=== PATIENT | female | born 1960 | race Caucasian/White ===

== ENCOUNTER → 2017-07-23 14:45 | Outpatient (CLI) | payer OTHER, SELFPAY ==
[2017-07-23 17:01] LABS: Absolute Lymphocyte Count 1.48 X10^3/ul (0.83-4.51); Absolute Neutrophil Count 4.6 X10^3/uL (2.0-7.7); Basophil# 0.03 X10^3/uL; Basophil% 0.4 % (0-1); Eosinophil# 0.26 X10^3/uL; Eosinophils% 3.7 % (0-5); Hematocrit 43.5 % (37-47); Hemoglobin 14.6 g/dl (12.0-15.0); Lymphocyte # 1.48 X10^3/ul (4.0); Lymphocyte % 21.2 % (19-41); Mean Corp Hgb Conc 33.6 g/gl (32-36); Mean Corpuscular Hgb 28.9 pg (27.0-32.0); Mean Platelet Vol. 11.5 fl (6.2-12.0); Monocyte# 0.65 X10^3/uL; Monocyte% 9.3 % (0-10); Neutrophil # 4.55 X10^3/uL (2.7-7.7); Neutrophil % 65.3 % (47-70); POSITIVE COUNT NO; POSITIVE DIFFERENTIAL NO; POSITIVE MORPHOLOGY NO; Platelet Count 281 K/mm3 (150-450); RBC Distribution Width CV 13.9 % (11.6-14.6); RBC Distribution Width SD 43.7 fl (35.1-43.9); Red Blood Count 5.06 M/mm3 (4.2-5.4)
[2017-07-23 17:20] LABS: ALB/GLOB Ratio 0.9 RATIO (0.9-2.4); AST(SGOT) 39 U/L (15-37); Alanine Aminotransfer ALT/SGPT 27 U/L (13-56); Albumin, Serum 3.5 g/dL (3.2-5.0); Alkaline Phosphatase 87 U/L (45-117); Anion Gap 8 (5-15); BUN 17 mg/dL (7-18); BUN/Creat Ratio 12.8 RATIO (10-20); Calcium,Total 9.3 mg/dL (8.5-10.1); Chloride 100 mmol/L (98-107); Creatinine, Serum 1.33 mg/dL (0.55-1.02); EST Glomerular Filtration Rate 44 mL/min (>60); Est Glom Filt Rate - Afr Amer 53 mL/min (>60); Globulin 3.8 g/dL (2.2-4.2); Glucose 107 mg/dL (74-106); Lipase 135 U/L (73-393); Potassium 3.5 mmol/L (3.5-5.1); Protein, Total 7.3 g/dL (6.4-8.2); Sodium Level 138 mmol/L (136-145)
== END ==
PROVIDERS: Family Provider Family Medicine; PCP Family Medicine; Visit Provider Family Medicine
DX: R10.9 Unspecified abdominal pain (principal); R11.2 Nausea with vomiting, unspecified
CPT/HCPCS: 36415; 80053; 83690; 85025

== ENCOUNTER → 2017-08-02 07:11 | Outpatient (CLI) | payer OTHER, SELFPAY ==
--- NOTE | 2017-08-02 07:18 | CT_ITS ---
STUDY: CT ABDOMEN AND PELVIS WITH CONTRAST REASON FOR EXAM: Female, 56 years old. Nausea and vomiting. Prior cholecystectomy. RADIATION DOSAGE (If Supplied By Facility): CTDIvol = ( 18.74 ) mGy, DLP = ( 1399.08 ) mGycm TECHNIQUE: Transaxial images were obtained from the dome of the diaphragm to the symphysis pubis with oral contrast. 100 ml of Isovue 300 contrast was administered. Sagittal and coronal images were reconstructed. Individualized dose optimization techniques were used for this CT. COMPARISON: September 14, 2015 FINDINGS: The visualized lung bases are unremarkable. The visualized portions of the heart are within normal limits. Shrunken and nodular appearance of the liver suggests cirrhosis. Moderate ascites fluid noted throughout the abdomen and pelvis. There are surgical clips in the gallbladder fossa consistent with a prior cholecystectomy. There is mild splenomegaly. Normal pancreas. Normal bilateral adrenal glands. Normal right kidney. Normal left kidney. Normal visualized stomach. Normal small intestine. There are multiple colonic diverticula consistent with diverticulosis. There is non-visualization of the appendix. Normal abdominal aorta. Normal inferior vena cava. Normal retroperitoneum. Urinary bladder is not clearly seen. There is absence of the uterus consistent with a prior hysterectomy. Fluid containing umbilical hernia. There are diffuse degenerative changes of the visualized lumbar spine. CT/Abdomen/Pelvis WITH Contrast IMPRESSION: Somewhat nodular and shrunken appearance of the liver suggests liver cirrhosis. This is new since the prior exam as well as development of moderate ascites fluid throughout the abdomen and pelvis. No evidence of small or large bowel obstruction. Lung bases are clear. Electronically Signed: Abimael Perez DO at 8:23 EDT Tel , Service support ,
== END ==
PROVIDERS: Family Provider Family Medicine; PCP Family Medicine; Visit Provider Family Medicine
DX: K59.00 Constipation, unspecified (principal); R18.8 Other ascites; R10.9 Unspecified abdominal pain; R11.2 Nausea with vomiting, unspecified; R63.4 Abnormal weight loss
CPT/HCPCS: 74177; Q9967

== ENCOUNTER → 2017-10-17 10:55 | Outpatient (CLI) | payer OTHER, SELFPAY ==
--- NOTE | 2017-10-17 10:55 | DT_ITS ---
This patient was seen during an EMR downtime October 14, 2017 - October 21, 2017. This patient may have a combination of paper and electronic documentation or all paper documentation. All documentation is viewable within the e-chart portion of [employer] for each patient visit.
[2017-10-22 02:08] LABS: BUN 16 mg/dL (7-18); BUN/Creat Ratio 14.4 RATIO (10-20); Calcium,Total 9.1 mg/dL (8.5-10.1); Creatinine, Serum 1.11 mg/dL (0.55-1.02); EST Glomerular Filtration Rate 54 mL/min (>60); Est Glom Filt Rate - Afr Amer 65 mL/min (>60); Potassium 4.1 mmol/L (3.5-5.1); Sodium Level 143 mmol/L (136-145)
[2017-10-22 02:09] LABS: Anion Gap 10 (5-15); Chloride 105 mmol/L (98-107); Glucose 116 mg/dL (74-106)
== END ==
PROVIDERS: Family Provider Family Medicine; PCP Family Medicine; Visit Provider Family Medicine
DX: R18.8 Other ascites (principal)
CPT/HCPCS: 36415; 80048

== ENCOUNTER → 2017-10-21 08:19 | Outpatient (CLI) | payer OTHER, SELFPAY ==
--- NOTE | 2017-10-21 08:19 | DT_ITS ---
This patient was seen during an EMR downtime October 14, 2017 - October 21, 2017. This patient may have a combination of paper and electronic documentation or all paper documentation. All documentation is viewable within the e-chart portion of [facility] for each patient visit.
--- NOTE | 2017-10-21 08:22 | BI_ITS ---
MAMMOGRAPHY - BILATERAL SCREENING REASON FOR EXAM: Female, 57 years old. Routine annual screening examination. PERTINENT HISTORY: Personal history of breast cancer. Prior left lumpectomy with radiation treatment. TECHNIQUE: Digital bilateral breast elias (3D mammographic acquisition) in the CC and MLO projections. 2-D mediolateral oblique (MLO) and craniocaudad (CC) views of both breasts were obtained. CAD: Full Field Digital Mammography with Computer Added Detection was performed. COMPARISON: Comparison is made with prior study dated October 18, 2016 and October 18, 2015. FINDINGS: Breast Composition: There are scattered areas of fibroglandular density. There are no dominant masses or suspicious calcifications. The patient is status post left lumpectomy with resultant architectural distortion and the upper outer quadrant left breast. Stable calcified nodule in the superior retroareolar region of the left breast. A tissue clip marker is once again seen in the upper outer quadrant of the right breast. No other significant abnormalities are identified. There has been no significant change since the prior study. BI/SCREENING MAMM (CAD), BILAT IMPRESSION: Stable bilateral screening mammogram. Yearly follow-up mammogram recommended. (A) ASSESSMENT CATEGORY: BIRADS Category 2: Benign. A letter regarding these results will be sent to the patient by the facility within 30 days. Approximately 10% of breast cancers are not detected by mammography. A normal mammogram should not delay biopsy of a clinically suspicious abnormality. [id number] Electronically Signed: Kannan Pennington MD at 8:01 EDT Tel [phone], Service support ,
== END ==
PROVIDERS: Family Provider Family Medicine; PCP Family Medicine; Visit Provider Nurse Practitioner
DX: Z12.31 Encounter for screening mammogram for malignant neoplasm of breast (principal); Z85.3 Personal history of malignant neoplasm of breast
CPT/HCPCS: 77063; 77067

== ENCOUNTER 2018-01-21 13:42 | Emergency (ER) | payer OTHER, SELFPAY ==
[2018-01-21 13:43] VITALS: BP 119/85; PULSE 75; RESP 16; TEMP 36.2; O2SAT 100; BMI 36.1
--- NOTE | 2018-01-21 14:09 | CT_ITS ---
STUDY: CT ABDOMEN AND PELVIS WITH CONTRAST REASON FOR EXAM: Female, 57 years old. Upper quadrant pain. Recent paracentesis. The patient has a history of cirrhosis as well as breast carcinoma with lumpectomy and radiation treatment. RADIATION DOSAGE (If Supplied By Facility): CTDIvol = ( 16.87 ) mGy, DLP = ( 1320.49 ) mGycm TECHNIQUE: Transaxial images were obtained from the dome of the diaphragm to the symphysis pubis without oral contrast. 100 ml of Isovue 300 contrast was administered. Sagittal and coronal images were reconstructed. Individualized dose optimization techniques were used for this CT. COMPARISON: Comparison is made with prior examination dated August 02, 2017. FINDINGS: The visualized lung bases are unremarkable. Coronary artery calcification. Diffuse ascites. There is decreased attenuation of the liver consistent with steatosis. The patient is status post cholecystectomy. Borderline splenomegaly. Normal pancreas. Normal bilateral adrenal glands. Normal right kidney. Normal left kidney. Normal visualized stomach. Normal small intestine. Normal colon. The appendix is visualized and appears normal. Normal abdominal aorta. Normal inferior vena cava. Normal retroperitoneum. Normal urinary bladder. There is evidence of an umbilical hernia containing a nondistended small bowel loop at this time. The neck of the hernia measures 2.8 cm. Normal osseous structures. CT/Abdomen/Pelvis W IV Cont ONLY IMPRESSION: Diffuse ascites. Umbilical hernia containing nondistended small bowel loop at this time with the neck of the hernia measuring 2.8 cm in transverse dimension. Electronically Signed: Kannan Pennington MD at 15:19 EDT Tel [phone], Service support ,
--- NOTE | 2018-01-21 14:10 | ED.VISSUMM ---
- ER Visit Summary Date of Service: 01/21/18 Chief Complaint: Abdominal pain History of Present Illness: The patient is a 57 F past medical history of diet-controlled diabetes, nonalcoholic liver cirrhosis and paracentesis. States that she had an abdominal paracentesis done today at the [facility] this was around 9 AM. Around 11 AM after eating breakfast or getting moderate upper quadrant abdominal pain. No fever. Nausea without vomiting. No diarrhea or melena. No dysuria. States she felt fine prior to having the abdominal paracentesis. She has had these multiple times and denies ever having this type of pain. Physical Examination: Middle-aged female complaining of pain vital signs are stable afebrile. H EENT exam unremarkable. Neck nontender. Lungs clear to auscultation bilaterally. Heart regular rhythm no murmur. Abdomen soft. Mild tenderness in the left upper quadrant epigastric region. Nondistended. Normal bowel sounds. No peritoneal signs. Both the right upper and right lower quadrants are unremarkable. Also has a umbilical hernia that is tender. It may be incarcerated. At this time I am unable to reduce it. No signs of obstruction. She is moving all 4 extremities. The neurovascular intact. Neurologically she is awake and alert with no focal motor deficits. Test Results: CBC normal. Chemistries unremarkable. Normal creatinine and gap. Liver enzymes unremarkable alk phos is elevated 138. Lipase normal. UA normal. Pelvis with IV contrast shows ascites which is her baseline. And umbilical hernia. There are no signs of perforation. Emergency Department Course and Treatment: Treated with IV morphine and Zofran. CT of the abdomen and pelvis will be obtained with labs. Treatment Plan: Repeat exam at 1625 patient still has tenderness over the umbilical hernia which I am unable to reduce. I am going to speak to the surgeon construction skills teacher who is Dr. Garibay the patient is seen her partner in the past Dr. Santiago. She will needed to determine if the patient needs to go directly to surgery for umbilical hernia repair. Disposition: Per general surgery Impression: Acute abdominal pain secondary to incarcerated abdominal hernia Status post abdominal paracentesis for known nonalcoholic liver cirrhosis This note was generated with [employer] dictation software. It may contain incorrect words, spelling, and punctuation that were not noted in review of the chart prior to signing ED Disposition - Plan for ED Patient: Chief Complaint: Abd Pain Referrals: Elias Rodriguez MD [Primary Care Provider] -
--- NOTE | 2018-01-21 14:13 | ED.DCSUM_ITS ---
- ER Visit Summary Date of Service: 01/21/18 Chief Complaint: Abdominal pain History of Present Illness: The patient is a 57 F past medical history of diet- controlled diabetes, nonalcoholic liver cirrhosis and paracentesis. States that she had an abdominal paracentesis done today at the [facility] this was around 9 AM. Around 11 AM after eating breakfast or getting moderate upper quadrant abdominal pain. No fever. Nausea without vomiting. No diarrhea or melena. No dysuria. States she felt fine prior to having the abdominal paracentesis. She has had these multiple times and denies ever having this type of pain. Physical Examination: Middle-aged female complaining of pain vital signs are stable afebrile. H EENT exam unremarkable. Neck nontender. Lungs clear to auscultation bilaterally. Heart regular rhythm no murmur. Abdomen soft. Mild tenderness in the left upper quadrant epigastric region. Nondistended. Normal bowel sounds. No peritoneal signs. Both the right upper and right lower quadrants are unremarkable. Also has a umbilical hernia that is tender. It may be incarcerated. At this time I am unable to reduce it. No signs of obstruction. She is moving all 4 extremities. The neurovascular intact. Neurologically she is awake and alert with no focal motor deficits. Test Results: CBC normal. Chemistries unremarkable. Normal creatinine and gap. Liver enzymes unremarkable alk phos is elevated 138. Lipase normal. UA normal. Pelvis with IV contrast shows ascites which is her baseline. And umbilical hernia. There are no signs of perforation. Emergency Department Course and Treatment: Treated with IV morphine and Zofran. CT of the abdomen and pelvis will be obtained with labs. Treatment Plan: Repeat exam at 1625 patient still has tenderness over the umbilical hernia which I am unable to reduce. I am going to speak to the surgeon national sales representative who is Dr. Garibay the patient is seen her partner in the past Dr. Santiago. She will needed to determine if the patient needs to go directly to surgery for umbilical hernia repair. Disposition: Per general surgery Impression: Acute abdominal pain secondary to incarcerated abdominal hernia Status post abdominal paracentesis for known nonalcoholic liver cirrhosis This note was generated with [employer] dictation software. It may contain incorrect words, spelling, and punctuation that were not noted in review of the chart prior to signing ED Disposition - Plan for ED Patient: Chief Complaint: Abd Pain Referrals: Elias Rodriguez MD [Primary Care Provider] -
[2018-01-21] MEDS: Morphine 4 MG/ML Syringe 6 MG IV (14:31)
[2018-01-21] MEDS: Ondansetron 4 MG/2 ML Vial IV ×3 (14:31→21:51)
[2018-01-21 14:34] LABS: Absolute Lymphocyte Count 0.88 X10^3/ul (0.83-4.51); Absolute Neutrophil Count 4.8 X10^3/uL (2.0-7.7); Basophil# 0.02 X10^3/uL; Basophil% 0.3 % (0-1); Eosinophil# 0.23 X10^3/uL; Eosinophils% 3.6 % (0-5); Hemoglobin 15.6 g/dl (12.0-15.0); Lymphocyte # 0.88 X10^3/ul (4.0); Lymphocyte % 13.8 % (19-41); Mean Corp Hgb Conc 33.9 g/gl (32-36); Mean Corpuscular Hgb 29.3 pg (27.0-32.0); Mean Corpuscular Volume 86.3 fL (81-99); Mean Platelet Vol. 9.8 fl (6.2-12.0); Monocyte# 0.38 X10^3/uL; Neutrophil # 4.84 X10^3/uL (2.7-7.7); Neutrophil % 76.1 % (47-70); Platelet Count 203 K/mm3 (150-450); RBC Distribution Width CV 14.2 % (11.6-14.6); RBC Distribution Width SD 44.3 fl (35.1-43.9); Red Blood Count 5.33 M/mm3 (4.2-5.4); White Blood Count 6.4 K/mm3 (4.4-11.0)
[2018-01-21 14:38] LABS: POSITIVE COUNT NO; POSITIVE DIFFERENTIAL NO; POSITIVE MORPHOLOGY NO
[2018-01-21 14:47] LABS: Mucous, Urine 0 SEEN /hpf (<or=2+); Red Blood Cells-Urine 0 SEEN /hpf (0-5)
[2018-01-21 14:47] LABS: AST(SGOT) 31 U/L (15-37); Alanine Aminotransfer ALT/SGPT 24 U/L (13-56); Albumin, Serum 3.1 g/dL (3.2-5.0); Alkaline Phosphatase 138 U/L (45-117); Anion Gap 9 (5-15); BUN 20 mg/dL (7-18); BUN/Creat Ratio 17.1 RATIO (10-20); Bilirubin, Direct 0.16 mg/dL (0.00-0.30); Chloride 104 mmol/L (98-107); Creatinine, Serum 1.17 mg/dL (0.55-1.02); EST Glomerular Filtration Rate 50 mL/min (>60); Est Glom Filt Rate - Afr Amer 61 mL/min (>60); Estimated Creatinine Clearance 50.97 ml/min; Globulin 3.7 g/dL (2.2-4.2); Glucose 144 mg/dL (74-106); Lipase 168 U/L (73-393); Potassium 3.2 mmol/L (3.5-5.1); Protein, Total 6.8 g/dL (6.4-8.2); Sodium Level 141 mmol/L (136-145)
[2018-01-21 14:49] LABS: Color, Urine Yellow (Yellow); Glucose, Dipstick Normal (Normal); Ketone-Dipstick Negative (Negative); Leukocyte Esterase-Dipstick 25 /ul (Negative); Nitrite-Dipstick Negative (Negative); Occult Blood-Urine Negative /ul (Negative); Protein-Dipstick Negative (Negative); Urine Bilirubin Dipstick Negative (Negative); Urine Clarity Sl. Cloudy (Clear); Urine Urobilinogen Normal (Normal); Urine pH 6.5 (5.0 - 8.0)
[2018-01-21 14:58] LABS: Squamous Epithelial Cells - UA 5-10 SEEN /hpf (5-10); White Blood Cells 0-5 SEEN /hpf (0-5)
[2018-01-21 14:59] LABS: Bacteria RARE /hpf (None Seen)
[2018-01-21 16:57] VITALS: BP 130/83; PULSE 77; RESP 16; O2SAT 98
--- NOTE | 2018-01-21 17:23 | NURSING ---
[facility] DR CARRERA FOR DR BLACKWELL
--- NOTE | 2018-01-21 18:16 | NURSING ---
CALLED [facility], TALKED TO DICK, NO BED YET. BEDS ARE TIGHT
[2018-01-21] MEDS: Morphine 4 MG/ML Syringe IV ×2 (18:36→21:51)
--- NOTE | 2018-01-21 20:12 | NURSING ---
ACCPETED TO [facility] [place]
[2018-01-21 20:17] VITALS: BP 132/78; PULSE 74; RESP 16; O2SAT 97
[2018-01-21 21:16] VITALS: BP 132/78; PULSE 74; RESP 16; O2SAT 97
== END 2018-01-21 21:54 | disposition short-term general hospital (02) ==
LOC: ED 14:11
PROVIDERS: Emergency Provider Emergency Medicine; Family Provider Family Medicine; PCP Family Medicine
DX: K42.0 Umbilical hernia with obstruction, without gangrene (principal); K74.69 Other cirrhosis of liver; Z98.890 Other specified postprocedural states; E11.9 Type 2 diabetes mellitus without complications; Z79.899 Other long term (current) drug therapy; Z87.891 Personal history of nicotine dependence
CPT/HCPCS: 74177; 80048; 80076; 81001; 83690; 85025; 96374; 96375; 96376; 99284; A4216; J2405

== ENCOUNTER → 2018-03-14 10:31 | Outpatient (CLI) | payer OTHER, SELFPAY ==
[2018-03-14 12:53] LABS: T4 Free Direct 1.22 ng/dL (0.76-1.46); Thyroid Stim Hormone (TSH) 7.17 uIU/mL (0.358-3.74)
== END ==
PROVIDERS: Family Provider Family Medicine; PCP Family Medicine; Visit Provider Family Medicine
DX: E03.9 Hypothyroidism, unspecified (principal)
CPT/HCPCS: 36415; 84439; 84443

== ENCOUNTER → 2018-04-25 13:10 | Outpatient (CLI) | payer OTHER, SELFPAY ==
[2018-04-25 14:10] LABS: International Normalized Ratio 1.1; Prothrombin Time (Protime)PT. 14.1 SECONDS (11.7-14.9)
[2018-04-25 14:43] LABS: Partial Thromboplast Time 30.4 Seconds (24.1-36.2)
--- OUTSIDE RECORDS SUMMARY | 2018-06-11 08:40 | XMS RPT_ITS ---
:1960 Author Organization OHIP Support Name Relationship Address Phone [employer]ENT [employer] Unavailable [address] + [place] [address] LUH MCDONALD Unavailable [address] + [address] [place] [address] HARJEET MCDONALD Unavailable [address] + [address] [place] [address] [employer] Un[address] + [place] [address] [facility] MCDONALD Unavailable [address] + [address] [place] [address] HARJEET MCDONALD Unavailable [address] + [address] [place] [address] [facility] [employer] Un[address] + [place] [address] [facility] MCDONALD Unavailable [address] + [address] [place] [address] HARJEET MCDONALD Unavailable [address] + [address] [place] [address] [employer]ENT [employer] Unavailable . + [place] [address] [facility] MCDONALD Unavailable [address] + [address] [place] [address] HARJEET MCDONALD Unavailable [address] + [address] [place] [address] BRENT [employer] Unavailable . + [place] [address] [facility] MCDONALD Unavailable [address] + [address] [place] [address] HARJEET MCDONALD Unavailable [address] + [address] [place] [address] [facility]ENT [employer] Unavailable . + [place] [address] HARRY [facility] Unavailable [address] + [address] [place] [address] HARRY HARJEET Unavailable [address] + [address] [place] [address] [facility] [employer] Unavailable . + [place] [address] [facility] MCDONALD Unavailable [address] + [address] [place] [address] HARRY HARJEET Unavailable [address] + [address] [place] [address] [employer] [employer] Unavailable . + [place] [address] [facility] MCDONALD Unavailable [address] + [address] [place] [address] HARRY HARJEET Unavailable [address] + [address] [place] [address] [employer] [employer] Unavailable . + [place] [address] [facility] MCDONAL[facility] Unavailable [address] + [address] [place] [address] HARRY HARJEET Unavailable [address] + [address] [place] [address] [facility] MCDONALD Unavailable [address] + [place] [address] HARRY HARJEET Unavailable [address] + [place] [address] [facility] Unavailable [address] + [place] [address] Care Team Providers Name Role Phone CHASIDY MIRANDA FELY Attending Unavailable SLIME GARBER (DOLPHIN RESEARCHER) Referring Unavailable WAKIM MIRANDA, FELY Referring Unavailable MAGALIS KABA Attending Unavailable SLIME GARBER (DOLPHIN RESEARCHER) Referring Unavailable WAKIM MIRANDA, FELY Referring Unavailable WAKIM MIRANDA, FELY Referring Unavailable SABRINA MA (DOLPHIN RESEARCHER) Attending Unavailable SABRINA MA (DOLPHIN RESEARCHER) Referring Unavailable WAKIM MIRANDA, FELY Referring Unavailable WAKIM MIRANDA, FELY Referring Unavailable LIDIA HURLEY Attending Unavailable DIANNE MEEKS Attending Unavailable WAKIM MIRANDA, FELY Referring Unavailable MAHNAZ BAJWA (DOLPHIN RESEARCHER) Attending Unavailable WAKIM MIRANDA, FELY Referring Unavailable WAKIM MIRANDA, FELY Attending Unavailable WAKIM MIRANDA, FELY Referring Unavailable WAKIM MIRANDA, FELY Referring Unavailable WAKIM MIRANDA, FELY Referring Unavailable WAKIM MIRANDA, FELY Referring Unavailable WAKIM MIRANDA, FELY Referring Unavailable EL RODOLFO, JAVIER M Admitting Unavailable EL RODOLFO, JAVIER M Attending Unavailable EL RODOLFO, JAVIER M Referring Unavailable LINDENMEYER, JENNIE (FEL) Attending Unavailable EL RODOLFO, JAVIER M Referring Unavailable LINDENMEYER, JENNIE (FEL) Referring Unavailable LINDENMEYER, JENNIE (FEL) Referring Unavailable LINDENMEYER, JENNIE (FEL) Referring Unavailable LINDENMEYER, JENNIE (FEL) Referring Unavailable LINDENMEYER, JENNIE (FEL) Referring Unavailable EL RODOLFO, JAVIER M Attending Unavailable LINDENMEYER, JENNIE (FEL) Referring Unavailable LINDENMEYER, JENNIE (FEL) Referring Unavailable LINDENMEYER, JENNIE (FEL) Referring Unavailable LINDENMEYER, JENNIE (FEL) Referring Unavailable LINDENMEYER, JENNIE (FEL) Referring Unavailable LINDENMEYER, JENNIE (FEL) Referring Unavailable LINDENMEYER, JENNIE (FEL) Referring Unavailable LINDENMEYER, JENNIE (FEL) Referring Unavailable LINDENMEYER, JENNIE (FEL) Referring Unavailable LINDENMEYER, JENNIE (FEL) Referring Unavailable LINDENMEYER, JENNIE (FEL) Referring Unavailable LINDENMEYER, JENNIE (FEL) Referring Unavailable LINDENMEYER, JENNIE (FEL) Attending Unavailable EL RODOLFO, JAVIER M Referring Unavailable LINDENMEYER, JENNIE (FEL) Referring Unavailable CASSIE HATFIELD Attending Unavailable Michael, Elias Primary Care Unavailable CASSIE HATFIELD Referring Unavailable CASSIE HATFIELD Attending Unavailable CASSIE HATFIELD Referring Unavailable Michael, Elias Primary Care Unavailable CASSIE HATFIELD Consulting Unavailable Michael, Elias Attending Unavailable Michael, Elias Primary Care Unavailable Michael, Elias Attending Unavailable Michael, Elias Primary Care Unavailable CASSIE HATFIELD Attending Unavailable CASSIE HATFIELD Referring Unavailable Michael, Elias Primary Care Unavailable CASSIE HATFIELD Consulting Unavailable CASSIE HATFIELD Attending Unavailable CASSIE HATFIELD Referring Unavailable Michael, Elias Primary Care Unavailable Sabrina Ma TRAIN OPERATIONS MANAGER-C Attending Unavailable Sabrina Ma TRAIN OPERATIONS MANAGER-C Referring Unavailable Michael, Elias Primary Care Unavailable Michael, Elias Attending Unavailable Michael, Elias Referring Unavailable Michael, Elias Primary Care Unavailable Elias Rodriguez Primary Care Unavailable Cortez Roman Attending Unavailable Elias Rodriguez Attending Unavailable Elias Rodriguez Primary Care Unavailable PROBLEMS PROBLEMS DATE TYPE CONDITION / CODE ATTENDING STATUS SOURCE 05/21/2018 Active Portal hypertension / NA Active [facility] K76.6(ICD-10) Clinic Main [place] Repository 05/07/2018 Unknown K75.81 - Nonalcoholic CASSIE HATFIELD Active [facility] steatohepatitis [facility] ([place]) / Hospital K75.81(ICD-10) Repository 05/07/2018 Unknown R18.8 - Other ascites CASSIE HATFIELD Active [place] / R18.8(ICD-10) [facility] Repository 03/14/2018 Unknown E03.9 - Elias Rodriguez Active [place] Hypothyroidism, Community unspecified / Hospital E03.9(ICD-10) Repository 01/31/2018 Active Type 2 diabetes NA Active [facility] mellitus without Clinic Main complications / [place] E11.9(ICD-10) Repository 01/31/2018 Active Other specified NA Active [facility] postprocedural states Clinic Main / Z98.890(ICD-10) [place] Repository 01/31/2018 Active Personal history of NA Active [facility] other diseases of the Clinic Main digestive system / [place] Z87.19(ICD-10) Repository 01/31/2018 Active Other ascites / NA Active [facility] R18.8(ICD-10) Clinic Main [place] Repository 11/12/2017 Active Obesity, unspecified NA Active [facility] / E66.9(ICD-10) Clinic Main [place] Repository 01/24/2018 Active Unspecified abdominal EL JAVIER REYNOLDS Active [facility] hernia with M Clinic Main obstruction, without [place] gangrene / Repository K46.0(ICD-10) 11/27/2017 Active Unspecified cirrhosis LIDIA HURLEY P Active [facility] of liver / Clinic Main K74.60(ICD-10) [place] Repository 11/14/2017 Unknown Z12.31 - Encounter Renu Ma for screening [place] TRAIN OPERATIONS MANAGER-C [facility] mammogram for Hospital malignant neoplasm of Repository breast / Z12.31(ICD-10) 10/02/2015 Active Nonalcoholic NA Active [facility] steatohepatitis Clinic Main ([place]) / [place] K75.81(ICD-10) Repository 10/02/2015 Active Biliary cirrhosis, NA Active [facility] unspecified / Clinic Main K74.5(ICD-10) [place] Repository 08/15/2017 Active Unknown / CHASIDY MIRANDA, Active [facility] UNK(Unknown) [facility] Main [place] Repository 08/07/2017 Unknown R10.9 - Unspecified Elias Rodriguez Active [place] abdominal pain / Community R10.9(ICD-10) Hospital Repository 07/23/2017 Unknown R11.2 - Nausea with Elias Rodriguez Active [place] vomiting, unspecified Community / R11.2(ICD-10) Hospital Repository PROCEDURES PROCEDURES No Procedure Records FoundRESULTS RESULTS CBC-COMPLETE BLOOD CNT Collected: 05/30/2018 Status: F Source: [place] NO DIFF 8:30 AM [facility] [place] REPOSITORY TYPE CODE TESTS RESULT OUT OF RANGE REFERENCE UNITS LAB L100.1000 4.4-11.0 K/mm3 Normal WBC 5.9 LAB L100.1200 4.2-5.4 M/mm3 Normal RBC 4.84 LAB L100.1300 12.0-15.0 g/dl Normal HGB 14.1 LAB L100.1400 37-47 % Normal HCT 43.0 LAB L100.1500 81-99 fL Normal MCV 88.8 LAB L100.1600 27.0-32.0 pg Normal MCH 29.1 LAB L100.1700 32-36 g/gl Normal MCHC 32.8 LAB L100.1810 11.6-14.6 % Normal RDW CV 13.7 LAB L100.1820 35.1-43.9 fl High RDW SD 44.4 LAB L100.1900 150-450 K/mm3 Normal PLT 244 LAB L100.2000 6.2-12.0 fl Normal MPV 9.9 Performed By: #### L100.0500 #### [facility] [address] [place], [place], [id number] PROTHROMBIN TIME W/INR Collected: 05/30/2018 Status: F Source: [place] 8:30 AM [facility] [place] REPOSITORY TYPE CODE TESTS RESULT OUT OF RANGE REFERENCE UNITS LAB L300.4150 11.7-14.9 SECONDS Normal PROTIME 14.3 LAB L300.4200 Normal INR 1.1 Performed By: #### L300.3900 #### [facility] [address] [place], [address] PARACENTESIS WITH US Observed: 05/30/2018 Status: F Source: [place] 8:16 AM [facility] REPOSITORY [facility] [place] [address] Paracentesis with US MR#: [id number] Acct: [id number] Name: PRITI MCDONALD Rep #: [id number] : 1960 F 57 From: Kannan Pennington MD PCP: Elias Rodriguez MD Status: REG CLI Study: Paracentesis with US Date of Exam: 05/30/18 Exam# [id number] Ordering Dr: SLIME GARBER PROCEDURE: Ultrasound guided paracentesis. DATE OF EXAMINATION: May 30, 2018.. INDICATION: Female, 57 years old. Ascites. PHYSICIAN: Kannan Pennington M.D. TECHNIQUE: The risks, benefits, and alternatives to the procedure were explained to the patient. The specific risks of bleeding, infection, and damage to bowel were detailed and accepted. Witnessed informed consent was obtained. The abdomen was ultrasonographically surveyed. An appropriate pocket of fluid was identified at the right lower quadrant. The skin were cleaned and prepped in the usual sterile fashion. Using ultrasound guidance, the peritoneal cavity was accessed with a 5-Malagasy paracentesis needle/catheter system. The trocar was removed. A total of 8720 ml of moses-colored fluid were removed from the peritoneal cavity. A 120 mL sample was sent to the laboratory. The catheter was removed and a sterile dressing was applied. The procedure was well tolerated. US/Paracentesis with US IMPRESSION: Ultrasound guided paracentesis. Electronically Signed: Kannan Pennington MD at 10:34 EST Tel [phone], Service support , CC: SLIME GARBER; Elias Rodriguez MD Lead Housekeeper: Signed FLUID/WASHING Observed: 05/30/2018 Status: F Source: [place] 12:00 AM [facility] REPOSITORY Patient: PRITI MCDONALD : 1960 (57/F) Acct Num: [id number] Phys: OUT OF TOWN DOCTOR Unit Num: [id number] Loc: [facility] Specimen: [id number] Received: 05/30/18 - 1038 Spec Type: Fluid TISSUES 1 TISSUES: PARACENTESIS FLUID COMMENT Clinical correlation is suggested. CULTURE RESULTS No results available. CYTOLOGY GROSS Received is 118 ml of clear yellow fluid labeled with the patient's name and and designated per the requisition as paracentesis. Submitted for cytology preparation including cell block. / 05/30/18 TC: 5 CPT: 19811, 78275 CYTOLOGY STUDY Slides are reviewed. The specimen primarily contains macrophages with occasional reactive mesothelial cells. DIAGNOSIS CYTOLOGY Paracentesis fluid for cytology (Cytospin and cell block): Negative for malignant cells. AM:sp 06/02/18 HEADER OPERATION: Ultrasound-guided right paracentesis PRE-OP DIAGNOSIS: Ascites TISSUE SUBMITTED: Paracentesis fluid for cytology SPUTUM CULTURE RESULTS No results available. Signed Bill Colon DO 06/02/18 <signature on file> Performed By: #### PFLU #### [facility] [address] [place] [address]. [place], [address] HISTORY PHYSICAL Observed: 05/21/2018 Status: COMPLETED Source: [place] 10:00 AM [facility] REPOSITORY HNO ID: [id number] Author: Vibha Davis Service: (none) Author Type: Nurse Practitioner Type: HANDP Filed: 05/21/2018 12:15 PM Note Text: CONSULT: Interventional Radiology Service SERVICE DATE: 05/21/2018 SERVICE TIME: 1000 REASON FOR CONSULT: TIPS procedure REQUESTING PHYSICIAN: Jennie Becerra MD PRIMARY CARE PHYSICIAN: Elias Rodriguez MD Consultation requested by Dr. Becerra for an opinion regarding the TIPS procedure. Final recommendations will be communicated back to the requesting physician by way of shared Medical record or letter to requesting physician via US mail. Subjective HPI: Mrs. Mcdonald is a 57 year old female with PMH significant for depression, DM, breast CA S/P lumpectomy and Tamoxifen, hypothyroidism, Meniere's disease, and [place] cirrhosis C/B PHTN and refractory ascites. She requires a paracentesis every 2 weeks for ~9 liters removed despite diuretic use. The patient was diagnosed with [place] cirrhosis in 2015 with a liver biopsy. Current symptoms include abdominal fullness, early satiety, nausea, SOB near paracentesis, and recurrent ascites. Last EGD in 09/2017 was negative for esophageal varices. Denies history of SBP. MELD score: 7. ECO. H/O HE; prescribed Lactulose and Rifaximin. Diagnostic testing includes LVUS, CT, and ECHO. The patient is referred to Interventional Radiology for evaluation regarding the TIPS procedure as a treatment for portal hypertension. Appetite: Baseline Energy level: Decreased Nausea/vomiting: Occasional Pain: Denies Sleep: 6 to 7 hours in a 24-hour period Weight: Stable FUNCTIONAL STATUS: Independent PAST MEDICAL HISTORY Diagnosis Date - Depressive disorder, not elsewhere classified - Hypothyroidism - Mammographic microcalcification 08/24/08 RIGHT BREAST - Meniere's disease, unspecified - Snoring - Type II or unspecified type diabetes mellitus without mention of complication, not stated as uncontrolled PAST SURGICAL HISTORY Procedure Laterality Date - COLONOSCOP W/ OR W/O BRSH SPEC 04/29/15 Colonoscopy - COLONOSCOPY 04/04/10 VJ -hyperplastic polyp - LIGATE FALLOPIAN TUBE 1989 Tubal ligation - PAST SURGICAL HISTORY OF 2003 Bunionectomy - PAST SURGICAL HISTORY OF Clean out endometriosis - PAST SURGICAL HISTORY OF 12/2010. Total Hysterectomy - PAST SURGICAL HISTORY OF 10/18/11 Lt breast lumpectomy with SLN biopsy - PAST SURGICAL HISTORY OF 2009 Vaginal sling FAMILY HISTORY Problem Relation Age of Onset - Heart Mother - Heart Father - Heart Maternal Grandfather - Heart Paternal Grandfather - Cancer Maternal Grandmother brain Social History Substance Use Topics - Smoking status: Former Smoker Types: Cigarettes - Smokeless tobacco: Never Used Comment: Social smoker while in college. - Alcohol use Yes Comment: occasional Current Outpatient Prescriptions on File Prior to Visit: levothyroxine (SYNTHROID) 137 mcg tablet Take 1.5 tablets by mouth once daily. furosemide (LASIX) 20 mg tablet Take 1 tablet by mouth once daily. spironolactone (ALDACTONE) 50 mg tablet Take 1 tablet by mouth once daily. rifAXIMin (XIFAXAN) 550 mg tab Take 1 tablet by mouth twice daily. ergocalciferol, vitamin D2, (VITAMIN D) 50,000 unit capsule Take 1 capsule by mouth once each week. zinc sulfate 220 (50) mg capsule Take 1 capsule by mouth once daily. lactulose (DUPHALAC, CONSTULOSE) 20 gram/30 mL solution Take 30 mL by mouth twice daily. meclizine (ANTIVERT) 25 mg tab Take 1 tablet by mouth every 6 hours as needed. ADDERALL XR 30 mg 24 hr capsule dextran 70-hypromellose (TEARS PURE) ophthalmic solution 1 Drop as needed. PARoxetine (PAXIL) 10 mg tablet DULOXETINE 60 mg capsule Take 60 mg by mouth once daily. Allergies As of Date: 05/21/2018 Allergen Noted Reaction CODEINE 04/28/2007 GI Upset COMPLETE REVIEW OF SYSTEMS: PAIN ASSESSMENT: Negative for pain, history of chronic pain, or current treatment for a chronic pain condition. GENERAL: No weight loss, malaise, or fevers. RESPIRATORY: SOB near paracentesis. Negative for cough, hemoptysis, wheezing, COPD, dyspnea. CARDIOVASCULAR: Negative for chest pain, leg swelling, hypertension, CHF, or palpitations. GI: Positive for occasional nausea. No vomiting or diarrhea. : No history of dysuria, frequency, or incontinence. HEMATOLOGY/LYMPHOLOGY: Negative for prolonged bleeding, bruising easily, or swollen nodes. NEURO: No history of headaches, syncope, paralysis, seizures, or tremors. Objective PHYSICAL EXAM: BP 126/85 Pulse 93 Resp 16 LMP 08/09/2008 SpO2 100% GENERAL: Alert, no distress, pleasant and cooperative. SKIN: Skin color, texture, turgor normal. No rashes or lesions. LUNGS: Lungs clear to auscultation. Good diaphragmatic excursion. CARDIAC: RRR. ABDOMEN: Large, soft, non-tender, BS normal. EXTREMITIES: No deformities, edema, clubbing, or skin discoloration. NEURO: Gait normal. Sensation grossly intact. PULSES: 2+ radial. DATA: Diagnostic tests reviewed for today's visit: Most recent labs and imaging results. OSH CT imaging reviewed by Dr. Blanc. Hemoglobin (g/dL) Date Value 02/27/2018 14.5 Hematocrit (%) Date Value 02/27/2018 44.1 WBC (k/uL) Date Value 02/27/2018 5.73 Platelet Count (k/uL) Date Value 02/27/2018 234 CMP: Glucose 191 05/02/2018 BUN 14 05/02/2018 Creatinine 1.24 05/02/2018 Sodium 140 05/02/2018 Potassium 4.4 05/02/2018 Chloride 106 05/02/2018 CO2 25 05/02/2018 Protein, Total 6.0 05/02/2018 Albumin 3.4 05/02/2018 Calcium 9.2 05/02/2018 Alkaline Phosphatase 133 05/02/2018 Bilirubin, Total 0.8 05/02/2018 AST 27 05/02/2018 ALT 15 05/02/2018 PT/INR: 1.0 02/27/2018 ECHO: Echocardiography Report: Transthoracic Echo [facility] J1-5 Date of service: 02/27/2018 3:35:51 PM Ordering physician: JENNIE SQUIRES) HERNAN Indication: Hypertensive heart disease ? Technologist: Miya Alvarez Fellow: Hector Bradley MD Interpreting physician: Kenneth Michael DO ? PATIENT: Name: MRS. PRITI MCDONALD : 1960 Age: 57 years Gender: F Primary rhythm: sinus. Height: 170.20 cm BSA: 2.15 m? Weight: 97.34 kg ?BMI: 33.6 kg/m? ? Heart rate ? ? 82 bpm Blood pressure 140/63 mmHg Technically difficult exam due to body habitus. Color Doppler was utilized to interrogate the cardiac valves assessed and spectral ?Doppler was utilized to determine the flow velocities and pressure gradients reported in this exam. ? MEASUREMENTS: ?Value ? Indexed ? ?Normal Max aortic dimension ? ? 3.6 cm ?1.68 cm/m? Left atrium diameter ? ? 3.2 cm (M-Mode) Left atrial volume ? ? ? 30 ml (biplane A-L) 14 ml/m? ? Dung <= 34 LV ID (diastole) ? 3.2 cm (2D) LV ID (systole) ?1.9 cm (2D) IVS, leaflet tips ?1.0 cm (2D) Posterior wall thickness 1.1 cm (2D) Left ventricular mass ?47 g/m? LV stroke volume ? 40 ml (2D biplane) LV end diastolic volume ?64 ml (2D biplane) ?29.9 ml/m? 29<=EDVi<62 LV end systolic volume ? 25 ml (2D biplane) ?11.4 ml/m? Ejection Fraction ?62 % (2D biplane) ?EF > 54 ? FINDINGS: ? LEFT VENTRICLE The left ventricle is normal in size. Left ventricular systolic function is normal. Normal left ventricular diastolic function. Mitral annular lateral E/e': 8.5. Mitral annular septal E/e': 9.5. Wall Motion: All scored segments are normal. ? ? RIGHT VENTRICLE The right ventricle is normal in size. Right ventricular systolic function is normal. RV systolic tissue Doppler velocity ?is 12.8 cm/s. Tricuspid annular displacement is 2.0 cm. Estimated right ventricular systolic pressure is not reported due to an insufficient tricuspid regurgitation signal. ? LEFT ATRIUM The left atrial cavity is normal in size. ? RIGHT ATRIUM The right atrial cavity is normal in size. Inferior Vena Cava: The inferior vena cava appears normal measuring 1.7 cm. The vessel decreases greater than 50 percent with inspiration. MITRAL VALVE There is trivial mitral valve regurgitation. The pressure half time is 60 msec. The peak mitral E/A ratio is 1.06. The average mitral E/e' ratio is 9.0. The mitral flow deceleration time is 206 msec. ? TRICUSPID VALVE There is trivial tricuspid valve regurgitation. There is no thickening. ? AORTIC VALVE There is trivial aortic valve regurgitation. Tricuspid aortic valve. There is no thickening. ? PULMONIC VALVE The pulmonic valve was not seen or not interrogated. There is trivial pulmonic valve regurgitation. ? AORTA The visualized aorta is normal in size. Measurements - Sinus 2.6 cm. Sinotubular junction 2.3 cm. Mid ascending aorta 3.6 cm. PERICARDIUM Ascites. There is an epicardial fat pad. ? CONCLUSIONS: - Technically difficult exam due to body habitus. - Exam indication: Hypertensive heart disease - The left ventricle is normal in size. Left ventricular systolic function is normal. EF = 62 ? 5% (2D biplane) Normal left ventricular diastolic function. - The right ventricle is normal in size. Right ventricular systolic function is normal. - There are no significant valvular abnormalities. - The patient has not had a prior CC echocardiographic exam for comparison. ? liver vascular: DATE OF EXAM: Feb 27 2018 ?2:20PM ? KORI ? 1233 ?- ?US ABD LIVER VASCULAR ?/ PROCEDURE REASON: Other ascites ?? ? LIVER VASCULAR ULTRASOUND WITH DOPPLER IMAGING HISTORY: Cirrhosis COMPARISON: 12/26/2017 TECHNIQUE: ?Sonography of the liver with color and spectral Doppler imaging of the hepatic vasculature was performed. Images were obtained and stored in a permanent archive. RESULT: SONOGRAPHIC FINDINGS: Pancreas: Normal sonographic appearance. ?? Portions obscured: None Liver: ?? ? Echotexture: ?Coarse ?? ? Echogenicity: ?Heterogeneous ?? ? Surface contour: ?Nodular ?? ? Lesions: ?None. Biliary: No intrahepatic biliary duct dilation. ?? ? CBD: 0.3 cm at the hilum. ?? ? Gallbladder: Prior cholecystectomy Right Kidney: No hydronephrosis. Spleen: The craniocaudal length of the spleen is 11.7 cm, normal. ?There are no splenic lesions. Other: Small volume ascites HEPATIC VASCULATURE: PORTAL SYSTEM: ?? ? -Splenic Vein: Patent with antegrade flow (towards the liver). ?? ? -Main PV: ?Patent with normal, phasic antegrade flow (towards liver). ?20 ?cm/sec ?? ? -Right anterior PV: Patent with phasic antegrade flow (towards liver). ?? ? -Right posterior PV: Patent with phasic antegrade flow (towards liver). ?? ? -Left PV: Patent with phasic antegrade flow (towards liver). Splenorenal shunt: None identified Recannulized paraumbilical vein: no HEPATIC ARTERIES: ?? ?- Main CASTELLANOS: ?Normal waveform ? PSV: ?47 cm/sec. RI: 0.73 ?? ?- Right anterior CASTELLANOS: Normal waveform ?? ?- Right posterior CASTELLANOS: ?Normal waveform ?? ?- Left CASTELLANOS: Normal waveform Hepatic Veins: ?? ? -Left: Patent with triphasic waveform. ?? ? -Middle: Patent with triphasic waveform. ?? ? -Right: Patent with triphasic waveform. IVC: Patent with normal, phasic wave form. IMPRESSION: PATENT HEPATIC VASCULATURE WITH APPROPRIATELY DIRECTED FLOW. CIRRHOTIC LIVER MORPHOLOGY. ?NO HEPATIC LESION. SMALL VOLUME ASCITES Lead Housekeeper: PSCB ? Transcribe Date/Time: Feb 27 2018 ?3:00P Dictated by : TIRSO GRAF MD This examination was interpreted and the report reviewed and electronically signed by: TIRSO GRAF MD on Feb 27 2018 ?3:03PM ?EST Impression/Recommendations 57 year old female with PMH significant for depression, DM, breast CA S/P lumpectomy and Tamoxifen, hypothyroidism, Meniere's disease, and [place] cirrhosis C/B PHTN and refractory ascites. She is a candidate for the TIPS procedure. Dr. Blanc was present and all information and imaging was reviewed. The risks, benefits, alternatives, and personnel involved with the procedure were discussed in detail. There was opportunity for question and answer. It was explained that this procedure is performed under general anesthesia and that a consultation with this service would be done as part of planning. It was clarified the use of blood products must be considered. It was explained that this procedure requires at least an overnight hospitalization and that the patient would be monitored by the Hepatology service afterward. Plan: - [facility] - PACE/IMPACT - Preop labs (CBC w PLTs, CMP, PT/INR, TANDS) - Paracentesis 1 day prior to TIPS; patient may have paracentesis locally. - TIPS with KELVIN and hospital admission [facility] - Provider introduced self to patient/family, laid out plan of appointment. - Risks and benefits were discussed with the patient. - Questions were invited and answered, asked patient if clarification was needed. - Insured patient understand plan moving forward. - Patient was escorted to the lobby, next appointment if needed. - Insured further appointment needs met, directions, etc. - Next appointment contacted of patients arrival (if late). SIGNATURE: Vibha Davis APRN.CNP PATIENT NAME: Priti Mcdonald DATE: May 21, 2018 TIME: 10:00 AM PAGER: [phone] BODY FLUID CELL Collected: 05/16/2018 Status: C Source: LOI COUNT+DIFF 8:45 AM [facility] REPOSITORY Order Comment: Specimen Source: THERAPETEUTIC PARACENTESIS TYPE CODE TESTS RESULT OUT OF RANGE REFERENCE UNITS LAB L200.3380 0.000-0.000 10 3/ul High BFTC# 0.521 Result Comment: This is the Total Number of Nucleated Cell Types in the Body Fluid. LAB L200.3500 10 3/uL Normal 0.476 WBC/BF LAB L200.3510 % Normal 14.5 BF PMN WBC% LAB L200.3515 % Normal 85.5 BF MN WBC% LAB L200.3520 10 3/uL Normal 0.407 BF MN WBC# LAB L200.3525 10 3/uL Normal 0.069 BF PMN WBC# LAB L200.4400 Normal PATH COMM/BF Reviewed Result Comment: Negative for malignant cells. Bill Colon D.O. 05/19/18 AMENDED REPORT 05/19/18 1134 PATH COMM/BF previously reported as: May follow LAB L200.3100 Normal SOURCE/BF OTHER Result Comment: RIGHT PARACENTESIS LAB L200.3200 Normal COLOR/BF YELLOW LAB L200.3300 Normal SL APPEAR/BF CLDY LAB L200.3400 /mm3 Normal RBC/BF 57 LAB L200.3600 % Normal PMN 13 LAB L200.3700 % Normal LYMPH 78 LAB L200.3800 % Normal MONO/BF 9 LAB L200.4420 Normal BFM 2ND SPEC SEE COMMENT Performed By: #### L200.0200 #### [facility] [address] [place], [address] PARACENTESIS WITH US Observed: 05/16/2018 Status: F Source: LOI 8:17 AM [facility] REPOSITORY [facility] Imaging Services [address] [place] [address] Paracentesis with US MR#: [id number] Acct: [id number] Name: PRITI MCDONALD Rep #: [id number] : [id number] F [id number] From: Kannan Pennington MD PCP: Elias Rodriguez MD Status: REG CLI Study: Paracentesis with US Date of Exam: 05/16/18 Exam# [id number] Ordering Dr: SLIME GARBER PROCEDURE: Ultrasound guided paracentesis. DATE OF EXAMINATION: May 16, 2018.. INDICATION: Female, 57 years old. Ascites. PHYSICIAN: Kannan Pennington M.D. TECHNIQUE: The risks, benefits, and alternatives to the procedure were explained to the patient. The specific risks of bleeding, infection, and damage to bowel were detailed and accepted. Witnessed informed consent was obtained. The abdomen was ultrasonographically surveyed. An appropriate pocket of fluid was identified at the right lower quadrant. The skin were cleaned and prepped in the usual sterile fashion. Using ultrasound guidance, the peritoneal cavity was accessed with a 5-Malagasy paracentesis needle/catheter system. The trocar was removed. A total of 9020 ml of moses-colored fluid were removed from the peritoneal cavity. A 120 mL sample was sent to the laboratory for analysis. The catheter was removed and a sterile dressing was applied. The procedure was well tolerated. US/Paracentesis with US IMPRESSION: Ultrasound guided paracentesis. Electronically Signed: Kannan Pennington MD at 10:39 EST Tel [phone], Service support , CC: SLIME GARBER; Elias Rodriguez MD Lead Housekeeper: Signed PROGRESS Observed: 05/09/2018 Status: COMPLETED Source: [place] 9:47 AM [facility] REPOSITORY O ID: [id number] Author: Jennie Becerra Service: (none) Author Type: Physician Type: Progress Notes Filed: 05/09/2018 6:36 PM Note Text: [facility]SI CLINIC FOLLOWUP NAME: Priti Mcdonald [facility] NO: [id number] REFERRING PHYSICIAN: Javier Reynolds PRESENTING COMPLAINT: BARRAG[place] Cirrhosis HPI: Priti Mcdonald is a 57 year old year old female with PMHx significant for: - 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 - Hypothyroidism on Synthroid - Meniere disease - Metabolic syndrome- last A1c of 5.9. - Hx of breast cancer s/p lumpectomy (s/p tamoxifen x 5 years.) Who presents as a followup for BARRAGAN cirrhosis. She was last seen in clinic on 01/31/18 as a hospital followup for which she had recently undergone umbilical hernia repair, and was suffering with poor wound healing, rapid ascites reaccumulation, Grade I Encephalopathy, and constipation. At that visit, she was started on lactulose for the constipation and HE, which she says has helped her have a bowel movement daily, whereas previously she only went 2-3 times per week. She was also subsequently started on Rifaximin which she has tolerated well. Her mental status has remained sharp, and her sleep wake cycle is normal. Her diuretic regimen was also adjusted and she remains on lasix 20 mg qd + aldactone 50 mg qd for the last several months with no ADRs. She states that she has good urine output, but is still rapidly accumulating ascites requiring paracentesis q2 weeks (most recently on 05/02/18) which normally produce anywhere from 6-10 liters of ascitic fluid. Her weight today on 05/09 is 243 which is up from from 234 on 04/22. She says that her salt intake is normally good, but has been a bit more slack during the holidays. Her post surgical wounds which were initially difficult to heal, have now healed nicely and she has no pain at the surgical sites, or at the VIMAL drain site. Other labs noted to be elevated last visit include TSH (44), for which she is following with an collection officer who is uptitrating her synthroid. She was non-immune to hepatitis A and B, and has since received vaccinations for both with her final dose in September 2018. She has also been started on vitamin D supplementation for Vit. D levels of 7.8. She also started her TIPS evlauation by receiving LVUS and Echocardiogram, which were both normal. On interview today, she states that she feels very well, and has minimal concerns. On ROS she endorses early satiety, nausea, occasional SOB, and abdominal fullness prior to receiving her james. She wants to discuss the possibility of TIPS at her appointment today. LIVER HISTORY Risk Factors: 1. Blood transfusions before 1991: No 2. IVDA: No 3. Intranasal coccaine use: No 4. Tattoos: No 5. Service: No 6. High risk sexual behavior: No 7. Alcohol: No 9. Obesity: Yes 9. Hyperlipidemia: N/A ? Complications of Cirrhosis: 1. Ascites: Yes 2. SBP: No 3. Non-bleeding varices: No 4. Variceal hemorrage: No 5. Portosystemic encephalopathy: No 6. Hepatorenal Syndrome: No 7. Hepatopulmonary Syndrome: No 8. Hepatic hydrothorax: No 9. Recurrent Cholangitis (PSC): No ? Liver Related Procedures: - EGD:Yes, Date: 09/2017 - Endoscopic treatment of esophageal varices:No - ERCP:No - Colonsocopy:Yes, Date: 2014 - Liver biopsy:Yes, Date: N/A - TIPS:No - Paracentesis:Yes, - PHTC or biliary stenting:No REVIEW OF SYSTEMS GENERAL: No unexplained weight changes or fevers. HEENT: Negative for severe headaches, negative for changes in hearing or vision. NECK: Negative for lumps, masses or pain. RESPIRATORY: Negative for coughing, wheezing. SOB every few weeks prior to paracentesis. CARDIOVASCULAR: Negative for chest pain or heart palpitations. GASTROINTESTINAL: Nausea, early satiety, ascites. No constipation, diarrhea, abdominal pain. GENITOURINARY: Negative for dysuria or urinary incontinence. MUSCULOSKELETAL: Negative for unexplained joint pains, dislocations or fractures. NEUROLOGIC: Negative for unexplained weakness or vertigo. SKIN: Negative for new lesions or rashes. ENDOCRINE: Negative for cold or heat intolerance . Current Outpatient Prescriptions: ADDERALL XR 30 mg 24 hr capsule Disp: Rfl: 0 dextran 70-hypromellose (TEARS PURE) ophthalmic solution 1 Drop as needed. Disp: Rfl: DULOXETINE 60 mg capsule Take 60 mg by mouth once daily. Disp: Rfl: ergocalciferol, vitamin D2, (VITAMIN D) 50,000 unit capsule Take 1 capsule by mouth once each week. Disp: 4 capsule Rfl: 5 furosemide (LASIX) 20 mg tablet Take 1 tablet by mouth once daily. Disp: 30 tablet Rfl: 1 lactulose (DUPHALAC, CONSTULOSE) 20 gram/30 mL solution Take 30 mL by mouth twice daily. Disp: 6 Bottle Rfl: 5 levothyroxine (SYNTHROID) 137 mcg tablet Take 137 mcg by mouth once daily. Disp: Rfl: meclizine (ANTIVERT) 25 mg tab Take 1 tablet by mouth every 6 hours as needed. Disp: 30 tablet Rfl: 1 PARoxetine (PAXIL) 10 mg tablet Disp: Rfl: rifAXIMin (XIFAXAN) 550 mg tab Take 1 tablet by mouth twice daily. Disp: 60 tablet Rfl: 11 spironolactone (ALDACTONE) 50 mg tablet Take 1 tablet by mouth once daily. Disp: 30 tablet Rfl: 3 zinc sulfate 220 (50) mg capsule Take 1 capsule by mouth once daily. Disp: 30 capsule Rfl: 11 No current facility-administered medications for this visit. ALLERGIES Allergen Reactions - Codeine GI Upset nausea Social History Marital status: Spouse name: Years of education: Number of children: Social History Main Topics Smoking status: Former Smoker Packs/day: 0.00 Years: 0.00 Types: Cigarettes Smokeless tobacco: Never Used Comment: Social smoker while in college. Alcohol use: Yes Comment: occasional Drug use: No Sexual activity: Yes Partners with: Male PAST MEDICAL HISTORY Diagnosis Date - Depressive disorder, not elsewhere classified - Hypothyroidism - Mammographic microcalcification 08/24/08 RIGHT BREAST - Meniere's disease, unspecified - Snoring - Type II or unspecified type diabetes mellitus without mention of complication, not stated as uncontrolled @SHX@ FAMILY HISTORY Problem Relation Age of Onset - Heart Mother - Heart Father - Heart Maternal Grandfather - Heart Paternal Grandfather - Cancer Maternal Grandmother brain PHYSICAL EXAM BP 136/75 Pulse 90 Temp (Src) 98.3 (Oral) Ht 5' 7 (1.70m) Wt 242 lb 12.8 oz (110.1kg) SpO2 98% LMP 08/09/2008 BMI 38.02 kg/(m2). General Appearance: Well appearing, alert, in no acute distress, well-hydrated, well nourished. Eyes: PERRLA, conjunctiva and sclera normal Oropharynx: Lips, tongue, and oral mucosa normal. There is no thrush or oral ulcers. Lungs:breath sounds clear to auscultation bilaterally, no crackles, rhonchi, or wheezes Heart: regular rate and rhythm, no murmurs or gallops. Abdomen: Protuberant and distended abdomen. Shifting dullness appreciated on percussion. No tenderness to palpation. Bowel sounds normal x4. Extremities: no cyanosis or edema Skin: no jaundice, no spider angiomas, no palmar erythema Neuro:alert, oriented x 3, pleasant and in no acute distress. No asterixis. Recent Labs: Hemoglobin (g/dL) Date Value 02/27/2018 14.5 Hematocrit (%) Date Value 02/27/2018 44.1 WBC (k/uL) Date Value 02/27/2018 5.73 Glucose (mg/dL) Date Value 05/02/2018 191 Potassium (mmol/L) Date Value 05/02/2018 4.4 Sodium (mmol/L) Date Value 05/02/2018 140 Chloride (mmol/L) Date Value 05/02/2018 106 CO2 (mmol/L) Date Value 05/02/2018 25 Creatinine (mg/dL) Date Value 05/02/2018 1.24 BUN (mg/dL) Date Value 05/02/2018 14 Anion Gap (mmol/L) Date Value 05/02/2018 9 Calcium (mg/dL) Date Value 05/02/2018 9.2 Albumin (g/dL) Date Value 05/02/2018 3.4 (L) Bilirubin, Total (mg/dL) Date Value 05/02/2018 0.8 Alkaline Phosphatase (U/L) Date Value 05/02/2018 133 (H) AST (U/L) Date Value 05/02/2018 27 ALT (U/L) Date Value 05/02/2018 15 Protein, Total (g/dL) Date Value 05/02/2018 6.0 (L) MELD-Na score: 7 at 02/27/2018 9:35 AM MELD score: 7 at 02/27/2018 9:35 AM Calculated from: Serum Creatinine: 1.14 mg/dL at 02/27/2018 9:35 AM Serum Sodium: 137 mmol/L at 02/27/2018 9:35 AM Total Bilirubin: 0.5 mg/dL (Rounded to 1) at 02/27/2018 9:35 AM INR(ratio): 1 at 02/27/2018 9:35 AM Age: 57 years Imaging: US Doppler Complete on 02/27/18 IMPRESSION: PATENT HEPATIC VASCULATURE WITH APPROPRIATELY DIRECTED FLOW. CIRRHOTIC LIVER MORPHOLOGY. ?NO HEPATIC LESION. SMALL VOLUME ASCITES Echocardiogram on 02/27/18 CONCLUSIONS: - Technically difficult exam due to body habitus. - Exam indication: Hypertensive heart disease - The left ventricle is normal in size. Left ventricular systolic function is normal. EF = 62 ? 5% (2D biplane) Normal left ventricular diastolic function. - The right ventricle is normal in size. Right ventricular systolic function is normal. - There are no significant valvular abnormalities. - The patient has not had a prior CC echocardiographic exam for comparison. EGD on 09/11/17 Impression: ? - Normal esophagus. No varices were identified. - Portal hypertensive gastropathy. - Normal examined duodenum. - No specimens collected. IMPRESSION Priti Mcdonald is a 57 y.o. F w/PMH of BARRAGAN Cirrhosis c/b ascites and HE, metabolic syndrome, and Hx of breast cancer who presents as a routine followup for her BARRAG[place] cirrhosis. She has been optimized medically in regards to her liver health as she has received recent imaging, EGD in the September 2017, Hepatitis A and B vaccines (one more in the series), and is on a stable regimen of Lactulose, Rifaximin, Zinc, Lasix, and Aldactone. She does still have decompensated cirrhosis w/rapidly accumulating ascites requiring paracentesis every other week. She is interested in pursuing TIPS to alleviate these sxs. We spent a significant amount of the encounter explaining the procedure to here, including the risks and the benefits for which she verbalized understanding. PLAN: 1. Nonalcoholic steatohepatitis (BARRAGAN) - ICD9: 571.8, ICD10: K75.81 (primary diagnosis) - Continue to optimize risk factors by avoiding alcohol intake. - Due to receive final hepatitis vaccine in September 2018. - IR INTERVENTIONAL CONSULT FOR TIPS - CONSULT TO TIPS CLINIC 2. Other ascites - ICD9: 789.59, ICD10: R18.8 - IR INTERVENTIONAL CONSULT - CONSULT TO TIPS CLINIC - Continue Lasix 20 mg qd + Aldactone 50 mg qd. Unable to increase these doses as she has developed VENANCIO when attempted in the past. 3. Vitamin D deficiency - ICD9: 268.9, ICD10: E55.9 - Continue Vitamin D supplementation 4. Hepatic encephalopathy (HCC) - ICD9: 572.2, ICD10: K72.90 - Continue Lactulose + zinc + Rifaximin 5. Hypothyroidism, unspecified type - ICD9: 244.9, ICD10: E03.9 - LEVOTHYROXINE 137 MCG TABLET Chris Estrella MD, PGY-1 Internal Medicine Department Pager #[phone] THIS NOTE IS NOT FINAL UNTIL SIGNED BY DR. HERNAN VALIENTE. [facility] STAFF PHYSICIAN NOTE OF PERSONAL INVOLVEMENT IN CARE I have reviewed the history and physical examination obtained and documented by the resident and I personally participated in the laughlin components. I have discussed the case and management of the patient's care. The following comments revise or confirm relevant laughlin components of their note. Assessment IMPRESSION Ms. Mcdonald is a 57yoF with BARRAGAN-related cirrhosis c/b portal HTN (diuretic-refractory ascites limited by renal function necessitating LVP every 2 weeks, mild HE, PHG, fatigue), also metabolic syndrome, Meniere's disease, depression, breast CA, hypothyroidism. She underwent incarcerated hernia repair 01/22/18, and her post-op course has been complicated by refractory ascites. MELD-Na score: 7 at 02/27/2018 9:35 AM MELD score: 7 at 02/27/2018 9:35 AM Calculated from: Serum Creatinine: 1.14 mg/dL at 02/27/2018 9:35 AM Serum Sodium: 137 mmol/L at 02/27/2018 9:35 AM Total Bilirubin: 0.5 mg/dL (Rounded to 1) at 02/27/2018 9:35 AM INR(ratio): 1 at 02/27/2018 9:35 AM Age: 57 years PLAN:? -BARRAGAN-related cirrhosis c/b portal HTN: Biopsy-proven at time of [facility], report not available for review. Discussed tight control of metabolic risk factors, expectant management, low MELD. -Refractory ascites - Diuresis limited by renal function. On Lasix 20mg daily and aldactone 50mg daily. Long discussion today regarding risks, benefits, alternatives of TIPS. She wishes to discuss further with IR and likely proceed with TIPS before she returns to full-time employment this spring. I think that she is a good candidate for this. Continue prn OSH LVP. -HE - Mild, Grade 1, medically controlled on lactulose, rifaximin and zinc. -EV screening - UTD 09/11/17; Due for repeat screening in 2- 3 years. -HCC screening - UTD 02/27/18; repeat US in 6 months. -Non-immune to HAV/HBV - Received 2nd Twinrix 04/12/18, due for 3rd in September -Vitamin D deficiency - On replacement therapy, re-check level at end of treatment ? Return to office in 3 months, or 2 weeks after TIPS, whichever is first I spent 45 minutes in the visit, with more than 50% of the total [id number]-[id number] time of the visit in counseling / coordination of care. Jennie Becerra MD May 09, 2018 6:27 PM PROGRESS Observed: 05/09/2018 Status: COMPLETED Source: [place] 9:47 AM [facility] REPOSITORY HNO ID: [id number] Author: Jennie Squires) [place] Service: (none) Author Type: Physician Type: Progress Notes Filed: 05/09/2018 6:36 PM Note Text: NATE Observed: 05/09/2018 Status: COMPLETED Source: [place] 9:10 AM [facility] REPOSITORY Office Visit ([id number]) PRITI MCDONALD ([id number]) 1960 F Date Time Provider Department 05/09/18 9:10 AM JENNIE BECERRA) [id number] During your visit today, we recorded the following information about you: Temperature Pulse Blood pressure Weight 98.3 degrees 90/minute 136/75 110.1 kg Height 1.702 m Jennie Becerra MD 05/09/2018 6:36 PM Signed Jennie Becerra MD 05/09/2018 6:36 PM Signed [facility] CLINIC FOLLOWUP NAME: Priti Mcdonald CLINIC NO: [id number] REFERRING PHYSICIAN: Javier Reynolds PRESENTING COMPLAINT: BARRAGAN Cirrhosis HPI: Priti Mcdonald is a 57 year old year old female with PMHx significant for: - 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 - Hypothyroidism on Synthroid - Meniere disease - Metabolic syndrome- last A1c of 5.9. - Hx of breast cancer s/p lumpectomy (s/p tamoxifen x 5 years.) Who presents as a followup for BARRAG[place] cirrhosis. She was last seen in clinic on 01/31/18 as a hospital followup for which she had recently undergone umbilical hernia repair, and was suffering with poor wound healing, rapid ascites reaccumulation, Grade I Encephalopathy, and constipation. At that visit, she was started on lactulose for the constipation and HE, which she says has helped her have a bowel movement daily, whereas previously she only went 2-3 times per week. She was also subsequently started on Rifaximin which she has tolerated well. Her mental status has remained sharp, and her sleep wake cycle is normal. Her diuretic regimen was also adjusted and she remains on lasix 20 mg qd + aldactone 50 mg qd for the last several months with no ADRs. She states that she has good urine output, but is still rapidly accumulating ascites requiring paracentesis q2 weeks (most recently on 05/02/18) which normally produce anywhere from 6-10 liters of ascitic fluid. Her weight today on 05/09 is 243 which is up from from 234 on 04/22. She says that her salt intake is normally good, but has been a bit more slack during the holidays. Her post surgical wounds which were initially difficult to heal, have now healed nicely and she has no pain at the surgical sites, or at the VIMAL drain site. Other labs noted to be elevated last visit include TSH (44), for which she is following with an collection officer who is uptitrating her synthroid. She was non-immune to hepatitis A and B, and has since received vaccinations for both with her final dose in September 2018. She has also been started on vitamin D supplementation for Vit. D levels of 7.8. She also started her TIPS evlauation by receiving LVUS and Echocardiogram, which were both normal. On interview today, she states that she feels very well, and has minimal concerns. On ROS she endorses early satiety, nausea, occasional SOB, and abdominal fullness prior to receiving her james. She wants to discuss the possibility of TIPS at her appointment today. LIVER HISTORY Risk Factors: 1. Blood transfusions before 1991: No 2. IVDA: No 3. Intranasal coccaine use: No 4. Tattoos: No 5. Service: No 6. High risk sexual behavior: No 7. Alcohol: No 9. Obesity: Yes 9. Hyperlipidemia: N/A ? Complications of Cirrhosis: 1. Ascites: Yes 2. SBP: No 3. Non-bleeding varices: No 4. Variceal hemorrage: No 5. Portosystemic encephalopathy: No 6. Hepatorenal Syndrome: No 7. Hepatopulmonary Syndrome: No 8. Hepatic hydrothorax: No 9. Recurrent Cholangitis (PSC): No ? Liver Related Procedures: - EGD:Yes, Date: 09/2017 - Endoscopic treatment of esophageal varices:No - ERCP:No - Colonsocopy:Yes, Date: 2014 - Liver biopsy:Yes, Date: N/A - TIPS:No - Paracentesis:Yes, - PHTC or biliary stenting:No REVIEW OF SYSTEMS GENERAL: No unexplained weight changes or fevers. HEENT: Negative for severe headaches, negative for changes in hearing or vision. NECK: Negative for lumps, masses or pain. RESPIRATORY: Negative for coughing, wheezing. SOB every few weeks prior to paracentesis. CARDIOVASCULAR: Negative for chest pain or heart palpitations. GASTROINTESTINAL: Nausea, early satiety, ascites. No constipation, diarrhea, abdominal pain. GENITOURINARY: Negative for dysuria or urinary incontinence. MUSCULOSKELETAL: Negative for unexplained joint pains, dislocations or fractures. NEUROLOGIC: Negative for unexplained weakness or vertigo. SKIN: Negative for new lesions or rashes. ENDOCRINE: Negative for cold or heat intolerance . Current Outpatient Prescriptions: ADDERALL XR 30 mg 24 hr capsule Disp: Rfl: 0 dextran 70-hypromellose (TEARS PURE) ophthalmic solution 1 Drop as needed. Disp: Rfl: DULOXETINE 60 mg capsule Take 60 mg by mouth once daily. Disp: Rfl: ergocalciferol, vitamin D2, (VITAMIN D) 50,000 unit capsule Take 1 capsule by mouth once each week. Disp: 4 capsule Rfl: 5 furosemide (LASIX) 20 mg tablet Take 1 tablet by mouth once daily. Disp: 30 tablet Rfl: 1 lactulose (DUPHALAC, CONSTULOSE) 20 gram/30 mL solution Take 30 mL by mouth twice daily. Disp: 6 Bottle Rfl: 5 levothyroxine (SYNTHROID) 137 mcg tablet Take 137 mcg by mouth once daily. Disp: Rfl: meclizine (ANTIVERT) 25 mg tab Take 1 tablet by mouth every 6 hours as needed. Disp: 30 tablet Rfl: 1 PARoxetine (PAXIL) 10 mg tablet Disp: Rfl: rifAXIMin (XIFAXAN) 550 mg tab Take 1 tablet by mouth twice daily. Disp: 60 tablet Rfl: 11 spironolactone (ALDACTONE) 50 mg tablet Take 1 tablet by mouth once daily. Disp: 30 tablet Rfl: 3 zinc sulfate 220 (50) mg capsule Take 1 capsule by mouth once daily. Disp: 30 capsule Rfl: 11 No current facility-administered medications for this visit. ALLERGIES Allergen Reactions - Codeine GI Upset nausea Social History Marital status: Spouse name: Years of education: Number of children: Social History Main Topics Smoking status: Former Smoker Packs/day: 0.00 Years: 0.00 Types: Cigarettes Smokeless tobacco: Never Used Comment: Social smoker while in college. Alcohol use: Yes Comment: occasional Drug use: No Sexual activity: Yes Partners with: Male PAST MEDICAL HISTORY Diagnosis Date - Depressive disorder, not elsewhere classified - Hypothyroidism - Mammographic microcalcification 08/24/08 RIGHT BREAST - Meniere's disease, unspecified - Snoring - Type II or unspecified type diabetes mellitus without mention of complication, not stated as uncontrolled @SHX@ FAMILY HISTORY Problem Relation Age of Onset - Heart Mother - Heart Father - Heart Maternal Grandfather - Heart Paternal Grandfather - Cancer Maternal Grandmother brain PHYSICAL EXAM BP 136/75 Pulse 90 Temp (Src) 98.3 (Oral) Ht 5' 7 (1.70m) Wt 242 lb 12.8 oz (110.1kg) SpO2 98% LMP 08/09/2008 BMI 38.02 kg/(m2). General Appearance: Well appearing, alert, in no acute distress, well-hydrated, well nourished. Eyes: PERRLA, conjunctiva and sclera normal Oropharynx: Lips, tongue, and oral mucosa normal. There is no thrush or oral ulcers. Lungs:breath sounds clear to auscultation bilaterally, no crackles, rhonchi, or wheezes Heart: regular rate and rhythm, no murmurs or gallops. Abdomen: Protuberant and distended abdomen. Shifting dullness appreciated on percussion. No tenderness to palpation. Bowel sounds normal x4. Extremities: no cyanosis or edema Skin: no jaundice, no spider angiomas, no palmar erythema Neuro:alert, oriented x 3, pleasant and in no acute distress. No asterixis. Recent Labs: Hemoglobin (g/dL) Date Value 02/27/2018 14.5 Hematocrit (%) Date Value 02/27/2018 44.1 WBC (k/uL) Date Value 02/27/2018 5.73 Glucose (mg/dL) Date Value 05/02/2018 191 Potassium (mmol/L) Date Value 05/02/2018 4.4 Sodium (mmol/L) Date Value 05/02/2018 140 Chloride (mmol/L) Date Value 05/02/2018 106 CO2 (mmol/L) Date Value 05/02/2018 25 Creatinine (mg/dL) Date Value 05/02/2018 1.24 BUN (mg/dL) Date Value 05/02/2018 14 Anion Gap (mmol/L) Date Value 05/02/2018 9 Calcium (mg/dL) Date Value 05/02/2018 9.2 Albumin (g/dL) Date Value 05/02/2018 3.4 (L) Bilirubin, Total (mg/dL) Date Value 05/02/2018 0.8 Alkaline Phosphatase (U/L) Date Value 05/02/2018 133 (H) AST (U/L) Date Value 05/02/2018 27 ALT (U/L) Date Value 05/02/2018 15 Protein, Total (g/dL) Date Value 05/02/2018 6.0 (L) MELD-Na score: 7 at 02/27/2018 9:35 AM MELD score: 7 at 02/27/2018 9:35 AM Calculated from: Serum Creatinine: 1.14 mg/dL at 02/27/2018 9:35 AM Serum Sodium: 137 mmol/L at 02/27/2018 9:35 AM Total Bilirubin: 0.5 mg/dL (Rounded to 1) at 02/27/2018 9:35 AM INR(ratio): 1 at 02/27/2018 9:35 AM Age: 57 years Imaging: US Doppler Complete on 02/27/18 IMPRESSION: PATENT HEPATIC VASCULATURE WITH APPROPRIATELY DIRECTED FLOW. CIRRHOTIC LIVER MORPHOLOGY. ?NO HEPATIC LESION. SMALL VOLUME ASCITES Echocardiogram on 02/27/18 CONCLUSIONS: - Technically difficult exam due to body habitus. - Exam indication: Hypertensive heart disease - The left ventricle is normal in size. Left ventricular systolic function is normal. EF = 62 ? 5% (2D biplane) Normal left ventricular diastolic function. - The right ventricle is normal in size. Right ventricular systolic function is normal. - There are no significant valvular abnormalities. - The patient has not had a prior CC echocardiographic exam for comparison. EGD on 09/11/17 Impression: ? - Normal esophagus. No varices were identified. - Portal hypertensive gastropathy. - Normal examined duodenum. - No specimens collected. IMPRESSION Priti Mcdonald is a 57 y.o. F w/PMH of BARRAG[place] Cirrhosis c/b ascites and HE, metabolic syndrome, and Hx of breast cancer who presents as a routine followup for her BARRAGAN cirrhosis. She has been optimized medically in regards to her liver health as she has received recent imaging, EGD in the September 2017, Hepatitis A and B vaccines (one more in the series), and is on a stable regimen of Lactulose, Rifaximin, Zinc, Lasix, and Aldactone. She does still have decompensated cirrhosis w/rapidly accumulating ascites requiring paracentesis every other week. She is interested in pursuing TIPS to alleviate these sxs. We spent a significant amount of the encounter explaining the procedure to here, including the risks and the benefits for which she verbalized understanding. PLAN: 1. Nonalcoholic steatohepatitis (B[place]AGAN) - ICD9: 571.8, ICD10: K75.81 (primary diagnosis) - Continue to optimize risk factors by avoiding alcohol intake. - Due to receive final hepatitis vaccine in September 2018. - IR INTERVENTIONAL CONSULT FOR TIPS - CONSULT TO TIPS CLINIC 2. Other ascites - ICD9: 789.59, ICD10: R18.8 - IR INTERVENTIONAL CONSULT - CONSULT TO TIPS CLINIC - Continue Lasix 20 mg qd + Aldactone 50 mg qd. Unable to increase these doses as she has developed VENANCIO when attempted in the past. 3. Vitamin D deficiency - ICD9: 268.9, ICD10: E55.9 - Continue Vitamin D supplementation 4. Hepatic encephalopathy (HCC) - ICD9: 572.2, ICD10: K72.90 - Continue Lactulose + zinc + Rifaximin 5. Hypothyroidism, unspecified type - ICD9: 244.9, ICD10: E03.9 - LEVOTHYROXINE 137 MCG TABLET Chris Estrella MD, PGY-1 Internal Medicine Department Pager #[phone] THIS NOTE IS NOT FINAL UNTIL SIGNED BY DR. HERNAN VALIENTE. [facility] STAFF PHYSICIAN NOTE OF PERSONAL INVOLVEMENT IN CARE I have reviewed the history and physical examination obtained and documented by the resident and I personally participated in the laughlin components. I have discussed the case and management of the patient's care. The following comments revise or confirm relevant laughlin components of their note. Assessment IMPRESSION Ms. Mcdonald is a 57yoF with BARRAGAN-related cirrhosis c/b portal HTN (diuretic-refractory ascites limited by renal function necessitating LVP every 2 weeks, mild HE, PHG, fatigue), also metabolic syndrome, Meniere's disease, depression, breast CA, hypothyroidism. She underwent incarcerated hernia repair 01/22/18, and her post-op course has been complicated by refractory ascites. MELD-Na score: 7 at 02/27/2018 9:35 AM MELD score: 7 at 02/27/2018 9:35 AM Calculated from: Serum Creatinine: 1.14 mg/dL at 02/27/2018 9:35 AM Serum Sodium: 137 mmol/L at 02/27/2018 9:35 AM Total Bilirubin: 0.5 mg/dL (Rounded to 1) at 02/27/2018 9:35 AM INR(ratio): 1 at 02/27/2018 9:35 AM Age: 57 years PLAN:? -BARRAGAN-related cirrhosis c/b portal HTN: Biopsy-proven at time of CCK, report not available for review. Discussed tight control of metabolic risk factors, expectant management, low MELD. -Refractory ascites - Diuresis limited by renal function. On Lasix 20mg daily and aldactone 50mg daily. Long discussion today regarding risks, benefits, alternatives of TIPS. She wishes to discuss further with IR and likely proceed with TIPS before she returns to full-time employment this spring. I think that she is a good candidate for this. Continue prn OSH LVP. -HE - Mild, Grade 1, medically controlled on lactulose, rifaximin and zinc. -EV screening - UTD 09/11/17; Due for repeat screening in 2- 3 years. -HCC screening - UTD 02/27/18; repeat US in 6 months. -Non-immune to HAV/HBV - Received 2nd Twinrix 04/12/18, due for 3rd in September -Vitamin D deficiency - On replacement therapy, re-check level at end of treatment ? Return to office in 3 months, or 2 weeks after TIPS, whichever is first I spent 45 minutes in the visit, with more than 50% of the total sctb-il-bbfv time of the visit in counseling / coordination of care. Jennie Becerra MD May 09, 2018 6:27 PM Referring Provider: JAVIER HENLEY [[id number]] Allergies As of Date: 05/09/2018 Noted Allergy Reaction CODEINE 04/28/2007 8 - GI Upset Comments: nausea Date Reviewed: 05/09/2018 Reviewed by: Jennie Becerra - Fully Assessed Reason for Visit: Established Patient [175] Cmt: cirrhosis Primary Visit Diagnosis:Nonalcoholic steatohepatitis (B[place]AN) [K75.81] Other Visit Diagnoses:Other ascites [R18.8] Vitamin D deficiency [E55.9] Hepatic encephalopathy (HCC) [K72.90] Hypothyroidism, unspecified type [E03.9] Order(s):IR INTERVENTIONAL CONSULT [[id number]] Order #: [id number] CONSULT TO TIPS CLINIC [[id number]] Order #: [id number]: 1 levothyroxine (SYNTHROID) 137 mcg tabletTake 1.5 tablets by mouth once daily.Disp: Rfl: Prescriptions as of 05/09/2018 Sig: ADDERALL XR 30 MG CAPSULE,EXT* DEXTRAN 70-HYPROMELLOSE EYE D* 1 Drop as needed. DULOXETINE 60 MG CAPSULE,AGGIE* Take 60 mg by mouth once alka* ERGOCALCIFEROL (VITAMIN D2) 5* Take 1 capsule by mouth once * FUROSEMIDE 20 MG TABLET Take 1 tablet by mouth once d* LACTULOSE 20 GRAM/30 ML ORAL * Take 30 mL by mouth twice lita* LEVOTHYROXINE 137 MCG TABLET Take 1.5 tablets by mouth onc* MECLIZINE 25 MG TABLET Take 1 tablet by mouth every * PAROXETINE 10 MG TABLET RIFAXIMIN 550 MG TABLET Take 1 tablet by mouth twice * SPIRONOLACTONE 50 MG TABLET Take 1 tablet by mouth once d* ZINC SULFATE 220 MG (50 MG) C* Take 1 capsule by mouth once * Medication notes this encounter LEVOTHYROXINE 137 MCG TABLET >> Shayne Amin LPN 05/09/2018 9:08 AM >> SHAYNE AMIN LPN SatMay 09, 2018 9:08 AM Now Takes 170 mcg Problem List As Of Date 05/09/2018 Noted Resolved SKIN SENSATION DISTURB [R20.9] INVALID FOR* MENIERE'S DISEASE NOS [H81.09] Controlled type 2 diabetes mellitus without com* DEPRESSIVE DISORDER NEC [F32.9] Abnormal mammogram, unspecified [R92.8] INVALID FOR* Breast cancer [C50.919] INVALID FOR* History of breast cancer [Z85.3] INVALID FOR* History of colonic polyps [Z86.010] INVALID FOR*04/29/2015 RUQ pain [R10.11] INVALID FOR* Nonalcoholic steatohepatitis ([place]) [K75.81] INVALID FOR* 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 Other ascites [R18.8] INVALID FOR* S/P repair of ventral hernia [Z98.890, Z87.19] INVALID FOR* Constipation [K59.00] INVALID FOR* Acute kidney injury (HCC) [N17.9] INVALID FOR* Vitamin D deficiency [E55.9] INVALID FOR* Hepatic encephalopathy (HCC) [K72.90] INVALID FOR* Prescriptions ordered this encounter Disp Refills Start End LEVOTHYROXINE 137 MCG TABLET 05/09/2018 Class: Med Update Route: ORAL Sig: Take 1.5 tablets by mouth once daily. Medications Discontinued During This Encounter levothyroxine (SYNTHROID) 137 mcg ta* 04/14/2017 05/09/2018 Class: Historical Med Route: ORAL Sig: Take 137 mcg by mouth once daily. Disc: Reason for discontinue is not on file. Disposition: Return in about 3 months (around 08/07/2018). Follow-up and Disposition History Recorded Encounter Status:Closed by JENNIE BECERRA MD on 05/09/18 CNCO Observed: 05/09/2018 Status: COMPLETED Source: [place] 12:00 AM [facility] REPOSITORY Letter Text [facility] Jennie Becerra MD Department of Gastroenterology [address] [place] [address] Appointments: [phone] Office: [phone] May 09, 2018 Re: Priti Mcdonald [address] [facility] [address] To Whom it May Concern: Ms. Mcdonald requires regular paracentesis for therapy of abdominal ascites. Her post-paracentesis 25% albumin solution may be infused at a rate of 400 cc/hr. Please do not hesitate to contact me with questions or concerns. Sincerely, Jennie Becerra MD PARACENTESIS WITH US Observed: 05/02/2018 Status: F Source: [place] 12:23 PM [facility] REPOSITORY [facility] Imaging Services [address] [place] [address] Paracentesis with US MR#: [id number] Acct: [id number] Name: PRITI MCDONALD Rep #: [id number] : [id number] F 57 From: Kannan Pennington MD PCP: Elias Rodriguez MD Status: REG CLI Study: Paracentesis with US Date of Exam: 05/02/18 Exam# [id number] Ordering Dr: JENNIE BAUM PROCEDURE: Ultrasound guided paracentesis. DATE OF EXAMINATION: May 02, 2018.. INDICATION: Female, 57 years old. Ascites. PHYSICIAN: Kannan Pennington M.D. TECHNIQUE: The risks, benefits, and alternatives to the procedure were explained to the patient. The specific risks of bleeding, infection, and damage to bowel were detailed and accepted. Witnessed informed consent was obtained. The abdomen was ultrasonographically surveyed. An appropriate pocket of fluid was identified at the right lower quadrant. The skin were cleaned and prepped in the usual sterile fashion. Using ultrasound guidance, the peritoneal cavity was accessed with a 5-Malagasy paracentesis needle/catheter system. The trocar was removed. A total of 8970 ml of moses-colored fluid were removed from the peritoneal cavity. The catheter was removed and a sterile dressing was applied. The procedure was well tolerated. US/Paracentesis with US IMPRESSION: Ultrasound guided paracentesis. Electronically Signed: Kannan Pennington MD at 14:46 EST Tel [phone], Service support , CC: JENNIE BAUM; Elias Rodriguez MD Lead Housekeeper: Signed COMP METABOLIC PANEL Collected: 05/02/2018 Status: F Source: [place] 9:51 AM [facility] REPOSITORY TYPE CODE TESTS RESULT OUT OF REFERENCE UNITS RANGE LAB TP 6.3-8.0 g/dL Protein, Low Total 6.0 LAB ALB 3.9-4.9 g/dL Albumin Low 3.4 LAB CA 8.5-10.2 mg/dL Calcium, Total 9.2 LAB TBIL 0.2-1.3 mg/dL Bilirubin, Total 0.8 LAB ALKP 34-123 U/L Alkaline High Phosphatase 133 LAB AST 13-35 U/L AST 27 LAB GLU 74-99 mg/dL Glucose High 191 LAB BUN 7-21 mg/dL BUN 14 LAB CRET 0.58-0.96 mg/dL Creatinine High 1.24 LAB NA 136-144 mmol/L Sodium 140 LAB K 3.7-5.1 mmol/L Potassium 4.4 LAB CL 97-105 mmol/L Chloride High 106 LAB CO2 22-30 mmol/L CO2 25 LAB AGAP mmol/L Anion Gap 9 LAB ALT 7-38 U/L ALT 15 LAB GFRAA eGFR- 54 Amer. LAB GFRNAA . eGFR-All Other Races 44 Result Comment: eGFR (Estimated GFR) Units of measure: mL/min/1.73 meters squared eGFR is derived from the reexpressed MDRD Study equation using the following parameters: serum creatinine, age, gender and race. The creatinine assay has been calibrated to be traceable to IDMS. An eGFR <60 mL/min/1.73m2 for >3 months is consistent with chronic kidney disease. Refer to KDOQI guidelines for clinical interpretation. In patients with unstable renal function, e.g. those with acute kidney injury, the eGFR may not accurately reflect actual GFR. PROTHROMBIN TIME W/INR Collected: 04/25/2018 Status: F Source: [place] 1:21 PM [facility] REPOSITORY TYPE CODE TESTS RESULT OUT OF RANGE REFERENCE UNITS LAB L300.4150 11.7-14.9 SECONDS Normal PROTIME 14.1 LAB L300.4200 Normal INR 1.1 Performed By: #### L300.3900, L300.4310 #### [facility] [address] [facility]. [place], [place], [id number] PARTIAL THROMBOPLAST Collected: 04/25/2018 Status: F Source: [place] TIME 1:21 PM [facility] REPOSITORY TYPE CODE TESTS RESULT OUT OF RANGE REFERENCE UNITS LAB L300.4310 24.1-36.2 Seconds Normal PTT 30.4 Performed By: #### L300.3900, L300.4310 #### [facility] [address] [place], [address] CNPN Observed: 04/23/2018 Status: COMPLETED Source: [place] 12:00 AM [facility] REPOSITORY Telephone ([id number]) PRITI MCDONALD ([id number]) 1960 F Date Time Provider Department 04/23/18 JENNIE BECERRA) [id number] During your visit today, we recorded the following information about you: Daisy Lion RN, RN 04/23/2018 4:52 PM Signed Dear Edna Schneider has arranged for this patient to have paracentesis locally at [facility] ([phone]). First para scheduled 05/02/18. Rec'd a call from [facility] requesting orders for APTT and INR to be completed at their lab prior to day of procedure. Confirmed patient is not on anticoagulants at this time. Could you please sign pended orders? Thanks, Romana Dear Edna- Per our convo, pls fax orders when signed and inform of patient for need to have labs at [facility] prior to procedure (cannot be done day of). Thank you- Romana Lion RN April 23, 2018 4:51 PM Jennie Becerra MD 04/23/2018 5:54 PM Signed Signed! Thank you both very much. -Jennie Menjivar RN, RN 04/24/2018 11:36 AM Addendum APTT and INR orders faxed to [facility] [phone] (fax number confirmed) as requested below. Patient informed to please have her labs done at [facility] at her earliest convenience. States she will get them done tomorrow. Diane Menjivar RN Allergies As of Date: 04/23/2018 Noted Allergy Reaction CODEINE 04/28/2007 8 - GI Upset Comments: nausea Date Reviewed: 04/22/2018 Reviewed by: Lila Pate (Rn) WILIAM Fontenot - Fully Assessed Reason for Visit: Local paracentesis [Other] Primary Visit Diagnosis:Nonalcoholic steatohepatitis ([place]) [K75.81] Order(s):PROTHROMBIN TIME/PT [SQPT] Order #: [id number] FUTURE ACTIVATED PTT [SQPTT] Order #: [id number] FUTURE Prescriptions as of 04/23/2018 Sig: ADDERALL XR 30 MG CAPSULE,EXT* DEXTRAN 70-HYPROMELLOSE EYE D* 1 Drop as needed. DULOXETINE 60 MG CAPSULE,AGGIE* Take 60 mg by mouth once alka* ERGOCALCIFEROL (VITAMIN D2) 5* Take 1 capsule by mouth once * FUROSEMIDE 20 MG TABLET Take 1 tablet by mouth once d* LACTULOSE 20 GRAM/30 ML ORAL * Take 30 mL by mouth twice lita* LEVOTHYROXINE 137 MCG TABLET Take 137 mcg by mouth once da* MECLIZINE 25 MG TABLET Take 1 tablet by mouth every * PAROXETINE 10 MG TABLET RIFAXIMIN 550 MG TABLET Take 1 tablet by mouth twice * SPIRONOLACTONE 50 MG TABLET Take 1 tablet by mouth once d* ZINC SULFATE 220 MG (50 MG) C* Take 1 capsule by mouth once * Problem List As Of Date 04/23/2018 Noted Resolved SKIN SENSATION DISTURB [R20.9] INVALID FOR* MENIERE'S DISEASE NOS [H81.09] Controlled type 2 diabetes mellitus without com* DEPRESSIVE DISORDER NEC [F32.9] Abnormal mammogram, unspecified [R92.8] INVALID FOR* Breast cancer [C50.919] INVALID FOR* History of breast cancer [Z85.3] INVALID FOR* History of colonic polyps [Z86.010] INVALID FOR*04/29/2015 RUQ pain [R10.11] INVALID FOR* Nonalcoholic steatohepatitis ([place]) [K75.81] INVALID FOR* 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 Other ascites [R18.8] INVALID FOR* S/P repair of ventral hernia [Z98.890, Z87.19] INVALID FOR* Constipation [K59.00] INVALID FOR* Acute kidney injury (HCC) [N17.9] INVALID FOR* Vitamin D deficiency [E55.9] INVALID FOR* Hepatic encephalopathy (HCC) [K72.90] INVALID FOR* Encounter Status:Closed by JENNIE BECERRA MD on 04/23/18 CELL COUNT/DIFF BF Collected: 04/22/2018 Status: F Source: [place] 9:45 AM [facility] REPOSITORY TYPE CODE TESTS RESULT OUT OF REFERENCE UNITS RANGE LAB BFSITE Site Ascites Fluid LAB BFCOL Color Yellow LAB BFCLR Clear Clarity Clear LAB BFSCOL Suprntnt Color Yellow LAB BFSCLR Clear Suprntnt Clear Clarity LAB BFRBC /uL RBC <2000 LAB BFWBC /uL Nucleated 307 Cells, BF LAB BFCOM BF Comment SEE COMMENT Result Comment: Test Not Indicated LAB BFREV BF SEE Review COMMENT Result Comment: Test Not Indicated LAB BFSLNM Slide [id number] Number BF LAB BFNEUT % Neut% 7 LAB BFLYMP % 60 Lymph% LAB BFMONO % [place]% 29 LAB BFMACR % 3 Macro% LAB BFMESO % [place]% 1 Performed By: #### CCBF #### [facility] [address] [place], [place] [address] PROGRESS Observed: 04/22/2018 Status: COMPLETED Source: [place] 9:34 AM [facility] REPOSITORY HNO ID: [id number] Author: Lila Pate (Rn) WILIAM Fontenot Service: (none) Author Type: Registered Nurse Type: Progress Notes Filed: 04/22/2018 10:10 AM Note Text: Name: Priti Mcdonald Patient presents for a Paracentesis. The procedure including risks, benefits, options and personnel performing the procedure was discussed with the patient. There are no contraindications to the procedure. Priti Mcdonald expressed understanding and agreed to proceed. Procedure performed by Slime Garber APRN, CNP Medication: 2% Lidocaine 10cc The patient was placed in the supine position. A pocket of fluid suitable for paracentesis was marked in the right abdomen under ultrasound guidance. The skin and subcutaneous tissue was anesthetized with local anesthetic. A 15 guage Barillas Needle was inserted into the abdomen and 9.6 liters were removed. The fluid was sent to the Lab for analysis. There were no immediate complications associated with the procedure. Slime Garber APRN, CNP 9.6 liters of ascites fluid was removed via paracentesis. Orders received from Slime Garber CNP for IV placement and albumin infusion. A #24 Gauge angio cath was placed in the Left hand. 62.5 grams of albumin was infused per protocol and the IV was discontinued post infusion. Lila Fontenot RN THE FOLLOWING WAS EVALUATED Motivation To Learn: Eager Family/Significant Other Support: High - Very involved in pt care Cognitive Ability: Alert and oriented Patient Learns Best By: Verbal Instruction The Following Influencing Factors Were Barriers To This Education Session: None The Following Physical Limitations Were Barriers To This Education Session: None Instruction Provided To: Patient and family member Learning Topic: Procedure/Surgery: PARACENTESIS Patient Evaluation: Verbalizes understanding Follow Up Plan: Follow up as needed. Lila Fontenot RN CELL COUNT/DIFF BF Collected: 04/08/2018 Status: F Source: [place] 11:20 AM [facility] REPOSITORY TYPE CODE TESTS RESULT OUT OF RANGE REFERENCE UNITS LAB BFSITE Site Ascites Fluid LAB BFCOL Color Yellow LAB BFCLR Clear Abnormal Clarity Slightly Alert turbid LAB BFSCOL Suprntnt Color Yellow LAB BFSCLR Clear Suprntnt Clear Clarity LAB BFRBC /uL RBC <2000 LAB BFWBC /uL Nucleated 257 Cells, BF LAB BFCOM BF Comment SEE COMMENT Result Comment: Test Not Indicated LAB BFREV BF SEE Review COMMENT Result Comment: Test Not Indicated LAB BFSLNM Slide [id number] Number BF LAB BFNEUT % Neut% 5 LAB BFLYMP % 40 Lymph% LAB BFMONO % [place]% 12 LAB BFMACR % 38 Macro% LAB BFMESO % [place]% 5 Performed By: #### CCBF #### [facility] [address] [place], [place] [address] PROGRESS Observed: 04/08/2018 Status: COMPLETED Source: [place] 9:43 AM [facility] REPOSITORY HNO ID: [id number] Author: Lila Pate (Rn) WILIAM Fontenot Service: (none) Author Type: Registered Nurse Type: Progress Notes Filed: 04/08/2018 2:30 PM Note Text: Name: Priti Mcdonald Patient presents for a Paracentesis. The procedure including risks, benefits, options and personnel performing the procedure was discussed with the patient. There are no contraindications to the procedure. Priti Mcdonald expressed understanding and agreed to proceed. Procedure performed by Slime Garber APRN,DOLPHIN RESEARCHER Medication: 2% Lidocaine 10cc The patient was placed in the supine position. A pocket of fluid suitable for paracentesis was marked in the left abdomen under ultrasound guidance. The skin and subcutaneous tissue was anesthetized with local anesthetic. A 15 guage Barillas Needle was inserted into the abdomen and 7 liters were removed. The fluid was sent to the Lab for analysis. There were no immediate complications associated with the procedure. Slime Garber APRN, CNP 7 liters of ascites fluid was removed via paracentesis. Orders received from Slime Garber CNP for IV placement and albumin infusion. A #24 Gauge angio cath was placed in the Left hand. 50 grams of albumin was infused per protocol and the IV was discontinued post infusion. Lila Fontenot RN THE FOLLOWING WAS EVALUATED Motivation To Learn: Eager Family/Significant Other Support: High - Very involved in pt care Cognitive Ability: Alert and oriented Patient Learns Best By: Verbal Instruction The Following Influencing Factors Were Barriers To This Education Session: None The Following Physical Limitations Were Barriers To This Education Session: None Instruction Provided To: Patient and family member Learning Topic: Procedure/Surgery: PARACENTESIS Patient Evaluation: Verbalizes understanding Follow Up Plan: Follow up as needed COMP METABOLIC PANEL Collected: 03/28/2018 Status: F Source: [place] 11:06 AM [facility] REPOSITORY TYPE CODE TESTS RESULT OUT OF REFERENCE UNITS RANGE LAB TP 6.3-8.0 g/dL Protein, Low Total 6.0 LAB ALB 3.9-4.9 g/dL Albumin Low 3.5 LAB CA 8.5-10.2 mg/dL Calcium, Total 9.6 LAB TBIL 0.2-1.3 mg/dL Bilirubin, Total 0.9 LAB ALKP 34-123 U/L Alkaline High Phosphatase 136 LAB AST 13-35 U/L AST 28 LAB GLU 74-99 mg/dL Glucose High 141 LAB BUN 7-21 mg/dL BUN 15 LAB CRET 0.58-0.96 mg/dL Creatinine High 1.08 LAB NA 136-144 mmol/L Sodium 138 LAB K 3.7-5.1 mmol/L Potassium 4.2 LAB CL 97-105 mmol/L Chloride 103 LAB CO2 22-30 mmol/L CO2 28 LAB AGAP mmol/L Anion Gap 7 LAB ALT 7-38 U/L ALT 24 LAB GFRAA eGFR- >60 Amer. LAB GFRNAA . eGFR-All Other Races 52 Result Comment: eGFR (Estimated GFR) Units of measure: mL/min/1.73 meters squared eGFR is derived from the reexpressed MDRD Study equation using the following parameters: serum creatinine, age, gender and race. The creatinine assay has been calibrated to be traceable to IDMS. An eGFR <60 mL/min/1.73m2 for >3 months is consistent with chronic kidney disease. Refer to KDOQI guidelines for clinical interpretation. In patients with unstable renal function, e.g. those with acute kidney injury, the eGFR may not accurately reflect actual GFR. CELL COUNT/DIFF BF Collected: 03/21/2018 Status: F Source: [place] 11:35 AM [facility] REPOSITORY TYPE CODE TESTS RESULT OUT OF REFERENCE UNITS RANGE LAB BFSITE Site Ascites Fluid LAB BFCOL Color Yellow LAB BFCLR Clear Clarity Clear LAB BFSCOL Suprntnt Color Yellow LAB BFSCLR Clear Suprntnt Clear Clarity LAB BFRBC /uL RBC <2000 LAB BFWBC /uL Nucleated 412 Cells, BF LAB BFCOM BF Comment SEE COMMENT Result Comment: Test Not Indicated LAB BFREV BF SEE Review COMMENT Result Comment: Test Not Indicated LAB BFSLNM Slide [id number] Number BF LAB BFNEUT % Neut% 6 LAB BFLYMP % 61 Lymph% LAB BFMONO % [place]% 29 LAB BFMACR % 4 Macro% Performed By: #### CCBF #### [facility] [address] [place], [place] [address] PROGRESS Observed: 03/21/2018 Status: COMPLETED Source: [place] 9:45 AM [facility] REPOSITORY HNO ID: [id number] Author: Lila Pate (Rn) WILIAM Fontenot Service: (none) Author Type: Registered Nurse Type: Progress Notes Filed: 03/21/2018 12:32 PM Note Text: Name: Priti Mcdonald Patient presents for a Paracentesis. The procedure including risks, benefits, options and personnel performing the procedure was discussed with the patient. There are no contraindications to the procedure. Priti Mcdonald expressed understanding and agreed to proceed. Procedure performed by Slime Garber APRN,JACK Medication: 2% Lidocaine 10cc The patient was placed in the supine position. A pocket of fluid suitable for paracentesis was marked in the left abdomen under ultrasound guidance. The skin and subcutaneous tissue was anesthetized with local anesthetic. A 15 guage Barillas Needle was inserted into the abdomen and 5.25 liters were removed. The fluid was sent to the Lab for analysis. There were no immediate complications associated with the procedure. Slime Garber APRN, CNP 5.25 liters of ascites fluid was removed via paracentesis. Orders received from Slime Garber CNP for IV placement and albumin infusion. A #24 Gauge angio cath was placed in the Right hand. 37.5 grams of albumin was infused per protocol and the IV was discontinued post infusion. Lila Fontenot RN THE FOLLOWING WAS EVALUATED Motivation To Learn: Eager Family/Significant Other Support: High - Very involved in pt care Cognitive Ability: Alert and oriented Patient Learns Best By: Verbal Instruction The Following Influencing Factors Were Barriers To This Education Session: None The Following Physical Limitations Were Barriers To This Education Session: None Instruction Provided To: Patient and family member Learning Topic: Procedure/Surgery: PARACENTESIS Patient Evaluation: Verbalizes understanding Follow Up Plan: Follow up as needed. Lila Fontenot RN CNOV Observed: 03/21/2018 Status: COMPLETED Source: [place] 8:15 AM [facility] REPOSITORY Office Visit (GAPRA3) PRITI MCDONALD ([id number]) 1960 F Date Time Provider Department 03/21/18 8:15 AM HEPATOLOGY PROCEDURES GAPRA3 During your visit today, we recorded the following information about you: Temperature Pulse Respiration Blood pressure 96.4 degrees 84/minute 16/minute 118/62 Weight 104.7 kg Lila Fontenot RN, RN 03/21/2018 12:32 PM Signed Name: Priti Mcdonald Patient presents for a Paracentesis. The procedure including risks, benefits, options and personnel performing the procedure was discussed with the patient. There are no contraindications to the procedure. Priti Mcdonald expressed understanding and agreed to proceed. Procedure performed by Slime Garber APRN, CNP Medication: 2% Lidocaine 10cc The patient was placed in the supine position. A pocket of fluid suitable for paracentesis was marked in the left abdomen under ultrasound guidance. The skin and subcutaneous tissue was anesthetized with local anesthetic. A 15 guage Barillas Needle was inserted into the abdomen and 5.25 liters were removed. The fluid was sent to the Lab for analysis. There were no immediate complications associated with the procedure. Slime Garber APRN, CNP 5.25 liters of ascites fluid was removed via paracentesis. Orders received from Slime Garber CNP for IV placement and albumin infusion. A #24 Gauge angio cath was placed in the Right hand. 37.5 grams of albumin was infused per protocol and the IV was discontinued post infusion. Lila Fontenot RN THE FOLLOWING WAS EVALUATED Motivation To Learn: Eager Family/Significant Other Support: High - Very involved in pt care Cognitive Ability: Alert and oriented Patient Learns Best By: Verbal Instruction The Following Influencing Factors Were Barriers To This Education Session: None The Following Physical Limitations Were Barriers To This Education Session: None Instruction Provided To: Patient and family member Learning Topic: Procedure/Surgery: PARACENTESIS Patient Evaluation: Verbalizes understanding Follow Up Plan: Follow up as needed. Lila Fontenot RN Referring Provider: JENNIE BECERRA) [[id number]] Allergies As of Date: 03/21/2018 Noted Allergy Reaction CODEINE 04/28/2007 8 - GI Upset Comments: nausea Date Reviewed: 03/21/2018 Reviewed by: Lila Pate (Rn) WILIAM Fontenot - Fully Assessed Primary Visit Diagnosis:Other ascites [R18.8] Other Visit Diagnosis:Nonalcoholic steatohepatitis (BARRAGAN) [K75.81] Order(s):ABDOM PARACENTESIS DX/THER W IMAGING GUIDANCE [60318KII] Order #: [id number] CELL COUNT + DIFF BFL [SQCCBF] Order #: [id number] Prescriptions as of 03/21/2018 Sig: SPIRONOLACTONE 50 MG TABLET Take 1 tablet by mouth once d* FUROSEMIDE 20 MG TABLET Take 1 tablet by mouth once d* RIFAXIMIN 550 MG TABLET Take 1 tablet by mouth twice * ERGOCALCIFEROL (VITAMIN D2) 5* Take 1 capsule by mouth once * ZINC SULFATE 220 MG (50 MG) C* Take 1 capsule by mouth once * LACTULOSE 20 GRAM/30 ML ORAL * Take 30 mL by mouth twice lita* MECLIZINE 25 MG TABLET Take 1 tablet by mouth every * ADDERALL XR 30 MG CAPSULE,EXT* DEXTRAN 70-HYPROMELLOSE EYE D* 1 Drop as needed. PAROXETINE 10 MG TABLET LEVOTHYROXINE 137 MCG TABLET Take 137 mcg by mouth once da* DULOXETINE 60 MG CAPSULE,AGGIE* Take 60 mg by mouth once alka* Problem List As Of Date 03/21/2018 Noted Resolved SKIN SENSATION DISTURB [R20.9] INVALID FOR* MENIERE'S DISEASE NOS [H81.09] Controlled type 2 diabetes mellitus without com* DEPRESSIVE DISORDER NEC [F32.9] Abnormal mammogram, unspecified [R92.8] INVALID FOR* Breast cancer [C50.919] INVALID FOR* History of breast cancer [Z85.3] INVALID FOR* History of colonic polyps [Z86.010] INVALID FOR*04/29/2015 RUQ pain [R10.11] INVALID FOR* Nonalcoholic steatohepatitis ([place]AN) [K75.81] INVALID FOR* 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 Other ascites [R18.8] INVALID FOR* S/P repair of ventral hernia [Z98.890, Z87.19] INVALID FOR* Constipation [K59.00] INVALID FOR* Acute kidney injury (HCC) [N17.9] INVALID FOR* Vitamin D deficiency [E55.9] INVALID FOR* Hepatic encephalopathy (HCC) [K72.90] INVALID FOR* Encounter Status:Closed by SLIME GARBER CNP on 03/21/18 COMP METABOLIC PANEL Collected: 03/18/2018 Status: F Source: [place] 10:36 AM [facility] TYPE CODE TESTS RESULT OUT OF REFERENCE UNITS RANGE LAB TP 6.3-8.0 g/dL Protein, Low Total 6.1 LAB ALB 3.9-4.9 g/dL Albumin Low 3.6 LAB CA 8.5-10.2 mg/dL Calcium, Total 9.6 LAB TBIL 0.2-1.3 mg/dL Bilirubin, Total 1.0 LAB ALKP 34-123 U/L Alkaline High Phosphatase 172 LAB AST 13-35 U/L AST High 37 LAB GLU 74-99 mg/dL Glucose High 133 LAB BUN 7-21 mg/dL BUN 14 LAB CRET 0.58-0.96 mg/dL Creatinine High 1.18 LAB NA 136-144 mmol/L Sodium 138 LAB K 3.7-5.1 mmol/L Potassium 4.2 LAB CL 97-105 mmol/L Chloride 101 LAB CO2 22-30 mmol/L CO2 26 LAB AGAP mmol/L Anion Gap 11 LAB ALT 7-38 U/L ALT 31 LAB GFRAA eGFR- 57 Amer. LAB GFRNAA . eGFR-All Other Races 47 Result Comment: eGFR (Estimated GFR) Units of measure: mL/min/1.73 meters squared eGFR is derived from the reexpressed MDRD Study equation using the following parameters: serum creatinine, age, gender and race. The creatinine assay has been calibrated to be traceable to IDMS. An eGFR <60 mL/min/1.73m2 for >3 months is consistent with chronic kidney disease. Refer to KDOQI guidelines for clinical interpretation. In patients with unstable renal function, e.g. those with acute kidney injury, the eGFR may not accurately reflect actual GFR. THYROID STIM HORMONE Collected: 03/14/2018 Status: F Source: [place]I (TSH) 11:04 AM [facility] REPOSITORY TYPE CODE TESTS RESULT OUT OF RANGE REFERENCE UNITS LAB L501.9520 0.358-3.74 uIU/mL High TSH 7.17 Performed By: #### L501.9520, L506.0400 #### [facility] [address] [place], [place], [address] T4 FREE DIRECT Collected: 03/14/2018 Status: F Source: [place]I 11:04 AM [facility] REPOSITORY TYPE CODE TESTS RESULT OUT OF RANGE REFERENCE UNITS LAB L506.0400 0.76-1.46 ng/dL Normal T4 FREE 1.22 DIRECT Performed By: #### L501.9520, L506.0400 #### [facility] [address] [place] [address] [place], [place], [address] COMP METABOLIC PANEL Collected: 03/07/2018 Status: F Source: [place] 10:30 AM [facility] REPOSITORY TYPE CODE TESTS RESULT OUT OF REFERENCE UNITS RANGE LAB TP 6.3-8.0 g/dL Protein, Total 6.5 LAB ALB 3.9-4.9 g/dL Albumin 4.1 LAB CA 8.5-10.2 mg/dL Calcium, Total 9.7 LAB TBIL 0.2-1.3 mg/dL Bilirubin, Total 0.4 LAB ALKP 34-123 U/L Alkaline High Phosphatase 142 LAB AST 13-35 U/L AST High 43 LAB GLU 74-99 mg/dL Glucose 80 Result Comment: The [place] [employer] (ADA) provides guidance for cutoff values for fasting glucose and random glucose. The ADA defines fasting as no caloric intake for at least 8 hours. Fas ting plasma glucose results between 100 to 125 mg/dL indicate increased risk for diabetes (prediabetes). Fasting plasma glucose results greater than or equal to 126 mg/dL meet the criteria for diagnosis of diabetes. In the absence of unequivocal hyperglycemia, results should be confirmed by repeat testing. In a patient with classic symptoms of hyperglycemia or hyperglycemic crisis, random plasma glucose results greater than or equal to 200 mg/dL meet the criteria for diagnosis of diabetes. Reference: Standards of Medical Care in Diabetes 2016, [place] [employer]. Diabetes Care. 2016.39(Suppl 1). LAB BUN 7-21 mg/dL BUN High 25 LAB CRET 0.58-0.96 mg/dL Creatinine High 1.11 LAB NA 136-144 mmol/L Sodium 140 LAB K 3.7-5.1 mmol/L Potassium 5.0 LAB CL 97-105 mmol/L Chloride 103 LAB CO2 22-30 mmol/L CO2 24 LAB AGAP 9-18 mmol/L Anion Gap 13 LAB ALT 7-38 U/L ALT 34 LAB GFRAA eGFR- Amer. >60 LAB GFRNAA . eGFR-All Other Races 50 Result Comment: eGFR (Estimated GFR) Units of measure: mL/min/1.73 meters squared eGFR is derived from the reexpressed MDRD Study equation using the following parameters: serum creatinine, age, gender and race. The creatinine assay has been calibrated to be traceable to IDMS. An eGFR <60 mL/min/1.73m2 for >3 months is consistent with chronic kidney disease. Refer to KDOQI guidelines for clinical interpretation. In patients with unstable renal function, e.g. those with acute kidney injury, the eGFR may not accurately reflect actual GFR. Performed By: #### CMP #### [facility] [address], [place] [address] PROGRESS Observed: 03/07/2018 Status: COMPLETED Source: [place] 10:05 AM [facility] REPOSITORY HNO ID: [id number] Author: Cristela (Rn) WILIAM Zhong Service: (none) Author Type: Registered Nurse Type: Progress Notes Filed: 03/07/2018 2:06 PM Note Text: Name: Priti Mcdonald Patient presents for a Paracentesis. The procedure including risks, benefits, options and personnel performing the procedure was discussed with the patient. There are no contraindications to the procedure. Priti Mcdonald expressed understanding and agreed to proceed. Procedure performed by Slime Garber APRN, CNP Medication: 2% Lidocaine 10cc The patient was placed in the supine position. A pocket of fluid suitable for paracentesis was marked in the right abdomen under ultrasound guidance. The skin and subcutaneous tissue was anesthetized with local anesthetic. A 15 guage Barillas Needle was inserted into the abdomen and 6 liters were removed. The fluid was sent to the Lab for analysis. There were no immediate complications associated with the procedure. Slime Garber APRN, CNP CELL COUNT/DIFF BF Collected: 03/07/2018 Status: F Source: [place] 8:53 AM [facility] REPOSITORY TYPE CODE TESTS RESULT OUT OF RANGE REFERENCE UNITS LAB BFSITE Site Ascites Fluid LAB BFCOL Color Yellow LAB BFCLR Clear Abnormal Clarity Slightly Alert turbid LAB BFSCOL Suprntnt Color Yellow LAB BFSCLR Clear Suprntnt Clear Clarity LAB BFRBC /uL RBC 2000 LAB BFWBC /uL Nucleated 544 Cells, BF LAB BFCOM BF Comment SEE COMMENT Result Comment: Test Not Indicated LAB BFREV BF SEE Review COMMENT Result Comment: Test Not Indicated LAB BFSLNM Slide [id number] Number BF LAB BFNEUT % Neut% 6 LAB BFLYMP % 61 Lymph% LAB BFMONO % [place]% 25 LAB BFMACR % 6 Macro% LAB BFMESO % Meso% 1 LAB BFEOSN % 1 Eosin% Performed By: #### CCBF #### [facility] [address], [place] [address] CNOV Observed: 03/07/2018 Status: COMPLETED Source: [place] 8:15 AM [facility] REPOSITORY Office Visit (GAPRA3) PRITI MCDONALD ([id number]) 1960 F Date Time Provider Department 03/07/18 8:15 AM HEPATOLOGY PROCEDURES GAPRA3 During your visit today, we recorded the following information about you: Temperature Pulse Respiration Blood pressure 97.2 degrees 73/minute 18/minute 131/68 Weight 101.9 kg Cristela Zhong RN, RN 03/07/2018 2:06 PM Signed Name: Priti Mcdonald Patient presents for a Paracentesis. The procedure including risks, benefits, options and personnel performing the procedure was discussed with the patient. There are no contraindications to the procedure. Priti Mcdonald expressed understanding and agreed to proceed. Procedure performed by Slime Garber APRN, CNP Medication: 2% Lidocaine 10cc The patient was placed in the supine position. A pocket of fluid suitable for paracentesis was marked in the right abdomen under ultrasound guidance. The skin and subcutaneous tissue was anesthetized with local anesthetic. A 15 guage Barillas Needle was inserted into the abdomen and 6 liters were removed. The fluid was sent to the Lab for analysis. There were no immediate complications associated with the procedure. Slime Garber APRN,JACK Referring Provider: JENNIE BECERRA) [[id number]] Allergies As of Date: 03/07/2018 Noted Allergy Reaction CODEINE 04/28/2007 8 - GI Upset Comments: nausea Date Reviewed: 03/07/2018 Reviewed by: Cristela (Wiliam) WILIAM Zhong - Fully Assessed Primary Visit Diagnosis:Other ascites [R18.8] Other Visit Diagnosis:Nonalcoholic steatohepatitis (BARRAGAN) [K75.81] Order(s):ABDOM PARACENTESIS DX/THER W IMAGING GUIDANCE [[id number]] Order #: [id number] CELL COUNT + DIFF BFL [SQCCBF] Order #: [id number]. #:[id number] Prescriptions as of 03/07/2018 Sig: RIFAXIMIN 550 MG TABLET Take 1 tablet by mouth twice * ERGOCALCIFEROL (VITAMIN D2) 5* Take 1 capsule by mouth once * ZINC SULFATE 220 MG (50 MG) C* Take 1 capsule by mouth once * LACTULOSE 20 GRAM/30 ML ORAL * Take 30 mL by mouth twice lita* FUROSEMIDE 40 MG TABLET Take 1 tablet by mouth once d* SPIRONOLACTONE 100 MG TABLET Take 1 tablet by mouth once d* MECLIZINE 25 MG TABLET Take 1 tablet by mouth every * ADDERALL XR 30 MG CAPSULE,EXT* DEXTRAN 70-HYPROMELLOSE EYE D* 1 Drop as needed. 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 Other ascites [R18.8] INVALID FOR* S/P repair of ventral hernia [Z98.890, Z87.19] INVALID FOR* Constipation [K59.00] INVALID FOR* Acute kidney injury (HCC) [N17.9] INVALID FOR* Vitamin D deficiency [E55.9] INVALID FOR* Hepatic encephalopathy (HCC) [K72.90] INVALID FOR* Encounter Status:Closed by SLIME GARBER CNP on 03/07/18 JACKN Observed: 03/05/2018 Status: COMPLETED Source: [place] 12:00 AM [facility] REPOSITORY Telephone (GASTA5) HARRYPRITI ([id number]) 1960 F Date Time Provider Department 03/05/18 JENNIE BECERRA) GASTA5 During your visit today, we recorded the following information about you: Jada Reyes 03/05/2018 3:47 PM Signed Pt called in requesting PARA appt. Pt scheduled for 03/07/18 @ 8:15 am (A30). Dr. Becerra: Pt wants to know if ok for her to get deep tissue message? Pt aware MD is out of the office and will get a response when she returns. Thanks, Jada Reyes Lpn March 05, 2018 Jennie Becerra MD 03/10/2018 8:18 AM Signed Replied to patient via [employer]. Jennie Becerra MD Allergies As of Date: 03/05/2018 Noted Allergy Reaction CODEINE 04/28/2007 8 - GI Upset Comments: nausea Date Reviewed: 02/27/2018 Reviewed by: Miya Salinas - Fully Assessed Reason for Visit: Patient Question [1477] Prescriptions as of 03/05/2018 Sig: RIFAXIMIN 550 MG TABLET Take 1 tablet by mouth twice * ERGOCALCIFEROL (VITAMIN D2) 5* Take 1 capsule by mouth once * ZINC SULFATE 220 MG (50 MG) C* Take 1 capsule by mouth once * LACTULOSE 20 GRAM/30 ML ORAL * Take 30 mL by mouth twice lita* FUROSEMIDE 40 MG TABLET Take 1 tablet by mouth once d* SPIRONOLACTONE 100 MG TABLET Take 1 tablet by mouth once d* MECLIZINE 25 MG TABLET Take 1 tablet by mouth every * ADDERALL XR 30 MG CAPSULE,EXT* DEXTRAN 70-HYPROMELLOSE EYE D* 1 Drop as needed. PAROXETINE 10 MG TABLET LEVOTHYROXINE 137 MCG TABLET Take 137 mcg by mouth once da* DULOXETINE 60 MG CAPSULE,AGGIE* Take 60 mg by mouth once alka* Problem List As Of Date 03/05/2018 Noted Resolved SKIN SENSATION DISTURB [R20.9] INVALID FOR* MENIERE'S DISEASE NOS [H81.09] Controlled type 2 diabetes mellitus without com* DEPRESSIVE DISORDER NEC [F32.9] Abnormal mammogram, unspecified [R92.8] INVALID FOR* Breast cancer [C50.919] INVALID FOR* History of breast cancer [Z85.3] INVALID FOR* History of colonic polyps [Z86.010] INVALID FOR*04/29/2015 RUQ pain [R10.11] INVALID FOR* Nonalcoholic steatohepatitis (BARRAGAN) [K75.81] INVALID FOR* 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 Other ascites [R18.8] INVALID FOR* S/P repair of ventral hernia [Z98.890, Z87.19] INVALID FOR* Constipation [K59.00] INVALID FOR* Acute kidney injury (HCC) [N17.9] INVALID FOR* Vitamin D deficiency [E55.9] INVALID FOR* Hepatic encephalopathy (HCC) [K72.90] INVALID FOR* Encounter Status:Closed by JENNIE BECERRA MD on 03/10/18 US DOPPLER COMPLETE Observed: 02/27/2018 Status: F Source: [place] 2:29 PM [facility] REPOSITORY * * *Final Report* * * DATE OF EXAM: Feb 27 2018 2:29PM KORI 1033 - US DOPPLER COMPLETE / PROCEDURE REASON: Other ascites * * * * Physician Interpretation * * * * LIVER VASCULAR ULTRASOUND WITH DOPPLER IMAGING HISTORY: Cirrhosis COMPARISON: 12/26/2017 TECHNIQUE: Sonography of the liver with color and spectral Doppler imaging of the hepatic vasculature was performed. Images were obtained and stored in a permanent archive. RESULT: SONOGRAPHIC FINDINGS: Pancreas: Normal sonographic appearance. Portions obscured: None Liver: Echotexture: Coarse Echogenicity: Heterogeneous Surface contour: Nodular Lesions: None. Biliary: No intrahepatic biliary duct dilation. CBD: 0.3 cm at the hilum. Gallbladder: Prior cholecystectomy Right Kidney: No hydronephrosis. Spleen: The craniocaudal length of the spleen is 11.7 cm, normal. There are no splenic lesions. Other: Small volume ascites HEPATIC VASCULATURE: PORTAL SYSTEM: -Splenic Vein: Patent with antegrade flow (towards the liver). -Main PV: Patent with normal, phasic antegrade flow (towards liver). 20 cm/sec -Right anterior PV: Patent with phasic antegrade flow (towards liver). -Right posterior PV: Patent with phasic antegrade flow (towards liver). -Left PV: Patent with phasic antegrade flow (towards liver). Splenorenal shunt: None identified Recannulized paraumbilical vein: no HEPATIC ARTERIES: - Main CASTELLANOS: Normal waveform PSV: 47 cm/sec. RI: 0.73 - Right anterior CASTELLANOS: Normal waveform - Right posterior CASTELLANOS: Normal waveform - Left CASTELLANOS: Normal waveform Hepatic Veins: -Left: Patent with triphasic waveform. -Middle: Patent with triphasic waveform. -Right: Patent with triphasic waveform. IVC: Patent with normal, phasic wave form. IMPRESSION: PATENT HEPATIC VASCULATURE WITH APPROPRIATELY DIRECTED FLOW. CIRRHOTIC LIVER MORPHOLOGY. NO HEPATIC LESION. SMALL VOLUME ASCITES Lead Housekeeper: VICENTE Transcribe Date/Time: Feb 27 2018 3:00P Dictated by : TIRSO GRAF MD This examination was interpreted and the report reviewed and electronically signed by: TIRSO GRAF MD on Feb 27 2018 3:03PM EST [id number] US ABD LIVER VASCULAR Observed: 02/27/2018 Status: F Source: [place] 2:20 PM [facility] REPOSITORY * * *Final Report* * * DATE OF EXAM: Feb 27 2018 2:20PM KORI 1233 - US ABD LIVER VASCULAR / PROCEDURE REASON: Other ascites * * * * Physician Interpretation * * * * LIVER VASCULAR ULTRASOUND WITH DOPPLER IMAGING HISTORY: Cirrhosis COMPARISON: 12/26/2017 TECHNIQUE: Sonography of the liver with color and spectral Doppler imaging of the hepatic vasculature was performed. Images were obtained and stored in a permanent archive. RESULT: SONOGRAPHIC FINDINGS: Pancreas: Normal sonographic appearance. Portions obscured: None Liver: Echotexture: Coarse Echogenicity: Heterogeneous Surface contour: Nodular Lesions: None. Biliary: No intrahepatic biliary duct dilation. CBD: 0.3 cm at the hilum. Gallbladder: Prior cholecystectomy Right Kidney: No hydronephrosis. Spleen: The craniocaudal length of the spleen is 11.7 cm, normal. There are no splenic lesions. Other: Small volume ascites HEPATIC VASCULATURE: PORTAL SYSTEM: -Splenic Vein: Patent with antegrade flow (towards the liver). -Main PV: Patent with normal, phasic antegrade flow (towards liver). 20 cm/sec -Right anterior PV: Patent with phasic antegrade flow (towards liver). -Right posterior PV: Patent with phasic antegrade flow (towards liver). -Left PV: Patent with phasic antegrade flow (towards liver). Splenorenal shunt: None identified Recannulized paraumbilical vein: no HEPATIC ARTERIES: - Main CASTELLANOS: Normal waveform PSV: 47 cm/sec. RI: 0.73 - Right anterior CASTELLANOS: Normal waveform - Right posterior CASTELLANOS: Normal waveform - Left CASTELLANOS: Normal waveform Hepatic Veins: -Left: Patent with triphasic waveform. -Middle: Patent with triphasic waveform. -Right: Patent with triphasic waveform. IVC: Patent with normal, phasic wave form. IMPRESSION: PATENT HEPATIC VASCULATURE WITH APPROPRIATELY DIRECTED FLOW. CIRRHOTIC LIVER MORPHOLOGY. NO HEPATIC LESION. SMALL VOLUME ASCITES Lead Housekeeper: [facility] Transcribe Date/Time: Feb 27 2018 3:00P Dictated by : TIRSO GRAF MD This examination was interpreted and the report reviewed and electronically signed by: TIRSO GRAF MD on Feb 27 2018 3:03PM EST [id number] CBC AND DIFFERENTIAL Collected: 02/27/2018 Status: F Source: [place] 9:35 AM [facility] REPOSITORY TYPE CODE TESTS RESULT OUT OF REFERENCE UNITS RANGE LAB WBC 3.70-11.00 k/uL WBC 5.73 LAB RBC 3.90-5.20 m/uL RBC 4.87 LAB HGB 11.5-15.5 g/dL Hemoglobin 14.5 LAB HCT 36.0-46.0 % Hematocrit 44.1 LAB MCV 80.0-100.0 fL MCV 90.6 LAB MCH 26.0-34.0 pG MCH 29.8 LAB MCHC 30.5-36.0 g/dL MCHC 32.9 LAB RDWCV 11.5-15.0 % RDW-CV 13.7 LAB PLTCT 150-400 k/uL Platelet Count 234 LAB MPV 9.0-12.7 fL MPV 10.6 LAB ANEUT % Neut% 69.3 LAB AANEUT 1.45-7.50 k/uL Abs Neut 3.95 LAB ALYMP % Lymph% 13.1 LAB AALYMP 1.00-4.00 k/uL Low Abs Lymph 0.75 LAB AMONO % [place]% 10.3 LAB AAMONO <0.87 k/uL Abs [place] 0.59 LAB AEOS % Eosin% 6.6 LAB AAEOS <0.46 k/uL Abs Eosin 0.38 LAB ABASO % Baso% 0.7 LAB AABASO <0.11 k/uL Abs Baso 0.04 LAB AUNRBC 0 /100 WBC NRBCs 0.0 LAB ABNRBC <0.01 k/uL Absolute nRBC <0.01 LAB DTYP DTYPE Auto Diff Performed By: #### CBCDIF, PT, CMP #### [facility] [address] [place] [id number] PROTIME Collected: 02/27/2018 Status: F Source: [place] 9:35 AM [facility] REPOSITORY TYPE CODE TESTS RESULT OUT OF RANGE REFERENCE UNITS LAB PSEC 9.7-13.0 sec PT Sec 10.6 LAB INR 0.9-1.3 PT INR 1.0 Result Comment: Vitamin K Antagonist (VKA) Therapeutic Range: INR 2 to 3 (Target INR of 2.5) Note: For patients treated with VKA drugs, such as warfarin, the [place] [employer] 2012 Guideline recommends a therapeutic INR range of 2 to 3 (target INR of 2.5). This recommendation includes high-risk patients with antiphospholipid syndrome with previous arterial or venous thromboembolism, current-generation mechanical or bioprosthetic aortic heart valve replacement. Note: Patients with mechanical aortic valve replacement and additional risk factors for thromboembolic events (atrial fibrillation, previous thromboembolism, LV dysfunction, hypercoagulable conditions) or an older generation mechanical AVR (i.e., ball in-Cage) or any mechanical MVR should have a INR therapeutic range of 2.5 to 3.5 (target INR of 3). Pearl GH, et al. Chest 2012, 141:7S-47S Rita RA, et al. [facility] 2017, 70: 252-289 Performed By: #### CBCDIF, PT, CMP #### [facility] [address] [place] [address] COMP METABOLIC PANEL Collected: 02/27/2018 Status: F Source: [place] 9:35 AM [facility] REPOSITORY TYPE CODE TESTS RESULT OUT OF REFERENCE UNITS RANGE LAB TP 6.3-8.0 g/dL Low Protein, Total 5.6 LAB ALB 3.9-4.9 g/dL Low Albumin 3.7 LAB CA 8.5-10.2 mg/dL Calcium, Total 10.1 LAB TBIL 0.2-1.3 mg/dL Bilirubin, Total 0.5 LAB ALKP 34-123 U/L Alkaline High Phosphatase 162 LAB AST 13-35 U/L AST High 39 LAB GLU 74-99 mg/dL Glucose High 112 Result Comment: The [place] [employer] (ADA) provides guidance for cutoff values for fasting glucose and random glucose. The ADA defines fasting as no caloric intake for at least 8 hours. Fas ting plasma glucose results between 100 to 125 mg/dL indicate increased risk for diabetes (prediabetes). Fasting plasma glucose results greater than or equal to 126 mg/dL meet the criteria for diagnosis of diabetes. In the absence of unequivocal hyperglycemia, results should be confirmed by repeat testing. In a patient with classic symptoms of hyperglycemia or hyperglycemic crisis, random plasma glucose results greater than or equal to 200 mg/dL meet the criteria for diagnosis of diabetes. Reference: Standards of Medical Care in Diabetes 2016, [place] [employer]. Diabetes Care. 2016.39(Suppl 1). LAB BUN 7-21 mg/dL BUN High 23 LAB CRET 0.58-0.96 mg/dL Creatinine High 1.14 LAB NA 136-144 mmol/L Sodium 137 LAB K 3.7-5.1 mmol/L Potassium High 5.4 LAB CL 97-105 mmol/L Chloride 100 LAB CO2 22-30 mmol/L CO2 25 LAB AGAP 9-18 mmol/L Anion Gap 12 LAB ALT 7-38 U/L ALT 34 LAB GFRAA eGFR- Amer. 59 LAB GFRNAA . eGFR-All Other Races 49 Result Comment: eGFR (Estimated GFR) Units of measure: mL/min/1.73 meters squared eGFR is derived from the reexpressed MDRD Study equation using the following parameters: serum creatinine, age, gender and race. The creatinine assay has been calibrated to be traceable to IDMS. An eGFR <60 mL/min/1.73m2 for >3 months is consistent with chronic kidney disease. Refer to KDOQI guidelines for clinical interpretation. In patients with unstable renal function, e.g. those with acute kidney injury, the eGFR may not accurately reflect actual GFR. Performed By: #### CBCDIF, PT, CMP #### [facility] [address] [address] PROGRESS Observed: 02/27/2018 Status: COMPLETED Source: [place] 9:19 AM [facility] REPOSITORY HNO ID: [id number] Author: Miya Salinas Service: (none) Author Type: Nurse Practitioner Type: Progress Notes Filed: 02/27/2018 9:20 AM Note Text: NAME: Priti Mcdonald Patient presents for a Paracentesis. Procedure performed by Miya Salinas APRN.CNP Medications: None given Procedure: The patient was placed in the supine position. Under ultrasound, There was small volume free fluid noted by ultrasound but a pocket suitable for Paracentesis could not be found on the right or the left despite repositioning. The patient tolerated the procedure well. Miya Salinas APRN.CNP CNOV Observed: 02/27/2018 Status: COMPLETED Source: [place] 8:15 AM [facility] REPOSITORY Office Visit (GAPRA3) PRITI MCDONALD ([id number]) 1960 F Date Time Provider Department 02/27/18 8:15 AM HEPATOLOGY PROCEDURES GAPRA3 During your visit today, we recorded the following information about you: Miya Salinas APRN.CNP 02/27/2018 9:20 AM Signed NAME: Priti Mcdonald Patient presents for a Paracentesis. Procedure performed by Miya Salinas APRN.CNP Medications: None given Procedure: The patient was placed in the supine position. Under ultrasound, There was small volume free fluid noted by ultrasound but a pocket suitable for Paracentesis could not be found on the right or the left despite repositioning. The patient tolerated the procedure well. Miya Salinas APRN.CNP Referring Provider: JENNIE BECERRA) [[id number]] Allergies As of Date: 02/27/2018 Noted Allergy Reaction CODEINE 04/28/2007 8 - GI Upset Comments: nausea Date Reviewed: 02/27/2018 Reviewed by: Miya Young) Adrian - Fully Assessed Visit Diagnosis:Other ascites [R18.8] Prescriptions as of 02/27/2018 Sig: RIFAXIMIN 550 MG TABLET Take 1 tablet by mouth twice * ERGOCALCIFEROL (VITAMIN D2) 5* Take 1 capsule by mouth once * ZINC SULFATE 220 MG (50 MG) C* Take 1 capsule by mouth once * LACTULOSE 20 GRAM/30 ML ORAL * Take 30 mL by mouth twice lita* FUROSEMIDE 40 MG TABLET Take 1 tablet by mouth once d* SPIRONOLACTONE 100 MG TABLET Take 1 tablet by mouth once d* MECLIZINE 25 MG TABLET Take 1 tablet by mouth every * ADDERALL XR 30 MG CAPSULE,EXT* DEXTRAN 70-HYPROMELLOSE EYE D* 1 Drop as needed. 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 Other ascites [R18.8] INVALID FOR* S/P repair of ventral hernia [Z98.890, Z87.19] INVALID FOR* Constipation [K59.00] INVALID FOR* Acute kidney injury (HCC) [N17.9] INVALID FOR* Vitamin D deficiency [E55.9] INVALID FOR* Hepatic encephalopathy (HCC) [K72.90] INVALID FOR* Encounter Status:Closed by MIYA SALINAS on 02/27/18 CNPN Observed: 02/27/2018 Status: COMPLETED Source: [place] 12:00 AM [facility] REPOSITORY Telephone (GASTA5) HARRYPRITI ([id number]) 1960 F Date Time Provider Department 02/27/18 JENNIE BECERRA) GASTA5 During your visit today, we recorded the following information about you: Jennie Becerra MD 02/27/2018 1:21 PM Signed Rocky Elias, Can you please call Ms. Mcdonald: Her kidney number is much improved. Let's continue off diuretics and get repeat labs in a week. Her potassium is a little on the high side but not dangerous, please ask her to institute a low potassium diet. Thank you, MD Jada Rogers 02/27/2018 3:02 PM Signed Pt aware of message below and will follow recommendations. Jada Reyes Lpn February 27, 2018 Allergies As of Date: 02/27/2018 Noted Allergy Reaction CODEINE 04/28/2007 8 - GI Upset Comments: nausea Date Reviewed: 02/27/2018 Reviewed by: Miya (Erick Salinas - Fully Assessed Reason for Visit: Results [95] Prescriptions as of 02/27/2018 Sig: RIFAXIMIN 550 MG TABLET Take 1 tablet by mouth twice * ERGOCALCIFEROL (VITAMIN D2) 5* Take 1 capsule by mouth once * ZINC SULFATE 220 MG (50 MG) C* Take 1 capsule by mouth once * LACTULOSE 20 GRAM/30 ML ORAL * Take 30 mL by mouth twice lita* FUROSEMIDE 40 MG TABLET Take 1 tablet by mouth once d* SPIRONOLACTONE 100 MG TABLET Take 1 tablet by mouth once d* MECLIZINE 25 MG TABLET Take 1 tablet by mouth every * ADDERALL XR 30 MG CAPSULE,EXT* DEXTRAN 70-HYPROMELLOSE EYE D* 1 Drop as needed. 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 Other ascites [R18.8] INVALID FOR* S/P repair of ventral hernia [Z98.890, Z87.19] INVALID FOR* Constipation [K59.00] INVALID FOR* Acute kidney injury (HCC) [N17.9] INVALID FOR* Vitamin D deficiency [E55.9] INVALID FOR* Hepatic encephalopathy (HCC) [K72.90] INVALID FOR* Encounter Status:Closed by JENNIE BECERRA MD on 02/27/18 [facility] Observed: 02/21/2018 Status: COMPLETED Source: [place] 12:00 AM [facility] REPOSITORY Letter Text Javier Carrera M.D. [facility] [address] [place] [address] office: [phone] fax: [phone] February 21, 2018 RE: Priti Mcdonald To Whom It May Concern: Priti Mcdonald underwent an operative procedure on January 22, 2018 at the [facility]. She will be able to return to work as of February 24, 2018 without any restrictions. If you should have any questions with regards to Priti Mcdonald, please do not hesitate to contact my office. Sincerely, Javier Carrera M.D. [facility] Observed: 02/19/2018 Status: COMPLETED Source: [place] 12:00 AM [facility] REPOSIT[facility] Telephone (GASTMN) PRITI MCDONALD ([id number]) 1960 F Date Time Provider Department 02/19/18 JENNIE BECERRA () [facility] During your visit today, we recorded the following information about you: Jennie Becerra MD 02/19/2018 6:37 PM Signed Hi Jada, Can you please call Ms. Mcdonald: Kidney numbers and liver numbers both still mildly on the rise. I'd like for her to have labs on her return. How is her ascites now that the drain is pulled? Any leakage? Thanks, Jennie Becerra MD Outside records received. TBili 1.8 ALP 166 AST 65 ALT 48 Cr 1.53 BUN 28 WBC 6.6 Hgb 15.6 Plt 269 Na 137 K 4.9 Jada Reyes 02/20/2018 9:26 AM Signed VM left for pt to call back MD office. Jada Reyes Lpn February 20, 2018 Jada Reyes 02/20/2018 9:34 AM Signed Pt returned my phone call and was informed kidney and liver numbers still mildly on the rise and MD would like her to repeat labs . Pt said ascites is not as bad and not having leakage. Says she will get labs prior to her US appt 02/27/18. Jada Reyes Lpn February 20, 2018 Jennie Becerra MD 02/20/2018 9:59 AM Signed Noted. Thank you. Jennie Becerra MD Allergies As of Date: 02/19/2018 Noted Allergy Reaction CODEINE 04/28/2007 8 - GI Upset Comments: nausea Date Reviewed: 02/14/2018 Reviewed by: Javier Reynolds - Fully Assessed Reason for Visit: Results [95] Prescriptions as of 02/19/2018 Sig: RIFAXIMIN 550 MG TABLET Take 1 tablet by mouth twice * ERGOCALCIFEROL (VITAMIN D2) 5* Take 1 capsule by mouth once * ZINC SULFATE 220 MG (50 MG) C* Take 1 capsule by mouth once * LACTULOSE 20 GRAM/30 ML ORAL * Take 30 mL by mouth twice lita* FUROSEMIDE 40 MG TABLET Take 1 tablet by mouth once d* SPIRONOLACTONE 100 MG TABLET Take 1 tablet by mouth once d* MECLIZINE 25 MG TABLET Take 1 tablet by mouth every * ADDERALL XR 30 MG CAPSULE,EXT* DEXTRAN 70-HYPROMELLOSE EYE D* 1 Drop as needed. 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 Other ascites [R18.8] INVALID FOR* S/P repair of ventral hernia [Z98.890, Z87.19] INVALID FOR* Constipation [K59.00] INVALID FOR* Acute kidney injury (HCC) [N17.9] INVALID FOR* Vitamin D deficiency [E55.9] INVALID FOR* Hepatic encephalopathy (HCC) [K72.90] INVALID FOR* Encounter Status:Closed by JENNIE BECERRA MD on 02/19/18 PROGRESS Observed: 02/14/2018 Status: COMPLETED Source: [place] M[place] 2:49 PM [facility] HNO ID: [id number] Author: Javier Reynolds Service: (none) Author Type: Physician Type: Progress Notes Filed: 02/14/2018 2:50 PM Note Text: Attending Note I evaluated the patient and personally participated in the laughlin components. I agree with the resident's findings and plan as documented and have discussed the case and management of the patient's care with the resident. Signature: Javier Reynolds MD Date: 02/14/2018 Time: 2:49 PM PROGRESS Observed: 02/14/2018 Status: COMPLETED Source: [place] 10:58 AM [facility] HNO ID: [id number] Author: Santo (Resident) Moises Service: (none) Author Type: Resident Type: Progress Notes Filed: 02/14/2018 2:50 PM Note Text: Name: Priti Mcdonald Assessment and Plan: 57 year old female with known BARRAG[place] cirrhosis who had an umbilical hernia repair with an intraabdominal drain placement. Came today for follow up visit. Doing well, asymptomatic. Incision well healed. On Aldactone/Lasix, Lactulose If not able to control ascites with diuretic could be a candidate for TIPS PLAN: Drain removed today Stitch placed to close the drain site under local anesthesia Family instructed for drain removal No further follow up neded Subjective/Interval Events: afebrile, pain well controlled, no nausea or vomiting, tolerating a diet, passing flatus, having BF Objective: BP 129/59 Pulse 83 Temp 36.4 ?C (97.6 ?F) (Oral) Resp 18 Wt 97.2 kg (214 lb 3.2 oz) LMP 08/09/2008 BMI 33.55 kg/m? Intake and Output: No intake/output data recorded. CBC BMP Invalid input(s): ICA Physical exam: General: Awake, alert and oriented, NAD Neck: supple. Respiratory: Non-labored breathing Cardiac: HDS Abdomen: Soft, non-distended, non-tender, incision C/D/I. Vimal drain with ascites fluid (removed) Santo De Leon MD February 14, 2018 10:58 AM CNOV Observed: 02/14/2018 Status: COMPLETED Source: [place] 10:45 AM [facility] REPOS[facility] Office Visit (GENSCA) PRITI MCDONALD ([id number]) 1960 F Date Time Provider Department 02/14/18 10:45 AM JAVIER HENLEY During your visit today, we recorded the following information about you: Temperature Pulse Respiration Blood pressure 97.6 degrees 83/minute 18/minute 129/59 Weight 97.2 kg Erica Orantes LPN, DENISE 02/14/2018 10:41 AM Signed Additional intake questions: Has the patient had nausea, vomiting, diarrhea, constipation, fatigue for > 1 week? Fatigue, Yes, MD Notified Does the patient have a decreased appetite? No Does patient want to see a Engineer Sergeant? No (yes to any of above refer patient to schedulers for dietitian appointment) ) Does patient have any new or increased numbness or tingling of extremities? No Is patient interested in fertility information? No Does patient need any prescription refills? No Electronically Signed By: DENISE Geronimo MD 02/14/2018 2:50 PM Signed Name: Priti Mcdonald Assessment and Plan: 57 year old female with known B[place] cirrhosis who had an umbilical hernia repair with an intraabdominal drain placement. Came today for follow up visit. Doing well, asymptomatic. Incision well healed. On Aldactone/Lasix, Lactulose If not able to control ascites with diuretic could be a candidate for TIPS PLAN: Drain removed today Stitch placed to close the drain site under local anesthesia Family instructed for drain removal No further follow up neded Subjective/Interval Events: afebrile, pain well controlled, no nausea or vomiting, tolerating a diet, passing flatus, having BF Objective: BP 129/59 Pulse 83 Temp 36.4 ?C (97.6 ?F) (Oral) Resp 18 Wt 97.2 kg (214 lb 3.2 oz) LMP 08/09/2008 BMI 33.55 kg/m? Intake and Output: No intake/output data recorded. CBC BMP Invalid input(s): ICA Physical exam: General: Awake, alert and oriented, NAD Neck: supple. Respiratory: Non-labored breathing Cardiac: HDS Abdomen: Soft, non-distended, non-tender, incision C/D/I. Vimal drain with ascites fluid (removed) Santo De Leon MD February 14, 2018 10:58 AM Javier Reynolds MD 02/14/2018 2:50 PM Signed Attending Note I evaluated the patient and personally participated in the laughlin components. I agree with the resident's findings and plan as documented and have discussed the case and management of the patient's care with the resident. Signature: Javier Reynolds MD Date: 02/14/2018 Time: 2:49 PM Referring Provider: SELF [200] Allergies As of Date: 02/14/2018 Noted Allergy Reaction CODEINE 04/28/2007 8 - GI Upset Comments: nausea Date Reviewed: 02/14/2018 Reviewed by: Javier Reynolds - Fully Assessed Reason for Visit: Established Patient [175] Primary Visit Diagnosis:S/P repair of ventral hernia [Z98.890, Z87.19] Prescriptions as of 02/14/2018 Sig: RIFAXIMIN 550 MG TABLET Take 1 tablet by mouth twice * ERGOCALCIFEROL (VITAMIN D2) 5* Take 1 capsule by mouth once * ZINC SULFATE 220 MG (50 MG) C* Take 1 capsule by mouth once * LACTULOSE 20 GRAM/30 ML ORAL * Take 30 mL by mouth twice lita* FUROSEMIDE 40 MG TABLET Take 1 tablet by mouth once d* SPIRONOLACTONE 100 MG TABLET Take 1 tablet by mouth once d* MECLIZINE 25 MG TABLET Take 1 tablet by mouth every * ADDERALL XR 30 MG CAPSULE,EXT* DEXTRAN 70-HYPROMELLOSE EYE D* 1 Drop as needed. PAROXETINE 10 MG TABLET LEVOTHYROXINE 137 MCG TABLET Take 137 mcg by mouth once da* DULOXETINE 60 MG CAPSULE,AGGIE* Take 60 mg by mouth once alka* Problem List As Of Date 02/14/2018 Noted Resolved SKIN SENSATION DISTURB [R20.9] INVALID FOR* MENIERE'S DISEASE NOS [H81.09] Controlled type 2 diabetes mellitus without com* DEPRESSIVE DISORDER NEC [F32.9] Abnormal mammogram, unspecified [R92.8] INVALID FOR* Breast cancer [C50.919] INVALID FOR* History of breast cancer [Z85.3] INVALID FOR* History of colonic polyps [Z86.010] INVALID FOR*04/29/2015 RUQ pain [R10.11] INVALID FOR* Nonalcoholic steatohepatitis ([place]) [K75.81] INVALID FOR* 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 Other ascites [R18.8] INVALID FOR* S/P repair of ventral hernia [Z98.890, Z87.19] INVALID FOR* Constipation [K59.00] INVALID FOR* Acute kidney injury (HCC) [N17.9] INVALID FOR* Vitamin D deficiency [E55.9] INVALID FOR* Hepatic encephalopathy (HCC) [K72.90] INVALID FOR* Visit Notes: >> Erica (Denise) DENISE Orantes SatFeb 14, 2018 10:39 AM Status: Signed Additional intake questions: Has the patient had nausea, vomiting, diarrhea, constipation, fatigue for > 1 week? Fatigue, Yes, MD Notified Does the patient have a decreased appetite? No Does patient want to see a Engineer Sergeant? No (yes to any of above refer patient to schedulers for dietitian appointment) ) Does patient have any new or increased numbness or tingling of extremities? No Is patient interested in fertility information? No Does patient need any prescription refills? No Electronically Signed By: Erica Orantes LPN Disposition: Return if symptoms worsen or fail to improve. Follow-up and Disposition History Recorded Encounter Status:Closed by JAVIER HENLEY MD on 02/14/18 PROGRESS Observed: 02/14/2018 Status: COMPLETED Source: [place] 9:48 AM [facility] HNO ID: [id number] Author: Lilia (Rn) WILIAM Warren Service: (none) Author Type: Registered Nurse Type: Progress Notes Filed: 02/14/2018 9:50 AM Note Text: PATIENT NAME: Priti Mcdonald Room Number: 10 Reason for therapy: Therapeutic Ordering Physician: Dr. Becerra Supervising/Billing Physician: Dr. Becerra IV MAINTENANCE: Maintenance Solution: Albumin 25%, 300 mg IV x 1 Needle Type and Size: 24 g angiocath Peripheral IV Site: Left Hand Central Venous Access: No Type: PIV Flushed with: normal saline 10 cc Vital Signs Pre and Q30 min. during infusion: Time 0830 BP 148/87 Pulse 90 O2Sat 94 Time 0844 BP 142/77 Pulse 91 O2Sat 99 Infusion Rate 400 cc/hr 1 bag Time 0914 BP 127/73 Pulse 81 O2Sat 98 Infusion Rate 400 cc/hr Time Post 0935 Pulse 79 Resp 16 BP 122/71 Complete (6 bags) IV PATENCY: Patient denies discomfort at site: Yes Site without swelling: Yes IV Discontinued (time): 09 Electronically Signed By: Lilia Warren RN February 14, 2018 9:48 AM CNNURSE Observed: 02/14/2018 Status: COMPLETED Source: [place] 9:00 AM [facility] RE[facility] Nurse Visit (GAPRA3) PRITI MCDONALD ([id number]) 1960 F Date Time Provider Department 02/14/18 9:00 AM NURSE GI PROCEDURE GAPRA3 During your visit today, we recorded the following information about you: Lilia Warren RN, RN 02/14/2018 9:50 AM Signed PATIENT NAME: Priti Mcdonald Room Number: 10 Reason for therapy: Therapeutic Ordering Physician: Dr. Becerra Supervising/Billing Physician: Dr. Becerra IV MAINTENANCE: Maintenance Solution: Albumin 25%, 300 mg IV x 1 Needle Type and Size: 24 g angiocath Peripheral IV Site: Left Hand Central Venous Access: No Type: PIV Flushed with: normal saline 10 cc Vital Signs Pre and Q30 min. during infusion: Time 0830 BP 148/87 Pulse 90 O2Sat 94 Time 0844 BP 142/77 Pulse 91 O2Sat 99 Infusion Rate 400 cc/hr 1 bag Time 0914 BP 127/73 Pulse 81 O2Sat 98 Infusion Rate 400 cc/hr Time Post 0935 Pulse 79 Resp 16 BP 122/71 Complete (6 bags) IV PATENCY: Patient denies discomfort at site: Yes Site without swelling: Yes IV Discontinued (time): 0935 Electronically Signed By: Lilia Warren RN February 14, 2018 9:48 AM Referring Provider: JENNIE BECERRA) [[id number]] Allergies As of Date: 02/14/2018 Noted Allergy Reaction CODEINE 04/28/2007 Comments: nausea Date Reviewed: 02/07/2018 Reviewed by: Sumi (Rn) WILIAM Major - Fully Assessed Reason for Visit: Nurse Visit-Transfusion/Infusion [849] Primary Visit Diagnosis:Dehydration [E86.0] Prescriptions as of 02/14/2018 Sig: RIFAXIMIN 550 MG TABLET Take 1 tablet by mouth twice * ERGOCALCIFEROL (VITAMIN D2) 5* Take 1 capsule by mouth once * ZINC SULFATE 220 MG (50 MG) C* Take 1 capsule by mouth once * LACTULOSE 20 GRAM/30 ML ORAL * Take 30 mL by mouth twice lita* FUROSEMIDE 40 MG TABLET Take 1 tablet by mouth once d* SPIRONOLACTONE 100 MG TABLET Take 1 tablet by mouth once d* MECLIZINE 25 MG TABLET Take 1 tablet by mouth every * ADDERALL XR 30 MG CAPSULE,EXT* DEXTRAN 70-HYPROMELLOSE EYE D* 1 Drop as needed. PAROXETINE 10 MG TABLET LEVOTHYROXINE 137 MCG TABLET Take 137 mcg by mouth once da* DULOXETINE 60 MG CAPSULE,AGGIE* Take 60 mg by mouth once alka* Problem List As Of Date 02/14/2018 Noted Resolved SKIN SENSATION DISTURB [R20.9] INVALID FOR* MENIERE'S DISEASE NOS [H81.09] Controlled type 2 diabetes mellitus without com* DEPRESSIVE DISORDER NEC [F32.9] Abnormal mammogram, unspecified [R92.8] INVALID FOR* Breast cancer [C50.919] INVALID FOR* History of breast cancer [Z85.3] INVALID FOR* History of colonic polyps [Z86.010] INVALID FOR*04/29/2015 RUQ pain [R10.11] INVALID FOR* Nonalcoholic steatohepatitis ([place]) [K75.81] INVALID FOR* 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 Other ascites [R18.8] INVALID FOR* S/P repair of ventral hernia [Z98.890, Z87.19] INVALID FOR* Constipation [K59.00] INVALID FOR* Acute kidney injury (HCC) [N17.9] INVALID FOR* Vitamin D deficiency [E55.9] INVALID FOR* Hepatic encephalopathy (HCC) [K72.90] INVALID FOR* Encounter Status:Closed by LILIA SEN on 02/14/18 MARIBELL Observed: 02/11/2018 Status: COMPLETED Source: [place] 12:00 AM [facility] REPOSITORY Telephone (GAPRA3) PRITI MCDONALD ([id number]) 1960 F Date Time Provider Department 02/11/18 JENNIE BECERRA) GAPRA3 During your visit today, we recorded the following information about you: Jennie Becerra MD 02/11/2018 12:48 PM Signed Jada, Can you please call the patient and let her know her kidney function is still up and her labs look like she is dehydrated to me. Please ask her to increase water intake but keep low salt diet. Please arrange for one more albumin infusion tomorrow in A3 - orders placed. What is her drain output and how is she feeling? Thank you, MD Jada Rogers 02/11/2018 4:18 PM Signed Pt informed of MD message below. Pt says Saturday will be better for her to come in for Albumin infusion. Pt scheduled for 02/14/18 A3. Says she feels a little better, a little more energy. Outputs reported: 02/07- 260 02/08- 350 02/09- 510 02/10- 310 02/11- (so far) Says she plans on going to [place] and wants to take lab orders with her and get labs drawn there (possibly). Will notify MD to hand sign. Jada Reyes Lpn February 11, 2018 Allergies As of Date: 02/11/2018 Noted Allergy Reaction CODEINE 04/28/2007 Comments: nausea Date Reviewed: 02/07/2018 Reviewed by: Sumi (Rn) WILIAM Major - Fully Assessed Reason for Visit: Results [95] Primary Visit Diagnosis:Other ascites [R18.8] Order(s):albumin, 25%, 25 % bottleInject 300 mL intravenously one time only for 1 dose.Disp: 300 mLRfl: 0 Prescriptions as of 02/11/2018 Sig: ALBUMIN, HUMAN 25 % INTRAVENO* Inject 300 mL intravenously o* RIFAXIMIN 550 MG TABLET Take 1 tablet by mouth twice * ERGOCALCIFEROL (VITAMIN D2) 5* Take 1 capsule by mouth once * ZINC SULFATE 220 MG (50 MG) C* Take 1 capsule by mouth once * LACTULOSE 20 GRAM/30 ML ORAL * Take 30 mL by mouth twice lita* FUROSEMIDE 40 MG TABLET Take 1 tablet by mouth once d* SPIRONOLACTONE 100 MG TABLET Take 1 tablet by mouth once d* MECLIZINE 25 MG TABLET Take 1 tablet by mouth every * ADDERALL XR 30 MG CAPSULE,EXT* DEXTRAN 70-HYPROMELLOSE EYE D* 1 Drop as needed. PAROXETINE 10 MG TABLET LEVOTHYROXINE 137 MCG TABLET Take 137 mcg by mouth once da* DULOXETINE 60 MG CAPSULE,AGGIE* Take 60 mg by mouth once alka* Problem List As Of Date 02/11/2018 Noted Resolved SKIN SENSATION DISTURB [R20.9] INVALID FOR* MENIERE'S DISEASE NOS [H81.09] Controlled type 2 diabetes mellitus without com* DEPRESSIVE DISORDER NEC [F32.9] Abnormal mammogram, unspecified [R92.8] INVALID FOR* Breast cancer [C50.919] INVALID FOR* History of breast cancer [Z85.3] INVALID FOR* History of colonic polyps [Z86.010] INVALID FOR*04/29/2015 RUQ pain [R10.11] INVALID FOR* Nonalcoholic steatohepatitis ([place]) [K75.81] INVALID FOR* 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 Other ascites [R18.8] INVALID FOR* S/P repair of ventral hernia [Z98.890, Z87.19] INVALID FOR* Constipation [K59.00] INVALID FOR* Acute kidney injury (HCC) [N17.9] INVALID FOR* Vitamin D deficiency [E55.9] INVALID FOR* Hepatic encephalopathy (HCC) [K72.90] INVALID FOR* Prescriptions ordered this encounter Disp Refills Start End ALBUMIN, HUMAN 25 % INTRAVENOUS SOLU* 300 * 0 02/11/2018 02/11/2018 Route: INTRAVENOUS Sig: Inject 300 mL intravenously one time only for 1 dose. Encounter Status:Closed by JENNIE BECERRA MD on 02/11/18 COMP METABOLIC PANEL Collected: 02/10/2018 Status: F Source: [place] 10:09 AM [facility] REPOSITORY TYPE CODE TESTS RESULT OUT OF REFERENCE UNITS RANGE LAB TP 6.3-8.0 g/dL Protein, Total 6.3 LAB ALB 3.9-4.9 g/dL Low Albumin 3.7 LAB CA 8.5-10.2 mg/dL Calcium, High Total 10.3 LAB TBIL 0.2-1.3 mg/dL Bilirubin, Total 0.7 LAB ALKP 34-123 U/L Alkaline High Phosphatase 133 LAB AST 13-35 U/L AST High 47 LAB GLU 74-99 mg/dL Glucose High 213 Result Comment: The [place] [employer] (ADA) provides guidance for cutoff values for fasting glucose and random glucose. The ADA defines fasting as no caloric intake for at least 8 hours. Fas ting plasma glucose results between 100 to 125 mg/dL indicate increased risk for diabetes (prediabetes). Fasting plasma glucose results greater than or equal to 126 mg/dL meet the criteria for diagnosis of diabetes. In the absence of unequivocal hyperglycemia, results should be confirmed by repeat testing. In a patient with classic symptoms of hyperglycemia or hyperglycemic crisis, random plasma glucose results greater than or equal to 200 mg/dL meet the criteria for diagnosis of diabetes. Reference: Standards of Medical Care in Diabetes 2016, [place] [employer]. Diabetes Care. 2016.39(Suppl 1). LAB BUN 7-21 mg/dL BUN High 30 LAB CRET 0.58-0.96 mg/dL Creatinine High 1.45 LAB NA 136-144 mmol/L Low Sodium 133 LAB K 3.7-5.1 mmol/L Potassium 5.0 LAB CL 97-105 mmol/L Low Chloride 91 LAB CO2 22-30 mmol/L CO2 26 LAB AGAP 9-18 mmol/L Anion Gap 16 LAB ALT 7-38 U/L ALT 28 LAB GFRAA eGFR- Amer. 45 LAB GFRNAA . eGFR-All Other Races 37 Result Comment: eGFR (Estimated GFR) Units of measure: mL/min/1.73 meters squared eGFR is derived from the reexpressed MDRD Study equation using the following parameters: serum creatinine, age, gender and race. The creatinine assay has been calibrated to be traceable to IDMS. An eGFR <60 mL/min/1.73m2 for >3 months is consistent with chronic kidney disease. Refer to KDOQI guidelines for clinical interpretation. In patients with unstable renal function, e.g. those with acute kidney injury, the eGFR may not accurately reflect actual GFR. Performed By: #### CMP #### [facility] [address] [place], [place] [address] PROGRESS Observed: 02/07/2018 Status: COMPLETED Source: [place] 2:29 PM [facility] REPOSITORY HNO ID: [id number] Author: Sumi (Rn) WILIAM Major Service: (none) Author Type: Registered Nurse Type: Progress Notes Filed: 02/07/2018 2:39 PM Note Text: PATIENT NAME: Priti Mcdonald Room Number: 11 Reason for therapy: Hydration Ordering Physician: Dr. Becerra Supervising/Billing Physician: Dr. Becerra PRE MEDICATION ADMINISTERED: No MEDICATIONS ADMINISTERED: Maintenance Dose # 1 Route: IV Started: 1115 Ended: 1215 IV MAINTENANCE: Maintenance Solution: Albumin 75 g Needle Type and Size: 24 g angiocath Peripheral IV Site: Left Hand Central Venous Access: No Type: PIV Flushed with: normal saline 10 cc Vital Signs Pre and Q30 min. during infusion: Time 1050 BP 143/83 Pulse 93 O2Sat 96% Temp 98.5 Time 1115 BP 123/74 Pulse 93 O2Sat 95% Infusion Rate 400cc/hr Time 1125 BP 125/80 Pulse 90 O2Sat 95% Infusion Rate 400cc/hr Time 1142 BP 119/77 Pulse 91 O2Sat 96% Infusion Rate 400cc/hr Time 1150 BP 128/74 Pulse 88 O2Sat 97% Infusion Rate 400cc/hr Time 1200 BP 128/69 Pulse 90 O2Sat 97% Infusion Rate 400cc/hr Time Post 1215 Pulse 88 Resp 18 BP 119/72 O2Sat 97% IV PATENCY: Patient denies discomfort at site: Yes Site without swelling: Yes IV Discontinued (time): 1215 Electronically Signed By: Sumi Major RN February 07, 2018 2:29 PM CNNURSE Observed: 02/07/2018 Status: COMPLETED Source: [place] 11:00 AM [facility] REPOSIT[facility] Nurse Visit (GAPRA3) PRITI MCDONALD ([id number]) 1960 F Date Time Provider Department 02/07/18 11:00 AM NURSE GI PROCEDURE GAPRA3 During your visit today, we recorded the following information about you: Sumi Major RN, RN 02/07/2018 2:39 PM Signed PATIENT NAME: Priti Mcdonald Room Number: 11 Reason for therapy: Hydration Ordering Physician: Dr. Becerra Supervising/Billing Physician: Dr. Becerra PRE MEDICATION ADMINISTERED: No MEDICATIONS ADMINISTERED: Maintenance Dose # 1 Route: IV Started: 1115 Ended: 1215 IV MAINTENANCE: Maintenance Solution: Albumin 75 g Needle Type and Size: 24 g angiocath Peripheral IV Site: Left Hand Central Venous Access: No Type: PIV Flushed with: normal saline 10 cc Vital Signs Pre and Q30 min. during infusion: Time 1050 BP 143/83 Pulse 93 O2Sat 96% Temp 98.5 Time 1115 BP 123/74 Pulse 93 O2Sat 95% Infusion Rate 400cc/hr Time 1125 BP 125/80 Pulse 90 O2Sat 95% Infusion Rate 400cc/hr Time 1142 BP 119/77 Pulse 91 O2Sat 96% Infusion Rate 400cc/hr Time 1150 BP 128/74 Pulse 88 O2Sat 97% Infusion Rate 400cc/hr Time 1200 BP 128/69 Pulse 90 O2Sat 97% Infusion Rate 400cc/hr Time Post 1215 Pulse 88 Resp 18 BP 119/72 O2Sat 97% IV PATENCY: Patient denies discomfort at site: Yes Site without swelling: Yes IV Discontinued (time): 1215 Electronically Signed By: Sumi Major RN February 07, 2018 2:29 PM Referring Provider: JENNIE BECERRA) [[id number]] Allergies As of Date: 02/07/2018 Noted Allergy Reaction CODEINE 04/28/2007 Comments: nausea Date Reviewed: 02/07/2018 Reviewed by: Sumi (Rn) WILIAM Major - Fully Assessed Reason for Visit: Nurse Visit-Transfusion/Infusion [849] Primary Visit Diagnosis:Dehydration [E86.0] Prescriptions as of 02/07/2018 Sig: ERGOCALCIFEROL (VITAMIN D2) 5* Take 1 capsule by mouth once * ZINC SULFATE 220 MG (50 MG) C* Take 1 capsule by mouth once * X RIFAXIMIN 550 MG TABLET Take 1 tablet by mouth twice * LACTULOSE 20 GRAM/30 ML ORAL * Take 30 mL by mouth twice lita* FUROSEMIDE 40 MG TABLET Take 1 tablet by mouth once d* SPIRONOLACTONE 100 MG TABLET Take 1 tablet by mouth once d* MECLIZINE 25 MG TABLET Take 1 tablet by mouth every * ADDERALL XR 30 MG CAPSULE,EXT* DEXTRAN 70-HYPROMELLOSE EYE D* 1 Drop as needed. PAROXETINE 10 MG TABLET LEVOTHYROXINE 137 MCG TABLET Take 137 mcg by mouth once da* DULOXETINE 60 MG CAPSULE,AGGIE* Take 60 mg by mouth once alka* Problem List As Of Date 02/07/2018 Noted Resolved SKIN SENSATION DISTURB [R20.9] INVALID FOR* MENIERE'S DISEASE NOS [H81.09] Controlled type 2 diabetes mellitus without com* DEPRESSIVE DISORDER NEC [F32.9] Abnormal mammogram, unspecified [R92.8] INVALID FOR* Breast cancer [C50.919] INVALID FOR* History of breast cancer [Z85.3] INVALID FOR* History of colonic polyps [Z86.010] INVALID FOR*04/29/2015 RUQ pain [R10.11] INVALID FOR* Nonalcoholic steatohepatitis ([place]) [K75.81] INVALID FOR* 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 Other ascites [R18.8] INVALID FOR* S/P repair of ventral hernia [Z98.890, Z87.19] INVALID FOR* Constipation [K59.00] INVALID FOR* Acute kidney injury (HCC) [N17.9] INVALID FOR* Vitamin D deficiency [E55.9] INVALID FOR* Hepatic encephalopathy (HCC) [K72.90] INVALID FOR* Encounter Status:Closed by SUMI MAJOR on 02/07/18 MARIBELL Observed: 02/06/2018 Status: COMPLETED Source: [place] 12:00 AM [facility] REPOSITORY Telephone (GASTA5) PRITI MCDONALD ([id number]) 1960 F Date Time Provider Department 02/06/18 JENNIE BECERRA) GASTA5 During your visit today, we recorded the following information about you: Jennie Becerra MD 02/06/2018 9:13 AM Signed Hi Jada, I'd Ms. Mcdonald to come in today or tomorrow for an albumin infusion in A3. Order is in. Could you call her and help get this scheduled with her? I sent her a [employer] message but not sure she'll check it soon enough. Thank you! MD Jada Rogers 02/06/2018 11:18 AM Signed Pt aware she is scheduled for albumin infusion (A3) 02/07/18 @ 11am. Jada Reyes Lpn February 06, 2018 Allergies As of Date: 02/06/2018 Noted Allergy Reaction CODEINE 04/28/2007 Comments: nausea Date Reviewed: 01/31/2018 Reviewed by: Sumi (Rn) WILIAM Major - Fully Assessed Reason for Visit: Results [95] Appointment [186] Reason For Visit History Recorded Prescriptions as of 02/06/2018 Sig: ALBUMIN, HUMAN 25 % INTRAVENO* Inject 300 mL intravenously o* ERGOCALCIFEROL (VITAMIN D2) 5* Take 1 capsule by mouth once * ZINC SULFATE 220 MG (50 MG) C* Take 1 capsule by mouth once * LACTULOSE 20 GRAM/30 ML ORAL * Take 30 mL by mouth twice lita* FUROSEMIDE 40 MG TABLET Take 1 tablet by mouth once d* SPIRONOLACTONE 100 MG TABLET Take 1 tablet by mouth once d* MECLIZINE 25 MG TABLET Take 1 tablet by mouth every * ADDERALL XR 30 MG CAPSULE,EXT* DEXTRAN 70-HYPROMELLOSE EYE D* 1 Drop as needed. PAROXETINE 10 MG TABLET LEVOTHYROXINE 137 MCG TABLET Take 137 mcg by mouth once da* DULOXETINE 60 MG CAPSULE,AGGIE* Take 60 mg by mouth once alka* Problem List As Of Date 02/06/2018 Noted Resolved SKIN SENSATION DISTURB [R20.9] INVALID FOR* MENIERE'S DISEASE NOS [H81.09] Controlled type 2 diabetes mellitus without com* DEPRESSIVE DISORDER NEC [F32.9] Abnormal mammogram, unspecified [R92.8] INVALID FOR* Breast cancer [C50.919] INVALID FOR* History of breast cancer [Z85.3] INVALID FOR* History of colonic polyps [Z86.010] INVALID FOR*04/29/2015 RUQ pain [R10.11] INVALID FOR* Nonalcoholic steatohepatitis ([place]) [K75.81] INVALID FOR* 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 Other ascites [R18.8] INVALID FOR* S/P repair of ventral hernia [Z98.890, Z87.19] INVALID FOR* Constipation [K59.00] INVALID FOR* Acute kidney injury (HCC) [N17.9] INVALID FOR* Vitamin D deficiency [E55.9] INVALID FOR* Encounter Status:Closed by JENNIE BECERRA MD on 02/06/18 CBC AND DIFFERENTIAL Collected: 02/03/2018 Status: F Source: [place] 11:46 AM [facility] REPOSITORY TYPE CODE TESTS RESULT OUT OF REFERENCE UNITS RANGE LAB WBC 3.70-11.00 k/uL WBC High 14.18 LAB RBC 3.90-5.20 m/uL RBC High 6.02 LAB HGB 11.5-15.5 g/dL High Hemoglobin 17.6 LAB HCT 36.0-46.0 % High Hematocrit 52.9 LAB MCV 80.0-100.0 fL MCV 87.9 LAB MCH 26.0-34.0 pG MCH 29.2 LAB MCHC 30.5-36.0 g/dL MCHC 33.3 LAB RDWCV 11.5-15.0 % RDW-CV 14.5 LAB PLTCT 150-400 k/uL Platelet High Count 444 LAB MPV 9.0-12.7 fL MPV 11.9 LAB ANEUT % Neut% 70.2 LAB AANEUT 1.45-7.50 k/uL Abs Neut High 9.96 LAB ALYMP % Lymph% 13.6 LAB AALYMP 1.00-4.00 k/uL Abs Lymph 1.93 LAB AMONO % [place]% 5.9 LAB AAMONO <0.87 k/uL Abs [place] 0.83 LAB AEOS % Eosin% 9.3 LAB AAEOS <0.46 k/uL Abs High Eosin 1.32 LAB ABASO % Baso% 1.0 LAB AABASO <0.11 k/uL Abs Baso High 0.14 LAB AUNRBC 0 /100 WBC NRBCs 0.0 LAB ABNRBC <0.01 k/uL Absolute nRBC <0.01 LAB DTYP DTYPE Auto Diff Performed By: #### CBCDIF, PT, AFP, AHAVT, HREMOP, HBA1C, IRON, CERULO, TSH, CMP, LIPNF, FERR, ANA1, VITD, ZINC, SMOOTH, ARIANA, CELSCR #### [facility] [address] [place], [place] [address] #### A1APHE #### [facility] [address] [place] [address] [phone] PROTIME Collected: 02/03/2018 Status: F Source: [place] 11:46 AM [facility] REPOSITORY TYPE CODE TESTS RESULT OUT OF RANGE REFERENCE UNITS LAB PSEC 9.7-13.0 sec PT Sec 11.1 LAB INR 0.9-1.3 PT INR 1.1 Result Comment: Vitamin K Antagonist (VKA) Therapeutic Range: INR 2 to 3 (Target INR of 2.5) Note: For patients treated with VKA drugs, such as warfarin, the [place] [employer] 2012 Guideline recommends a therapeutic INR range of 2 to 3 (target INR of 2.5). This recommendation includes high-risk patients with antiphospholipid syndrome with previous arterial or venous thromboembolism, current-generation mechanical or bioprosthetic aortic heart valve replacement. Note: Patients with mechanical aortic valve replacement and additional risk factors for thromboembolic events (atrial fibrillation, previous thromboembolism, LV dysfunction, hypercoagulable conditions) or an older generation mechanical AVR (i.e., ball in-Cage) or any mechanical MVR should have a INR therapeutic range of 2.5 to 3.5 (target INR of 3). Pearl GH, et al. Chest 2012, 141:7S-47S Rita RA, et al. [facility] 2017, 70: 252-289 Performed By: #### CBCDIF, PT, AFP, AHAVT, HREMOP, HBA1C, IRON, CERULO, TSH, CMP, LIPNF, FERR, ANA1, VITD, ZINC, SMOOTH, ARIANA, CELSCR #### [place] [address] #### A1APHE #### [address] [address] [phone] AFP Collected: 02/03/2018 Status: F Source: [place] 11:46 AM [facility] REPOS[facility] TYPE CODE TESTS RESULT OUT OF RANGE REFERENCE UNITS LAB AFP <11 ng/mL AFP 7.6 Performed By: #### CBCDIF, PT, AFP, AHAVT, HREMOP, HBA1C, IRON, CERULO, TSH, CMP, LIPNF, FERR, ANA1, VITD, ZINC, SMOOTH, ARIANA, CELSCR #### [place] [address] #### A1APHE #### [facility] [address] [place] [phone] HEPATITIS A AB TOTAL Collected: 02/03/2018 Status: F Source: [place] 11:46 AM [facility] TYPE CODE TESTS RESULT OUT OF REFERENCE UNITS RANGE LAB AHAVT Negative Hepatitis A Ab Negative Total Performed By: #### CBCDIF, PT, AFP, AHAVT, HREMOP, HBA1C, IRON, CERULO, TSH, CMP, LIPNF, FERR, ANA1, VITD, ZINC, SMOOTH, ARIANA, CELSCR #### [place] [phone] #### A1APHE #### [place] [address] [phone] HEPATITIS REMOTE PANEL Collected: 02/03/2018 Status: F Source: [place] 11:46 [facility] REPOSITORY TYPE CODE TESTS RESULT OUT OF REFERENCE UNITS RANGE LAB AHBCOT Negative Hep B Core Ab,Total Negative LAB AHCV Negative Hepatitis C Ab Negative IA LAB HBSAGR Negative HBsAg Negative LAB AHBSAG Negative HepB Surface Ab,Qual Negative Result Comment: NEGATIVE Performed By: #### CBCDIF, PT, AFP, AHAVT, HREMOP, HBA1C, IRON, CERULO, TSH, CMP, LIPNF, FERR, ANA1, VITD, ZINC, SMOOTH, ARIANA, CELSCR #### [place] [address] [place] [phone] #### A1APHE #### [place] [address] [phone] HEMOGLOBIN A1C Collected: 02/03/2018 Status: F Source: [place] 11:46 [facility] REPOSITORY TYPE CODE TESTS RESULT OUT OF REFERENCE UNITS RANGE LAB HGBA1C 4.3-5.6 % High Hemoglobin A1c 5.9 LAB HBA0 mg/dL Est. Average Glucose 123 Result Comment: eAG: (Estimated average glucose) is a calculated value from HgbA1c and is public health representative of the average blood glucose level in the last 2-3 month period. Performed By: #### CBCDIF, PT, AFP, AHAVT, HREMOP, HBA1C, IRON, CERULO, TSH, CMP, LIPNF, FERR, ANA1, VITD, ZINC, SMOOTH, ARIANA, CELSCR #### [place] [address] [place] [phone] #### A1APHE #### [place] [address] [phone] IRON AND TIBC Collected: 02/03/2018 Status: F Source: [place] 11:46 AM [facility] TYPE CODE TESTS RESULT OUT OF REFERENCE UNITS RANGE LAB IRN 41-186 ug/dL Iron 111 LAB TIBC 232-386 ug/dL TIBC 248 LAB SAT 15-57 % Transferrin Saturatn 45 Performed By: #### CBCDIF, PT, AFP, AHAVT, HREMOP, HBA1C, IRON, CERULO, TSH, CMP, LIPNF, FERR, ANA1, VITD, ZINC, SMOOTH, ARIANA, CELSCR #### [place] [phone] #### A1APHE #### [place] [address] [phone] CERULOPLASMIN Collected: 02/03/2018 Status: F Source: [place] 11:46 AM [facility] TYPE CODE TESTS RESULT OUT OF REFERENCE UNITS RANGE LAB CERULO 16-45 mg/dL Ceruloplasmin 21 Performed By: #### CBCDIF, PT, AFP, AHAVT, HREMOP, HBA1C, IRON, CERULO, TSH, CMP, LIPNF, FERR, ANA1, VITD, ZINC, SMOOTH, ARIANA, CELSCR #### [place] [phone] #### A1APHE #### [place] [address] [phone] TSH Collected: 02/03/2018 Status: F Source: [place] 11:46 AM [facility] TYPE CODE TESTS RESULT OUT OF RANGE REFERENCE UNITS LAB TSH 0.400-5.500 uU/mL High TSH 44.610 Performed By: #### CBCDIF, PT, AFP, AHAVT, HREMOP, HBA1C, IRON, CERULO, TSH, CMP, LIPNF, FERR, ANA1, VITD, ZINC, SMOOTH, ARIANA, CELSCR #### [place] [phone] #### A1APHE #### [place] [address] [phone] COMP METABOLIC PANEL Collected: 02/03/2018 Status: F Source: [place] 11:46 AM [facility] TYPE CODE TESTS RESULT OUT OF REFERENCE UNITS RANGE LAB TP 6.3-8.0 g/dL Low Protein, Total 6.0 LAB ALB 3.9-4.9 g/dL Low Albumin 3.4 LAB CA 8.5-10.2 mg/dL Calcium, Total 9.4 LAB TBIL 0.2-1.3 mg/dL Bilirubin, Total 1.1 LAB ALKP 32-117 U/L Alkaline High Phosphatase 118 LAB AST 13-35 U/L AST High 44 LAB GLU 74-99 mg/dL Glucose High 232 Result Comment: The [place] [employer] (ADA) provides guidance for cutoff values for fasting glucose and random glucose. The ADA defines fasting as no caloric intake for at least 8 hours. Fas ting plasma glucose results between 100 to 125 mg/dL indicate increased risk for diabetes (prediabetes). Fasting plasma glucose results greater than or equal to 126 mg/dL meet the criteria for diagnosis of diabetes. In the absence of unequivocal hyperglycemia, results should be confirmed by repeat testing. In a patient with classic symptoms of hyperglycemia or hyperglycemic crisis, random plasma glucose results greater than or equal to 200 mg/dL meet the criteria for diagnosis of diabetes. Reference: Standards of Medical Care in Diabetes 2016, [place] [employer]. Diabetes Care. 2016.39(Suppl 1). LAB BUN 7-21 mg/dL BUN 17 LAB CRET 0.58-0.96 mg/dL Creatinine High 1.34 LAB NA 136-144 mmol/L Low Sodium 132 LAB K 3.7-5.1 mmol/L Potassium 4.1 LAB CL 97-105 mmol/L Low Chloride 92 LAB CO2 22-30 mmol/L CO2 25 LAB AGAP 9-18 mmol/L Anion Gap 15 LAB ALT 7-38 U/L ALT 22 LAB GFRAA eGFR- Amer. 49 LAB GFRNAA . eGFR-All Other Races 41 Result Comment: eGFR (Estimated GFR) Units of measure: mL/min/1.73 meters squared eGFR is derived from the reexpressed MDRD Study equation using the following parameters: serum creatinine, age, gender and race. The creatinine assay has been calibrated to be traceable to IDMS. An eGFR <60 mL/min/1.73m2 for >3 months is consistent with chronic kidney disease. Refer to KDOQI guidelines for clinical interpretation. In patients with unstable renal function, e.g. those with acute kidney injury, the eGFR may not accurately reflect actual GFR. Performed By: #### CBCDIF, PT, AFP, AHAVT, HREMOP, HBA1C, IRON, CERULO, TSH, CMP, LIPNF, FERR, ANA1, VITD, ZINC, SMOOTH, ARIANA, CELSCR #### [facility] [address] [place], [place] [address] #### A1APHE #### [facility] [address] [place] [address] [phone] LIPID PANEL, NONFAST Collected: 02/03/2018 Status: F Source: [place] 11:46 AM [facility] REPOSITORY TYPE CODE TESTS RESULT OUT OF REFERENCE UNITS RANGE LAB CHOLNF <200 mg/dL Total Cholesterol NF 167 Result Comment: <200 mg/dL, Desirable 200-239 mg/dL, Borderline high >239 mg/dL, High LAB TRIGNF <150 mg/dL Triglycerides, NF High 165 Result Comment: <150 mg/dL, Normal 150-199 mg/dL, Borderline high 200-499 mg/dL, High >499 mg/dL, Very high LAB HDLNF >39 mg/dL HDL Cholesterol, NF Low 35 Result Comment: 40-59 mg/dL, Acceptable >59 mg/dL, High: Negative risk factor for coronary heart disease <40 mg/dL, Low: Positive risk factor for coronary heart disease LAB LDLNF <100 mg/dL LDL Cholesterol, NF 99 Result Comment: <100 mg/dL, Optimal 100-129 mg/dL, Near optimal/above optimal 130-159 mg/dL, Borderline high 160-189 mg/dL, High >189 mg/dL, Very high Secondary prevention optimal LDL Cholesterol levels are recommended to be < 70 mg/dL LAB NOHDLN <130 mg/dL High Non HDL Chol, 132 NF Result Comment: <130 mg/dL, Optimal 130-159 mg/dL, Near optimal/above optimal 160-189 mg/dL, Borderline high 190-219 mg/dL, High >219 mg/dL, Very high Secondary prevention optimal non HDL Cholesterol levels are recommended to be < 100 mg/dL LAB VLDLNF <30 mg/dL VLDL Cholesterol, High NF 33 LAB TCHDLN <5.10 mg/dL T Chol/HDL Ratio NF 4.77 LAB LDLHDN <2.54 mg/dL LDL/HDL Ratio, NF High 2.83 Result Comment: Reference: 1. National Cholesterol Education Program ATP III Guideline At-A-Glance Quick Desk Reference: National Heart, Lung, and Blood [place]. National Institutes of Health. 2001: NIH Publication No. 01-3305. 2. An International Atherosclerosis Society position paper: global recommendations for the management of dyslipidemia: executive summary, Atherosclerosis. 2014: 232(2):410-413. Performed By: #### CBCDIF, PT, AFP, AHAVT, HREMOP, HBA1C, IRON, CERULO, TSH, CMP, LIPNF, FERR, ANA1, VITD, ZINC, SMOOTH, ARIANA, CELSCR #### [place] [address] #### A1APHE #### [address] [address] [phone] FERRITIN Collected: 02/03/2018 Status: F Source: [place] 11:46 AM [facility] REPOSITORY TYPE CODE TESTS RESULT OUT OF REFERENCE UNITS RANGE LAB FERR 14.7-205.1 ng/mL Ferritin 174.2 Performed By: #### CBCDIF, PT, AFP, AHAVT, HREMOP, HBA1C, IRON, CERULO, TSH, CMP, LIPNF, FERR, ANA1, VITD, ZINC, SMOOTH, ARIANA, CELSCR #### [place] [address] #### A1APHE #### [address] [id number] [phone] KATHY PANEL 1 Collected: 02/03/2018 Status: F Source: [place] 11:46 AM [facility] REPOSITORY TYPE CODE TESTS RESULT OUT OF REFERENCE UNITS RANGE LAB ANAQL Negative KATHY Negative by EIA, Qual LAB ANAEIA OD Ratio KATHY 0.5 by EIA Result Comment: OD Ratio is interpreted as follows: Negative <1.0 Positive >=1.0 Performed By: #### CBCDIF, PT, AFP, AHAVT, HREMOP, HBA1C, IRON, CERULO, TSH, CMP, LIPNF, FERR, ANA1, VITD, ZINC, SMOOTH, ARIANA, CELSCR #### [place] [address] #### A1APHE #### [address] [address] [phone] VITAMIN D 25 HYDROXY Collected: 02/03/2018 Status: F Source: [place] 11:46 [facility] REPOSITORY TYPE CODE TESTS RESULT OUT OF REFERENCE UNITS RANGE LAB VITD 31.0-80.0 ng/mL Low Vitamin D 25 7.8 Hydroxy Result Comment: Classification of 25 [place] Vitamin D status: Insufficiency/Moderate Deficiency: < or = 30 ng/mL Sufficiency/Optimal Levels: 31 to 80 ng/mL Toxicity: > 100 ng/mL Test performed by chemiluminescent immunoassay. Performed By: #### CBCDIF, PT, AFP, AHAVT, HREMOP, HBA1C, IRON, CERULO, TSH, CMP, LIPNF, FERR, ANA1, VITD, ZINC, SMOOTH, ARIANA, CELSCR #### [place] [phone] #### A1APHE #### [address] [address] [phone] ZINC Collected: 02/03/2018 Status: F Source: [place] 11:46 [facility] REPOSITORY TYPE CODE TESTS RESULT OUT OF RANGE REFERENCE UNITS LAB ZINC 55-150 ug/dL Low Zinc 46 Result Comment: This test was developed and its performance characteristics determined by [facility]'s [facility] [place] ([facility]). It has not been cleared or approved by the FDA. [facility] is regulated under CLIA as qualified to perform high-complexity testing. This test is used for clinical purposes. It should not be regarded as investigational or for research. Performed By: #### CBCDIF, PT, AFP, AHAVT, HREMOP, HBA1C, IRON, CERULO, TSH, CMP, LIPNF, FERR, ANA1, VITD, ZINC, SMOOTH, ARIANA, CELSCR #### [place] [address] [place] [address] #### A1APHE #### [address] [address] [phone] SMOOTH MUSCLE AB Collected: 02/03/2018 Status: F Source: [place] PNL 11:46 AM [facility] REPOSITORY TYPE CODE TESTS RESULT OUT OF REFERENCE UNITS RANGE LAB SMOOTH Negative Smooth Negative Muscle Ab Pnl Result Comment: Normal range : negative at a 1:20 serum dilution. Performed By: #### CBCDIF, PT, AFP, AHAVT, HREMOP, HBA1C, IRON, CERULO, TSH, CMP, LIPNF, FERR, ANA1, VITD, ZINC, SMOOTH, ARIANA, CELSCR #### [facility] [address] [place] [phone] #### A1APHE #### [facility] [address] [place] [address] [phone] MITOCHONDRIAL AB PNL Collected: 02/03/2018 Status: F Source: [place] 11:46 AM [facility] REPOSITORY TYPE CODE TESTS RESULT OUT OF REFERENCE UNITS RANGE LAB ARIANA Negative Mitochondrial Ab Pnl Negative Result Comment: Normal range : negative at a 1:20 serum dilution. Performed By: #### CBCDIF, PT, AFP, AHAVT, HREMOP, HBA1C, IRON, CERULO, TSH, CMP, LIPNF, FERR, ANA1, VITD, ZINC, SMOOTH, ARIANA, CELSCR #### [place] [address] [place] [address] #### A1APHE #### [facility] [address] [place] [address] [phone] CELIAC SCR W REFLEX Collected: 02/03/2018 Status: F Source: [place] 11:46 AM [facility] REPOSITORY TYPE CODE TESTS RESULT OUT OF REFERENCE UNITS RANGE LAB IGA 78-391 mg/dL IgA 215 LAB TGLUTA <20 Units Transglutaminase IgA 3 Result Comment: Negative : < 20 Units Weak Positive : 20 - 30 Units Moderate Pos to Strong Pos: >30 Units The following results were obtained with the [employer] QUANTA Lite h-tTG IgA [facility]. h-tTG IgA values obtained with different manufacturers' assay methods may not be used interchangeably. The magnitude of th e reported IgA levels cannot be correlated to an endpoint titer. LAB CINTER No serologic evidence of Interpretation No celiac disease. serologic evidence of celiac disease. Performed By: #### CBCDIF, PT, AFP, AHAVT, HREMOP, HBA1C, IRON, CERULO, TSH, CMP, LIPNF, FERR, ANA1, VITD, ZINC, SMOOTH, ARIANA, CELSCR #### [facility] [address] [place] [phone] #### A1APHE #### [facility] [address] [address] [phone] ALPHA1 ANTITRY PHENO Collected: 02/03/2018 Status: F Source: [place] 11:46 AM [facility] REPOSITORY TYPE CODE TESTS RESULT OUT OF REFERENCE UNITS RANGE LAB A1ANTP Alpha1 Antitry MM Phen Result Comment: (NOTE) The patient appears to have a normal phenotype. All M alleles (including subtypes M1, M2, and M3) produce normal serum concentrations of jllep-1-nihxkseu inhibitor and are not associated with clinical disease. Caution in interpretation is advised if the patient has been transfused within the previous 21 days. Performed by [facility], [address] [place] [address] [phone] [email or web address], Patrick Schneider MD, Lab. Director LAB A1ANTS 90-200 mg/dL High Alpha1 Antitry Serum 202 Result Comment: (NOTE) To convert to umol/L, multiply mg/dL by 0.185 Performed By: #### CBCDIF, PT, AFP, AHAVT, HREMOP, HBA1C, IRON, CERULO, TSH, CMP, LIPNF, FERR, ANA1, VITD, ZINC, SMOOTH, ARIANA, CELSCR #### [facility] [address] [place], [place] [address] #### A1APHE #### [facility] [address] [place] [address] [phone] COMP METABOLIC PANEL Collected: 01/31/2018 Status: F Source: [place] 12:51 PM [facility] REPOSITORY TYPE CODE TESTS RESULT OUT OF REFERENCE UNITS RANGE LAB TP 6.3-8.0 g/dL Low Protein, Total 6.2 LAB ALB 3.9-4.9 g/dL Albumin 4.4 LAB CA 8.5-10.2 mg/dL Calcium, Total 9.8 LAB TBIL 0.2-1.3 mg/dL Bilirubin, Total 0.6 LAB ALKP 32-117 U/L Alkaline Phosphatase 80 LAB AST 13-35 U/L AST 24 LAB GLU 74-99 mg/dL Glucose High 135 Result Comment: The [place] Diabetes Association (ADA) provides guidance for cutoff values for fasting glucose and random glucose. The ADA defines fasting as no caloric intake for at least 8 hours. Fas ting plasma glucose results between 100 to 125 mg/dL indicate increased risk for diabetes (prediabetes). Fasting plasma glucose results greater than or equal to 126 mg/dL meet the criteria for diagnosis of diabetes. In the absence of unequivocal hyperglycemia, results should be confirmed by repeat testing. In a patient with classic symptoms of hyperglycemia or hyperglycemic crisis, random plasma glucose results greater than or equal to 200 mg/dL meet the criteria for diagnosis of diabetes. Reference: Standards of Medical Care in Diabetes 2016, [place] [employer] Association. Diabetes Care. 2016.39(Suppl 1). LAB BUN 7-21 mg/dL BUN 18 LAB CRET 0.58-0.96 mg/dL Creatinine High 1.56 LAB NA 136-144 mmol/L Sodium 141 LAB K 3.7-5.1 mmol/L Potassium 4.3 LAB CL 97-105 mmol/L Low Chloride 93 LAB CO2 22-30 mmol/L CO2 30 LAB AGAP 9-18 mmol/L Anion Gap 18 LAB ALT 7-38 U/L ALT 11 LAB GFRAA eGFR- Amer. 41 LAB GFRNAA . eGFR-All Other Races 34 Result Comment: eGFR (Estimated GFR) Units of measure: mL/min/1.73 meters squared eGFR is derived from the reexpressed MDRD Study equation using the following parameters: serum creatinine, age, gender and race. The creatinine assay has been calibrated to be traceable to IDMS. An eGFR <60 mL/min/1.73m2 for >3 months is consistent with chronic kidney disease. Refer to KDOQI guidelines for clinical interpretation. In patients with unstable renal function, e.g. those with acute kidney injury, the eGFR may not accurately reflect actual GFR. Performed By: #### CMP #### [facility] [address] [place], [place] [address] PROGRESS Observed: 01/31/2018 Status: COMPLETED Source: [place] 12:43 PM [facility] REPOSITORY HNO ID: [id number] Author: Sumi (Rn) George RN Service: (none) Author Type: Registered Nurse Type: Progress Notes Filed: 01/31/2018 12:46 PM Note Text: PATIENT NAME: Priti Mcdonald Room Number: 20 Reason for therapy: Therapeutic Ordering Physician: Dr. Becerra Supervising/Billing Physician: Dr. Becerra PRE MEDICATION ADMINISTERED: No MEDICATIONS ADMINISTERED: Maintenance Dose # 1 Route: IV Started: 1100 Ended: 1240 IV MAINTENANCE: Maintenance Solution: Albumin 75g Needle Type and Size: 24 g angiocath Peripheral IV Site: Left Hand Central Venous Access: No Type: PIV Flushed with: normal saline 10 cc Vital Signs Pre and Q30 min. during infusion: Time 1047 BP 123/91 Pulse 108 O2Sat 97% Temp 96.3 Time 1100 BP 124/81 Pulse 94 O2Sat 96% Infusion Rate 200cc/hr Time 1130 BP 137/86 Pulse 88 O2Sat 97% Infusion Rate 200cc/hr Time 1200 BP 136/82 Pulse 93 O2Sat 99% Infusion Rate 200cc/hr Time 1220 BP 137/73 Pulse 89 O2Sat 98% Infusion Rate 200cc/hr Time Post 1240 Pulse 94 Resp 18 BP 128/69 O2Sat 95% IV PATENCY: Patient denies discomfort at site: Yes Site without swelling: Yes IV Discontinued (time): 1240 Electronically Signed By: Sumi Major RN January 31, 2018 12:44 PM CNNURSE Observed: 01/31/2018 Status: COMPLETED Source: [place] 10:30 AM [facility] REPOSITORY Nurse Visit (GAPRA3) PRITI MCDONALD ([id number]) 1960 F Date Time Provider Department 01/31/18 10:30 AM NURSE GI PROCEDURE GAPRA3 During your visit today, we recorded the following information about you: Sumi Major RN, RN 01/31/2018 12:46 PM Signed PATIENT NAME: Priti Mcdonald Room Number: 20 Reason for therapy: Therapeutic Ordering Physician: Dr. Becerra Supervising/Billing Physician: Dr. Becerra PRE MEDICATION ADMINISTERED: No MEDICATIONS ADMINISTERED: Maintenance Dose # 1 Route: IV Started: 1100 Ended: 1240 IV MAINTENANCE: Maintenance Solution: Albumin 75g Needle Type and Size: 24 g angiocath Peripheral IV Site: Left Hand Central Venous Access: No Type: PIV Flushed with: normal saline 10 cc Vital Signs Pre and Q30 min. during infusion: Time 1047 BP 123/91 Pulse 108 O2Sat 97% Temp 96.3 Time 1100 BP 124/81 Pulse 94 O2Sat 96% Infusion Rate 200cc/hr Time 1130 BP 137/86 Pulse 88 O2Sat 97% Infusion Rate 200cc/hr Time 1200 BP 136/82 Pulse 93 O2Sat 99% Infusion Rate 200cc/hr Time 1220 BP 137/73 Pulse 89 O2Sat 98% Infusion Rate 200cc/hr Time Post 1240 Pulse 94 Resp 18 BP 128/69 O2Sat 95% IV PATENCY: Patient denies discomfort at site: Yes Site without swelling: Yes IV Discontinued (time): 1240 Electronically Signed By: Sumi Major RN January 31, 2018 12:44 PM Referring Provider: JENNIE BECERRA) [[id number]] Allergies As of Date: 01/31/2018 Noted Allergy Reaction CODEINE 04/28/2007 Comments: nausea Date Reviewed: 01/31/2018 Reviewed by: Sumi (Rn) WILIAM Major - Fully Assessed Reason for Visit: Nurse Visit-Transfusion/Infusion [849] Primary Visit Diagnosis:S/P repair of ventral hernia [Z98.890, Z87.19] Prescriptions as of 01/31/2018 Sig: ALBUMIN, HUMAN 25 % INTRAVENO* Inject 300 mL intravenously o* LACTULOSE 20 GRAM/30 ML ORAL * Take 30 mL by mouth twice lita* X LACTULOSE 20 GRAM/30 ML ORAL * Take 30 mL by mouth twice lita* FUROSEMIDE 40 MG TABLET Take 1 tablet by mouth once d* SPIRONOLACTONE 100 MG TABLET Take 1 tablet by mouth once d* MECLIZINE 25 MG TABLET Take 1 tablet by mouth every * ADDERALL XR 30 MG CAPSULE,EXT* DEXTRAN 70-HYPROMELLOSE EYE D* 1 Drop as needed. PAROXETINE 10 MG TABLET LEVOTHYROXINE 137 MCG TABLET Take 137 mcg by mouth once da* DULOXETINE 60 MG CAPSULE,AGGIE* Take 60 mg by mouth once alka* Problem List As Of Date 01/31/2018 Noted Resolved SKIN SENSATION DISTURB [R20.9] INVALID FOR* MENIERE'S DISEASE NOS [H81.09] Controlled type 2 diabetes mellitus without com* DEPRESSIVE DISORDER NEC [F32.9] Abnormal mammogram, unspecified [R92.8] INVALID FOR* Breast cancer [C50.919] INVALID FOR* History of breast cancer [Z85.3] INVALID FOR* History of colonic polyps [Z86.010] INVALID FOR*04/29/2015 RUQ pain [R10.11] INVALID FOR* Nonalcoholic steatohepatitis (BARRAGAN) [K75.81] INVALID FOR* 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 Other ascites [R18.8] INVALID FOR* S/P repair of ventral hernia [Z98.890, Z87.19] INVALID FOR* Constipation [K59.00] INVALID FOR* Acute kidney injury (HCC) [N17.9] INVALID FOR* Encounter Status:Closed by SUMI MAJOR on 01/31/18 PROGRESS Observed: 01/31/2018 Status: COMPLETED Source: [place] 9:30 AM [facility] REPOSITORY O ID: [id number] Author: Jennie Squires) Hernan Service: (none) Author Type: Physician Type: Progress Notes Filed: 01/31/2018 3:52 PM Note Text: NAME: Priti Mcdonald AGE: [age] year old Patient is referred in consultation by Javier Reynolds for an opinion regarding ascites and my final recommendations will be communicated back to the requesting physician by way of shared Medical Record. 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 She also has meniere disease, metabolic syndrome, hx of breast cancer s/p lumpectomy (s/p tamoxifen x 5 years.) - She is here for hospital discharge follow up. - Admitted to [facility] form 01/21 - 01/25 for incarcerated umbilical hernia. Underwent Exploratory laparotomy, reduction of incarcerated umbilical hernia, primary umbilical hernia repair. Tolerated procedure well. Had VIMAL drain placed for ascites management to expedite wound healing. - VIMAL drain have ~ 500cc - 800 cc of ascitic fluid drainage per day. - Constipated after surgery. Tried MOM without any results. - Reversal of sleep cycle is new since admission - No fever/chills/N/V/melena - No hemetemesis Risk Factors: 1. Blood transfusions before 1991: No 2. IVDA: No 3. Intranasal coccaine use: No 4. Tattoos: No 5. Service: No 6. High risk sexual behavior: No 7. Alcohol: No 9. Obesity: Yes 9. Hyperlipidemia: N/A Complications of Cirrhosis: 1. Ascites: Yes 2. SBP: No 3. Non-bleeding varices: No 4. Variceal hemorrage: No 5. Portosystemic encephalopathy: No 6. Hepatorenal Syndrome: No 7. Hepatopulmonary Syndrome: No 8. Hepatic hydrothorax: No 9. Recurrent Cholangitis (PSC): No Liver Related Procedures: - EGD:Yes, Date: 09/2017 - Endoscopic treatment of esophageal varices:No - ERCP:No - Colonsocopy:Yes, Date: 2014 - Liver biopsy:Yes, Date: N/A - TIPS:No - Paracentesis:Yes, - PHTC or biliary stenting:No PAST SURGICAL HISTORY Procedure Laterality Date - COLONOSCOP W/ OR W/O BRSH SPEC 04/29/15 Colonoscopy - COLONOSCOPY 04/04/10 VJ -hyperplastic polyp - LIGATE FALLOPIAN TUBE 1989 Tubal ligation - PAST SURGICAL HISTORY OF 2003 Bunionectomy - PAST SURGICAL HISTORY OF Clean out endometriosis - PAST SURGICAL HISTORY OF 12/2010. Total Hysterectomy - PAST SURGICAL HISTORY OF 10/18/11 Lt breast lumpectomy with SLN biopsy - PAST SURGICAL HISTORY OF 2009 Vaginal sling PAST MEDICAL HISTORY Diagnosis Date - Depressive disorder, not elsewhere classified - Hypothyroidism - Mammographic microcalcification 08/24/08 RIGHT BREAST - Meniere's disease, unspecified - Snoring - Type II or unspecified type diabetes mellitus without mention of complication, not stated as uncontrolled Social History Marital status: Spouse name: Years of education: Number of children: Social History Main Topics Smoking status: Former Smoker Packs/day: 0.00 Years: 0.00 Types: Cigarettes Smokeless tobacco: Never Used Comment: Social smoker while in college. Alcohol use: Yes Comment: occasional Drug use: No Sexual activity: Yes Partners with: Male Current Outpatient Prescriptions: furosemide (LASIX) 40 mg tablet Take 1 tablet by mouth once daily. Disp: 30 tablet Rfl: 0 spironolactone (ALDACTONE) 100 mg tablet Take 1 tablet by mouth once daily. Disp: 30 tablet Rfl: 0 meclizine (ANTIVERT) 25 mg tab Take 1 tablet by mouth every 6 hours as needed. Disp: 30 tablet Rfl: 1 ADDERALL XR 30 mg 24 hr capsule Disp: Rfl: 0 dextran 70-hypromellose (TEARS PURE) ophthalmic solution 1 Drop as needed. Disp: Rfl: PARoxetine (PAXIL) 10 mg tablet Disp: Rfl: levothyroxine (SYNTHROID) 137 mcg tablet Take 137 mcg by mouth once daily. Disp: Rfl: DULOXETINE 60 mg capsule Take 60 mg by mouth once daily. Disp: Rfl: No current facility-administered medications for this visit. ALLERGIES Allergen Reactions - Codeine nausea FAMILY HISTORY Liver Problems: No Colitis: No Colon Cancer: No Other Cancers: No FAMILY HISTORY Problem Relation Age of Onset - Heart Mother - Heart Father - Heart Maternal Grandfather - Heart Paternal Grandfather - Cancer Maternal Grandmother brain GENERAL ROS Colon polyps: No Colon cancer: No Other cancer: No Radiation / Chemotherapy: No Crohn's disease / Ulcerative colitis: No High cholesterol or triglycerides: N/A Ulcers: No Gallstones: No Hepatitis / jaundice: No Heart Disease: No Lung Disease: No Liver problems: Yes Thyroid disease: Yes Kidney stones: No Pancreatitis: No Diabetes: Yes Arthritis: No Rheumatic fever: No Gastrointestinal bleeding: No Depression or other mental illness: Yes Other personal illness: No GI SPECIFIC ROS Difficulty swallowing / foods sticking in throat: No Heartburn: No Hoarseness: No Chronic cough: No Regurgitation: No Chest pain: No Filling up quickly at meals: No Loss of appetite: Yes Nausea: No Vomiting: No Abdominal pain: No Recent change in bowel movements: Yes Bloody or black, bowel movements: No Constipation: Yes Diarrhea: No Loss of control of bowel movements: No Night sweats, fever, chills: No Thought or memory problems: No Fluid in abdomen (ascites): Yes Prominent leg swelling: No Vomiting blood: No Recent change in weight: No PHYSICAL EXAMINATION BP 128/85 Pulse 118 Temp (Src) 97.7 (Oral) Ht 5' 7 (1.70m) Wt 214 lb 9.6 oz (97.3kg) SpO2 98% LMP 08/09/2008 BMI 33.60 kg/(m2). General Appearance: Well appearing, alert, in no acute distress, well-hydrated, well nourished. Eyes: PERRLA, conjunctiva and sclera normal Oropharynx: Lips, tongue, and oral mucosa normal. There is no thrush or oral ulcers. Lungs:breath sounds clear to auscultation bilaterally, no crackles, rhonchi, or wheezes Heart: regular rate and rhythm, no murmurs or gallops. Abdomen: Soft, non distended, Midline healing surgical scar +. Healing well. No drainage. VIMAL drain + Extremities: no cyanosis or edema Skin: no jaundice, no spider angiomas, no palmar erythema Neuro:alert, oriented x 3, pleasant and in no acute distress Recent Labs: Hemoglobin (g/dL) Date Value 01/27/2018 16.9 Hematocrit (%) Date Value 01/27/2018 50.9 WBC (k/uL) Date Value 01/27/2018 12.89 Glucose (mg/dL) Date Value 01/27/2018 118 Potassium (mmol/L) Date Value 01/27/2018 3.7 Sodium (mmol/L) Date Value 01/27/2018 136 Chloride (mmol/L) Date Value 01/27/2018 94 CO2 (mmol/L) Date Value 01/27/2018 31 Creatinine (mg/dL) Date Value 01/27/2018 1.40 BUN (mg/dL) Date Value 01/27/2018 16 Anion Gap (mmol/L) Date Value 01/27/2018 11 Calcium (mg/dL) Date Value 01/27/2018 8.4 Albumin (g/dL) Date Value 01/25/2018 2.1 (L) Bilirubin, Total (mg/dL) Date Value 01/25/2018 0.8 Alkaline Phosphatase (U/L) Date Value 01/25/2018 88 AST (U/L) Date Value 01/25/2018 23 ALT (U/L) Date Value 01/25/2018 12 Protein, Total (g/dL) Date Value 01/25/2018 4.7 (L) MELD-Na score: 8 at 01/23/2018 4:01 AM MELD score: 8 at 01/23/2018 4:01 AM Calculated from: Serum Creatinine: 1.22 mg/dL at 01/23/2018 4:01 AM Serum Sodium: 140 mmol/L (Rounded to 137) at 01/23/2018 4:01 AM Total Bilirubin: 0.8 mg/dL (Rounded to 1) at 01/23/2018 4:01 AM INR(ratio): 1 at 01/22/2018 12:45 AM Age: 57 years Impression: Priti Mcdonald is a 57 year old year old female with PMHx significant for 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 She also has meniere disease, metabolic syndrome, hx of breast cancer s/p lumpectomy (s/p tamoxifen x 5 years.) She is here for hospital discharge follow up. Admitted to [facility] form 01/21 - 01/25 for incarcerated umbilical hernia. Underwent Exploratory laparotomy, reduction of incarcerated umbilical hernia, primary umbilical hernia repair. Tolerated procedure well. Had VIMAL drain placed for ascites management to expedite wound healing. Doing well overall. Wound healing well. VIMAL drain with ~ 500cc output/day. Increase to 750 cc over last 2 days. Constipated with new reversal of sleep cycle. Plan: - Continue Lasix and Aldactone. Repeat BMP - Her abdominal wound is healing well. It would be best if we can control her ascites with diuretics. For now, keep VIMAL drain to gravity drainage. If her surgical wound has healed in next week, would prefer removing the VIMAL drain and going back to every other week paracentesis. - Start Lactulose for Grade 1 encephalopathy and constipation. - Will start evaluation of TIPS in case she is intolerant to diuretics. Check ECHO and US liver vascular ultrasound. - Repeat Lipid panel and HbA1c. - -EV screening - UTD 09/11/17; Due for repeat surveillance in 2-3 years. -HCC screening - UTD 12/26/17; repeat US in 6 months. Chavez Milligan MD PGY 3 IM [address] [facility] STAFF PHYSICIAN NOTE OF PERSONAL INVOLVEMENT IN CARE I have reviewed the consult note obtained and documented by the resident and I personally participated in the laughlin components. I have discussed the case and management of the patient's care. The following comments revise or confirm relevant laughlin components of their note. Assessment IMPRESSION Ms. Mcdonald is a 57 year old with nonalcoholic steatohepatitis related cirrhosis of the liver complicated by ascites, hepatic encephalopathy and fatigue who presents for hospital discharge follow-up. PMHx is otherwise notable for metabolic syndrome, Meniere's disease, depression, breast CA, hypothyroidism. She was recently admitted to the hospital with abdominal pain, found to have incarcerated hernia, now s/p ex lap and repair of umbilical hernia 01/22/18. Her post-operative course has been complicated by ascites, draining ~500cc daily via VIMAL drain with negative suction. She is on Lasix 40mg daily and Aldactone 100mg daily. Recent labs on Saturday demonstrate mild acute kidney injury, and she complains of feeling increasingly fatigued. Her last upper endoscopy was on 09/11/17 and showed no esophageal varices, PHG. Her last liver imaging was on 12/26/17 and showed no liver masses. I have explained the natural history of cirrhosis to the patient. ? PLAN: -BARRAGAN-related cirrhosis c/b portal HTN: Biopsy-proven at time of [facility], report not available for review. Will send serologies to exclude underlying/competing etiologies of chronic liver disease. Confirm immunity to HAV and HBV and vaccinate if non-immune. -Ascites - Transitioned from triamterene-HCTZ to Lasix 40mg daily and Aldactone 100mg daily. Mild VENANCIO on labs Saturday; re-check today. Will send for outpatient Albumin infusion of 75gms today. Pending results of labs may decrease or hold diuretics. Check labs again next Saturday/Saturday and may plan for weekly albumin infusion while VIMAL drain is in place. Counseled to not use negative suction, drain no more than 400cc daily from VIMAL as long as there is no leakage around the drain site. In the event that her kidneys will be intolerant to diuretics, will check LVUS and TTE as part of potential planning for TIPS. -HE - Her notes sleep/wake disturbance and intermittent episodes of confusion. She is also constipated post-operatively, not on narcotics. Possible covert HE / Grade 1 HE. Will start lactulose BID and check zinc level. -s/p emergent ventral hernia repair - Wound is healing nicely and she will f/u with general surgery in 2 weeks. -EV screening - UTD 09/11/17; Due for repeat surveillance in 2-3 years. -HCC screening - UTD 12/26/17; repeat US in 6 months. Return to office in 3 months. During this patient visit I have spent approximately 30 minutes out of 45 in counseling regarding weight loss, cardiovascular risk reduction, treatment options, medications and test results and coordinating care. Jennie Becerra MD January 31, 2018 11:37 AM CNOV Observed: 01/31/2018 Status: COMPLETED Source: [place] 9:10 AM [facility] REPOSITORY Office Visit ([id number]) PRITI MCDONALD ([id number]) 1960 F Date Time Provider Department 01/31/18 9:10 AM JENNIE BECERRA) [id number] During your visit today, we recorded the following information about you: Temperature Pulse Blood pressure Weight 97.7 degrees 118/minute 128/85 97.3 kg Height 1.702 m Chavez Milligan MD 01/31/2018 3:52 PM Signed Ms. Mcdonald is a 57yoF with PMHx BARRAGAN-related cirrhosis c/b portal HTN (large volume ascites uncontrolled with HCTZ/triamterene necessitating LVP every other week), as well as Meniere's disease, depression, breast CA, Hypothyroidism. She was admitted to hospital from 01/21/2018 to for incarcerated umbilical hernia management. Hospital course was further complicated by ascites delaying wound healing. - M 500, T 500, W 775, Th 800, F 150 - Constipation +. Had only 2 BM since hospital discharge. Took MOM which resulted in a small BM this AM. - ETOH use - every weekend, 1-2 drink usually wine - Non smoker Jennie Becerra MD 01/31/2018 3:52 PM Signed NAME: Priti Mcdonald AGE: [age] year old Patient is referred in consultation by Javier Reynolds for an opinion regarding ascites and my final recommendations will be communicated back to the requesting physician by way of shared Medical Record. 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 She also has meniere disease, metabolic syndrome, hx of breast cancer s/p lumpectomy (s/p tamoxifen x 5 years.) - She is here for hospital discharge follow up. - Admitted to [facility] form 01/21 - 01/25 for incarcerated umbilical hernia. Underwent Exploratory laparotomy, reduction of incarcerated umbilical hernia, primary umbilical hernia repair. Tolerated procedure well. Had VIMAL drain placed for ascites management to expedite wound healing. - VIMAL drain have ~ 500cc - 800 cc of ascitic fluid drainage per day. - Constipated after surgery. Tried MOM without any results. - Reversal of sleep cycle is new since admission - No fever/chills/N/V/melena - No hemetemesis Risk Factors: 1. Blood transfusions before 1991: No 2. IVDA: No 3. Intranasal coccaine use: No 4. Tattoos: No 5. Service: No 6. High risk sexual behavior: No 7. Alcohol: No 9. Obesity: Yes 9. Hyperlipidemia: N/A Complications of Cirrhosis: 1. Ascites: Yes 2. SBP: No 3. Non-bleeding varices: No 4. Variceal hemorrage: No 5. Portosystemic encephalopathy: No 6. Hepatorenal Syndrome: No 7. Hepatopulmonary Syndrome: No 8. Hepatic hydrothorax: No 9. Recurrent Cholangitis (PSC): No Liver Related Procedures: - EGD:Yes, Date: 09/2017 - Endoscopic treatment of esophageal varices:No - ERCP:No - Colonsocopy:Yes, Date: 2014 - Liver biopsy:Yes, Date: N/A - TIPS:No - Paracentesis:Yes, - PHTC or biliary stenting:No PAST SURGICAL HISTORY Procedure Laterality Date - COLONOSCOP W/ OR W/O BRSH SPEC 04/29/15 Colonoscopy - COLONOSCOPY 04/04/10 VJ -hyperplastic polyp - LIGATE FALLOPIAN TUBE 1989 Tubal ligation - PAST SURGICAL HISTORY OF 2003 Bunionectomy - PAST SURGICAL HISTORY OF Clean out endometriosis - PAST SURGICAL HISTORY OF 12/2010. Total Hysterectomy - PAST SURGICAL HISTORY OF 10/18/11 Lt breast lumpectomy with SLN biopsy - PAST SURGICAL HISTORY OF 2009 Vaginal sling PAST MEDICAL HISTORY Diagnosis Date - Depressive disorder, not elsewhere classified - Hypothyroidism - Mammographic microcalcification 08/24/08 RIGHT BREAST - Meniere's disease, unspecified - Snoring - Type II or unspecified type diabetes mellitus without mention of complication, not stated as uncontrolled Social History Marital status: Spouse name: Years of education: Number of children: Social History Main Topics Smoking status: Former Smoker Packs/day: 0.00 Years: 0.00 Types: Cigarettes Smokeless tobacco: Never Used Comment: Social smoker while in college. Alcohol use: Yes Comment: occasional Drug use: No Sexual activity: Yes Partners with: Male Current Outpatient Prescriptions: furosemide (LASIX) 40 mg tablet Take 1 tablet by mouth once daily. Disp: 30 tablet Rfl: 0 spironolactone (ALDACTONE) 100 mg tablet Take 1 tablet by mouth once daily. Disp: 30 tablet Rfl: 0 meclizine (ANTIVERT) 25 mg tab Take 1 tablet by mouth every 6 hours as needed. Disp: 30 tablet Rfl: 1 ADDERALL XR 30 mg 24 hr capsule Disp: Rfl: 0 dextran 70-hypromellose (TEARS PURE) ophthalmic solution 1 Drop as needed. Disp: Rfl: PARoxetine (PAXIL) 10 mg tablet Disp: Rfl: levothyroxine (SYNTHROID) 137 mcg tablet Take 137 mcg by mouth once daily. Disp: Rfl: DULOXETINE 60 mg capsule Take 60 mg by mouth once daily. Disp: Rfl: No current facility-administered medications for this visit. ALLERGIES Allergen Reactions - Codeine nausea FAMILY HISTORY Liver Problems: No Colitis: No Colon Cancer: No Other Cancers: No FAMILY HISTORY Problem Relation Age of Onset - Heart Mother - Heart Father - Heart Maternal Grandfather - Heart Paternal Grandfather - Cancer Maternal Grandmother brain GENERAL ROS Colon polyps: No Colon cancer: No Other cancer: No Radiation / Chemotherapy: No Crohn's disease / Ulcerative colitis: No High cholesterol or triglycerides: N/A Ulcers: No Gallstones: No Hepatitis / jaundice: No Heart Disease: No Lung Disease: No Liver problems: Yes Thyroid disease: Yes Kidney stones: No Pancreatitis: No Diabetes: Yes Arthritis: No Rheumatic fever: No Gastrointestinal bleeding: No Depression or other mental illness: Yes Other personal illness: No GI SPECIFIC ROS Difficulty swallowing / foods sticking in throat: No Heartburn: No Hoarseness: No Chronic cough: No Regurgitation: No Chest pain: No Filling up quickly at meals: No Loss of appetite: Yes Nausea: No Vomiting: No Abdominal pain: No Recent change in bowel movements: Yes Bloody or black, bowel movements: No Constipation: Yes Diarrhea: No Loss of control of bowel movements: No Night sweats, fever, chills: No Thought or memory problems: No Fluid in abdomen (ascites): Yes Prominent leg swelling: No Vomiting blood: No Recent change in weight: No PHYSICAL EXAMINATION BP 128/85 Pulse 118 Temp (Src) 97.7 (Oral) Ht 5' 7 (1.70m) Wt 214 lb 9.6 oz (97.3kg) SpO2 98% LMP 08/09/2008 BMI 33.60 kg/(m2). General Appearance: Well appearing, alert, in no acute distress, well-hydrated, well nourished. Eyes: PERRLA, conjunctiva and sclera normal Oropharynx: Lips, tongue, and oral mucosa normal. There is no thrush or oral ulcers. Lungs:breath sounds clear to auscultation bilaterally, no crackles, rhonchi, or wheezes Heart: regular rate and rhythm, no murmurs or gallops. Abdomen: Soft, non distended, Midline healing surgical scar +. Healing well. No drainage. VIMAL drain + Extremities: no cyanosis or edema Skin: no jaundice, no spider angiomas, no palmar erythema Neuro:alert, oriented x 3, pleasant and in no acute distress Recent Labs: Hemoglobin (g/dL) Date Value 01/27/2018 16.9 Hematocrit (%) Date Value 01/27/2018 50.9 WBC (k/uL) Date Value 01/27/2018 12.89 Glucose (mg/dL) Date Value 01/27/2018 118 Potassium (mmol/L) Date Value 01/27/2018 3.7 Sodium (mmol/L) Date Value 01/27/2018 136 Chloride (mmol/L) Date Value 01/27/2018 94 CO2 (mmol/L) Date Value 01/27/2018 31 Creatinine (mg/dL) Date Value 01/27/2018 1.40 BUN (mg/dL) Date Value 01/27/2018 16 Anion Gap (mmol/L) Date Value 01/27/2018 11 Calcium (mg/dL) Date Value 01/27/2018 8.4 Albumin (g/dL) Date Value 01/25/2018 2.1 (L) Bilirubin, Total (mg/dL) Date Value 01/25/2018 0.8 Alkaline Phosphatase (U/L) Date Value 01/25/2018 88 AST (U/L) Date Value 01/25/2018 23 ALT (U/L) Date Value 01/25/2018 12 Protein, Total (g/dL) Date Value 01/25/2018 4.7 (L) MELD-Na score: 8 at 01/23/2018 4:01 AM MELD score: 8 at 01/23/2018 4:01 AM Calculated from: Serum Creatinine: 1.22 mg/dL at 01/23/2018 4:01 AM Serum Sodium: 140 mmol/L (Rounded to 137) at 01/23/2018 4:01 AM Total Bilirubin: 0.8 mg/dL (Rounded to 1) at 01/23/2018 4:01 AM INR(ratio): 1 at 01/22/2018 12:45 AM Age: 57 years Impression: Priti Mcdonald is a 57 year old year old female with PMHx significant for 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 She also has meniere disease, metabolic syndrome, hx of breast cancer s/p lumpectomy (s/p tamoxifen x 5 years.) She is here for hospital discharge follow up. Admitted to [facility] form 01/21 - 01/25 for incarcerated umbilical hernia. Underwent Exploratory laparotomy, reduction of incarcerated umbilical hernia, primary umbilical hernia repair. Tolerated procedure well. Had VIMAL drain placed for ascites management to expedite wound healing. Doing well overall. Wound healing well. VIMAL drain with ~ 500cc output/day. Increase to 750 cc over last 2 days. Constipated with new reversal of sleep cycle. Plan: - Continue Lasix and Aldactone. Repeat BMP - Her abdominal wound is healing well. It would be best if we can control her ascites with diuretics. For now, keep VIMAL drain to gravity drainage. If her surgical wound has healed in next week, would prefer removing the VIMAL drain and going back to every other week paracentesis. - Start Lactulose for Grade 1 encephalopathy and constipation. - Will start evaluation of TIPS in case she is intolerant to diuretics. Check ECHO and US liver vascular ultrasound. - Repeat Lipid panel and HbA1c. - -EV screening - UTD 09/11/17; Due for repeat surveillance in 2-3 years. -HCC screening - UTD 12/26/17; repeat US in 6 months. Chavez Milligan MD PGY 3 [place] [id number] [facility] STAFF PHYSICIAN NOTE OF PERSONAL INVOLVEMENT IN CARE I have reviewed the consult note obtained and documented by the resident and I personally participated in the laughlin components. I have discussed the case and management of the patient's care. The following comments revise or confirm relevant laughlin components of their note. Assessment IMPRESSION Ms. Mcdonald is a 57 year old with nonalcoholic steatohepatitis related cirrhosis of the liver complicated by ascites, hepatic encephalopathy and fatigue who presents for hospital discharge follow-up. PMHx is otherwise notable for metabolic syndrome, Meniere's disease, depression, breast CA, hypothyroidism. She was recently admitted to the hospital with abdominal pain, found to have incarcerated hernia, now s/p ex lap and repair of umbilical hernia 01/22/18. Her post-operative course has been complicated by ascites, draining ~500cc daily via VIMAL drain with negative suction. She is on Lasix 40mg daily and Aldactone 100mg daily. Recent labs on Saturday demonstrate mild acute kidney injury, and she complains of feeling increasingly fatigued. Her last upper endoscopy was on 09/11/17 and showed no esophageal varices, PHG. Her last liver imaging was on 12/26/17 and showed no liver masses. I have explained the natural history of cirrhosis to the patient. ? PLAN: -BARRAGAN-related cirrhosis c/b portal HTN: Biopsy-proven at time of CCK, report not available for review. Will send serologies to exclude underlying/competing etiologies of chronic liver disease. Confirm immunity to HAV and HBV and vaccinate if non-immune. -Ascites - Transitioned from triamterene-HCTZ to Lasix 40mg daily and Aldactone 100mg daily. Mild VENANCIO on labs Saturday; re-check today. Will send for outpatient Albumin infusion of 75gms today. Pending results of labs may decrease or hold diuretics. Check labs again next Saturday/Saturday and may plan for weekly albumin infusion while VIMAL drain is in place. Counseled to not use negative suction, drain no more than 400cc daily from VIMAL as long as there is no leakage around the drain site. In the event that her kidneys will be intolerant to diuretics, will check LVUS and TTE as part of potential planning for TIPS. -HE - Her notes sleep/wake disturbance and intermittent episodes of confusion. She is also constipated post-operatively, not on narcotics. Possible covert HE / Grade 1 HE. Will start lactulose BID and check zinc level. -s/p emergent ventral hernia repair - Wound is healing nicely and she will f/u with general surgery in 2 weeks. -EV screening - UTD 09/11/17; Due for repeat surveillance in 2-3 years. -HCC screening - UTD 12/26/17; repeat US in 6 months. Return to office in 3 months. During this patient visit I have spent approximately 30 minutes out of 45 in counseling regarding weight loss, cardiovascular risk reduction, treatment options, medications and test results and coordinating care. Jennie Becerra MD January 31, 2018 11:37 AM Referring Provider: JAVIER HENLEY [[id number]] Allergies As of Date: 01/31/2018 Noted Allergy Reaction CODEINE 04/28/2007 Comments: nausea Date Reviewed: 01/31/2018 Reviewed by: Sumi (Rn) WILIAM Major - Fully Assessed Reason for Visit: New Patient [172] Cmt: cirrhosis Primary Visit Diagnosis:Nonalcoholic steatohepatitis (BARRAGAN) [K75.81] Other Visit Diagnoses:Other ascites [R18.8] S/P repair of ventral hernia [Z98.890, Z87.19] Obesity, Class II, BMI 35-39.9 [E66.9] Controlled type 2 diabetes mellitus without complication, without long-term current use of insulin (HCC) [E11.9] Constipation, unspecified constipation type [K59.00] Acute kidney injury (HCC) [N17.9] Order(s):ALPHA FETOPROTEIN BL [SQAFP] Order #: [id number] FUTURE KATHY PANEL BLOOD SCRN [SQANA1] Order #: [id number] FUTURE CELIAC SCREEN WITH REFLEX [SQCELSCR] Order #: [id number] FUTURE ALPHA 1 ANTITRYPSIN PHENOTYPE [PNF9POID] Order #: [id number] FUTURE CERULOPLASMIN BLD [SQCERULO] Order #: [id number] FUTURE FERRITIN BLD [SQFERR] Order #: [id number] FUTURE HEP A AB TOTAL [SQAHAVT] Order #: [id number] FUTURE HEP REMOTE PANEL BL [SQHREMOP] Order #: [id number] FUTURE IMMUNOGLOBULINS JORDAN [SQSERIMM] Order #: [id number] FUTURE IRON + TIBC [SQIRON] Order #: [id number] FUTURE LIPID PANEL, NONFASTING [SQLIPNF] Order #: [id number] FUTURE MITOCHONDRIAL AB PNL SCRN [SQMITO] Order #: [id number] FUTURE SMOOTH MUSCLE AB PNL SCRN [SQSMOOTH] Order #: [id number] FUTURE TSH BLD [SQTSH] Order #: [id number] FUTURE VITAMIN D 25 HYDROXY [SQVITD] Order #: [id number] FUTURE HGB A1C [HNDPK2W] Order #: [id number] FUTURE ZINC BLD [SQZINC] Order #: [id number] FUTURE US ABD LIVER VASCULAR [3284275] Order #: [id number] FUTURE US DOPPLER COMPLETE [9882929] Order #: [id number] FUTURE ECHO [632972] Order #: [id number]: 1 FUTURE albumin, 25%, (PLASBUMIN 25 %) 25 % bottleInject 300 mL intravenously one time only for 1 dose.Disp: 300 mLRfl: 0 lactulose (DUPHALAC, CONSTULOSE) 20 gram/30 mL solutionTake 30 mL by mouth twice daily.Disp: 6 BottleRfl: 5 CBC + DIFF [SQCBCDIF] Order #: [id number] STANDING COMP METABOLIC PANEL [SQCMP] Order #: [id number] STANDING PROTHROMBIN TIME/PT [SQPT] Order #: [id number] STANDING BASIC METABOLIC PNL [SQBMP] Order #: [id number] FUTURE Prescriptions as of 01/31/2018 Sig: FUROSEMIDE 40 MG TABLET Take 1 tablet by mouth once d* SPIRONOLACTONE 100 MG TABLET Take 1 tablet by mouth once d* MECLIZINE 25 MG TABLET Take 1 tablet by mouth every * ADDERALL XR 30 MG CAPSULE,EXT* DEXTRAN 70-HYPROMELLOSE EYE D* 1 Drop as needed. PAROXETINE 10 MG TABLET LEVOTHYROXINE 137 MCG TABLET Take 137 mcg by mouth once da* DULOXETINE 60 MG CAPSULE,AGGIE* Take 60 mg by mouth once alka* ALBUMIN, HUMAN 25 % INTRAVENO* Inject 300 mL intravenously o* LACTULOSE 20 GRAM/30 ML ORAL * Take 30 mL by mouth twice lita* Medication notes this encounter GLUCOPHAGE 500 MG TABLET >> Teepree Amin SR. PAYROLL PROCESSOR 01/31/2018 9:00 AM >> AMIN SR. PAYROLL PROCESSOR, TEEPREE Fri Jan 31, 2018 9:00 AM Not taking Problem List As Of Date 01/31/2018 Noted Resolved SKIN SENSATION DISTURB [R20.9] INVALID FOR* MENIERE'S DISEASE NOS [H81.09] Controlled type 2 diabetes mellitus without com* DEPRESSIVE DISORDER NEC [F32.9] Abnormal mammogram, unspecified [R92.8] INVALID FOR* Breast cancer [C50.919] INVALID FOR* History of breast cancer [Z85.3] INVALID FOR* History of colonic polyps [Z86.010] INVALID FOR*04/29/2015 RUQ pain [R10.11] INVALID FOR* Nonalcoholic steatohepatitis ([place]) [K75.81] INVALID FOR* 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 Other ascites [R18.8] INVALID FOR* S/P repair of ventral hernia [Z98.890, Z87.19] INVALID FOR* Constipation [K59.00] INVALID FOR* Acute kidney injury (HCC) [N17.9] INVALID FOR* Prescriptions ordered this encounter Disp Refills Start End LACTULOSE 20 GRAM/30 ML ORAL SOLUTION 6 Latrell* 5 01/31/2018 01/31/2018 Route: ORAL Sig: Take 30 mL by mouth twice daily. ALBUMIN, HUMAN 25 % INTRAVENOUS SOLU* 300 * 0 01/31/2018 01/31/2018 Route: INTRAVENOUS Sig: Inject 300 mL intravenously one time only for 1 dose. LACTULOSE 20 GRAM/30 ML ORAL SOLUTION 6 Latrell* 5 01/31/2018 Route: ORAL Sig: Take 30 mL by mouth twice daily. Medications Discontinued During This Encounter metformin hcl(GLUCOPHAGE 500 MG TAB) 0 08/17/2008 01/31/2018 Class: Historical Med Route: ORAL Sig: one tablet two times a day Disc: Course of therapy completed lactulose (DUPHALAC, CONSTULOSE) 20 * 6 Latrell* 5 01/31/2018 01/31/2018 Route: ORAL Sig: Take 30 mL by mouth twice daily. Disc: Reason for discontinue is not on file. Disposition: Return in about 3 months (around 05/02/2018). Follow-up and Disposition History Recorded Encounter Status:Closed by JENNIE BECERRA MD on 01/31/18 PROGRESS Observed: 01/31/2018 Status: COMPLETED Source: [place] 9:06 AM [facility] REPOSITORY HNO ID: [id number] Author: Chavez (Xochtil) Srini Service: (none) Author Type: Resident Type: Progress Notes Filed: 01/31/2018 3:52 PM Note Text: Ms. Mcdonald is a 57yoF with PMHx B[place]-related cirrhosis c/b portal HTN (large volume ascites uncontrolled with HCTZ/triamterene necessitating LVP every other week), as well as Meniere's disease, depression, breast CA, Hypothyroidism. She was admitted to hospital from 01/21/2018 to for incarcerated umbilical hernia management. Hospital course was further complicated by ascites delaying wound healing. - M 500, T 500, W 775, Th 800, F 150 - Constipation +. Had only 2 BM since hospital discharge. Took MOM which resulted in a small BM this AM. - ETOH use - every weekend, 1-2 drink usually wine - Non smoker CNCO Observed: 01/30/2018 Status: COMPLETED Source: [place] 12:00 AM [facility] REPOSITORY Letter Text January 30, 2018 Priti Mcdonald [address] [facility] [address] Dear Ms. Mcdonald, The nurses and staff of [address] [facility] at [facility] hope this letter finds you feeling well and progressing in your recovery. It was an honor for us to provide your nursing care. We know that placing our Patients First and maintaining a culture of continuous improvement, each and every day, are essential to the success of our organization. We want to hear from you. If you have any comments, questions or concerns about your hospital stay, please feel free to contact me, Gina Curiel at [phone] or e-mail [email or web address]. Additionally, you may receive a survey in the mail asking you to rate the care you received while in the hospital. Please take the time to complete and send back the survey. I personally review all the results and would appreciate your feedback. Please consider completing this survey for each individual visit. Thank you in advance for your participation and thank you for choosing the [facility] for your healthcare needs. Sincerely, Gina Curiel Nurse [employer] Head [address] CBC Collected: 01/27/2018 Status: F Source: [place] 1:15 PM [facility] REPOSITORY TYPE CODE TESTS RESULT OUT OF REFERENCE UNITS RANGE LAB WBC 3.70-11.00 k/uL WBC High 12.89 LAB RBC 3.90-5.20 m/uL RBC High 5.84 LAB HGB 11.5-15.5 g/dL High Hemoglobin 16.9 LAB HCT 36.0-46.0 % High Hematocrit 50.9 LAB MCV 80.0-100.0 fL MCV 87.2 LAB MCH 26.0-34.0 pG MCH 28.9 LAB MCHC 30.5-36.0 g/dL MCHC 33.2 LAB RDWCV 11.5-15.0 % RDW-CV 14.0 LAB PLTCT 150-400 k/uL Platelet High Count 444 LAB MPV 9.0-12.7 fL MPV 11.3 LAB ABSNUC <0.01 k/uL Absolute nRBC <0.01 Performed By: #### CBC, BMP #### [facility] [address] [place], [place] [address] BASIC METABOLIC PANL Collected: 01/27/2018 Status: F Source: [place] 1:15 PM [facility] REPOSITORY TYPE CODE TESTS RESULT OUT OF REFERENCE UNITS RANGE LAB GLU 74-99 mg/dL High Glucose 118 Result Comment: The [place] [employer] Association (ADA) provides guidance for cutoff values for fasting glucose and random glucose. The ADA defines fasting as no caloric intake for at least 8 hours. Fas ting plasma glucose results between 100 to 125 mg/dL indicate increased risk for diabetes (prediabetes). Fasting plasma glucose results greater than or equal to 126 mg/dL meet the criteria for diagnosis of diabetes. In the absence of unequivocal hyperglycemia, results should be confirmed by repeat testing. In a patient with classic symptoms of hyperglycemia or hyperglycemic crisis, random plasma glucose results greater than or equal to 200 mg/dL meet the criteria for diagnosis of diabetes. Reference: Standards of Medical Care in Diabetes 2016, [place] [employer] Association. Diabetes Care. 2016.39(Suppl 1). LAB BUN 7-21 mg/dL BUN 16 LAB CRET 0.58-0.96 mg/dL Creatinine High 1.40 LAB NA 136-144 mmol/L Sodium 136 LAB K 3.7-5.1 mmol/L Potassium 3.7 LAB CL 97-105 mmol/L Low Chloride 94 LAB CO2 22-30 mmol/L CO2 High 31 LAB AGAP 9-18 mmol/L Anion Gap 11 LAB CA 8.5-10.2 mg/dL Low Calcium, Total 8.4 LAB GFRAA eGFR- Amer. 47 LAB GFRNAA . eGFR-All Other Races 39 Result Comment: eGFR (Estimated GFR) Units of measure: mL/min/1.73 meters squared eGFR is derived from the reexpressed MDRD Study equation using the following parameters: serum creatinine, age, gender and race. The creatinine assay has been calibrated to be traceable to IDMS. An eGFR <60 mL/min/1.73m2 for >3 months is consistent with chronic kidney disease. Refer to KDOQI guidelines for clinical interpretation. In patients with unstable renal function, e.g. those with acute kidney injury, the eGFR may not accurately reflect actual GFR. Performed By: #### CBC, BMP #### [facility] [address] [id number] CNDS Observed: 01/25/2018 Status: COMPLETED Source: [place] 5:24 PM [facility] REPOSITORY HNO ID: [id number] Author: Javier Reynolds Service: General Surgery Author Type: Physician Type: Discharge Summaries Filed: 01/27/2018 7:26 AM Note Text: DISCHARGE SUMMARY ADMISSION DATE: 01/21/2018 DISCHARGE DATE: 01/25/2018 Attending Physician: Javier Reynolds MD Reason for Hospitalization: Incarcerated umbilical hernia Final Diagnoses: ACTIVE PROBLEM LIST Disturbance of Skin Sensation Meniere's Disease, Unspecified Type II Or Unspecified Type Diabetes Mellitus Without Mention of Complication, Not Stated As Uncontrolled Depressive Disorder, Not Elsewhere Classified Abnormal Mammogram, Unspecified Breast Cancer (Hcc) History of Breast Cancer Ruq Pain Nonalcoholic Steatohepatitis ([place]) Biliary Cirrhosis (Hcc) Obesity, Class II, Bmi 35-39.9 Operations During Hospitalization: Umbilical hernia repair Procedures During Hospitalization: IV Access Venipuncture Anesthesia Administration Intubation (for surgery) Hospital Course: Priti Mcdonald is a 57 year old female known to have Liver Cirrhosis who presented on 01/21/2018 with incarcerated umbilical hernia. she came to the hospital underwent the above operation on 01/21/2018. After a brief stay in the recovery room, she was admitted to a regular nursing floor for additional recovery. On POD 4, in light of normal vital signs, tolerating a diet, pain well controlled on oral medications and able to ambulate, she was deemed fit for discharge to home with instructions to follow up in clinic. Patient Condition @ Discharge: Stable Discharge Disposition: Home/Self Care Information Provided to Patient: A copy of discharge instructions was provided to the patient. Discharge Medications: Discharge Medication List as of 01/25/2018 4:58 PM START taking these medications furosemide (LASIX) 40 mg tablet Take 1 tablet by mouth once daily. Print RX, Disp-30 tablet, R-0, Long-term spironolactone (ALDACTONE) 100 mg tablet Take 1 tablet by mouth once daily. Print RX, Disp-30 tablet, R-0, Long-term CONTINUE these medications which have CHANGED meclizine (ANTIVERT) 25 mg tab Take 1 tablet by mouth every 6 hours as needed. Normal, Disp-30 tablet, R-1 CONTINUE these medications which have NOT CHANGED ADDERALL XR 30 mg 24 hr capsule Historical Med, R-0, JIMMY Dx: 1. Nonalcoholic steatohepatitis (BARRAGAN) dextran 70-hypromellose (TEARS PURE) ophthalmic solution 1 Drop as needed. Historical Med, Long-term Dx: 1. Nonalcoholic steatohepatitis ([place]) PARoxetine (PAXIL) 10 mg tablet Historical Med, Long-term Dx: 1. Nonalcoholic steatohepatitis ([place]AN) 2. Biliary cirrhosis (HCC) levothyroxine (SYNTHROID) 137 mcg tablet Take 137 mcg by mouth once daily. Historical Med DULOXETINE 60 mg capsule Take 60 mg by mouth once daily. Historical Med metformin hcl(GLUCOPHAGE 500 MG TAB) one tablet two times a day Historical Med, R-0 STOP taking these medications metFORMIN ER (GLUCOPHAGE XR) 500 mg 24 hr tablet Comments: Reason for Stopping: tamoxifen (NOLVADEX) 20 mg tablet Comments: Reason for Stopping: Amphetamine-Dextroamphetamine (ADDERALL) 30 mg tablet Comments: Reason for Stopping: Future Appointments: Future Appointments Date Time Provider Department Center 01/31/2018 9:10 AM [facility] Squires[id number] 8[facility]15 AM Hepatology Procedures GAPRA3 NILSA AANDM Bl 02/18/2018 8:15 AM Hepatology Procedures GAPRA3 NILSA AANDM 03/04/2018 8:15 AM Hepatology Procedures GAPRA3 NILSA AANDM With Dr. Carrera in 2 weeks Signed by Physician: Santo De Leon MD NURSING PROG Observed: 01/25/2018 Status: COMPLETED Source: [place] 3:00 PM [facility] REPOSITORY HNO ID: [id number] Author: Renate Souza) WILIAM Mercado Service: Nursing Author Type: Registered Nurse Type: Nursing Progress Note Filed: 01/25/2018 5:30 PM Note Text: Nursing Progress Note Patient Name: Priti Mcdonald Patient Location: [place] [address] Event(s) / Intervention Note: The patient was observed having the following problems: change in vital signs- BP 152/94 HR 101. No new complaints at this time. Pain well controlled. Denies chest pain or shortness of breath. The time of the event occurred at: 1448. The following intervention(s) were initiated: Dr. Pop notified. No new orders at this time. After the initiated interventions, the following observation(s) were made: nothing further noted. Will continue to observe and check with patient. VS rechecked at 1534- BP 155/98 HR 101. Okay to discharge home per Dr. Pop. This note was completed by: Renate Mercado RN PROGRESS Observed: 01/25/2018 Status: COMPLETED Source: [place] 7:31 AM 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 Plan - Diet GI softs - mIVF - Continue home meds: Synthroid, Adderall XR, Paxil, Cymbalta, Tamoxifen, Metformin - Pain control with Tylenol, Tramadol, and Dilaudid - Protonix daily and Zofran PRN - Monitor labs, replete lytes PRN - SCDs and SQH for embolic prophylaxis - Placed two-way stopcock on drain (01/23) - Sliding scale insulin (scale 1) for blood glucose control - Hepatology consult, does not favor TIPS, outpatient f/u, appreciate recs - Per hepatology, will increase diuretics to Lasix 40 mg and Aldactone 100 mg tomorrow. Patient will have outpatient labs checked to monitor creatinine on Saturday. Patient will empty around 500 cc daily from VIMAL drain. Possible discharge today. Discussed with fellow. SUBJECTIVE No acute events Pain is well controlled on current regimen. Tolerated diet with no n/v +Ve flatus, but no BM. PHYSICAL EXAM: BP 132/82 Pulse 84 Temp (Src) 97.7 (Oral) Resp 18 Ht 5' 7 (1.70m) Wt 231 lb (104.8kg) SpO2 96% LMP 08/09/2008 BMI 36.17 kg/(m2). Gen: Awake, alert Lungs: Breathing comfortably on RA Abdomen: Incision is c/d/i with glue in place, no surrounding erythema, appropriately TTP around wound, remaining abdomen soft, non distended. VIMAL draining serosanguinous fluid Ext: No edema, SCDs in place Intake/Output Summary (Last 24 hours) at 01/25/18 0732 Last data filed at 01/25/18 0546 Gross per 24 hour Intake 2720 ml Output 3070 ml Net -350 ml LABS: CBC, Coags, BMP, Mg, Phos Recent Labs 01/25/18 0356 01/24/18 0653 01/23/18 0401 WBC 12.54* 12.14* 14.06* HB 17.1* 16.9* 15.8* HCT 50.9* 49.4* 46.6* PLT 352 294 289 NA 132* 137 140 K 3.8 3.7 4.0 CHLOR 97 99 101 CO2 19* 26 28 BUN 15 15 17 CREAT 1.22* 1.16* 1.22* GLUC 123* 143* 123* CA 8.4* 8.6 8.7 MG 1.6* 1.5* 1.9 P 3.3 3.3 3.1 IMAGING: No recent imaging Leslie Pro MD General Surgery, PGY-1 ([id number]) CBC Collected: 01/25/2018 Status: F Source: [place] 3:56 AM [facility] REPOSITORY TYPE CODE TESTS RESULT OUT OF REFERENCE UNITS RANGE LAB WBC 3.70-11.00 k/uL WBC High 12.54 LAB RBC 3.90-5.20 m/uL RBC High 5.96 LAB HGB 11.5-15.5 g/dL High Hemoglobin 17.1 LAB HCT 36.0-46.0 % High Hematocrit 50.9 LAB MCV 80.0-100.0 fL MCV 85.4 LAB MCH 26.0-34.0 pG MCH 28.7 LAB MCHC 30.5-36.0 g/dL MCHC 33.6 LAB RDWCV 11.5-15.0 % RDW-CV 13.8 LAB PLTCT 150-400 k/uL Platelet Count 352 LAB MPV 9.0-12.7 fL MPV 10.8 LAB ABSNUC <0.01 k/uL Absolute nRBC <0.01 Performed By: #### CBC, CMP, MG1, PHOS #### [facility] [address] [place] [address] COMP METABOLIC PANEL Collected: 01/25/2018 Status: F Source: [place] 3:56 AM [facility] REPOSITORY TYPE CODE TESTS RESULT OUT OF REFERENCE UNITS RANGE LAB TP 6.3-8.0 g/dL Low Protein, Total 4.7 LAB ALB 3.9-4.9 g/dL Low Albumin 2.1 LAB CA 8.5-10.2 mg/dL Low Calcium, Total 8.4 LAB TBIL 0.2-1.3 mg/dL Bilirubin, Total 0.8 LAB ALKP 32-117 U/L Alkaline Phosphatase 88 LAB AST 13-35 U/L AST 23 LAB GLU 74-99 mg/dL Glucose High 123 Result Comment: The [place] [employer] (ADA) provides guidance for cutoff values for fasting glucose and random glucose. The ADA defines fasting as no caloric intake for at least 8 hours. Fas ting plasma glucose results between 100 to 125 mg/dL indicate increased risk for diabetes (prediabetes). Fasting plasma glucose results greater than or equal to 126 mg/dL meet the criteria for diagnosis of diabetes. In the absence of unequivocal hyperglycemia, results should be confirmed by repeat testing. In a patient with classic symptoms of hyperglycemia or hyperglycemic crisis, random plasma glucose results greater than or equal to 200 mg/dL meet the criteria for diagnosis of diabetes. Reference: Standards of Medical Care in Diabetes 2016, [place] [employer]. Diabetes Care. 2016.39(Suppl 1). LAB BUN 7-21 mg/dL BUN 15 LAB CRET 0.58-0.96 mg/dL Creatinine High 1.22 LAB NA 136-144 mmol/L Low Sodium 132 LAB K 3.7-5.1 mmol/L Potassium 3.8 LAB CL 97-105 mmol/L Chloride 97 LAB CO2 22-30 mmol/L Low CO2 19 LAB AGAP 9-18 mmol/L Anion Gap 16 LAB ALT 7-38 U/L ALT 12 LAB GFRAA eGFR- Amer. 55 LAB GFRNAA . eGFR-All Other Races 45 Result Comment: eGFR (Estimated GFR) Units of measure: mL/min/1.73 meters squared eGFR is derived from the reexpressed MDRD Study equation using the following parameters: serum creatinine, age, gender and race. The creatinine assay has been calibrated to be traceable to IDMS. An eGFR <60 mL/min/1.73m2 for >3 months is consistent with chronic kidney disease. Refer to KDOQI guidelines for clinical interpretation. In patients with unstable renal function, e.g. those with acute kidney injury, the eGFR may not accurately reflect actual GFR. Performed By: #### CBC, CMP, MG1, PHOS #### [facility] [address] [place] [address] MAGNESIUM Collected: 01/25/2018 Status: F Source: [place] 3:56 AM [facility] REPOSITORY TYPE CODE TESTS RESULT OUT OF REFERENCE UNITS RANGE LAB MG 1.7-2.3 mg/dL Low Magnesium 1.6 Performed By: #### CBC, CMP, MG1, PHOS #### [facility] [address] [place] [id number] PHOSPHORUS Collected: 01/25/2018 Status: F Source: [place] 3:56 AM [facility] REPOSITORY TYPE CODE TESTS RESULT OUT OF REFERENCE UNITS RANGE LAB PHOS 2.7-4.8 mg/dL Phosphorus 3.3 Performed By: #### CBC, CMP, MG1, PHOS #### [facility] [address] [place] [address] NURSING PROG Observed: 01/25/2018 Status: COMPLETED Source: [place] 1:35 AM [facility] REPOSITORY HNO ID: [id number] Author: Deidre Tam RN Service: Nursing Author Type: Registered Nurse Type: Nursing Progress Note Filed: 01/25/2018 1:36 AM Note Text: Nursing Progress Note Patient Name: Priti Mcdonald Patient Location: [facility] [id number]/[id number] Daily Note: Pt doing well overnight, up walking in the halls. Once instance of nausea and pain, controlled with PRN fentanyl and zofran. VIMAL is to gravity, no bulb suction. Intermittently placing it to suction and draining. Pt denies any SOB, lungs are clear. Tolerated 1/2 of dinner without any trouble. This note was completed by: Deidre Tam RN CASE MANAGEM Observed: 01/24/2018 Status: COMPLETED Source: [place] 2:54 PM [facility] REPOSITORY HNO ID: [id number] Author: Valentina Crain RN Service: Care Management Author Type: Registered Nurse Type: Care Mgt Progress Note Filed: 01/24/2018 2:56 PM Note Text: CARE MANAGEMENT PROGRESS NOTE SERVICE DATE: 01/24/2018 SERVICE TIME: 2:54 PM LOS: 3 days Needs Prior to Discharge: None POSSIBLE DISCHARGE HOME NO SKILLED NEEDS, LIKELY Saturday,via family auto. SIGNATURE: Valentina Crain RN PATIENT NAME: Priti Mcdonald DATE: January 24, 2018 TIME: 2:54 PM PAGER/CONTACT #: [phone] CONSULT PROG Observed: 01/24/2018 Status: COMPLETED Source: [place] 12:05 PM [facility] REPOSITORY HNO ID: [id number] Author: Jennie Becerra Service: Hepatology Author Type: Physician Type: Consult Progress Note Filed: 01/24/2018 10:20 PM Note Text: Hepatology Consult Service Progress Note Department of Gastroenterology AND Hepatology [facility] Date of Service January 24, 2018 Patient: Priti Mcdonald Medical Record: [id number] Reason for Consult: Cirrhosis Requesting Service: General Surgery CC: abdominal pain Interval History: - No acute events, HDS, afebrile . - Denies fever, chills, sweats, CP, Palpitations, SOB, dyspnea, n/v. - She is not yet passing gas. - Reports incisional abdominal pain, treated with ultram and dilaudid - She was started on aldactone and lasix yesterday. No report of lightheadedness. She is also not experiencing any ringing in her eyes associated with Meniere's. - Patient requested to be scheduled with Dr Becerra for follow up. Current hospital medications: magnesium oxide 400 mg tab(s) (MAG-OX) 400 mg ORAL BID metFORMIN 500 mg tab(s) (GLUCOPHAGE) 500 mg ORAL BID carboxymethylcellulose sodium 1-2 Drop (CELLUVISC) 1-2 Drop BOTH EYES PRN meclizine 25 mg tab(s) (ANTIVERT) 25 mg ORAL q 6 H PRN spironolactone 50 mg tab(s) (ALDACTONE) 50 mg ORAL DAILY furosemide 20 mg tab(s) (LASIX) 20 mg ORAL DAILY amphetamine-dextroamphetamine XR 30 mg cap(s) (ADDERALL XR) 30 mg ORAL DAILY PARoxetine 10 mg tab(s) (PAXIL) 10 mg ORAL DAILY DULoxetine 60 mg cap(s) (CYMBALTA) 60 mg ORAL DAILY levothyroxine (SYNTHROID) tab(s) 137 mcg 137 mcg ORAL DAILY dextrose 40 % 15 g 15 g ORAL PRN glucagon 1 mg injection (GLUCAGEN) 1 mg INTRAMUSCULAR PRN dextrose 50% in water 25 mL syringe 12.5 g INTRAVENOUS PRN insulin lispro injection (rapid acting) (HumaLOG) SUBCUTANEOUS q 6 H diazePAM 2 mg tab(s) (VALIUM) 2 mg ORAL q 8 H PRN fentaNYL 50 mcg/mL 25 mcg injection (SUBLIMAZE) 25 mcg INTRAVENOUS q 2 H PRN traMADol 50 mg tab(s) (ULTRAM) 50 mg ORAL q 6 H PRN heparin 5,000 Units injection 5,000 Units SUBCUTANEOUS q 12 H acetaminophen 650 mg tab(s) (TYLENOL) 650 mg ORAL q 6 H PRN HYDROmorphone 0.2 mg in NaCl 0.9% (DILAUDID) 0.2 mg INTRAVENOUS q 4 H PRN tamoxifen 20 mg tab(s) (NOLVADEX) 20 mg ORAL DAILY potassium chloride ER 20-40 mEq tab(s) (K-DUR, KLOR-CON) 20- 40 mEq ORAL PRN potassium chloride iv piggyback 20 mEq/100 mL 20 mEq INTRAVENOUS PRN magnesium sulfate iv piggyback 2 g in D5W 50 mL 2 g INTRAVENOUS PRN(NO DISPENSE) sodium phosphate 45 mmol in NaCl 0.9% 250 mL 45 mmol INTRAVENOUS PRN(NO DISPENSE) ondansetron (PF) 4 mg injection (ZOFRAN) 4 mg INTRAVENOUS q 6 H PRN pantoprazole 40 mg injection (PROTONIX) 40 mg INTRAVENOUS DAILY (6 AM) lactated ringers infusion 100 mL/hr INTRAVENOUS CONTINUOUS REVIEW OF SYSTEMS See HPI Physical Exam: Vital Signs: 01/23/18 2109 01/24/18 0115 01/24/18 0704 01/24/18 1110 BP: 156/79 167/74 149/77 157/89 Pulse: 72 75 73 88 Resp: 16 15 16 16 Temp: 36.6 ?C (97.8 ?F) 36.6 ?C (97.9 ?F) 36.8 ?C (98.3 ?F) 36.3 ?C (97.3 ?F) TempSrc: Oral Oral Oral Oral SpO2: 98% 98% 96% 97% VITAL SIGNS: BP 157/89 Pulse 88 Temp (Src) 97.3 (Oral) Resp 16 SpO2 97% LMP 08/09/2008 General appearance: alert and in no acute distress Skin: Skin color, texture, turgor normal, no suspicious rashes or lesions Lungs: lungs clear to auscultation, no wheezing or rhonchi Heart: RRR without murmur, gallop, or rubs. No ectopy Abdomen: Abdomen soft,.Non distended. TTP throughout, with severity worsening near VIMAL drain and incision. Bowel sounds hypoactive.. Extremities: Extremities normal. No deformities, edema, or skin discoloration. Good capillary refill. Peripheral pulses: Normal Neuro: Oriented X 3, MIRANDA Intake/Output Summary (Last 24 hours) at 01/24/18 1205 Last data filed at 01/24/18 1110 Gross per 24 hour Intake 3239 ml Output 4250 ml Net -1011 ml Diagnostic Testing: No new pertinent imaging Labs: CBC, Coags, BMP, Mg, Phos Recent Labs 01/24/18 0653 01/23/18 0401 01/22/18 0045 WBC 12.14* 14.06* 8.26 HB 16.9* 15.8* 15.2 HCT 49.4* 46.6* 45.7 PLT 294 289 227 INR -- -- 1.0 APTT -- -- 26.4 NA 137 140 142 K 3.7 4.0 3.4* CHLOR 99 101 105 CO2 26 28 24 BUN 15 17 18 CREAT 1.16* 1.22* 1.21* GLUC 143* 123* 120* CA 8.6 8.7 9.0 MG 1.5* 1.9 -- P 3.3 3.1 -- Liver Function, Amylase, AND Lipase Recent Labs 01/24/18 0653 01/23/18 0401 01/22/18 0045 TPROT 4.7* 5.3* 5.9* ALB 2.5* 2.7* 3.0* ALT 11 16 16 AST 16 25 22 ALKPHOS 74 85 91 TBILI 0.8 0.8 0.7 MELD-Na score: 8 at 01/23/2018 4:01 AM MELD score: 8 at 01/23/2018 4:01 AM Calculated from: Serum Creatinine: 1.22 mg/dL at 01/23/2018 4:01 AM Serum Sodium: 140 mmol/L (Rounded to 137) at 01/23/2018 4:01 AM Total Bilirubin: 0.8 mg/dL (Rounded to 1) at 01/23/2018 4:01 AM INR(ratio): 1 at 01/22/2018 12:45 AM Age: 57 years Reviewed: Most recent labs and imaging results. Impression: Priti Mcdonald is a 57 year old has a past medical history BARRAGAN Cirrhosis (dx. Intraoperative liver biopsy 09/28/15) c/b ascites requiring every other week LVP. History also notable for breast Ca, Type 2 Diabetes, Depression, Hypothyroid, and Meniere's disease. Patient presented with worsening periumbilical pain and found to have incarcerated umbilical hernia now s/p Exp Lap and primary repair of umbilical hernia on 01/22/18. Hepatology consulted for management of cirrhosis. ? ? # B[place] Cirrhosis c/b ascites requiring LVP - Never optimized on diuretic therapy - s/p exp Lap and primary repair of umbilical hernia c/f wound dehiscence given ongoing issues with ascites. - low MELD 8 ? ? Plan: - Would favor avoiding TIPS at this time as we have not optimized diuretic therapy. - Continue spironolactone 50 mg and Lasix 20 mg and attempt optimization of diuretic therapy - When restarting PO diet would favor low sodium diet. - Will attempt to get patient scheduled as requested. - EV screening - Due for repeat surveillance in 2-3 years. - HCC screening - UTD, repeat US in 6 months. Addendum: - Increase spironolactone to 100 mg and Lasix to 40 mg tomorrow. - She will need outpatient BMP drawn on Saturday if discharged over the weekend to monitor renal function. Lab is ordered in [facility]. - She has outpatient follow up with Dr Becerra on 01/31/18. See Appt Tab. After 5 pm and on weekends after 12 noon please page Hepatology Consults Fellow inclusion intern which can be found in the On-Call Directory. SIGNATURE: Ryan Otoole MSN, TRAIN OPERATIONS MANAGER-C PATIENT NAME: Priti Mcdonald DATE: January 24, 2018 TIME: 12:05 PM PAGER/CONTACT #: [phone] [facility] STAFF PHYSICIAN NOTE OF PERSONAL INVOLVEMENT IN CARE ? I have reviewed the consult note obtained and documented by the nurse practitioner and I personally participated in the laughlin components. I have discussed the case and management of the patient's care. The following comments revise or confirm relevant laughlin components of their note. ? IMPRESSION: Ms. Mcdonald is a 57yoF with PMHx BARRAGAN-related cirrhosis c/b portal HTN (large volume ascites uncontrolled with HCTZ/triamterene necessitating LVP every other week), as well as Meniere's disease, depression, breast CA, Hypothyroidism. She is admitted with abdominal pain, found to have incarcerated hernia now s/p ex lap and repair of umbilical hernia 01/22/18. Hepatology is consulted for management of ascites. ? MELD-Na score: 8 at 01/23/2018 4:01 AM MELD score: 8 at 01/23/2018 4:01 AM Calculated from: Serum Creatinine: 1.22 mg/dL at 01/23/2018 4:01 AM Serum Sodium: 140 mmol/L (Rounded to 137) at 01/23/2018 4:01 AM Total Bilirubin: 0.8 mg/dL (Rounded to 1) at 01/23/2018 4:01 AM INR(ratio): 1 at 01/22/2018 12:45 AM Age: 57 years ? ? PLAN: -Ascites - Never trialed on optimal diuretic therapy. Increase Lasix to 40mg daily and Aldactone to 100mg daily and up-titrate as tolerated. Monitor VIMAL drain output and for wound drainage. Would only consider TIPS if ascites is not responsive to maximally tolerated diuretic therapy. OK to stop HCTZ-triamterene. Low salt diet. -BARRAGAN-related cirrhosis - No indication for OLT eval for now. Longitudinal f/u with Dr. Miranda -EV screening - Due for repeat surveillance in 2-3 years -HCC screening - UTD, repeat US in 6 months ? ? SIGNATURE: Jennie Becerra MD January 24, 2018 10:19 PM PROGRESS Observed: 01/24/2018 Status: COMPLETED Source: [place] 8:00 AM [facility] REPOSITORY O ID: [id number] Author: Azar Harkins MD Service: General Surgery Author Type: Resident Type: Progress Notes Filed: 01/24/2018 6:26 PM Note Text: Acute Care Surgery PROGRESS NOTE Priti Mcdonald [id number] 01/24/2018 ASSESSMENT/PLAN: Priti Mcdonald is a 57 year old female with a past medical history of breast ca, nodular cirrhosis 2/2 BARR[place]AN (MELD 9) c/b chronic ascites on regular paracentesis, s/p CCY, MDD, hypothyroid, menieres, DM2, ADD now hospital day 3 and post operative day 2 from exploratory laparotomy and primary repair of umbilical hernia for incarcerated umbilical hernia. Plan - Diet GI softs - mIVF - Continue home meds: Synthroid, Adderall XR, Paxil, Cymbalta, Tamoxifen, Metformin - Pain control with Tylenol, Tramadol, and Dilaudid - Protonix daily and Zofran PRN - Monitor labs, replete lytes PRN - SCDs and SQH for embolic prophylaxis - Monitor ascitic drain output - Place two-way stopcock on drain - Sliding scale insulin (scale 1) for blood glucose control - Hepatology consult, does not favor TIPS, outpatient f/u, appreciate recs - Per hepatology, will increase diuretics to Lasix 40 mg and Aldactone 100 mg tomorrow. Patient will have outpatient labs checked to monitor creatinine on Saturday. Patient will empty around 500 cc daily from VIMAL drain. SUBJECTIVE 24 hour events: No acute events Pain is well controlled on current regimen. Has not ambulated since surgery. Tolerated diet with no n/v +Ve flatus, but no BM. OBJECTIVE Date 01/22/18 07 - 01/23/18 0659 Shift 9542-4846 7161-6077 0558-3666 24 Hour Total I N T A K E PO 273 498 3029 PO 036 665 3231 IV 1170 855 702 7172 LR 70 084 015 0362 OR Crystalloid intake (mL) 1100 1100 Shift Total 1170 1589 1022 3781 O U T P U T Urine 0 458 497 6683 Void (ml) 197 016 9608 OR Urine Output 0 0 Tubes 710 109 762 1057 Drain/Tube Output (Drain/Tube 01/22/18 0945 Kole Mireles Right Medial Abdomen Drain #1) 710 873 453 5625 # of BMs Number of BMs 0 x 0 x Blood 15 15 Estimated Blood loss 15 15 Shift Total 725 0866 171 7356 Weight (kg) PHYSICAL EXAM: BP 157/89 Pulse 88 Temp (Src) 97.3 (Oral) Resp 16 Ht 5' 7 (1.70m) Wt 231 lb (104.8kg) SpO2 97% LMP 08/09/2008 BMI 36.17 kg/(m2). Gen: Awake, alert Lungs: Breathing comfortably on RA Abdomen: Incision is c/d/i with glue in place, no surrounding erythema, appropriately TTP around wound, remaining abdomen soft, non distended. VIMAL draining serosanguinous fluid Ext: No edema, SCDs in place LABS: CBC, Coags, BMP, Mg, Phos Recent Labs 01/24/18 0653 01/23/18 0401 01/22/18 0045 WBC 12.14* 14.06* 8.26 HB 16.9* 15.8* 15.2 HCT 49.4* 46.6* 45.7 PLT 294 289 227 INR -- -- 1.0 APTT -- -- 26.4 NA 137 140 142 K 3.7 4.0 3.4* CHLOR 99 101 105 CO2 26 28 24 BUN 15 17 18 CREAT 1.16* 1.22* 1.21* GLUC 143* 123* 120* CA 8.6 8.7 9.0 MG 1.5* 1.9 -- P 3.3 3.1 -- IMAGING: No recent imaging Acute Care Surgery Team Pager [phone] SIGNATURE: Chrisleanne Steveeih PATIENT NAME: Priti Mcdonald DATE: January 23, 2018 TIME: 8:00 am PAGER/CONTACT #: [phone] Weekends, holidays and between 6p and 6a please page General Surgery Dennis Pager [phone] COMP METABOLIC PANEL Collected: 01/24/2018 Status: F Source: [place] 6:53 AM [facility] REPOSITORY TYPE CODE TESTS RESULT OUT OF REFERENCE UNITS RANGE LAB TP 6.3-8.0 g/dL Low Protein, Total 4.7 LAB ALB 3.9-4.9 g/dL Low Albumin 2.5 LAB CA 8.5-10.2 mg/dL Calcium, Total 8.6 LAB TBIL 0.2-1.3 mg/dL Bilirubin, Total 0.8 LAB ALKP 32-117 U/L Alkaline Phosphatase 74 LAB AST 13-35 U/L AST 16 LAB GLU 74-99 mg/dL Glucose High 143 Result Comment: The [place] [employer] (ADA) provides guidance for cutoff values for fasting glucose and random glucose. The ADA defines fasting as no caloric intake for at least 8 hours. Fas ting plasma glucose results between 100 to 125 mg/dL indicate increased risk for diabetes (prediabetes). Fasting plasma glucose results greater than or equal to 126 mg/dL meet the criteria for diagnosis of diabetes. In the absence of unequivocal hyperglycemia, results should be confirmed by repeat testing. In a patient with classic symptoms of hyperglycemia or hyperglycemic crisis, random plasma glucose results greater than or equal to 200 mg/dL meet the criteria for diagnosis of diabetes. Reference: Standards of Medical Care in Diabetes 2016, [place] [employer]. Diabetes Care. 2016.39(Suppl 1). LAB BUN 7-21 mg/dL BUN 15 LAB CRET 0.58-0.96 mg/dL Creatinine High 1.16 LAB NA 136-144 mmol/L Sodium 137 LAB K 3.7-5.1 mmol/L Potassium 3.7 LAB CL 97-105 mmol/L Chloride 99 LAB CO2 22-30 mmol/L CO2 26 LAB AGAP 9-18 mmol/L Anion Gap 12 LAB ALT 7-38 U/L ALT 11 LAB GFRAA eGFR- Amer. 58 LAB GFRNAA . eGFR-All Other Races 48 Result Comment: eGFR (Estimated GFR) Units of measure: mL/min/1.73 meters squared eGFR is derived from the reexpressed MDRD Study equation using the following parameters: serum creatinine, age, gender and race. The creatinine assay has been calibrated to be traceable to IDMS. An eGFR <60 mL/min/1.73m2 for >3 months is consistent with chronic kidney disease. Refer to KDOQI guidelines for clinical interpretation. In patients with unstable renal function, e.g. those with acute kidney injury, the eGFR may not accurately reflect actual GFR. Performed By: #### CMP, MG1, PHOS, CBC #### [facility] [address] [address] MAGNESIUM Collected: 01/24/2018 Status: F Source: [place] 6:53 AM [facility] REPOSITORY TYPE CODE TESTS RESULT OUT OF REFERENCE UNITS RANGE LAB MG 1.7-2.3 mg/dL Low Magnesium 1.5 Performed By: #### CMP, MG1, PHOS, CBC #### [facility] [address] [place], [place] [address] PHOSPHORUS Collected: 01/24/2018 Status: F Source: [place] 6:53 AM [facility] REPOSITORY TYPE CODE TESTS RESULT OUT OF REFERENCE UNITS RANGE LAB PHOS 2.7-4.8 mg/dL Phosphorus 3.3 Performed By: #### CMP, MG1, PHOS, CBC #### [facility] [address] [place], [place] [address] CBC Collected: 01/24/2018 Status: F Source: [place] 6:53 AM [facility] REPOSITORY TYPE CODE TESTS RESULT OUT OF REFERENCE UNITS RANGE LAB WBC 3.70-11.00 k/uL WBC High 12.14 LAB RBC 3.90-5.20 m/uL RBC High 5.76 LAB HGB 11.5-15.5 g/dL High Hemoglobin 16.9 LAB HCT 36.0-46.0 % High Hematocrit 49.4 LAB MCV 80.0-100.0 fL MCV 85.8 LAB MCH 26.0-34.0 pG MCH 29.3 LAB MCHC 30.5-36.0 g/dL MCHC 34.2 LAB RDWCV 11.5-15.0 % RDW-CV 14.1 LAB PLTCT 150-400 k/uL Platelet Count 294 LAB MPV 9.0-12.7 fL MPV 10.7 LAB ABSNUC <0.01 k/uL Absolute nRBC <0.01 Performed By: #### CMP, MG1, PHOS, CBC #### [facility] [address], [place] [address] CONSULT Observed: 01/23/2018 Status: COMPLETED Source: [place] 11:22 AM [facility] REPOSITORY HNO ID: [id number] Author: Jennie Becerra Service: Hepatology Author Type: Physician Type: Consults Filed: 01/23/2018 10:27 PM Note Text: Hepatology Consult Service Department of Gastroenterology AND Hepatology [facility] Date of Service January 23, 2018 Patient: Priti Mcdonald Medical Record: [id number] Reason for Consult: Cirrhosis Requesting Service: General Surgery Hepatology Attending: Dr Jennie Becerra Consultation requested by Dr. Flavio Sanchez for an opinion regarding Cirrhosis My final recommendations will be communicated back to the requesting physician by way of shared medical record. CC: abdominal pain History of Present Illness: Priti Mcdonald is a 57 year old has a past medical history [place] Cirrhosis (dx. Intraoperative liver biopsy 09/28/15) c/b ascites requiring every other week LVP. History also notable for breast Ca, Type 2 Diabetes, depression, Hypothyroid, and Meniere's disease. Patient presented with worsening periumbilical pain and found to have incarcerated umbilical hernia now s/p Exp Lap and primary repair of umbilical hernia on 01/22/18. Hepatology consulted for management of cirrhosis. Patient follows with Dr Chasidy Miranda, she was last seen 12/09/17. She was receiving paracentesis every other week and typically has about 5L removed each time. Transplant was discussed at that visit, no need for liver transplant at that time, also discussed possibility for live donor and for HCV donor and patient was going to think about it. Patient reports that following paracentesis on 01/21/18, she developed progressive worsening of abdominal pain, subsequently presented to [facility] and transferred to [facility]. She was found to have incarcerated umbilical hernia now s/p Exp Lap and primary repair of umbilical hernia on 01/22/18. Post operatively patient reports significant improvement in pain. States pain is primarily incisional. She has no history of SBP, EV, or HE. EGD done 09/2017 showed portal hypertension gastropathy. Otherwise exam was normal. Per review of record, she has not had a serological work up completed. Hepatitis labs were ordered at her last visit, not yet completed. She continues to require paracentesis every other week. She reports watching her sodium intake closely. She is taking triamterene-hydrochlorothiazide 37.5- 25 mg per capsule twice daily, however this was actually started originally for management of Meniere's disease. She reports 80 pound weight loss since May 2017, States she was having a lot of GI issues earlier this year and was eating less. Her weight loss has slowed recently, however reports continued weight loss. She denies dysphagia, heartburn, regurgitation, nausea/vomtiing. Currently not passing gas and she has not had BM since surgery. Risk Factors for Liver Disease: 1. Blood transfusions before 1991: No 2. IVDA: No 3. Intranasal coccaine use: No 4. Tattoos: Yes, done professionally 5. Service: No 6. High risk sexual behavior: No 7. Alcohol: Yes, One wine or wine coolers a day 8. Obesity: Yes 9. Hyperlipidemia: Yes 10. Prolonged exposure to hepatotoxic meds: No 11. Other autoimmune disorders No ? Metabolic Syndrome Risk factors:3/5 1) Diabetes/ Abnormal FBS >100mg/dL YES 2) Hypertension : NO 3)Triglycerides more then 150 : NO 4) HDL (<50 female and <40 male): YES 5) Central obesity ( Waist >102 men and >88 female) - Yes Past Medical History: PAST MEDICAL HISTORY Diagnosis Date - Depressive disorder, not elsewhere classified - Hypothyroidism - Mammographic microcalcification 08/24/08 RIGHT BREAST - Meniere's disease, unspecified - Snoring - Type II or unspecified type diabetes mellitus without mention of complication, not stated as uncontrolled Past Surgical History: PAST SURGICAL HISTORY Procedure Laterality Date - COLONOSCOP W/ OR W/O BRSH SPEC 04/29/15 Colonoscopy - COLONOSCOPY 04/04/10 VJ -hyperplastic polyp - LIGATE FALLOPIAN TUBE 1989 Tubal ligation - PAST SURGICAL HISTORY OF 2003 Bunionectomy - PAST SURGICAL HISTORY OF Clean out endometriosis - PAST SURGICAL HISTORY OF 12/2010. Total Hysterectomy - PAST SURGICAL HISTORY OF 10/18/11 Lt breast lumpectomy with SLN biopsy - PAST SURGICAL HISTORY OF 2009 Vaginal sling Family History: FAMILY HISTORY Problem Relation Age of Onset - Heart Mother - Heart Father - Heart Maternal Grandfather - Heart Paternal Grandfather - Cancer Maternal Grandmother brain Social History: Social History Marital status: Spouse name: Years of education: Number of children: Social History Main Topics Smoking status: Former Smoker Packs/day: 0.00 Years: 0.00 Types: Cigarettes Smokeless tobacco: Never Used Comment: Social smoker while in college. Alcohol use: Yes Comment: occasional Drug use: No Sexual activity: Yes Partners with: Male Allergies: ALLERGIES Allergen Reactions - Codeine nausea Medications: Prior to Admission Medications: ADDERALL XR 30 mg 24 hr capsule tamoxifen (NOLVADEX) 20 mg tablet Take 20 mg by mouth once daily. triamterene-hydrochlorothiazide 37.5-25 mg per capsule Take 2 capsules by mouth once daily. PARoxetine (PAXIL) 10 mg tablet levothyroxine (SYNTHROID) 137 mcg tablet Take 137 mcg by mouth once daily. Amphetamine-Dextroamphetamine (ADDERALL) 30 mg tablet Take 30 mg by mouth once daily. MECLIZINE 25 mg tab Take 25 mg by mouth every 6 hours as needed. DULOXETINE 60 mg capsule Take 60 mg by mouth once daily. Current hospital medications: metFORMIN 500 mg tab(s) (GLUCOPHAGE) 500 mg ORAL BID triamterene-hydrochlorothiazide 37.5-25 mg 1 tablet (MAXZIDE- 25) 1 tablet ORAL DAILY carboxymethylcellulose sodium 1-2 Drop (CELLUVISC) 1-2 Drop BOTH EYES PRN meclizine 25 mg tab(s) (ANTIVERT) 25 mg ORAL q 6 H PRN amphetamine-dextroamphetamine XR 30 mg cap(s) (ADDERALL XR) 30 mg ORAL DAILY PARoxetine 10 mg tab(s) (PAXIL) 10 mg ORAL DAILY DULoxetine 60 mg cap(s) (CYMBALTA) 60 mg ORAL DAILY levothyroxine (SYNTHROID) tab(s) 137 mcg 137 mcg ORAL DAILY dextrose 40 % 15 g 15 g ORAL PRN glucagon 1 mg injection (GLUCAGEN) 1 mg INTRAMUSCULAR PRN dextrose 50% in water 25 mL syringe 12.5 g INTRAVENOUS PRN insulin lispro injection (rapid acting) (HumaLOG) SUBCUTANEOUS q 6 H diazePAM 2 mg tab(s) (VALIUM) 2 mg ORAL q 8 H PRN fentaNYL 50 mcg/mL 25 mcg injection (SUBLIMAZE) 25 mcg INTRAVENOUS q 2 H PRN traMADol 50 mg tab(s) (ULTRAM) 50 mg ORAL q 6 H PRN heparin 5,000 Units injection 5,000 Units SUBCUTANEOUS q 12 H acetaminophen 650 mg tab(s) (TYLENOL) 650 mg ORAL q 6 H PRN HYDROmorphone 0.2 mg in NaCl 0.9% (DILAUDID) 0.2 mg INTRAVENOUS q 4 H PRN tamoxifen 20 mg tab(s) (NOLVADEX) 20 mg ORAL DAILY potassium chloride ER 20-40 mEq tab(s) (K-DUR, KLOR-CON) 20- 40 mEq ORAL PRN potassium chloride iv piggyback 20 mEq/100 mL 20 mEq INTRAVENOUS PRN magnesium sulfate iv piggyback 2 g in D5W 50 mL 2 g INTRAVENOUS PRN(NO DISPENSE) sodium phosphate 45 mmol in NaCl 0.9% 250 mL 45 mmol INTRAVENOUS PRN(NO DISPENSE) ondansetron (PF) 4 mg injection (ZOFRAN) 4 mg INTRAVENOUS q 6 H PRN pantoprazole 40 mg injection (PROTONIX) 40 mg INTRAVENOUS DAILY (6 AM) lactated ringers infusion 100 mL/hr INTRAVENOUS CONTINUOUS Pertinent Review of Systems: REVIEW OF SYSTEMS GENERAL: Negative fever, chills sweats HEENT: Negative for frequent or significant headaches, No changes in hearing or vision, no nose bleeds or other nasal problems NECK: Negative for significant neck swelling RESPIRATORY: Negative for cough, hemoptysis, wheezing, dyspnea or shortness of breath CARDIOVASCULAR: Negative for chest pain, leg swelling, hypertension, or palpitations GI: See HPI : No history of dysuria, frequency or incontinence MUSCULOSKELETAL: Negative for joint pain or swelling, back pain or muscle pain SKIN: Negative for lesions, rash, and itching HEMATOLOGY/LYMPHOLOGY: Negative for prolonged bleeding, bruising easily or swollen nodes ENDOCRINE: Positive for DM2 (was on Metformin, however now stopped) and hypothyroid NEURO: No history of headaches, syncope, paralysis, seizures or tremors Physical Exam: Vital Signs: 01/22/18 2127 01/23/18 0118 01/23/18 0550 01/23/18 1019 BP: 132/82 136/71 133/61 135/77 Pulse: 70 72 72 77 Resp: 14 16 16 16 Temp: 36.7 ?C (98 ?F) 36.7 ?C (98 ?F) 36.6 ?C (97.8 ?F) 37 ?C (98.6 ?F) TempSrc: Oral Oral Oral Oral SpO2: 96% 96% 95% 96% VITAL SIGNS: BP 135/77 Pulse 77 Temp (Src) 98.6 (Oral) Resp 16 SpO2 96% LMP 08/09/2008 General appearance: well appearing, alert, in no acute distress and well-hydrated, well nourished Skin: Skin color, texture, turgor normal, no suspicious rashes or lesions Head: normal Eyes: Anicteric sclera. Pupils are equally round and reactive to light. Oropharynx: Lips, mucosa, and tongue normal, teeth and gums normal, oropharynx normal Neck: Supple, no adenopathy; Lungs: lungs clear to auscultation, no wheezing or rhonchi Heart: RRR without murmur, gallop, or rubs. No ectopy Abdomen: Abdomen soft, non distended. TTP in area of surgical site. Bowel sounds hypoactive. Midline lower abdominal incision, well approximated no drainage. Extremities: Extremities normal. No deformities, edema, or skin discoloration. Good capillary refill. Peripheral pulses: Normal Neuro: Oriented X 3 Intake/Output Summary (Last 24 hours) at 01/23/18 1123 Last data filed at 01/23/18 1024 Gross per 24 hour Intake 3264 ml Output 2630 ml Net 634 ml Diagnostic Testing: EGD 09/11/17 Impression: ?- Normal esophagus. No varices were identified. ? - Portal hypertensive gastropathy. ? - Normal examined duodenum. ? - No specimens collected. Labs: CBC, Coags, BMP, Mg, Phos Recent Labs 01/23/18 0401 01/22/18 0045 WBC 14.06* 8.26 HB 15.8* 15.2 HCT 46.6* 45.7 PLT 289 227 INR -- 1.0 APTT -- 26.4 NA 140 142 K 4.0 3.4* CHLOR 101 105 CO2 28 24 BUN 17 18 CREAT 1.22* 1.21* GLUC 123* 120* CA 8.7 9.0 MG 1.9 -- P 3.1 -- Liver Function, Amylase, AND Lipase Recent Labs 01/23/18 0401 01/22/18 0045 TPROT 5.3* 5.9* ALB 2.7* 3.0* ALT 16 16 AST 25 22 ALKPHOS 85 91 TBILI 0.8 0.7 MELD-Na score: 8 at 01/23/2018 4:01 AM MELD score: 8 at 01/23/2018 4:01 AM Calculated from: Serum Creatinine: 1.22 mg/dL at 01/23/2018 4:01 AM Serum Sodium: 140 mmol/L (Rounded to 137) at 01/23/2018 4:01 AM Total Bilirubin: 0.8 mg/dL (Rounded to 1) at 01/23/2018 4:01 AM INR(ratio): 1 at 01/22/2018 12:45 AM Age: 57 years Disclaimer: The MELD Calculator cannot calculate MELD scores for patients on dialysis. Reviewed: Most recent labs and imaging results. Impression: Priti Mcdonald is a 57 year old has a past medical history [place] Cirrhosis (dx. Intraoperative liver biopsy 09/28/15) c/b ascites requiring every other week LVP. History also notable for breast Ca, Type 2 Diabetes, Depression, Hypothyroid, and Meniere's disease. Patient presented with worsening periumbilical pain and found to have incarcerated umbilical hernia now s/p Exp Lap and primary repair of umbilical hernia on 01/22/18. Hepatology consulted for management of cirrhosis. # [place] Cirrhosis c/b ascites requiring LVP - Never optimized on diuretic therapy - s/p exp Lap and primary repair of umbilical hernia c/f wound dehiscence given ongoing issues with ascites. - low MELD 8 Plan: - Would favor avoiding TIPS at this time as we have not optimized diuretic therapy. - Discontinue triamterene-hydrochlorothiazide if patient agreeable. - Start spironolactone 50 mg and Lasix 20 mg and attempt optimization of diuretic therapy - When restarting PO diet would favor 2GM low sodium diet. - Continue paracentesis as needed. - Longitudinal follow up with Dr Apple Discussed with staff Dr. Jennie Becerra SIGNATURE: Ryan Otoole, MSN, TRAIN OPERATIONS MANAGER-C PATIENT NAME: Priti Mcdonald DATE: January 23, 2018 TIME: 11:23 AM PAGER/CONTACT #: [phone] [facility] STAFF PHYSICIAN NOTE OF PERSONAL INVOLVEMENT IN CARE I have reviewed the consult note obtained and documented by the nurse practitioner and I personally participated in the laughlin components. I have discussed the case and management of the patient's care. The following comments revise or confirm relevant laughlin components of their note. IMPRESSION: Ms. Mcdonald is a 57yoF with PMHx B[place]-related cirrhosis c/b portal HTN (large volume ascites uncontrolled with HCTZ/triamterene necessitating LVP every other week), as well as Meniere's disease, depression, breast CA, Hypothyroidism. She is admitted with abdominal pain, found to have incarcerated hernia now s/p ex lap and repair of umbilical hernia 01/22/18. Hepatology is consulted for management of ascites. MELD-Na score: 8 at 01/23/2018 4:01 AM MELD score: 8 at 01/23/2018 4:01 AM Calculated from: Serum Creatinine: 1.22 mg/dL at 01/23/2018 4:01 AM Serum Sodium: 140 mmol/L (Rounded to 137) at 01/23/2018 4:01 AM Total Bilirubin: 0.8 mg/dL (Rounded to 1) at 01/23/2018 4:01 AM INR(ratio): 1 at 01/22/2018 12:45 AM Age: 57 years PLAN: -Ascites - Never trialed on optimal diuretic therapy. Will start Lasix 20mg daily and Aldactone 50mg daily and up-titrate as tolerated. Monitor VIMAL drain output and for wound drainage. Would only consider TIPS if ascites is not responsive to maximally tolerated diuretic therapy. OK to stop HCTZ-triamterene. Low salt diet. -BARRAGAN-related cirrhosis - No indication for OLT eval for now. Longitudinal f/u with Dr. Miranda -EV screening - Due for repeat surveillance in 2-3 years -HCC screening - UTD, repeat US in 6 months SIGNATURE: Jennie Becerra MD January 23, 2018 10:21 PM PROGRESS Observed: 01/23/2018 Status: COMPLETED Source: [place] 9:59 AM 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 Plan - Diet CLD (will advance diet when bowel function returns) - mIVF (LR @ 100 cc/hr) - Restart home meds: Synthroid, Adderall XR, Paxil, Cymbalta, Tamoxifen, Metformin - Pain control with Tylenol, Tramadol, and Dilaudid - Protonix daily and Zofran PRN - Monitor labs, replete lytes PRN - SCDs and SQH for embolic prophylaxis - Monitor ascitic drain output - Place two-way stopcock on drain - Sliding scale insulin (scale 1) for blood glucose control - F/u with Hepatology recs regarding possible TIPS, appreciate input Plan to be discussed with Attending, Dr. Sourav Reynolds SUBJECTIVE 24 hour events: No acute events Pain is well controlled on current regimen. Has not ambulated since surgery. Tolerated diet with no n/v No flatus, no BM. OBJECTIVE Date 01/22/18 0700 - 01/23/18 0659 Shift 8585-8530 5247-1559 1616-7726 24 Hour Total I N T A K E PO 129 952 8631 PO 262 838 0038 IV 1170 135 317 2045 LR 70 575 424 9958 OR Crystalloid intake (mL) 1100 1100 Shift Total 1170 1589 1022 3781 O U T P U T Urine 0 858 988 2701 Void (ml) 744 233 1248 OR Urine Output 0 0 Tubes 710 509 287 9590 Drain/Tube Output (Drain/Tube 01/22/18 0945 Kole Mireles Right Medial Abdomen Drain #1) 710 693 872 8558 # of BMs Number of BMs 0 x 0 x Blood 15 15 Estimated Blood loss 15 15 Shift Total 725 8914 807 3840 Weight (kg) PHYSICAL EXAM: BP 133/61 Pulse 72 Temp (Src) 97.8 (Oral) Resp 16 SpO2 95% LMP 08/09/2008 Gen: Awake, alert Lungs: Breathing comfortably on RA Abdomen: Incision is c/d/i with glue in place, no surrounding erythema, appropriately TTP around wound, remaining abdomen soft, non distended. VIMAL draining serosanguinous fluid Ext: No edema, SCDs in place LABS: CBC, Coags, BMP, Mg, Phos Recent Labs 01/23/18 0401 01/22/18 0045 WBC 14.06* 8.26 HB 15.8* 15.2 HCT 46.6* 45.7 PLT 289 227 INR -- 1.0 APTT -- 26.4 NA 140 142 K 4.0 3.4* CHLOR 101 105 CO2 28 24 BUN 17 18 CREAT 1.22* 1.21* GLUC 123* 120* CA 8.7 9.0 MG 1.9 -- P 3.1 -- IMAGING: No recent imaging Acute Care Surgery Team Pager [phone] SIGNATURE: Carmelina Power MS4 PATIENT NAME: Priti Mcdonald DATE: January 23, 2018 TIME: 9:59 AM PAGER/CONTACT #: [phone] Weekends, holidays and between 6p and 6a please page General Surgery Dennis Pager [phone] Senior Addendum: Agree with above documentation. Denies bowel function. No nausea or emesis with liquid. Abdomen soft with per-incisional tenderness. Incision intact. Restart home meds and consult hepatology for management with ascitic fluid/possible TIPS. Continue IVF given inadequate PO intake. Mu Livingston MD Vascular Surgery PGY-3 Pager: [phone] CBC Collected: 01/23/2018 Status: F Source: [place] MES[place] 4:01 [facility] REPOSITORY TYPE CODE TESTS RESULT OUT OF REFERENCE UNITS RANGE LAB WBC 3.70-11.00 k/uL WBC High 14.06 LAB RBC 3.90-5.20 m/uL RBC High 5.35 LAB HGB 11.5-15.5 g/dL High Hemoglobin 15.8 LAB HCT 36.0-46.0 % High Hematocrit 46.6 LAB MCV 80.0-100.0 fL MCV 87.1 LAB MCH 26.0-34.0 pG MCH 29.5 LAB MCHC 30.5-36.0 g/dL MCHC 33.9 LAB RDWCV 11.5-15.0 % RDW-CV 13.9 LAB PLTCT 150-400 k/uL Platelet Count 289 LAB MPV 9.0-12.7 fL MPV 10.9 LAB ABSNUC <0.01 k/uL Absolute nRBC <0.01 Performed By: #### CBC, CMP, MG1, PHOS #### [facility] [address] [place], [place] [address] COMP METABOLIC PANEL Collected: 01/23/2018 Status: F Source: [place] M[place] 4:01 [facility] REPOSITORY TYPE CODE TESTS RESULT OUT OF REFERENCE UNITS RANGE LAB TP 6.3-8.0 g/dL Low Protein, Total 5.3 LAB ALB 3.9-4.9 g/dL Low Albumin 2.7 LAB CA 8.5-10.2 mg/dL Calcium, Total 8.7 LAB TBIL 0.2-1.3 mg/dL Bilirubin, Total 0.8 LAB ALKP 32-117 U/L Alkaline Phosphatase 85 LAB AST 13-35 U/L AST 25 LAB GLU 74-99 mg/dL Glucose High 123 Result Comment: The [place] [employer] (ADA) provides guidance for cutoff values for fasting glucose and random glucose. The ADA defines fasting as no caloric intake for at least 8 hours. Fas ting plasma glucose results between 100 to 125 mg/dL indicate increased risk for diabetes (prediabetes). Fasting plasma glucose results greater than or equal to 126 mg/dL meet the criteria for diagnosis of diabetes. In the absence of unequivocal hyperglycemia, results should be confirmed by repeat testing. In a patient with classic symptoms of hyperglycemia or hyperglycemic crisis, random plasma glucose results greater than or equal to 200 mg/dL meet the criteria for diagnosis of diabetes. Reference: Standards of Medical Care in Diabetes 2016, [place] [employer] Association. Diabetes Care. 2016.39(Suppl 1). LAB BUN 7-21 mg/dL BUN 17 LAB CRET 0.58-0.96 mg/dL Creatinine High 1.22 LAB NA 136-144 mmol/L Sodium 140 LAB K 3.7-5.1 mmol/L Potassium 4.0 LAB CL 97-105 mmol/L Chloride 101 LAB CO2 22-30 mmol/L CO2 28 LAB AGAP 9-18 mmol/L Anion Gap 11 LAB ALT 7-38 U/L ALT 16 LAB GFRAA eGFR- Amer. 55 LAB GFRNAA . eGFR-All Other Races 45 Result Comment: eGFR (Estimated GFR) Units of measure: mL/min/1.73 meters squared eGFR is derived from the reexpressed MDRD Study equation using the following parameters: serum creatinine, age, gender and race. The creatinine assay has been calibrated to be traceable to IDMS. An eGFR <60 mL/min/1.73m2 for >3 months is consistent with chronic kidney disease. Refer to KDOQI guidelines for clinical interpretation. In patients with unstable renal function, e.g. those with acute kidney injury, the eGFR may not accurately reflect actual GFR. Performed By: #### CBC, CMP, MG1, PHOS #### [facility] [address] [place] [address] MAGNESIUM Collected: 01/23/2018 Status: F Source: [place] M[place] 4:01 [facility] REPOSITORY TYPE CODE TESTS RESULT OUT OF REFERENCE UNITS RANGE LAB MG 1.7-2.3 mg/dL Magnesium 1.9 Performed By: #### CBC, CMP, MG1, PHOS #### [facility] [address] [place] [address] PHOSPHORUS Collected: 01/23/2018 Status: F Source: [place] 4:01 [facility] REPOSITORY TYPE CODE TESTS RESULT OUT OF REFERENCE UNITS RANGE LAB PHOS 2.7-4.8 mg/dL Phosphorus 3.1 Performed By: #### CBC, CMP, MG1, PHOS #### [facility] [address] [place], [place] [address] PROGRESS Observed: 01/22/2018 Status: COMPLETED Source: [place] 5:45 PM [facility] REPOSITORY HNO ID: [id number] Author: Azar (Mehreen Harkins MD Service: General Surgery Author Type: Resident Type: Progress Notes Filed: 01/22/2018 5:48 PM Note Text: Acute Care Surgery PROGRESS NOTE Priti Mcdonald [id number] 01/22/2018 ASSESSMENT/PLAN: Ms. 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 She is now POD 0 s/p exploratory laparotomy and primary repair of umbilical hernia. - exploratory laparotomy, primary repair of umbilical hernia. - Diet CLD - mIVF - home meds: Syntrhoid, Adderall XR, Paxil, Cymbalta, Tamoxifen - Pain control - Protonix - f/u H/H post-op - Monitor labs - replete lytes prn - SCDs and subq heparin SUBJECTIVE 24 hour events: Patient was taken to the OR for exploratory laparotomy and primary repair of umbilical hernia. No acute issues post-op OBJECTIVE Intake/Output Summary (Last 24 hours) at 01/22/18 1521 Last data filed at 01/22/18 1518 Gross per 24 hour Intake 1966 ml Output 1730 ml Net 236 ml PHYSICAL EXAM: BP 139/81 Pulse 79 Temp (Src) 97.4 (Oral) Resp 14 SpO2 94% LMP 08/09/2008 Gen: Awake, alert Lungs: Breathing comfortably on NC Abdomen: incision is c/d/i with no signs of bleeding, no surrounding erythema, appropriately TTP around wound, remaining abdomen soft, non distended. VIMAL serosanguineous. Ext: No edema, SCDs in place DATA: Diagnostic tests reviewed for today's visit: Most recent labs and imaging results. CBC, Coags, BMP, Mg, Phos Recent Labs 01/22/18 0045 WBC 8.26 HB 15.2 HCT 45.7 PLT 227 INR 1.0 APTT 26.4 NA 142 K 3.4* CHLOR 105 CO2 24 BUN 18 CREAT 1.21* GLUC 120* CA 9.0 Liver Function, Amylase, AND Lipase Recent Labs 01/22/18 0045 TPROT 5.9* ALB 3.0* ALT 16 AST 22 ALKPHOS 91 TBILI 0.7 Acute Care Surgery Team Pager [phone] SIGNATURE: Azar Harkins MD PATIENT NAME: Priti Mcdonald DATE: January 22, 2018 TIME: 3:21 PM PAGER/CONTACT #: [phone] Weekends, holidays and between 6p and 6a please page General Surgery Dennis Pager [phone] NUTRITION Observed: 01/22/2018 Status: COMPLETED Source: [place] 3:46 PM [facility] [address] [facility] REPOSITORY [facility] ID: [id number] Author: Hannah (Ashlee Liu) ALEXEY Pinedo Service: Nutrition Therapy Author Type: Registered Dietitian Type: Nutrition Filed: 01/22/2018 4:21 PM Note Text: NUTRITION THERAPY INITIAL ASSESSMENT SERVICE DATE: 01/22/2018 SERVICE TIME: 3:00 PM RECOMMENDED MALNUTRITION DIAGNOSIS: NO MALNUTRITION IDENTIFIED NUTRITION CARE PLAN: No nutrition diagnosis at this time Intervention: 1. Continue Clear Liquid diet, advancing as tolerated to 2 gm Na Electrolytes. 2. Preordered high protein snacks of pt preference between meals. 3. Replete potassium prn. 4. 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 Monitor and Evaluation: Goal: Meet >75% of estimated needs Monitor fluid/electrolyte balance Monitor labs, I/Os, vital signs, weight Discharge Nutrition Recommendations: Diet: advance to 2 gm Na; small, frequent meals as needed Per HPI: 57 year old female PMHx breast ca, nodular cirrhosis 2/2 BARR[place]AN (MELD 9) c/b chronic ascites on regular paracentesis, s/p CCY, MDD, hypothyroid, menieres, DM2, ADD who is a direct admission for management of incarcerated umbilical hernia. Current Diet Order DIET LIQUID Order Specific Question: Liquid Diet Answer: CLEAR LIQUID Nutritional Intake Prior to Admission: per pt, following a low salt diet and watching carbohydrate intake. During the work week, tends to consume 5-6 small meals/day; weekends more like 3 meals/day. Focusing on healthier foods and higher protein. No consuming any oral supplements. Denies issues chewing/swallowing. 01/21: last po consumed on this date At visit today, pt laying in bed with spouse at bedside. Denies recent nausea/vomiting. Last BM was yesterday prior to surgery. GI symptoms: none Nutrition Abdominal Exam: and not assessed ANTHROPOMETRICS Admission Current Weight: Ht: 67 Weight hx: per pt, weighed 231 lbs (105 kg) after tap yesterday (~5L removed). Reports lowest wt after tap was 226 lbs (103 kg). Requires every other week taps. Difficult to assess dry wt change given fluid shifts but suspect losses given general trend down- likely intentional as pt is trying to eat healthier; has had better BS control and off DM medication. HT/WT/BMI WEIGHT 10/25/2016 129.502 kg 04/25/2017 127.688 kg 08/15/2017 119.296 kg 10/24/2017 106.369 kg 12/24/2017 103.511 kg 01/21/2018 104.872 kg [place] Body Weight: 61 kg Dosing Weight: 103 kg (lowest known dry wt on 12/31)/ BMI: 35.5 Resting Metabolic Rate: 1665 Estimated kilocalorie needs: 8028-7530 kilocalories determined by 12-18 kcal/kg Estimated protein needs: 73-92 grams determined by 1.2-1.5 g/kg [place] weight Estimated fluid needs: 1 ml/kcal or per primary NUTRITION FOCUSED PHYSICAL EXAM: Subcutaneous Fat Loss Orbital No fat loss Triceps No fat loss Mid-axillary at the iliac crest Unable to determine at this time Muscle Loss Locations: Temporalis No muscle loss Pectoralis No muscle loss Deltoids No muscle loss Interosseous No muscle loss Latissimus dorsi, trapezius Unable to determine at this time Quadriceps No muscle loss Gastrocnemius Unable to determine at this time Potential micronutrient deficiency revealed in: hair thinning and vision changes Edema: No Ascites: Yes Assessment of Functional Status: Functional capacity is unrelated to nutrition status Temperature Max in 24 hours: Max:37.1 ?C (98.8 ?F) BP 139/81 Pulse 79 Temp 36.3 ?C (97.4 ?F) (Oral) Resp 14 LMP 08/09/2008 SpO2 94% Recent Labs 01/22/18 0045 GLUC 120* BUN 18 CREAT 1.21* NA 142 K 3.4* CHLOR 105 CO2 24 ALB 3.0* HB 15.2 HCT 45.7 WBC 8.26 Potential Signs of Inflammation: hypoalbuminemia and acute post-operative Current Facility-Administered Medications: amphetamine-dextroamphetamine XR 30 mg cap(s) (ADDERALL XR) 30 mg ORAL DAILY PARoxetine 10 mg tab(s) (PAXIL) 10 mg ORAL DAILY DULoxetine 60 mg cap(s) (CYMBALTA) 60 mg ORAL DAILY levothyroxine (SYNTHROID) tab(s) 137 mcg 137 mcg ORAL DAILY insulin lispro injection (rapid acting) (HumaLOG) SUBCUTANEOUS q 6 H ondansetron (PF) 4 mg injection (ZOFRAN) 4 mg INTRAVENOUS q 6 H PRN pantoprazole 40 mg injection (PROTONIX) 40 mg INTRAVENOUS DAILY (6 AM) lactated ringers infusion 100 mL/hr INTRAVENOUS CONTINUOUS enoxaparin 40 mg injection (LOVENOX) 40 mg SUBCUTANEOUS DAILY MNT Billing Type: Initial Assess/15 min 4 units SIGNATURE: Hannah Pinedo RDN,MATEO PATIENT NAME: Priti Mcdonald DATE: January 22, 2018 TIME: 3:47 PM PAGER: [phone] CASE MGT INIT Observed: 01/22/2018 Status: COMPLETED Source: [facility] 3:27 PM [facility] REPOSITORY O ID: [id number] Author: Valentina PickardRn) WILIAM Crain Service: Care Management Author Type: Registered Nurse Type: Care Mgt Initial Assessment Filed: 01/22/2018 3:35 PM Note Text: CARE MANAGEMENT: ASSESSMENT AND DISCHARGE PLAN SERVICE DATE: 01/22/2018 SERVICE TIME: 3:27 PM PRIMARY CARE PHYSICIAN: Elias Rodriguez MD ADMISSION STATUS: Inpatient Needs Prior to Discharge: To Be Determined MEDICAL: Patient/Wellness Health Coach Stated Goals: To have reduction in pain To return home to life as it was Health Insurance: [facility] CHOICE PLUS [facility] Issues Impacting Discharge Plan: None Last Admission Date: none Is this Within the Past 30 days? No Advance Directive: Current Advance Directive: None Quilting Machine Operator Attempted to Assist with AD Completion: Yes Action: (Pt offered advanced directives packet, accepted packet, pt spouse stated we will look it over) Health Literacy: 1. How often do you need to have someone help you when you read instructions, pamphlets, or other written material from your doctor or pharmacy? Never - 1 2. How confident are you filling out medical forms by yourself? Extremely - 1 If Patient scores > 3 on either question, the following interventions were put into place: Use of plain language and active listening with Patient and family, Use concrete and specific phrases, avoid medical jargon and Gave Patient the opportunity to ask questions FUNCTIONAL AND COGNITIVE/BEHAVIORAL PRIOR TO ADMISSION: Baseline Mental Status: Alert AND Oriented, Person, Place , Time and Situation Functional Status: Independent Does Patient Currently Receive Any Community Services or Home Care? None Equipment Prior to Admission: None Has the Patient Been in a Fdc Facility in the Past 30 days? No SOCIAL: Living Arrangement: Home Lives With: Spouse Financial Resources: Employed: [employer] Primary Contact: Extended Emergency Contact Information Primary Emergency Contact: Luh Mcdonald Address: [address] [place] [address] [place], [place] [id number] [place] [address] Mobile Relation: Spouse Supportive: Yes Other Important Patient Contacts: None Caregiver Assessment: Caregiver is ready, willing and able to meet the patient's needs as recommended by the inter-professional team? No Caregiver Needed Patient's transition needs and plan for meeting these needs: Needs TBD Does the patient have an acute stroke diagnosis, or has the patient had a stroke during this admission? No Medication Adherence: I am convinced of the importance of my prescription medication: Agree completely - 0 I worry that my prescription medication will do more harm than good to me Disagree completely - 0 I feel financially burdened by my [id number] expenses for my prescription medication: Disagree completely - 0 Patient is categorized as low risk < 2 Are you interested in bedside delivery of your medications? No Food Concerns: In the Last Month, Have You had Trouble Getting Food? No trouble getting food During the Last Month, Have You Worried Whether Your Food Would Run Out Before You Had Enough Money to Buy More? No Is the Patient Psychosocially Complex? 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 REPOSITORY HNO ID: [id number] Author: Varinder Squires) Brian Swain Service: Anesthesiology Author Type: Anesthesiologist Type: Anesthesia PostOp Filed: 01/22/2018 3:11 PM Note Text: POST ANESTHESIA EVALUATION NOTE SERVICE DATE: 01/22/2018 SERVICE TIME: 3:11 PM : 1960 Vitals: 01/22/18 0552 01/22/18 1104 01/22/18 1200 01/22/18 1248 Temp: 36.4 ?C (97.5 ?F) 36.2 ?C (97.2 ?F) 37.1 ?C (98.8 ?F) 36.3 ?C (97.4 ?F) 01/22/18 1130 01/22/18 1145 01/22/18 1200 01/22/18 1248 BP: 152/93 158/85 147/84 139/81 01/22/18 1130 01/22/18 1145 01/22/18 1200 01/22/18 1248 Pulse: 84 80 86 79 01/22/18 1130 01/22/18 1145 01/22/18 1200 01/22/18 1248 Resp: 12 14 14 14 01/22/18 1130 01/22/18 1145 01/22/18 1200 01/22/18 1248 SpO2: 95% 94% 95% 94% Validated Vital Signs: Yes POST ANES STATUS: No apparent anesthetic complications. The patient is appropriately hydrated with stable respiratory and cardiovascular status. Patient has safe and adequate airway control. The patient has appropriate pain relief and no significant post operative nausea or vomiting. The patient has achieved baseline mental status. Intra-Operative Events: No Significant Anesthesia Events Further assessment by Anesthesia Service: None Other Remarks: SIGNATURE: Varinder Swain MD PATIENT NAME: Priti Mcdonald DATE: January 22, 2018 TIME: 3:11 PM PAGER/CONTACT #: [phone] BRIEF OP NOT Observed: 01/22/2018 Status: COMPLETED Source: [place] 10:20 AM [facility] REPOSITORY HNO ID: [id number] Author: Maxi Camarena Service: General Surgery Author Type: Resident Type: Brief Op Note Filed: 01/22/2018 10:25 AM Note Text: BRIEF OP NOTE LOG ID: [id number] Surgery/Procedure Date: 01/22/2018 Incision/Procedure Start Time: 9:04 AM Incision Close/Procedure End Time: Surgeon(s) and Role: * Javier Reynolds - Primary * Santo (Resident) Moises - Resident - Assisting Procedure(s): Exploratory laparotomy, primary repair of umbilical hernia Anesthesia: General Findings: Incarcerated umbilical hernia with skin changes. Small bowel reduced on induction. Small bowel run from ligament of Treitz to cecum, bowel viable. Estimated Blood Loss: 15 cc Specimens: Specimen ID Type Site Comments Sent To Path 1 Tissue Hernia sac Pathology Routine Complications: None Pre-Op/Pre-Procedure Diagnosis: Incarcerated umbilical hernia Post-Op/Post-Procedure Diagnosis: Same SIGNATURE: Maxi Camarena MD PATIENT NAME: Priti Mcdonald DATE: January 22, 2018 TIME: 10:20 AM PAGER/CONTACT #: OPERATIVE NO Observed: 01/22/2018 Status: COMPLETED Source: [place] 8:29 AM [facility] REPOSITORY HNO ID: [id number] Author: Javier Reynolds Service: General Surgery Author Type: Physician Type: Operative Report Filed: 01/22/2018 11:20 AM Note Text: [place] [id number] [place] OPERATIVE REPORT NAME: Priti Mcdonald [facility]# [id number] DATE: January 22, 2018 AGE: [age] year old SURGEON 1: Javier Carrera MD SYSTEMS ENGINEER 1: Maxi Camarena MD SYSTEMS ENGINEER 2: Santo De Leon MD SYSTEMS ENGINEER 3: Carmelina Power MD (medical student) OPERATION: Exploratory laparotomy, reduction of incarcerated umbilical hernia, primary umbilical hernia repair INCISION/PROCEDURE START TIME: 9:04 AM INCISION CLOSE/PROCEDURE END TIME: 10:37 AM OPERATIVE TIME: 1 hour 33 minutes ANESTHESIA: General PREOPERATIVE DIAGNOSIS: Incarcerated umbilical hernia, B[place] cirrhosis with ascites POSTOPERATIVE DIAGNOSIS: Incarcerated umbilical hernia, B[place] cirrhosis with ascites OPERATIVE INDICATIONS: The patient is a 57 year old female with BARRAGAN cirrhosis (MELD: 9) with ascites undergoing weekly paracentesis, breast cancer, diabetes mellitus, and major depressive disorder who presented 01/21/2018 evening with paraumbilical pain after paracentesis early that day, progressively worsening. Examination was notable for an incarcerated umbilical hernia with skin changes without ascitic leakage. She was urgently taken to the operating room for umbilical hernia repair, possible bowel resection. OPERATIVE FINDINGS: Incarcerated umbilical hernia. Ascites. Viable small and large bowel. OPERATIVE PROCEDURE: The patient was brought to the operating room, identified by name, medical record number, and date of . The procedure to be performed, open umbilical hernia repair, possible bowel resection, was confirmed with the patient, surgical, nursing, and anesthesia teams. Allergies were then reviewed. Cefazolin 2 gm was administered. Sequential compression devices were placed. General anesthesia was begun. The abdomen was prepped with chlorhexidine gluconate and draped in the usual sterile fashion. Time out was then performed, confirming patient name, date of , positioning, and procedure to be performed. The skin was incised sharply in the midline over the hernia. The subcutaneous tissues were dissected using electrocautery. The hernia sac was dissected from the fascia using Metzenbaum scissors and electrocautery. The incarcerated small bowel had reduced at the time of induction. The umbilical stalk was freed from the hernia sac. The hernia sac was excised and sent for pathology. Approximately 2,850 cc of straw colored ascites was suctioned. The defect measured approximately 4 cm x 4 cm. The defect was extended superiorly and inferiorly for 2 cm in each direction in order to explore the abdomen. The small bowel was run from the ligament of Treitz to the cecum. No perforations or segments of ischemia were noted. There was a segment of bowel with a piece of fibrinous rind and mild congestion, the presumed incarcerated loop, which improved with time. The ascending, transverse, and descending colon were viable. The omentum was placed over the bowel. A 19 Fr round Kole-Mireles drain was placed to control ascites and promote fascial healing. A 3-0 Nylon suture was placed around the drain exit site in a U-stitch configuration for later skin closure. The drain was secured with an additional 3-0 Nylon suture. The fascia was closed with interrupted 0-Prolene suture in a liqcqv-ci-fhrqc fashion. The umbilicus was tacked to the fascia using a 2-0 Vicryl suture. The subcutaneous tissues were closed with buried, interrupted 3-0 Vicryl sutures. The skin was closed with a running 4-0 Monocryl suture. The incision was infiltrated with 20 cc of 0.5% bupivacaine. Skin glue was applied. The patient tolerated the procedure well and was transferred to the PACU in stable condition. Dr. Carrera directly supervised and was present or immediately available for?the entire?procedure, performed by resident team with assistance, from incision at 9:04 AM to closure at 10:37 AM ESTIMATED BLOOD LOSS: 15 cc DRAINS: 19 Fr round Kole-Mireles drain SPECIMENS: Hernia sac - pathology, routine WOUND CLASS: Clean COMPLICATIONS: None Maxi Camarena MD for Javier Carrera MD January 22, 2018 Javier Reynolds MD HCG QUAL, URINE Collected: 01/22/2018 Status: F Source: [place] 7:55 AM [facility] REPOSITORY TYPE CODE TESTS RESULT OUT OF REFERENCE UNITS RANGE LAB [facility] Negative HCG Qual, Negative Urine Result Comment: This test is intended to aid in the early detection of . Very dilute urine samples, as indicated by a low specific gravity, may not contain public health representative levels of hCG. This te st detects intact hCG only. This test does not reliably detect hCG degradation products, including free-beta subunit and beta-core fragment. Therefore, this test may show reduced reactivity in urine after 8 weeks gestation. A number of conditions other than , including trophoblastic disease and certain non-trophoblastic neoplasms ca use elevated levels of hCG. As with any assay employing mouse antibodies, the possibility exists for interference by human anti-mouse antibodies (HAMA) in the specimen. The test provides a presumptive diagnosis for . Performed By: #### [facility] #### [facility] [address] [place] [id number] URINALYSIS WITH Collected: 01/22/2018 Status: F Source: [facility] 12:50 AM [facility] REPOSITORY TYPE CODE TESTS RESULT OUT OF RANGE REFERENCE UNITS LAB UCOL Yellow Color Yellow LAB [facility] Clear Clarity Abnormal Cloudy Alert LAB UGLUC Negative mg/dL Glucose, Urine Negative LAB UBIL Negative Bilirubin, Urine Negative LAB UKET Negative Ketones, Urine Negative LAB USPG 1.005-1.030 High Specific [place], Ur 1.032 LAB UHGB Negative Hemoglobin/Blood, Negative Ur LAB UPH 4.5-8.0 pH 6.0 LAB UPROT Negative mg/dL Protein, Urine Negative LAB UUROB Normal Urobilinogen Normal LAB UNITR Negative Nitrites Negative LAB ULKEST Negative Leukest Negative LAB UCOM Comments SEE COMMENT Result Comment: N/A LAB UMCOM Urine SEE Myron Comment COMMENT Result Comment: N/A LAB UWBC 0-5 /HPF WBC 0-5 LAB URBC 0-3 /HPF RBC 0-3 LAB UEPI /HPF Epithelial SEE Cells COMMENT Result Comment: Few Squamous Epithelial Cells Performed By: #### UAWMIC #### [facility] [address] [place], [place] [address] CBC AND DIFFERENTIAL Collected: 01/22/2018 Status: F Source: [place] [facility] 12:45 AM [facility] REPOSITORY TYPE CODE TESTS RESULT OUT OF REFERENCE UNITS RANGE LAB WBC 3.70-11.00 k/uL WBC 8.26 LAB RBC 3.90-5.20 m/uL RBC High 5.28 LAB HGB 11.5-15.5 g/dL Hemoglobin 15.2 LAB HCT 36.0-46.0 % Hematocrit 45.7 LAB MCV 80.0-100.0 fL MCV 86.6 LAB MCH 26.0-34.0 pG MCH 28.8 LAB MCHC 30.5-36.0 g/dL MCHC 33.3 LAB RDWCV 11.5-15.0 % RDW-CV 13.8 LAB PLTCT 150-400 k/uL Platelet Count 227 LAB MPV 9.0-12.7 fL MPV 10.4 LAB ANEUT % Neut% 67.8 LAB AANEUT 1.45-7.50 k/uL Abs Neut 5.60 LAB ALYMP % Lymph% 19.6 LAB AALYMP 1.00-4.00 k/uL Abs Lymph 1.62 LAB AMONO % [place]% 7.6 LAB AAMONO <0.87 k/uL Abs [place] 0.63 LAB AEOS % Eosin% 4.4 LAB AAEOS <0.46 k/uL Abs Eosin 0.36 LAB ABASO % Baso% 0.6 LAB AABASO <0.11 k/uL Abs Baso 0.05 LAB AUNRBC 0 /100 WBC NRBCs 0.0 LAB ABNRBC <0.01 k/uL Absolute nRBC <0.01 LAB DTYP DTYPE Auto Diff Performed By: #### CBCDIF, PT, PTT, CMP #### [facility] [address] [place], [place] [address] PROTIME Collected: 01/22/2018 Status: F Source: [place] [facility] 12:45 AM [facility] REPOSITORY TYPE CODE TESTS RESULT OUT OF RANGE REFERENCE UNITS LAB PSEC 9.7-13.0 sec PT Sec 10.8 LAB INR 0.9-1.3 PT INR 1.0 Result Comment: Vitamin K Antagonist (VKA) Therapeutic Range: INR 2 to 3 (Target INR of 2.5) Note: For patients treated with VKA drugs, such as warfarin, the [place] [employer] 2012 Guideline recommends a therapeutic INR range of 2 to 3 (target INR of 2.5). This recommendation includes high-risk patients with antiphospholipid syndrome with previous arterial or venous thromboembolism, current-generation mechanical or bioprosthetic aortic heart valve replacement. Note: Patients with mechanical aortic valve replacement and additional risk factors for thromboembolic events (atrial fibrillation, previous thromboembolism, LV dysfunction, hypercoagulable conditions) or an older generation mechanical AVR (i.e., ball in-Cage) or any mechanical MVR should have a INR therapeutic range of 2.5 to 3.5 (target INR of 3). Pearl GH, et al. Chest 2012, 141:7S-47S Rita RA et al. [facility] 2017, 70: 252-289 Performed By: #### CBCDIF, PT, PTT, CMP #### [facility] [address] [place], [place] [address] APTT Collected: 01/22/2018 Status: F Source: [place] [facility] 12:45 AM [facility] REPOSITORY TYPE CODE TESTS RESULT OUT OF RANGE REFERENCE UNITS LAB APTT 23.0-32.4 sec APTT 26.4 Result Comment: Unfractionated Heparin Therapeutic Ranges: Standard Heparin Nomogram: 53 to 78 seconds (anti-Xa level of 0.3 to 0.7 U/ml) Low Dose/ACS Nomogram: 49 to 67 seconds (anti-Xa level of 0.2 to 0.5 U/ml) Stroke Treatment Nomogram: 49 to 67 seconds (anti-Xa level of 0.2 to 0.5 U/ml) Note: The APTT therapeutic range has been determined for the current lot of laboratory APTT reagent in use throughout the [facility]. Performed By: #### CBCDIF, PT, PTT, CMP #### [facility] [address] [place], [place] [address] COMP METABOLIC PANEL Collected: 01/22/2018 Status: F Source: [place] [facility] 12:45 AM [facility] REPOSITORY TYPE CODE TESTS RESULT OUT OF REFERENCE UNITS RANGE LAB TP 6.3-8.0 g/dL Low Protein, Total 5.9 LAB ALB 3.9-4.9 g/dL Low Albumin 3.0 LAB CA 8.5-10.2 mg/dL Calcium, Total 9.0 LAB TBIL 0.2-1.3 mg/dL Bilirubin, Total 0.7 LAB ALKP 32-117 U/L Alkaline Phosphatase 91 LAB AST 13-35 U/L AST 22 LAB GLU 74-99 mg/dL Glucose High 120 Result Comment: The [place] [employer] (ADA) provides guidance for cutoff values for fasting glucose and random glucose. The ADA defines fasting as no caloric intake for at least 8 hours. Fas ting plasma glucose results between 100 to 125 mg/dL indicate increased risk for diabetes (prediabetes). Fasting plasma glucose results greater than or equal to 126 mg/dL meet the criteria for diagnosis of diabetes. In the absence of unequivocal hyperglycemia, results should be confirmed by repeat testing. In a patient with classic symptoms of hyperglycemia or hyperglycemic crisis, random plasma glucose results greater than or equal to 200 mg/dL meet the criteria for diagnosis of diabetes. Reference: Standards of Medical Care in Diabetes 2016, [place] [employer]. Diabetes Care. 2016.39(Suppl 1). LAB BUN 7-21 mg/dL BUN 18 LAB CRET 0.58-0.96 mg/dL Creatinine High 1.21 LAB NA 136-144 mmol/L Sodium 142 LAB K 3.7-5.1 mmol/L Low Potassium 3.4 LAB CL 97-105 mmol/L Chloride 105 LAB CO2 22-30 mmol/L CO2 24 LAB AGAP 9-18 mmol/L Anion Gap 13 LAB ALT 7-38 U/L ALT 16 LAB GFRAA eGFR- Amer. 55 LAB GFRNAA . eGFR-All Other Races 46 Result Comment: eGFR (Estimated GFR) Units of measure: mL/min/1.73 meters squared eGFR is derived from the reexpressed MDRD Study equation using the following parameters: serum creatinine, age, gender and race. The creatinine assay has been calibrated to be traceable to IDMS. An eGFR <60 mL/min/1.73m2 for >3 months is consistent with chronic kidney disease. Refer to KDOQI guidelines for clinical interpretation. In patients with unstable renal function, e.g. those with acute kidney injury, the eGFR may not accurately reflect actual GFR. Performed By: #### CBCDIF, PT, PTT, CMP #### [facility] [address] [place], [place] [address] TYPE AND SCREEN Collected: 01/22/2018 Status: F Source: [place] [facility] 12:45 AM [facility] REPOSITORY TYPE CODE TESTS RESULT OUT OF REFERENCE UNITS RANGE LAB %ABR O ABO/RH(D) POSITIVE LAB % Antibody NEG Screen Performed By: #### TSCR #### [facility] [address] [place], [place] [address] ECG COMPLETE W Observed: 01/22/2018 Status: F Source: [place] [facility] INTERPRETATION 12:24 AM [facility] REPOSITORY NAME : PRITI MCDONALD PID : [id number] : 1960 Gender : Female Race : ORD : [id number] Procedure Date : Jan 22 2018 00:24:35 Edit Date : Jan 27 2018 15:41:58 Diagnosis:NORMAL SINUS RHYTHM NONSPECIFIC ST ABNORMALITY ABNORMAL ECG Confirmed by DONY ESCALANTE M.D. ([id number]) on 01/27/2018 3:36:55 PM Ventricular Rate : 72 BPM Atrial Rate : 72 BPM P-R Interval : 140 ms QRS Duration : 94 ms Q-T Interval : 426 ms QTC Calculation(Bezet) : 466 ms P Aiken : 20 degrees R Aiken : -12 degrees T Aiken : 12 degrees Test Reason : incarcerated umbilical hernia Location : 171 : G71 [id number] Overread By : DONY ESCALANTE M.D. Edited By : DONY ESCALANTE M.D. Referred By : , Acquired by : BONNY MCKAY SURGICAL PATHOLOGY Observed: 01/22/2018 Status: F Source: [place] 12:00 AM [facility] REPOSITORY Specimen originated from [facility] Specimen #: [id number] Submitting Physician: JAVIER CARRERA MD FINAL DIAGNOSIS Soft tissue, not otherwise specified, herniorrhaphy - Hernia sac with chronic inflammation and fibrosis. SEK/JUAN/sreli 01/23/2018 Elias Hayes MD (Electronic Signature) SPECIMEN SUBMITTED A: HERNIA SAC CLINICAL DATA INCARCERATED HERNIA GROSS DESCRIPTION A. Received unfixed labeled as hernia sac consists of one piece of richardson-pink fibromembranous tissue measuring 6.0 x 4.0 x 1.5 cm. The specimen is serially sectioned to reveal no nodularity or induration. Wellness Health Coach sections are submitted in cassettes A1. TN/wlz 01/22/2018 Gross examination performed at [facility], [address] [place] [address] Date of Report: 01/24/2018 Date of Procedure: 01/22/2018 Date of Receipt: 01/22/2018 Submitted by: JAVIER CARRERA MD Location: [facility] [place] Diagnostic interpretation performed at [facility], [address] [place] [address]. HISTORY PHYSICAL Observed: 01/21/2018 Status: COMPLETED Source: [place] 11:33 PM [facility] [address] [facility] REPOSITORY HNO ID: [id number] Author: Flavio (Xochitl) Daniel Service: General Surgery Author Type: Resident Type: HANDP Filed: 01/22/2018 12:21 AM Note Text: SURGICAL SERVICES HANDP SERVICE DATE: 01/21/2018 SERVICE TIME: 2333 PRIMARY CARE PHYSICIAN: Elias Rodriguez MD Subjective CHIEF COMPLAINT: Incarcerated umbilical hernia HISTORY OF PRESENT ILLNESS: Ms. 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 Patient in USOH until after paracentesis session today (normally scheduled every 2 weeks since September 2017 for ascites d/t BARRAGAN - each session upwards of 5L removal). On return home, patient first noticed increasing paraumbilical pain. Pain progressively worsened in intensity, constant sharp pain. Throughout PM, pain spread to entire abdomen prompting presentation at local OSH. No nausea/vomiting. Last BM yesterday AM - solid, nonbloody. Cannot recall last flatus. Last PO 01/21 1100. Denies fevers/chills, chest pain, SOB/dyspnea. At OSH: WBC 6.4, Hb 15.6 AST 31, ALT 24, TBili 0.5, DBili 0.16, AP 138, BUN 20, Cr 1.17. Pain controlled with morphine prior to transfer. CT abd/pelv w/IVC 01/21/18 significant for diffuse ascites, steatosis of liver, 2.8cm umbilical hernia containing loop of SB Of note, patient first aware of umbilical hernia as incidental finding from CT scan earlier in 2017 which was originally ordered as workup of chronic GI upset, leading to diagnosis of BARRAGAN after further workup. Hx remote smoker (last cig 30 yrs ago). DM2 - HbA1c 5.6 in 12/2017, not insulin dependent. Prior surgeries include hysterectomy, lumpectomy of L breast for breast Ca s/p XRT, and cholecystectomy. Currently patient not being considered for liver txp. PAST MEDICAL HISTORY Diagnosis Date - Depressive disorder, not elsewhere classified - Hypothyroidism - Mammographic microcalcification 08/24/08 RIGHT BREAST - Meniere's disease, unspecified - Snoring - Type II or unspecified type diabetes mellitus without mention of complication, not stated as uncontrolled PAST SURGICAL HISTORY Procedure Laterality Date - COLONOSCOP W/ OR W/O BRSH SPEC 04/29/15 Colonoscopy - COLONOSCOPY 04/04/10 VJ -hyperplastic polyp - LIGATE FALLOPIAN TUBE 1989 Tubal ligation - PAST SURGICAL HISTORY OF 2003 Bunionectomy - PAST SURGICAL HISTORY OF Clean out endometriosis - PAST SURGICAL HISTORY OF 12/2010. Total Hysterectomy - PAST SURGICAL HISTORY OF 10/18/11 Lt breast lumpectomy with SLN biopsy - PAST SURGICAL HISTORY OF 2009 Vaginal sling FAMILY HISTORY Problem Relation Age of Onset - Heart Mother - Heart Father - Heart Maternal Grandfather - Heart Paternal Grandfather - Cancer Maternal Grandmother brain Social History Substance Use Topics - Smoking status: Former Smoker Types: Cigarettes - Smokeless tobacco: Never Used Comment: Social smoker while in college. - Alcohol use Yes Comment: occasional Prescriptions Prior to Admission: ADDERALL XR 30 mg 24 hr capsule Disp: Rfl: 0 Taking metFORMIN ER (GLUCOPHAGE XR) 500 mg 24 hr tablet Disp: Rfl: tamoxifen (NOLVADEX) 20 mg tablet Take 20 mg by mouth once daily. Disp: Rfl: Taking dextran 70-hypromellose (TEARS PURE) ophthalmic solution 1 Drop as needed. Disp: Rfl: Taking triamterene-hydrochlorothiazide 37.5-25 mg per capsule Take 2 capsules by mouth once daily. Disp: Rfl: Taking PARoxetine (PAXIL) 10 mg tablet Disp: Rfl: Taking levothyroxine (SYNTHROID) 137 mcg tablet Take 137 mcg by mouth once daily. Disp: Rfl: Taking Amphetamine-Dextroamphetamine (ADDERALL) 30 mg tablet Take 30 mg by mouth once daily. Disp: Rfl: Taking MECLIZINE 25 mg tab Take 25 mg by mouth every 6 hours as needed. Disp: Rfl: Taking DULOXETINE 60 mg capsule Take 60 mg by mouth once daily. Disp: Rfl: Taking metformin hcl(GLUCOPHAGE 500 MG TAB) one tablet two times a day Disp: Rfl: 0 Taking TRIAMTERENE-HYDROCHLOROTHIAZIDE 37.5 MG-25 MG CAP Take one(1) tablet daily. Disp: Rfl: 0 04/28/2015 at Unknown time No current hospital medications on file. ALLERGIES Allergen Reactions - Codeine nausea COMPLETE REVIEW OF SYSTEMS: PAIN ASSESSMENT: CURRENTLY HAVING PAIN; see HPI GENERAL: No weight loss, malaise or fevers HEENT: Negative for frequent or significant headaches, No changes in hearing or vision, no nose bleeds or other nasal problems NECK: Negative for lumps, goiter, pain and significant neck swelling RESPIRATORY: Negative for cough, hemoptysis, wheezing, COPD, dyspnea or shortness of breath CARDIOVASCULAR: Negative for chest pain, leg swelling, hypertension, CHF or palpitations GI: No nausea, vomiting, or diarrhea and See HPI : No history of dysuria, frequency or incontinence COLLECTION TELLER: SEE HPI MUSCULOSKELETAL: Negative for joint pain or swelling, back pain or muscle pain SKIN: Negative for lesions, rash, and itching PSYCH: Negative for sleep disturbance, mood disorder and recent psychosocial stressors HEMATOLOGY/LYMPHOLOGY: Negative for prolonged bleeding, bruising easily or swollen nodes ENDOCRINE: See HPI NEURO: No history of headaches, syncope, paralysis, seizures or tremors Objective PHYSICAL EXAM: BP 150/75 Pulse 73 Temp (Src) 98.1 (Oral) Resp 18 SpO2 93% LMP 08/09/2008 Physical Exam Performed General: not in acute distress CV: +S1, S2; RRR; no m/r/g; regular rate Pulm: good respiratory effort; CTA b/l Abd: soft nondistended, tender on palpation of paraumbilical hernia, no rebound/guarding, paracentesis wound c/d/i, paraumbilical hernia bulge approx 3 x 3cm, soft, tender on exam, slight purple/pink tinge of overlying skin DATA: Diagnostic tests reviewed for today's visit: Most recent labs and imaging results. Assessment/Plan Ms. 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 N - dilaudid prn, APAP prn, home antidepressants, home adderall CV - labetalol prn, hold home HTN for now R - IS OOB FEN/GI - NPO, LR@100, zofran prn, protonix prn Renal - replete lytes prn, strict I/Os Endo - DEACON, home LT4 PPx - LVX, SCDs Dispo - RNF, f/up admission labs Patient seen and discussed with senior resident Dr. Collier and plan to be discussed with staff surgeon. Flavio Sanchez MD, PhD General Surgery PGY-1 Pager: [phone] VTE Prophylaxis: VTE prophylaxis appropriate SIGNATURE: Flavio Sanchez MD PATIENT NAME: Priti Mcdonald DATE: January 21, 2018 TIME: 11:33 PM PAGER/CONTACT #: RONALDO VITAL Observed: 01/21/2018 Status: COMPLETED Source: [place] 11:26 PM [facility] REPOSITORY [facility] ID: [id number] Author: Winston Pang (Rn) WILIAM Johnson Service: Nursing Author Type: Registered Nurse Type: Nursing Progress Note Filed: 01/21/2018 11:27 PM Note Text: Nursing Progress Note Patient Name: Priti Mcdonald Patient Location: [facility] 008/G071-08 Transfer Note: Patient transferred into room/unit 71-08 in stable condition. Actions taken: No futher actions taken at this time. Will continue to monitor and check with patient. Skin check performed with Echo Davis RN. This note was completed by: Winston Johnson RN EMERGENCY DEPARTMENT Observed: 01/21/2018 Status: F Source: [place] SUMMARY 5:00 PM [facility] REPOSITORY [facility] Medical Records Department [address] [place] [address] Emergency Department Summary 01/21/18 1410 MR#: [id number] Acct: [id number] Name: PRITI MCDONALD Rep #: [id number] : 1960 57 From: Cortez Roman MD PCP: Elias Rodriguez MD Status: REG ER - ER Visit Summary Date of Service: 01/21/18 Chief Complaint: Abdominal pain History of Present Illness: The patient is a 57 F past medical history of diet-controlled diabetes, nonalcoholic liver cirrhosis and paracentesis. States that she had an abdominal paracentesis done today at the [facility] this was around 9 AM. Around 11 AM after eating breakfast or getting moderate upper quadrant abdominal pain. No fever. Nausea without vomiting. No diarrhea or melena. No dysuria. States she felt fine prior to having the abdominal paracentesis. She has had these multiple times and denies ever having this type of pain. Physical Examination: Middle-aged female complaining of pain vital signs are stable afebrile. H EENT exam unremarkable. Neck nontender. Lungs clear to auscultation bilaterally. Heart regular rhythm no murmur. Abdomen soft. Mild tenderness in the left upper quadrant epigastric region. Nondistended. Normal bowel sounds. No peritoneal signs. Both the right upper and right lower quadrants are unremarkable. Also has a umbilical hernia that is tender. It may be incarcerated. At this time I am unable to reduce it. No signs of obstruction. She is moving all 4 extremities. The neurovascular intact. Neurologically she is awake and alert with no focal motor deficits. Test Results: CBC normal. Chemistries unremarkable. Normal creatinine and gap. Liver enzymes unremarkable alk phos is elevated 138. Lipase normal. UA normal. Pelvis with IV contrast shows ascites which is her baseline. And umbilical hernia. There are no signs of perforation. Emergency Department Course and Treatment: Treated with IV morphine and Zofran. CT of the abdomen and pelvis will be obtained with labs. Treatment Plan: Repeat exam at 1625 patient still has tenderness over the umbilical hernia which I am unable to reduce. I am going to speak to the surgeon continuous dryout operator helper who is Dr. Garibay the patient is seen her partner in the past Dr. Santiago. She will needed to determine if the patient needs to go directly to surgery for umbilical hernia repair. Disposition: Per general surgery Impression: Acute abdominal pain secondary to incarcerated abdominal hernia Status post abdominal paracentesis for known nonalcoholic liver cirrhosis This note was generated with Brainloop dictation software. It may contain incorrect words, spelling, and punctuation that were not noted in review of the chart prior to signing ED Disposition - Plan for ED Patient: Chief Complaint: Abd Pain Referrals: Elias Rodriguez MD [Primary Care Provider] - What to do if you have Problems For any increased pain, shortness of breath, bleeding, nausea or vomiting, chest pain, or any unexpected problems, contact your Primary Care Provider. Call [facility] ([phone]) or report to the closest Emergency Room. Call 911 if necessary. 01/21/18 1700 <Electronically signed by Cortez Roman MD> Date Cortez Roman MD Cosigner Signature (If Indicated): Date CC: Elias Rodriguez MD URINALYSIS, COMPLETE Collected: 01/21/2018 Status: F Source: [place] 2:38 PM [facility] REPOSITORY Order Comment: Order Date: 01/21/18 How was Urine Obtained? CLEAN CATCH TYPE CODE TESTS RESULT OUT OF RANGE REFERENCE UNITS LAB L400.3000 Yellow COLOR Normal Yellow LAB L400.3050 Clear Normal CLARITY Sl. Cloudy LAB L400.3200 Normal mg/dl Normal GLUCOSE, UR Normal LAB L400.3300 Negative mg/dL Normal BILIRUBIN URINE Negative LAB L400.3400 Negative mg/dl Normal KETONE UR Negative LAB L400.3465 1.002-1.030 Normal SP.GR. DIPSTX 1.010 LAB L400.3550 5.0 - 8.0 pH UR Normal 6.5 LAB L400.3600 Negative mg/dl PROT Normal DIPSTX Negative LAB L400.3700 Normal mg/dl Normal UROBILI Normal LAB L400.3750 Negative Normal NITRITE UR Negative LAB L400.3780 Negative /ul Normal OCCULT BLOOD-UR Negative LAB L400.3800 Negative /ul High LEUK 25 ESTERASE LAB L400.4050 0-5 /hpf WBC Normal 0-5 SEEN LAB L400.4100 0-5 /hpf 0 Normal RBC-UA SEEN LAB L400.4150 5-10 /hpf SQUAM Normal EPI 5-10 SEEN LAB L400.4300 None Seen /hpf Normal BACTERIA RARE LAB L400.4350 <or=2+ /hpf 0 Normal MUCUS, URINE SEEN Performed By: #### L400.0001 #### [facility] [address] [place], [address] CBC W/DIFF, AUTOMATED Collected: 01/21/2018 Status: F Source: [place] 2:25 PM [facility] REPOSITORY TYPE CODE TESTS RESULT OUT OF RANGE REFERENCE UNITS LAB L100.1000 4.4-11.0 K/mm3 Normal WBC 6.4 LAB L100.1200 4.2-5.4 M/mm3 Normal RBC 5.33 LAB L100.1300 12.0-15.0 g/dl High HGB 15.6 LAB L100.1400 37-47 % Normal HCT 46.0 LAB L100.1500 81-99 fL Normal MCV 86.3 LAB L100.1600 27.0-32.0 pg Normal MCH 29.3 LAB L100.1700 32-36 g/gl Normal MCHC 33.9 LAB L100.1810 11.6-14.6 % Normal RDW CV 14.2 LAB L100.1820 35.1-43.9 fl High RDW SD 44.3 LAB L100.1900 150-450 K/mm3 Normal PLT 203 LAB L100.2000 6.2-12.0 fl Normal MPV 9.8 LAB L100.2100 47-70 % High NEUT% 76.1 LAB L100.2200 19-41 % Low LY% 13.8 LAB L100.2300 0-10 % Normal MONO% 6.0 LAB L100.2400 0-5 % Normal EO% 3.6 LAB L100.2500 0-1 % Normal BASO% 0.3 LAB L100.2550 0.0-0.9 % Normal IM GRAN % 0.200 Result Comment: IG% - Immature Granulocytes (promyelocytes, myelocytes and metamyelocytes) > 1% indicates that a LEFT SHIFT is Present. LAB L100.2620 2.0-7.7 X10 3/uL Normal Absolute Neut 4.8 LAB L100.2720 0.83-4.51 X10 3/ul Normal Absolute Lymph 0.88 Performed By: #### L100.0100 #### [facility] [address] [place], [address] BASIC METABOLIC Collected: 01/21/2018 Status: F Source: [place] PROFILE ([facility]) 2:25 PM [facility] REPOSITORY TYPE CODE TESTS RESULT OUT OF RANGE REFERENCE UNITS LAB L501.0100 74-106 mg/dL High GLU 144 Result Comment: Fasting Glucose result greater than or equal to 126 mg/dL suggests DIABETES MELLITUS per A.D.A. criteria. Please note revised GLUCOSE reference range effective 2017. LAB L501.1000 7-18 mg/dL High BUN 20 LAB L501.1100 0.55-1.02 mg/dL High CREAT,SERUM 1.17 Result Comment: The validity of the calculated GFR AND GFRAA in patients over 70 years has not been determined. Clinical correlation is essential. LAB L501.1110 >60 mL/min Low EST GFR 50 Result Comment: Non- GFR Calc LAB L501.1115 >60 mL/min Normal EST GFR - AA 61 Result Comment: GFR Calc LAB L501.1255 ml/min Normal Estimated CRCL 50.97 LAB L501.1300 10-20 RATIO Normal BUN/CRE 17.1 LAB L501.2200 8.5-10 mg/dL Normal .1 CA 9.0 LAB L501.5300 136-14 mmol/L Normal 5 NA 141 LAB L501.5600 3.5-5. mmol/L Low 1 K 3.2 LAB L501.5900 98-107 mmol/L Normal CL 104 LAB L501.6100 21.0-3 mmol/L Normal 2.0 CO2 28.0 LAB L501.6200 5-15 Normal GAP 9 Performed By: #### L500.2500, L500.3400, L501.2450 #### [facility] [address] [place], [place], [address] LIVER PROFILE Collected: 01/21/2018 Status: F Source: [place] 2:25 PM [facility] REPOSITORY TYPE CODE TESTS RESULT OUT OF RANGE REFERENCE UNITS LAB L501.1500 6.4-8.2 g/dL Normal T PROT 6.8 LAB L501.1800 3.2-5.0 g/dL Low ALB 3.1 LAB L501.1950 2.2-4.2 g/dL Normal GLOB 3.7 LAB L501.4100 15-37 U/L Normal AST 31 LAB L501.4305 45-117 U/L High ALK P 138 LAB L501.4405 13-56 U/L Normal ALT 24 LAB L501.4600 0.20-1.00 mg/dL Normal T BILI 0.50 LAB L501.4700 0.00-0.30 mg/dL Normal D BILI 0.16 Performed By: #### L500.2500, L500.3400, L501.2450 #### [facility] [address] [place], [address] LIPASE Collected: 01/21/2018 Status: F Source: [place] 2:25 PM [facility] REPOSITORY TYPE CODE TESTS RESULT OUT OF RANGE REFERENCE UNITS LAB L501.2450 73-393 U/L Normal LIPASE 168 Performed By: #### L500.2500, L500.3400, L501.2450 #### [facility] [address] [place], [address] ABDOMEN/PELVIS W IV CONT Observed: 01/21/2018 Status: F Source: [place] 2:11 PM [facility] REPOSITORY [facility] Imaging Services [address] [place] [address] Abdomen/Pelvis W IV Cont ONLY MR#: [id number] Acct: [id number] Name: PRITI MCDONALD Rep #: [id number] : 1960 F 57 From: Kannan Pennington MD PCP: Elias Rodriguez MD Status: REG ER Study: Abdomen/Pelvis W IV Cont ONLY Date of Exam: 01/21/18 Exam# [id number] Ordering Dr: Cortez Roman MD STUDY: CT ABDOMEN AND PELVIS WITH CONTRAST REASON FOR EXAM: Female, 57 years old. Upper quadrant pain. Recent paracentesis. The patient has a history of cirrhosis as well as breast carcinoma with lumpectomy and radiation treatment. RADIATION DOSAGE (If Supplied By Facility): CTDIvol = ( 16.87 ) mGy, DLP = ( 1320.49 ) mGycm TECHNIQUE: Transaxial images were obtained from the dome of the diaphragm to the symphysis pubis without oral contrast. 100 ml of Isovue 300 contrast was administered. Sagittal and coronal images were reconstructed. Individualized dose optimization techniques were used for this CT. COMPARISON: Comparison is made with prior examination dated August 02, 2017. FINDINGS: The visualized lung bases are unremarkable. Coronary artery calcification. Diffuse ascites. There is decreased attenuation of the liver consistent with steatosis. The patient is status post cholecystectomy. Borderline splenomegaly. Normal pancreas. Normal bilateral adrenal glands. Normal right kidney. Normal left kidney. Normal visualized stomach. Normal small intestine. Normal colon. The appendix is visualized and appears normal. Normal abdominal aorta. Normal inferior vena cava. Normal retroperitoneum. Normal urinary bladder. There is evidence of an umbilical hernia containing a nondistended small bowel loop at this time. The neck of the hernia measures 2.8 cm. Normal osseous structures. CT/Abdomen/Pelvis W IV Cont ONLY IMPRESSION: Diffuse ascites. Umbilical hernia containing nondistended small bowel loop at this time with the neck of the hernia measuring 2.8 cm in transverse dimension. Electronically Signed: Kannan Pennington MD at 15:19 EDT Tel [phone], Service support , CC: Cortez Roman MD; Elias Rodriguez MD Lead Housekeeper: Signed CELL COUNT/DIFF BF Collected: 01/21/2018 Status: F Source: [place] 10:40 AM [facility] REPOSITORY TYPE CODE TESTS RESULT OUT OF RANGE REFERENCE UNITS LAB BFSITE Site Ascites Fluid LAB BFCOL Color Yellow LAB BFCLR Clear Abnormal Clarity Slightly Alert turbid LAB BFSCOL Suprntnt Color Yellow LAB BFSCLR Clear Suprntnt Clear Clarity LAB BFRBC /uL RBC 2000 LAB BFWBC /uL Nucleated 815 Cells, BF LAB BFCOM BF Comment SEE COMMENT Result Comment: Test Not Indicated Nonspecific reactive changes. LAB BFREV BF SEE Review COMMENT Result Comment: Test Not Indicated Reviewed by Devendra Quintanilla MD ([id number]) LAB BFSLNM Slide Number BF [id number] LAB BFNEUT % Neut% 8 LAB BFLYMP % 45 Lymph% LAB BFMONO % [place]% 31 LAB BFMACR % 13 Macro% LAB BFMESO % Meso% 2 LAB BFEOSN % 1 Eosin% Performed By: #### CCBF #### [facility] [address] [place], [place] [address] PROGRESS Observed: 01/21/2018 Status: COMPLETED Source: [place] 8:45 AM [facility] REPOSITORY HNO ID: [id number] Author: Lila Pate (Rn) WILIAM Fontenot Service: (none) Author Type: Registered Nurse Type: Progress Notes Filed: 01/21/2018 10:28 AM Note Text: Name: Priti Mcdonald Patient presents for a Paracentesis. The procedure including risks, benefits, options and personnel performing the procedure was discussed with the patient. There are no contraindications to the procedure. Priti Mcdonald expressed understanding and agreed to proceed. Procedure performed by Miya Salinas APRN.DOLPHIN RESEARCHER Medication: 2% Lidocaine 10cc The patient was placed in the supine position. A pocket of fluid suitable for paracentesis was marked in the right abdomen under ultrasound guidance. The skin and subcutaneous tissue was anesthetized with local anesthetic. A 15 guage Barillas Needle was inserted into the abdomen and 4.9 liters were removed. The fluid was sent to the Lab for analysis. There were no immediate complications associated with the procedure. Miya Salinas APRN.DOLPHIN RESEARCHER THE FOLLOWING WAS EVALUATED Motivation To Learn: Eager Family/Significant Other Support: High - Very involved in pt care Cognitive Ability: Alert and oriented Patient Learns Best By: Verbal Instruction The Following Influencing Factors Were Barriers To This Education Session: None The Following Physical Limitations Were Barriers To This Education Session: None Instruction Provided To: Patient and family member Learning Topic: Procedure/Surgery: PARACENTESIS Patient Evaluation: Verbalizes understanding Follow Up Plan: Follow up as needed. Lila Fontenot RN CNOV Observed: 01/21/2018 Status: COMPLETED Source: [place] 8:15 AM [facility] REPOSITORY Office Visit (GAPRA3) PRITI MCDONALD ([id number]) 1960 F Date Time Provider Department 01/21/18 8:15 AM HEPATOLOGY PROCEDURES GAPRA3 During your visit today, we recorded the following information about you: Temperature Pulse Respiration Blood pressure 96.6 degrees 80/minute 18/minute 111/71 Weight 104.9 kg Lila Fontenot RN, RN 01/21/2018 10:28 AM Signed Name: Priti Mcdonald Patient presents for a Paracentesis. The procedure including risks, benefits, options and personnel performing the procedure was discussed with the patient. There are no contraindications to the procedure. Priti Mcdonald expressed understanding and agreed to proceed. Procedure performed by Miya Salinas APRN.DOLPHIN RESEARCHER Medication: 2% Lidocaine 10cc The patient was placed in the supine position. A pocket of fluid suitable for paracentesis was marked in the right abdomen under ultrasound guidance. The skin and subcutaneous tissue was anesthetized with local anesthetic. A 15 guage Barillas Needle was inserted into the abdomen and 4.9 liters were removed. The fluid was sent to the Lab for analysis. There were no immediate complications associated with the procedure. Miya Salinas APRN.DOLPHIN RESEARCHER THE FOLLOWING WAS EVALUATED Motivation To Learn: Eager Family/Significant Other Support: High - Very involved in pt care Cognitive Ability: Alert and oriented Patient Learns Best By: Verbal Instruction The Following Influencing Factors Were Barriers To This Education Session: None The Following Physical Limitations Were Barriers To This Education Session: None Instruction Provided To: Patient and family member Learning Topic: Procedure/Surgery: PARACENTESIS Patient Evaluation: Verbalizes understanding Follow Up Plan: Follow up as needed. Lila Fontenot RN Referring Provider: FELY HARRIS [[id number]] Allergies As of Date: 01/21/2018 Noted Allergy Reaction CODEINE 04/28/2007 Comments: nausea Date Reviewed: 01/21/2018 Reviewed by: Lila Pate (Rn) WILIAM Fontenot - Fully Assessed Visit Diagnosis:Other ascites [R18.8] Order(s):ABDOM PARACENTESIS DX/THER W IMAGING GUIDANCE [[id number]] Order #: [id number] CELL COUNT + DIFF BFL [SQCCBF] Order #: [id number] Prescriptions as of 01/21/2018 Sig: ADDERALL XR 30 MG CAPSULE,EXT* METFORMIN ER 500 MG TABLET,EX* TAMOXIFEN 20 MG TABLET Take 20 mg by mouth once alka* DEXTRAN 70-HYPROMELLOSE EYE D* 1 Drop as needed. TRIAMTERENE 37.5 MG-HYDROCHLO* Take 2 capsules by mouth once* PAROXETINE 10 MG TABLET LEVOTHYROXINE 137 MCG TABLET Take 137 mcg by mouth once da* DEXTROAMPHETAMINE-AMPHETAMINE* Take 30 mg by mouth once alka* MECLIZINE 25 MG TABLET Take 25 mg by mouth every 6 h* DULOXETINE 60 MG CAPSULE,AGGIE* Take 60 mg by mouth once alka* * GLUCOPHAGE 500 MG TABLET one tablet two times a day * TRIAMTERENE 37.5 MG-HYDROCHLO* Take one(1) tablet daily. Problem List As Of Date 01/21/2018 Noted Resolved SKIN SENSATION DISTURB [R20.9] INVALID FOR* MENIERE'S DISEASE NOS [H81.09] DIABETES MELLITUS TYPE II-UNCOMPL [E11.9] DEPRESSIVE DISORDER NEC [F32.9] Abnormal mammogram, unspecified [R92.8] INVALID FOR* Breast cancer [C50.919] INVALID FOR* History of breast cancer [Z85.3] INVALID FOR* History of colonic polyps [Z86.010] INVALID FOR*04/29/2015 RUQ pain [R10.11] INVALID FOR* Nonalcoholic steatohepatitis ([place]) [K75.81] INVALID FOR* Biliary cirrhosis (HCC) [K74.5] INVALID FOR* Obesity, Class II, BMI 35-39.9 [E66.9] INVALID FOR* Encounter Status:Closed by MIYA SALINAS on 01/21/18 HOSP Observed: 01/21/2018 Status: COMPLETED Source: [place] 12:00 AM [facility] REPOSITORY Patient:Priti Mcdonald MRN: <[id number]> Height:5' 7(1.702 m) Weight:231 lb 3.2 oz (104.872 kg) Outpatient Medications as of 01/22/18: ADDERALL XR 30 mg 24 hr capsule metFORMIN ER (GLUCOPHAGE XR) 500 mg 24 hr tablet tamoxifen (NOLVADEX) 20 mg tablet dextran 70-hypromellose (TEARS PURE) ophthalmic solution triamterene-hydrochlorothiazide 37.5-25 mg per capsule PARoxetine (PAXIL) 10 mg tablet levothyroxine (SYNTHROID) 137 mcg tablet Amphetamine-Dextroamphetamine (ADDERALL) 30 mg tablet MECLIZINE 25 mg tab DULOXETINE 60 mg capsule metformin hcl(GLUCOPHAGE 500 MG TAB) TRIAMTERENE-HYDROCHLOROTHIAZIDE 37.5 MG-25 MG CAP Admission/Clinic Administered Medications as of 01/22/18: amphetamine-dextroamphetamine XR 30 mg cap(s) (ADDERALL XR) PARoxetine 10 mg tab(s) (PAXIL) DULoxetine 60 mg cap(s) (CYMBALTA) levothyroxine (SYNTHROID) tab(s) 137 mcg dextrose 40 % 15 g glucagon 1 mg injection (GLUCAGEN) dextrose 50% in water 25 mL syringe insulin lispro injection (rapid acting) (HumaLOG) potassium chloride ER 20-40 mEq tab(s) (K-DUR, KLOR-CON) potassium chloride iv piggyback 20 mEq/100 mL magnesium sulfate iv piggyback 2 g in D5W 50 mL sodium phosphate 45 mmol in NaCl 0.9% 250 mL ondansetron (PF) 4 mg injection (ZOFRAN) HYDROmorphone 0.2 mg in NaCl 0.9% (DILAUDID) acetaminophen 650 mg tab(s) (TYLENOL) pantoprazole 40 mg injection (PROTONIX) lactated ringers infusion enoxaparin 40 mg injection (LOVENOX) Problem List: Disturbance of skin sensation [R20.9] Meniere's disease, unspecified [H81.09] Type II or unspecified type diabetes mellitus without mention of complication, not stated as uncontrolled [E11.9] Depressive disorder, not elsewhere classified [F32.9] Abnormal mammogram, unspecified [R92.8] Breast cancer (HCC) [C50.919] History of breast cancer [Z85.3] RUQ pain [R10.11] Nonalcoholic steatohepatitis (B[place]AGAN) [K75.81] Biliary cirrhosis (HCC) [K74.5] Obesity, Class II, BMI 35-39.9 [E66.9] Umbilical hernia [K42.9] Incarcerated hernia [K46.0] Allergies: Codeine Date Verified: 01/22/18 Lab Values Lab Value Units Date High Low POTA* 3.4 mmol/L 01/22/2018 5.1 3.7 KAROL* 45.7 % 01/22/2018 46.0 36.0 Progress Notes ([facility] MAIN PROC Q3): Miya Salinas APRN.DOLPHIN RESEARCHER 01/21/2018 3:02 PM Signed Notified by WILIAM Fontenot that pt's called the Paracentesis clinic reporting his was having severe pain. Per pt's after they left they had lunch and shortly after pt developed severe abd pain. Tg directed pt's to take her to the nearest ER, he reported he would take pt to [facility]. I called both the pt and the 's listed numbers to follow up, no answer at either number. Message left on both lines. Pt's Matt returned call at 15:00, reported that they are in [facility] ER currently. Matt reports pain is now under control and reported her labs all looked OK. Pt is currently in CT Scan. Advised pt's to keep us posted on her status and he verbalized understanding. Miya Salinas APRN.DOLPHIN RESEARCHER Progress Notes ([facility] MAIN PROC A3): Lila Fontenot RN, RN 01/21/2018 10:28 AM Signed Name: Priti Mcdonald Patient presents for a Paracentesis. The procedure including risks, benefits, options and personnel performing the procedure was discussed with the patient. There are no contraindications to the procedure. Priti Mcdonald expressed understanding and agreed to proceed. Procedure performed by Miya Salinas APRN.DOLPHIN RESEARCHER Medication: 2% Lidocaine 10cc The patient was placed in the supine position. A pocket of fluid suitable for paracentesis was marked in the right abdomen under ultrasound guidance. The skin and subcutaneous tissue was anesthetized with local anesthetic. A 15 guage Barillas Needle was inserted into the abdomen and 4.9 liters were removed. The fluid was sent to the Lab for analysis. There were no immediate complications associated with the procedure. Miya Salinas APRN.DOLPHIN RESEARCHER THE FOLLOWING WAS EVALUATED Motivation To Learn: Eager Family/Significant Other Support: High - Very involved in pt care Cognitive Ability: Alert and oriented Patient Learns Best By: Verbal Instruction The Following Influencing Factors Were Barriers To This Education Session: None The Following Physical Limitations Were Barriers To This Education Session: None Instruction Provided To: Patient and family member Learning Topic: Procedure/Surgery: PARACENTESIS Patient Evaluation: Verbalizes understanding Follow Up Plan: Follow up as needed. Lila Fontenot RN Previous Version CT OUTSIDE CD DICOM Observed: 01/21/2018 Status: F Source: [facility] 12:00 AM [facility] REPOSITORY Images were obtained outside of [facility] [id number] CELL COUNT/DIFF BF Collected: 01/07/2018 Status: F Source: [place] 11:58 AM [facility] REPOSITORY TYPE CODE TESTS RESULT OUT OF RANGE REFERENCE UNITS LAB BFSITE Site Ascites Fluid LAB BFCOL Color Yellow LAB BFCLR Clear Abnormal Clarity Slightly Alert turbid LAB BFSCOL Suprntnt Color Yellow LAB BFSCLR Clear Suprntnt Clear Clarity LAB BFRBC /uL RBC 2000 LAB BFWBC /uL Nucleated 789 Cells, BF LAB BFCOM BF Comment SEE COMMENT Result Comment: Test Not Indicated LAB BFREV BF SEE Review COMMENT Result Comment: Test Not Indicated LAB BFSLNM Slide Number BF [id number] LAB BFNEUT % Neut% 13 LAB BFLYMP % 51 Lymph% LAB BFMONO % [place]% 22 LAB BFMACR % 14 Macro% Performed By: #### CCBF #### [facility] [address] [place], [place] [address] PROGRESS Observed: 01/07/2018 Status: COMPLETED Source: [place] 10:57 AM [facility] REPOSIT[facility] HNO ID: [id number] Author: Vanessa (Rn) WILIAM Cotter Service: (none) Author Type: Registered Nurse Type: Progress Notes Filed: 01/07/2018 3:37 PM Note Text: Name: Priti Mcdonald Patient presents for a Paracentesis. The procedure including risks, benefits, options and personnel performing the procedure was discussed with the patient. There are no contraindications to the procedure. Priti Mcdonald expressed understanding and agreed to proceed. Procedure performed by Slime Garber APRN, CNP Medication: 2% Lidocaine 10cc The patient was placed in the supine position. A pocket of fluid suitable for paracentesis was marked in the right abdomen under ultrasound guidance. The skin and subcutaneous tissue was anesthetized with local anesthetic. A 15 guage Barillas Needle was inserted into the abdomen and 5 liters were removed. The fluid was sent to the Lab for analysis. There were no immediate complications associated with the procedure. Slime Garber APRN, CNP 5 liters of ascites fluid was removed via paracentesis. Orders received from Iraida Garber CNP for IV placement and albumin infusion. A #24 Gauge angio cath was placed in the Left hand. 37.5 grams of albumin was infused per protocol and the IV was discontinued post infusion. Vanessa Cotter RN THE FOLLOWING WAS EVALUATED Motivation To Learn: Eager Interested Family/Significant Other Support: High - Very involved in pt care Cognitive Ability: Alert and oriented Patient Learns Best By: Verbal Instruction The Following Influencing Factors Were Barriers To This Education Session: None The Following Physical Limitations Were Barriers To This Education Session: None Instruction Provided To: Patient Learning Topic: Procedure/Surgery: PARACENTESIS Patient Evaluation: Verbalizes understanding Follow Up Plan: Follow up as needed CNOV Observed: 01/07/2018 Status: COMPLETED Source: [place] 8:15 AM [facility] REPOSITORY Office Visit (GAPRA3) PRITI MCDONALD ([id number]) 1960 F Date Time Provider Department 01/07/18 8:15 AM HEPATOLOGY PROCEDURES GAPRA3 During your visit today, we recorded the following information about you: Temperature Pulse Respiration Blood pressure 98.4 degrees 73/minute 18/minute 130/77 Weight 103.2 kg Vanessa Cotter RN, RN 01/07/2018 3:37 PM Signed Name: Priti Mcdonald Patient presents for a Paracentesis. The procedure including risks, benefits, options and personnel performing the procedure was discussed with the patient. There are no contraindications to the procedure. Priti Mcdonald expressed understanding and agreed to proceed. Procedure performed by Slime Garber APRN, CNP Medication: 2% Lidocaine 10cc The patient was placed in the supine position. A pocket of fluid suitable for paracentesis was marked in the right abdomen under ultrasound guidance. The skin and subcutaneous tissue was anesthetized with local anesthetic. A 15 guage Barillas Needle was inserted into the abdomen and 5 liters were removed. The fluid was sent to the Lab for analysis. There were no immediate complications associated with the procedure. Slime Garber APRN, CNP 5 liters of ascites fluid was removed via paracentesis. Orders received from Iraida Garber CNP for IV placement and albumin infusion. A #24 Gauge angio cath was placed in the Left hand. 37.5 grams of albumin was infused per protocol and the IV was discontinued post infusion. Vanessa Cotter RN THE FOLLOWING WAS EVALUATED Motivation To Learn: Eager Interested Family/Significant Other Support: High - Very involved in pt care Cognitive Ability: Alert and oriented Patient Learns Best By: Verbal Instruction The Following Influencing Factors Were Barriers To This Education Session: None The Following Physical Limitations Were Barriers To This Education Session: None Instruction Provided To: Patient Learning Topic: Procedure/Surgery: PARACENTESIS Patient Evaluation: Verbalizes understanding Follow Up Plan: Follow up as needed Referring Provider: FEYL HARRIS [[id number]] Allergies As of Date: 01/07/2018 Noted Allergy Reaction CODEINE 04/28/2007 Comments: nausea Date Reviewed: 01/07/2018 Reviewed by: Vanessa (Rn) WILIAM Cotter - Fully Assessed Visit Diagnosis:Other ascites [R18.8] Order(s):ABDOM PARACENTESIS DX/THER W IMAGING GUIDANCE [[id number]] Order #: [id number] CELL COUNT + DIFF BFL [SQCCBF] Order #: [id number] Prescriptions as of 01/07/2018 Sig: ADDERALL XR 30 MG CAPSULE,EXT* METFORMIN ER 500 MG TABLET,EX* TAMOXIFEN 20 MG TABLET Take 20 mg by mouth once alka* DEXTRAN 70-HYPROMELLOSE EYE D* 1 Drop as needed. TRIAMTERENE 37.5 MG-HYDROCHLO* Take 2 capsules by mouth once* PAROXETINE 10 MG TABLET LEVOTHYROXINE 137 MCG TABLET Take 137 mcg by mouth once da* DEXTROAMPHETAMINE-AMPHETAMINE* Take 30 mg by mouth once alka* MECLIZINE 25 MG TABLET Take 25 mg by mouth every 6 h* DULOXETINE 60 MG CAPSULE,AGGIE* Take 60 mg by mouth once alka* * GLUCOPHAGE 500 MG TABLET one tablet two times a day * TRIAMTERENE 37.5 MG-HYDROCHLO* Take one(1) tablet daily. Problem List As Of Date 01/07/2018 Noted Resolved SKIN SENSATION DISTURB [R20.9] INVALID FOR* MENIERE'S DISEASE NOS [H81.09] DIABETES MELLITUS TYPE II-UNCOMPL [E11.9] DEPRESSIVE DISORDER NEC [F32.9] Abnormal mammogram, unspecified [R92.8] INVALID FOR* Breast cancer [C50.919] INVALID FOR* History of breast cancer [Z85.3] INVALID FOR* History of colonic polyps [Z86.010] INVALID FOR*04/29/2015 RUQ pain [R10.11] INVALID FOR* Nonalcoholic steatohepatitis ([place]) [K75.81] INVALID FOR* Biliary cirrhosis (HCC) [K74.5] INVALID FOR* Obesity, Class II, BMI 35-39.9 [E66.9] INVALID FOR* Encounter Status:Closed by SLIME GARBER CNP on 01/07/18 CELL COUNT/DIFF BF Collected: 12/31/2017 Status: F Source: [place] 11:35 AM [facility] REPOSIT[facility] TYPE CODE TESTS RESULT OUT OF RANGE REFERENCE UNITS LAB BFSITE Site Ascites Fluid LAB BFCOL Color Yellow LAB BFCLR Clear Abnormal Clarity Slightly Alert turbid LAB BFSCOL Suprntnt Color Yellow LAB BFSCLR Clear Suprntnt Clear Clarity LAB BFRBC /uL RBC 2000 LAB BFWBC /uL Nucleated 1012 Cells, BF LAB BFCOM BF Comment SEE COMMENT Result Comment: Test Not Indicated LAB BFREV BF SEE Review COMMENT Result Comment: Test Not Indicated LAB BFSLNM Slide Number BF [id number] LAB BFNEUT % Neut% 11 LAB BFLYMP % 45 Lymph% LAB BFMONO % [place]% 37 LAB BFMACR % 4 Macro% LAB BFMESO % Meso% 3 Performed By: #### CCBF #### [facility] [address] [place], [place] [address] PROGRESS Observed: 12/31/2017 Status: COMPLETED Source: [place] 10:38 AM [facility] RE[facility] HNO ID: [id number] Author: Lila Pate (Rn) WILIAM Fontenot Service: (none) Author Type: Registered Nurse Type: Progress Notes Filed: 12/31/2017 3:03 PM Note Text: Name: Priti Mcdonald Patient presents for a Paracentesis. The procedure including risks, benefits, options and personnel performing the procedure was discussed with the patient. There are no contraindications to the procedure. Priti Mcdonald expressed understanding and agreed to proceed. Procedure performed by Slime Garber APRN, CNP Medication: 2% Lidocaine 10cc The patient was placed in the supine position. A pocket of fluid suitable for paracentesis was marked in the right abdomen under ultrasound guidance. The skin and subcutaneous tissue was anesthetized with local anesthetic. A 15 guage Barillas Needle was inserted into the abdomen and 5 liters were removed. The fluid was sent to the Lab for analysis. There were no immediate complications associated with the procedure. Slime Garber APRN, CNP THE FOLLOWING WAS EVALUATED Motivation To Learn: Eager Family/Significant Other Support: High - Very involved in pt care Cognitive Ability: Alert and oriented Patient Learns Best By: Verbal Instruction The Following Influencing Factors Were Barriers To This Education Session: None The Following Physical Limitations Were Barriers To This Education Session: None Instruction Provided To: Patient and family member Learning Topic: Procedure/Surgery: PARACENTESIS Patient Evaluation: Verbalizes understanding Follow Up Plan: Follow up as needed. Lila Fontenot RN 5 liters of ascites fluid was removed via paracentesis. Orders received from Slime Garber CNP for IV placement and albumin infusion. A #24 Gauge angio cath was placed in the Right hand. 37.5 grams of albumin was infused per protocol and the IV was discontinued post infusion. Lila Fontenot RN CNOV Observed: 12/31/2017 Status: COMPLETED Source: [place] [facility] 8:15 AM [facility] Office Visit (GAPRA3) PRITI MCDONALD ([id number]) 1960 F Date Time Provider Department 12/31/17 8:15 AM HEPATOLOGY PROCEDURES GAP[facility]3 During your visit today, we recorded the following information about you: Pulse Respiration Blood pressure Weight 67/minute 20/minute 118/67 102.5 kg Lila Fontenot RN, RN 12/31/2017 3:03 PM Signed Name: Priti Mcdonald Patient presents for a Paracentesis. The procedure including risks, benefits, options and personnel performing the procedure was discussed with the patient. There are no contraindications to the procedure. Priti Mcdonald expressed understanding and agreed to proceed. Procedure performed by Slime Garber APRN, CNP Medication: 2% Lidocaine 10cc The patient was placed in the supine position. A pocket of fluid suitable for paracentesis was marked in the right abdomen under ultrasound guidance. The skin and subcutaneous tissue was anesthetized with local anesthetic. A 15 guage Barillas Needle was inserted into the abdomen and 5 liters were removed. The fluid was sent to the Lab for analysis. There were no immediate complications associated with the procedure. Slime Garber APRN, CNP THE FOLLOWING WAS EVALUATED Motivation To Learn: Eager Family/Significant Other Support: High - Very involved in pt care Cognitive Ability: Alert and oriented Patient Learns Best By: Verbal Instruction The Following Influencing Factors Were Barriers To This Education Session: None The Following Physical Limitations Were Barriers To This Education Session: None Instruction Provided To: Patient and family member Learning Topic: Procedure/Surgery: PARACENTESIS Patient Evaluation: Verbalizes understanding Follow Up Plan: Follow up as needed. Lila Fontenot RN 5 liters of ascites fluid was removed via paracentesis. Orders received from Slime Garber CNP for IV placement and albumin infusion. A #24 Gauge angio cath was placed in the Right hand. 37.5 grams of albumin was infused per protocol and the IV was discontinued post infusion. Lila Fontenot RN Referring Provider: FELY HARRIS [[id number]] Allergies As of Date: 12/31/2017 Noted Allergy Reaction CODEINE 04/28/2007 Comments: nausea Date Reviewed: 12/31/2017 Reviewed by: Lila Pate (Rn) WILIAM Fontenot - Fully Assessed Visit Diagnosis:Other ascites [R18.8] Order(s):ABDOM PARACENTESIS DX/THER W IMAGING GUIDANCE [[id number]] Order #: [id number] CELL COUNT + DIFF BFL [SQCCBF] Order #: [id number] Prescriptions as of 12/31/2017 Sig: ADDERALL XR 30 MG CAPSULE,EXT* METFORMIN ER 500 MG TABLET,EX* TAMOXIFEN 20 MG TABLET Take 20 mg by mouth once alka* DEXTRAN 70-HYPROMELLOSE EYE D* 1 Drop as needed. TRIAMTERENE 37.5 MG-HYDROCHLO* Take 2 capsules by mouth once* PAROXETINE 10 MG TABLET LEVOTHYROXINE 137 MCG TABLET Take 137 mcg by mouth once da* DEXTROAMPHETAMINE-AMPHETAMINE* Take 30 mg by mouth once alka* MECLIZINE 25 MG TABLET Take 25 mg by mouth every 6 h* DULOXETINE 60 MG CAPSULE,AGGIE* Take 60 mg by mouth once alka* * GLUCOPHAGE 500 MG TABLET one tablet two times a day * TRIAMTERENE 37.5 MG-HYDROCHLO* Take one(1) tablet daily. Problem List As Of Date 12/31/2017 Noted Resolved SKIN SENSATION DISTURB [R20.9] INVALID FOR* MENIERE'S DISEASE NOS [H81.09] DIABETES MELLITUS TYPE II-UNCOMPL [E11.9] DEPRESSIVE DISORDER NEC [F32.9] Abnormal mammogram, unspecified [R92.8] INVALID FOR* Breast cancer [C50.919] INVALID FOR* History of breast cancer [Z85.3] INVALID FOR* History of colonic polyps [Z86.010] INVALID FOR*04/29/2015 RUQ pain [R10.11] INVALID FOR* Nonalcoholic steatohepatitis ([place]) [K75.81] INVALID FOR* Biliary cirrhosis (HCC) [K74.5] INVALID FOR* Obesity, Class II, BMI 35-39.9 [E66.9] INVALID FOR* Encounter Status:Closed by SLIME GARBER CNP on 12/31/17 PROGRESS Observed: 12/26/2017 Status: COMPLETED Source: [place] 9:08 AM [facility] REPOSIT[facility] HNO ID: [id number] Author: Miya Grimes Service: (none) Author Type: Dependency Program Director Type: Progress Notes Filed: 12/26/2017 9:08 AM Note Text: Radiology Service Progress Note PATIENT NAME: Priti Mcdonald DATE OF SERVICE: December 26, 2017 TIME: 9:08 AM PATIENT IDENTITY VERIFICATION COMPLETED USING TWO (2) METHODS: Patient confirmed name verbally and Date of . PATIENT GENDER DATA: Female. status: : No status: N/A PATIENT RELEVANT IMPLANT DATA REVIEWED: Not Applicable RADIOLOGY DEPARTMENT: Ultrasound RUQ ABD w/ Spleen PERIPHERAL IV DATA: Not applicable SIGNED BY: MIYA GRIMES RDMS RVMamta December 26, 2017 9:08 AM US ABD SPLEEN -NB Observed: 12/26/2017 Status: F Source: [place] [facility] 9:07 AM [facility] REPOSITORY * * *Final Report* * * DATE OF EXAM: Dec 26 2017 9:07AM [facility] 1232 - US ABD SPLEEN -NB / PROCEDURE REASON: Nonalcoholic steatohepatitis (BARRAGAN) * * * * Physician Interpretation * * * * EXAMINATION: US ABD RIGHT UPPER QUADRANT, US ABD SPLEEN -NB CLINICAL HISTORY: B[place], ascites, diabetes Comparison: None RESULT: The hepatic echotexture is coarse and heterogeneous. No focal abnormality or mass is seen within it. Lobulated surface contour is seen. No intrahepatic biliary dilatation. Moderate ascites in the right upper quadrant ,around the liver. The gallbladder has been removed. The common duct is normal in caliber. Spleen is enlarged at 14.7 cm length. No focal splenic abnormality is identified. The pancreas is normal in size and echogenicity ,without focal enlargement or pancreatitis. The distal tail is suboptimally seen due to overlying bowel gas. The right kidney is grossly normal, without hydronephrosis. 9 cm in length. IMPRESSION: Cirrhotic hepatic configuration. Ascites. Suboptimal visualization of pancreas due to overlying bowel gas. If further evaluation is necessary, computed tomography may be helpful. Splenic enlargement. Lead Housekeeper: VICENTE Transcribe Date/Time: Dec 26 2017 10:59A Dictated by : BIANKA FUENTES MD This examination was interpreted and the report reviewed and electronically signed by: BIANKA FUENTES MD on Dec 26 2017 11:02AM EST [id number] US ABD RIGHT UPPER Observed: 12/26/2017 Status: F Source: [facility] 9:07 AM [facility] REPOSIT[facility] * * *Final Report* * * DATE OF EXAM: Dec 26 2017 9:07AM [facility] 1032 - US ABD RIGHT UPPER QUADRANT / PROCEDURE REASON: Nonalcoholic steatohepatitis (B[place]AGAN) * * * * Physician Interpretation * * * * EXAMINATION: US ABD RIGHT UPPER QUADRANT, US ABD SPLEEN -NB CLINICAL HISTORY: [place], ascites, diabetes Comparison: None RESULT: The hepatic echotexture is coarse and heterogeneous. No focal abnormality or mass is seen within it. Lobulated surface contour is seen. No intrahepatic biliary dilatation. Moderate ascites in the right upper quadrant ,around the liver. The gallbladder has been removed. The common duct is normal in caliber. Spleen is enlarged at 14.7 cm length. No focal splenic abnormality is identified. The pancreas is normal in size and echogenicity ,without focal enlargement or pancreatitis. The distal tail is suboptimally seen due to overlying bowel gas. The right kidney is grossly normal, without hydronephrosis. 9 cm in length. IMPRESSION: Cirrhotic hepatic configuration. Ascites. Suboptimal visualization of pancreas due to overlying bowel gas. If further evaluation is necessary, computed tomography may be helpful. Splenic enlargement. Lead Housekeeper: PSCB Transcribe Date/Time: Dec 26 2017 10:59A Dictated by : BIANKA FUENTES MD This examination was interpreted and the report reviewed and electronically signed by: BIANKA FUENTES MD on Dec 26 2017 11:02AM EST [id number] CELL COUNT/DIFF BF Collected: 12/24/2017 Status: F Source: [place] [facility] 10:50 AM [facility] REPOSIT[facility] TYPE CODE TESTS RESULT OUT OF RANGE REFERENCE UNITS LAB BFSITE Site Ascites Fluid LAB BFCOL Color Yellow LAB BFCLR Clear Abnormal Clarity Slightly Alert turbid LAB BFSCOL Suprntnt Color Yellow LAB BFSCLR Clear Suprntnt Clear Clarity LAB BFRBC /uL RBC 2000 LAB BFWBC /uL Nucleated 766 Cells, BF LAB BFCOM BF Comment SEE COMMENT Result Comment: Test Not Indicated LAB BFREV BF SEE Review COMMENT Result Comment: Test Not Indicated LAB BFSLNM Slide Number BF [id number] LAB BFNEUT % Neut% 17 LAB BFLYMP % 43 Lymph% LAB BFMONO % [place]% 16 LAB BFMACR % 19 Macro% LAB BFMESO % Meso% 4 LAB BFEOSN % 1 Eosin% Performed By: #### CCBF #### [facility] [address] [place], [place] [address] PROGRESS Observed: 12/24/2017 Status: COMPLETED Source: [place] 10:13 AM [facility] HNO ID: [id number] Author: Lila Pate (Rn) WILIAM Fontenot Service: (none) Author Type: Registered Nurse Type: Progress Notes Filed: 12/24/2017 11:35 AM Note Text: Name: Priti Mcdonald Patient presents for a Paracentesis. The procedure including risks, benefits, options and personnel performing the procedure was discussed with the patient. There are no contraindications to the procedure. Priti Mcdonald expressed understanding and agreed to proceed. Procedure performed by Slime Garber APRN,DOLPHIN RESEARCHER Medication: 2% Lidocaine 10cc The patient was placed in the supine position. A pocket of fluid suitable for paracentesis was marked in the left abdomen under ultrasound guidance. The skin and subcutaneous tissue was anesthetized with local anesthetic. A 15 guage Barillas Needle was inserted into the abdomen and 6 liters were removed. The fluid was sent to the Lab for analysis. There were no immediate complications associated with the procedure. Slime Garber APRN, CNP 6 liters of ascites fluid was removed via paracentesis. Orders received from Slime Garber for IV placement and albumin infusion. A #24 Gauge angio cath was placed in the Left hand. 37.5 grams of albumin was infused per protocol and the IV was discontinued post infusion. Lila Fontenot RN THE FOLLOWING WAS EVALUATED Motivation To Learn: Interested Family/Significant Other Support: High - Very involved in pt care Cognitive Ability: Alert and oriented Patient Learns Best By: Verbal Instruction The Following Influencing Factors Were Barriers To This Education Session: None The Following Physical Limitations Were Barriers To This Education Session: None Instruction Provided To: Patient and family member Learning Topic: Procedure/Surgery: PARACENTESIS Patient Evaluation: Verbalizes understanding Follow Up Plan: Follow up as needed. Lila Fontenot RN CNOV Observed: 12/24/2017 Status: COMPLETED Source: [place] 8:15 AM [facility] REPOSITORY Office Visit (GAPRA3) PRITI MCDONALD ([id number]) 1960 F Date Time Provider Department 12/24/17 8:15 AM HEPATOLOGY PROCEDURES GAPRA3 During your visit today, we recorded the following information about you: Temperature Pulse Respiration Blood pressure 98 degrees 82/minute 18/minute 102/67 Weight 103.5 kg Lila Fontenot RN, RN 12/24/2017 11:35 AM Signed Name: Priti Mcdonald Patient presents for a Paracentesis. The procedure including risks, benefits, options and personnel performing the procedure was discussed with the patient. There are no contraindications to the procedure. Priti Mcdonald expressed understanding and agreed to proceed. Procedure performed by Slime Garber APRN, CNP Medication: 2% Lidocaine 10cc The patient was placed in the supine position. A pocket of fluid suitable for paracentesis was marked in the left abdomen under ultrasound guidance. The skin and subcutaneous tissue was anesthetized with local anesthetic. A 15 guage Barillas Needle was inserted into the abdomen and 6 liters were removed. The fluid was sent to the Lab for analysis. There were no immediate complications associated with the procedure. Slime Garber APRN, CNP 6 liters of ascites fluid was removed via paracentesis. Orders received from Slime Garber for IV placement and albumin infusion. A #24 Gauge angio cath was placed in the Left hand. 37.5 grams of albumin was infused per protocol and the IV was discontinued post infusion. Lila Fontenot RN THE FOLLOWING WAS EVALUATED Motivation To Learn: Interested Family/Significant Other Support: High - Very involved in pt care Cognitive Ability: Alert and oriented Patient Learns Best By: Verbal Instruction The Following Influencing Factors Were Barriers To This Education Session: None The Following Physical Limitations Were Barriers To This Education Session: None Instruction Provided To: Patient and family member Learning Topic: Procedure/Surgery: PARACENTESIS Patient Evaluation: Verbalizes understanding Follow Up Plan: Follow up as needed. Lila Fontenot RN Referring Provider: FELY HARRIS [[id number]] Allergies As of Date: 12/24/2017 Noted Allergy Reaction CODEINE 04/28/2007 Comments: nausea Date Reviewed: 12/24/2017 Reviewed by: Lila Pate (Rn) WILIAM Fontenot - Fully Assessed Visit Diagnosis:Other ascites [R18.8] Order(s):ABDOM PARACENTESIS DX/THER W IMAGING GUIDANCE [[id number]] Order #: [id number] CELL COUNT + DIFF BFL [SQCCBF] Order #: [id number] Prescriptions as of 12/24/2017 Sig: ADDERALL XR 30 MG CAPSULE,EXT* METFORMIN ER 500 MG TABLET,EX* TAMOXIFEN 20 MG TABLET Take 20 mg by mouth once alka* DEXTRAN 70-HYPROMELLOSE EYE D* 1 Drop as needed. TRIAMTERENE 37.5 MG-HYDROCHLO* Take 2 capsules by mouth once* PAROXETINE 10 MG TABLET LEVOTHYROXINE 137 MCG TABLET Take 137 mcg by mouth once da* DEXTROAMPHETAMINE-AMPHETAMINE* Take 30 mg by mouth once alka* MECLIZINE 25 MG TABLET Take 25 mg by mouth every 6 h* DULOXETINE 60 MG CAPSULE,AGGIE* Take 60 mg by mouth once alka* * GLUCOPHAGE 500 MG TABLET one tablet two times a day * TRIAMTERENE 37.5 MG-HYDROCHLO* Take one(1) tablet daily. Problem List As Of Date 12/24/2017 Noted Resolved SKIN SENSATION DISTURB [R20.9] INVALID FOR* MENIERE'S DISEASE NOS [H81.09] DIABETES MELLITUS TYPE II-UNCOMPL [E11.9] DEPRESSIVE DISORDER NEC [F32.9] Abnormal mammogram, unspecified [R92.8] INVALID FOR* Breast cancer [C50.919] INVALID FOR* History of breast cancer [Z85.3] INVALID FOR* History of colonic polyps [Z86.010] INVALID FOR*04/29/2015 RUQ pain [R10.11] INVALID FOR* Nonalcoholic steatohepatitis ([place]) [K75.81] INVALID FOR* Biliary cirrhosis (HCC) [K74.5] INVALID FOR* Obesity, Class II, BMI 35-39.9 [E66.9] INVALID FOR* Encounter Status:Closed by SLIME GARBER CNP on 12/24/17 PROGRESS Observed: 12/09/2017 Status: COMPLETED Source: [place] 1:57 PM [facility] [address] [facility] REPOSITORY HNO ID: [id number] Author: Fely Miranda Service: (none) Author Type: Physician Type: Progress Notes Filed: 12/09/2017 3:14 PM Note Text: HEPATOLOGY CONSULT PROGRESS NOTE A51 Preceptor: Fely Apple MD Reason for today's appointment: Follow up since last office visit on 08/28 History of Present Illness: Priti Mcdonald is pleasant 57 year old female that is here with her Matt. She is here to follow up for cirrhosis. Intraoperative liver biopsy 09/28/15 confirmed nodular cirrhosis likely from [place]. weeks ago due to abdominal pain, and CT dated July 2017 showed splenomegaly, moderate ascites and cirrhosis. PMH of Depressive disorder, not elsewhere classified; Hypothyroidism; Meniere's disease, unspecified; Snoring; Type II or unspecified type diabetes mellitus without mention of complication (metformin). Has been getting paracentesis as OP every 2 weeks Got paracentesis today removed 5.3L. MELD-Na score: 9 at 11/27/2017 10:55 AM MELD score: 9 at 11/27/2017 10:55 AM Calculated from: Serum Creatinine: 1.16 mg/dL at 11/27/2017 10:55 AM Serum Sodium: 142 mmol/L (Rounded to 137) at 11/27/2017 10:55 AM Total Bilirubin: 0.4 mg/dL (Rounded to 1) at 11/27/2017 10:55 AM INR(ratio): 1.1 at 11/27/2017 10:55 AM Age: 57 years Past Medical History: PAST MEDICAL HISTORY Diagnosis Date - Depressive disorder, not elsewhere classified - Hypothyroidism - Mammographic microcalcification 08/24/08 RIGHT BREAST - Meniere's disease, unspecified - Snoring - Type II or unspecified type diabetes mellitus without mention of complication, not stated as uncontrolled Past Surgical History: PAST SURGICAL HISTORY Procedure Laterality Date - COLONOSCOP W/ OR W/O BRSH SPEC 04/29/15 Colonoscopy - COLONOSCOPY 04/04/10 VJ -hyperplastic polyp - LIGATE FALLOPIAN TUBE 1989 Tubal ligation - PAST SURGICAL HISTORY OF 2003 Bunionectomy - PAST SURGICAL HISTORY OF Clean out endometriosis - PAST SURGICAL HISTORY OF 12/2010. Total Hysterectomy - PAST SURGICAL HISTORY OF 10/18/11 Lt breast lumpectomy with SLN biopsy - PAST SURGICAL HISTORY OF 2009 Vaginal sling Cholecystectomy 2016 Family History: FAMILY HISTORY Problem Relation Age of Onset - Heart Mother - Heart Father - Heart Maternal Grandfather - Heart Paternal Grandfather - Cancer Maternal Grandmother brain Social History: Social History Marital status: Spouse name: Matt Years of education: Number of children: 1 son adopted Social History Main Topics Smoking status: Former Smoker Packs/day: 1 to 2 cigarettes a day Years: 3 Types: Cigarettes Smokeless status: Never Used Comment: Social smoker while in college. Alcohol use: Yes Comment: occasional Drug use: No Sexual activity: Yes Partners with: Male Allergies: ALLERGIES Allergen Reactions - Codeine nausea Medications: levothyroxine (SYNTHROID) 137 mcg tablet Take 137 mcg by mouth once daily. Amphetamine-Dextroamphetamine (ADDERALL) 30 mg tablet Take 30 mg by mouth once daily. MECLIZINE 25 mg tab Take 25 mg by mouth every 6 hours as needed. DULOXETINE 60 mg capsule Take 60 mg by mouth once daily. simvastatin (ZOCOR) 40 mg tablet Take 40 mg by mouth daily at bedtime. metformin hcl(GLUCOPHAGE 500 MG TAB) Take two tablets by mouth twice daily. TRIAMTERENE-HYDROCHLOROTHIAZIDE 37.5 MG-25 MG CAP Take one(1) tablet daily. Pertinent Review of Systems: REVIEW OF SYSTEMS GENERAL: No malaise, fevers. +25 lb. weight loss, unintended RESPIRATORY: Negative for cough, hemoptysis, wheezing, COPD, dyspnea or shortness of breath CARDIOVASCULAR: Negative for chest pain, leg swelling, hypertension, CHF or palpitations GI: No nausea, vomiting, or diarrhea : No history of dysuria, frequency or incontinence MUSCULOSKELETAL: Negative for joint pain or swelling, back pain or muscle pain NEURO: No history of headaches, syncope, paralysis, seizures or tremors GI ROS: Difficulty swallowing / foods sticking in throat: Occasionally Heartburn: No Hoarseness: No Chronic cough: No Regurgitation: No Chest pain: No Filling up quickly at meals: Yes Loss of appetite: Yes, does not feel like eating most of the time Nausea: No Vomiting: No Abdominal pain: Yes Recent change in bowel movements; Yes. More constipated, stool is sticky and owner operator in color Bloody or black, bowel movements: No Constipation: Yes Diarrhea: No Loss of control of bowel movements: No Night sweats, fever, chills: No Thought or memory problems: No Fluid in abdomen (ascites): Yes Prominent leg swelling: No Vomiting blood: No Recent change in weight: Yes, loss Risk Factors for Liver Disease: 1. Blood transfusions before 1991: No 2. IVDA: No 3. Intranasal coccaine use: No 4. Tattoos: Yes, done professionally 5. Service: No 6. High risk sexual behavior: No 7. Alcohol: Yes, One wine or wine coolers a day 8. Obesity: Yes 9. Hyperlipidemia: Yes 10. Prolonged exposure to hepatotoxic meds: No 11. Other autoimmune disorders No Metabolic Syndrome Risk factors:3/5 1) Diabetes/ Abnormal FBS >100mg/dL YES 2) Hypertension : NO 3)Triglycerides more then 150 : NO 4) HDL (<50 female and <40 male): YES 5) Central obesity ( Waist >102 men and >88 female) - Body mass index is 36.15 kg/m?. Complications of Cirrhosis: 1. Ascites: Yes 2. SBP: No 3. Non-bleeding varices:No 4. Variceal hemorrage: No 5. Portosystemic encephalopathy: No 6. Hepatorenal Syndrome:No 7. Hepatopulmonary Syndrome:No 8. Hepatic hydrothorax: No 9. Recurrent Cholangitis (PSC): No Physical Exam: Vital Signs: There were no vitals filed for this visit. VITAL SIGNS: LMP 08/09/2008 General: AAOx3, no acute distress. Skin: Normal. Intact, no lesions. Respiratory: Clear to auscultation bilaterally. No wheezing, rales, rhonchi. No respiratory distress. Abdomen: Soft, non-tender, non-distended. Bowel sounds normal. No organomegaly or masses. Extremities: Normal exam of the extremities. No clubbing, cyanosis, or edema. Neurology: Normal motor strength. Reflexes 2+ Diagnostic Testing: Liver biopsy 09/28/2015 Biliary dyskinesia, nodular cirrhosis likely from [place], normal cholangiogram CT scan 07/2017 CT dated July 2017 showed splenomegaly, moderate ascites and cirrhosis. Labs: Component Latest Ref Rng AND Units 11/27/2017 WBC 3.70 - 11.00 k/uL 7.57 RBC 3.90 - 5.20 m/uL 4.91 Hemoglobin 11.5 - 15.5 g/dL 14.3 Hematocrit 36.0 - 46.0 % 42.2 MCV 80.0 - 100.0 fL 85.9 MCH 26.0 - 34.0 pG 29.1 MCHC 30.5 - 36.0 g/dL 33.9 RDW-CV 11.5 - 15.0 % 13.3 Platelet Count 150 - 400 k/uL 277 MPV 9.0 - 12.7 fL 9.8 Neut% % 68.3 Abs Neut (ANC) 1.45 - 7.50 k/uL 5.16 Lymph% % 19.6 Abs Lymph 1.00 - 4.00 k/uL 1.48 Cheatham% % 8.5 Abs Cheatham <0.87 k/uL 0.64 Eosin% % 2.9 Abs Eosin <0.46 k/uL 0.22 Baso% % 0.7 Abs Baso <0.11 k/uL 0.05 Nucleated Reds 0 /100 WBC 0.0 Absolute nRBC <0.01 k/uL <0.01 Diff Type Auto Diff Protein, Total 6.3 - 8.0 g/dL 6.4 Albumin 3.9 - 4.9 g/dL 3.3 (L) Calcium 8.5 - 10.2 mg/dL 10.0 Bilirubin, Total 0.2 - 1.3 mg/dL 0.4 Alkaline Phosphatase 32 - 117 U/L 125 (H) AST 13 - 35 U/L 33 Glucose 74 - 99 mg/dL 115 (H) BUN 7 - 21 mg/dL 14 Creatinine 0.58 - 0.96 mg/dL 1.16 (H) Sodium 136 - 144 mmol/L 142 Potassium 3.7 - 5.1 mmol/L 4.4 Chloride 97 - 105 mmol/L 105 CO2 22 - 30 mmol/L 29 Anion Gap 9 - 18 mmol/L 8 (L) ALT 7 - 38 U/L 25 eGFR- 58 eGFR-All Other Races . 48 PT Sec 9.7 - 13.0 sec 11.2 PT INR 0.9 - 1.3 1.1 APTT 23.0 - 32.4 sec 26.0 Component Latest Ref Rng AND Units 10/24/2017 11/12/2017 11/29/2017 Site, BF Ascites Fluid Ascites Fluid Ascites Fluid Color, BF Yellow Yellow Yellow Clarity, BF Clear Slightly turbid (A) Slightly turbid (A) Slightly turbid (A) Supernatant Color, BF Yellow Yellow Yellow Supernatant Clarity, BF Clear Clear Clear Clear RBC, Body Fluid /uL <2,000 2,000 2,000 Total Nucleated Cells, BF /uL [phone] BF Comment SEE COMMENT SEE COMMENT SEE COMMENT BF Review SEE COMMENT SEE COMMENT SEE COMMENT Slide Number BF 184,[id number] 185,721 186,750 Neut%, BF % 8 5 4 Lymph%, BF % 62 49 80 Cheatham%, BF % 20 28 7 Macro%, BF % 8 15 7 Meso%, BF % 2 3 Reac Lymph %, BF % 2 EGD 09/27 no varices identified Impression: Priti Mcdonald is a pleasant 57 year old female that is here with her Matt. She is here to follow up for cirrhosis. liver biopsy 09/28/15 confirmed nodular cirrhosis with extensive micro and macro steatosis, likely B[place]. CT dated July 2017 showed splenomegaly, moderate ascites and cirrhosis. Getting bi weekly paracentesis. Other issues is meniere and h/o breast cancer s/p lumpectomy took tamoxifen for 5 years. Denies alcohol and illegal drugs Never vaccinated for hep A/B Plan: - Cont Paracentesis bi weekly - Hepatitis labs regarding immunization status - HCC screen with US Liver - Return to clinic in 6 months Wallace Mcdonnell MD Internal Medicine PGY-3 Pager [phone] December 09, 2017 2:07 PM [facility] hepatology staff physician note of personal involvement of care I have examined and reviewed the note as documented by the resident . I personally participated in the laughlin components. I have discussed the case and management of the patient's care and I agree with the plan of care. [place] cirrhosis confirmed by biopsy ascites on qow james wants to do it locally I agree continue screen for HCC immunization status unclear, will obtain labs today rtc in 6 months offered virtual visit discussed in length no need for liver transplant at this time discussed possibility for live donor and for HCV donor she will think about that During this visit, I Spent 40 min reviewing labs, prior notes, imaging studies, and discussing diagnosis and differential diagnosis and plan of care . Fely Apple MD CNOV Observed: 12/09/2017 Status: COMPLETED Source: [place] 1:40 PM [facility] REPOSITORY Office Visit ([id number]) PRITI MCDONALD ([id number]) 1960 F Date Time Provider Department 12/09/17 1:40 PM FELY HARRIS GASTA5 During your visit today, we recorded the following information about you: Temperature Pulse Blood pressure Weight 98.3 degrees 88/minute 135/71 104.7 kg Height 1.702 m Fely Apple MD 12/09/2017 3:14 PM Signed HEPATOLOGY CONSULT PROGRESS NOTE A51 Preceptor: Fely Apple MD Reason for today's appointment: Follow up since last office visit on 08/28 History of Present Illness: Priti Mcdonald is pleasant 57 year old female that is here with her Matt. She is here to follow up for cirrhosis. Intraoperative liver biopsy 09/28/15 confirmed nodular cirrhosis likely from [place]. weeks ago due to abdominal pain, and CT dated July 2017 showed splenomegaly, moderate ascites and cirrhosis. PMH of Depressive disorder, not elsewhere classified; Hypothyroidism; Meniere's disease, unspecified; Snoring; Type II or unspecified type diabetes mellitus without mention of complication (metformin). Has been getting paracentesis as OP every 2 weeks Got paracentesis today removed 5.3L. MELD-Na score: 9 at 11/27/2017 10:55 AM MELD score: 9 at 11/27/2017 10:55 AM Calculated from: Serum Creatinine: 1.16 mg/dL at 11/27/2017 10:55 AM Serum Sodium: 142 mmol/L (Rounded to 137) at 11/27/2017 10:55 AM Total Bilirubin: 0.4 mg/dL (Rounded to 1) at 11/27/2017 10:55 AM INR(ratio): 1.1 at 11/27/2017 10:55 AM Age: 57 years Past Medical History: PAST MEDICAL HISTORY Diagnosis Date - Depressive disorder, not elsewhere classified - Hypothyroidism - Mammographic microcalcification 08/24/08 RIGHT BREAST - Meniere's disease, unspecified - Snoring - Type II or unspecified type diabetes mellitus without mention of complication, not stated as uncontrolled Past Surgical History: PAST SURGICAL HISTORY Procedure Laterality Date - COLONOSCOP W/ OR W/O BRSH SPEC 04/29/15 Colonoscopy - COLONOSCOPY 04/04/10 VJ -hyperplastic polyp - LIGATE FALLOPIAN TUBE 1989 Tubal ligation - PAST SURGICAL HISTORY OF 2003 Bunionectomy - PAST SURGICAL HISTORY OF Clean out endometriosis - PAST SURGICAL HISTORY OF 12/2010. Total Hysterectomy - PAST SURGICAL HISTORY OF 10/18/11 Lt breast lumpectomy with SLN biopsy - PAST SURGICAL HISTORY OF 2009 Vaginal sling Cholecystectomy 2016 Family History: FAMILY HISTORY Problem Relation Age of Onset - Heart Mother - Heart Father - Heart Maternal Grandfather - Heart Paternal Grandfather - Cancer Maternal Grandmother brain Social History: Social History Marital status: Spouse name: Matt Years of education: Number of children: 1 son adopted Social History Main Topics Smoking status: Former Smoker Packs/day: 1 to 2 cigarettes a day Years: 3 Types: Cigarettes Smokeless status: Never Used Comment: Social smoker while in college. Alcohol use: Yes Comment: occasional Drug use: No Sexual activity: Yes Partners with: Male Allergies: ALLERGIES Allergen Reactions - Codeine nausea Medications: levothyroxine (SYNTHROID) 137 mcg tablet Take 137 mcg by mouth once daily. Amphetamine-Dextroamphetamine (ADDERALL) 30 mg tablet Take 30 mg by mouth once daily. MECLIZINE 25 mg tab Take 25 mg by mouth every 6 hours as needed. DULOXETINE 60 mg capsule Take 60 mg by mouth once daily. simvastatin (ZOCOR) 40 mg tablet Take 40 mg by mouth daily at bedtime. metformin hcl(GLUCOPHAGE 500 MG TAB) Take two tablets by mouth twice daily. TRIAMTERENE-HYDROCHLOROTHIAZIDE 37.5 MG-25 MG CAP Take one(1) tablet daily. Pertinent Review of Systems: REVIEW OF SYSTEMS GENERAL: No malaise, fevers. +25 lb. weight loss, unintended RESPIRATORY: Negative for cough, hemoptysis, wheezing, COPD, dyspnea or shortness of breath CARDIOVASCULAR: Negative for chest pain, leg swelling, hypertension, CHF or palpitations GI: No nausea, vomiting, or diarrhea : No history of dysuria, frequency or incontinence MUSCULOSKELETAL: Negative for joint pain or swelling, back pain or muscle pain NEURO: No history of headaches, syncope, paralysis, seizures or tremors GI ROS: Difficulty swallowing / foods sticking in throat: Occasionally Heartburn: No Hoarseness: No Chronic cough: No Regurgitation: No Chest pain: No Filling up quickly at meals: Yes Loss of appetite: Yes, does not feel like eating most of the time Nausea: No Vomiting: No Abdominal pain: Yes Recent change in bowel movements; Yes. More constipated, stool is sticky and owner operator in color Bloody or black, bowel movements: No Constipation: Yes Diarrhea: No Loss of control of bowel movements: No Night sweats, fever, chills: No Thought or memory problems: No Fluid in abdomen (ascites): Yes Prominent leg swelling: No Vomiting blood: No Recent change in weight: Yes, loss Risk Factors for Liver Disease: 1. Blood transfusions before 1991: No 2. IVDA: No 3. Intranasal coccaine use: No 4. Tattoos: Yes, done professionally 5. Service: No 6. High risk sexual behavior: No 7. Alcohol: Yes, One wine or wine coolers a day 8. Obesity: Yes 9. Hyperlipidemia: Yes 10. Prolonged exposure to hepatotoxic meds: No 11. Other autoimmune disorders No Metabolic Syndrome Risk factors:3/5 1) Diabetes/ Abnormal FBS >100mg/dL YES 2) Hypertension : NO 3)Triglycerides more then 150 : NO 4) HDL (<50 female and <40 male): YES 5) Central obesity ( Waist >102 men and >88 female) - Body mass index is 36.15 kg/m?. Complications of Cirrhosis: 1. Ascites: Yes 2. SBP: No 3. Non-bleeding varices:No 4. Variceal hemorrage: No 5. Portosystemic encephalopathy: No 6. Hepatorenal Syndrome:No 7. Hepatopulmonary Syndrome:No 8. Hepatic hydrothorax: No 9. Recurrent Cholangitis (PSC): No Physical Exam: Vital Signs: There were no vitals filed for this visit. VITAL SIGNS: LMP 08/09/2008 General: AAOx3, no acute distress. Skin: Normal. Intact, no lesions. Respiratory: Clear to auscultation bilaterally. No wheezing, rales, rhonchi. No respiratory distress. Abdomen: Soft, non-tender, non-distended. Bowel sounds normal. No organomegaly or masses. Extremities: Normal exam of the extremities. No clubbing, cyanosis, or edema. Neurology: Normal motor strength. Reflexes 2+ Diagnostic Testing: Liver biopsy 09/28/2015 Biliary dyskinesia, nodular cirrhosis likely from [place], normal cholangiogram CT scan 07/2017 CT dated July 2017 showed splenomegaly, moderate ascites and cirrhosis. Labs: Component Latest Ref Rng AND Units 11/27/2017 WBC 3.70 - 11.00 k/uL 7.57 RBC 3.90 - 5.20 m/uL 4.91 Hemoglobin 11.5 - 15.5 g/dL 14.3 Hematocrit 36.0 - 46.0 % 42.2 MCV 80.0 - 100.0 fL 85.9 MCH 26.0 - 34.0 pG 29.1 MCHC 30.5 - 36.0 g/dL 33.9 RDW-CV 11.5 - 15.0 % 13.3 Platelet Count 150 - 400 k/uL 277 MPV 9.0 - 12.7 fL 9.8 Neut% % 68.3 Abs Neut (ANC) 1.45 - 7.50 k/uL 5.16 Lymph% % 19.6 Abs Lymph 1.00 - 4.00 k/uL 1.48 Cheatham% % 8.5 Abs Cheatham <0.87 k/uL 0.64 Eosin% % 2.9 Abs Eosin <0.46 k/uL 0.22 Baso% % 0.7 Abs Baso <0.11 k/uL 0.05 Nucleated Reds 0 /100 WBC 0.0 Absolute nRBC <0.01 k/uL <0.01 Diff Type Auto Diff Protein, Total 6.3 - 8.0 g/dL 6.4 Albumin 3.9 - 4.9 g/dL 3.3 (L) Calcium 8.5 - 10.2 mg/dL 10.0 Bilirubin, Total 0.2 - 1.3 mg/dL 0.4 Alkaline Phosphatase 32 - 117 U/L 125 (H) AST 13 - 35 U/L 33 Glucose 74 - 99 mg/dL 115 (H) BUN 7 - 21 mg/dL 14 Creatinine 0.58 - 0.96 mg/dL 1.16 (H) Sodium 136 - 144 mmol/L 142 Potassium 3.7 - 5.1 mmol/L 4.4 Chloride 97 - 105 mmol/L 105 CO2 22 - 30 mmol/L 29 Anion Gap 9 - 18 mmol/L 8 (L) ALT 7 - 38 U/L 25 eGFR- 58 eGFR-All Other Races . 48 PT Sec 9.7 - 13.0 sec 11.2 PT INR 0.9 - 1.3 1.1 APTT 23.0 - 32.4 sec 26.0 Component Latest Ref Rng AND Units 10/24/2017 11/12/2017 11/29/2017 Site, BF Ascites Fluid Ascites Fluid Ascites Fluid Color, BF Yellow Yellow Yellow Clarity, BF Clear Slightly turbid (A) Slightly turbid (A) Slightly turbid (A) Supernatant Color, BF Yellow Yellow Yellow Supernatant Clarity, BF Clear Clear Clear Clear RBC, Body Fluid /uL <2,000 2,000 2,000 Total Nucleated Cells, BF /uL [phone] BF Comment SEE COMMENT SEE COMMENT SEE COMMENT BF Review SEE COMMENT SEE COMMENT SEE COMMENT Slide Number BF [id number] 185,721 186,750 Neut%, BF % 8 5 4 Lymph%, BF % 62 49 80 [place]%, BF % 20 28 7 Macro%, BF % 8 15 7 Meso%, BF % 2 3 Reac Lymph %, BF % 2 EGD 09/27 no varices identified Impression: Priti Mcdonald is a pleasant 57 year old female that is here with her Matt. She is here to follow up for cirrhosis. liver biopsy 09/28/15 confirmed nodular cirrhosis with extensive micro and macro steatosis, likely B[place]. CT dated July 2017 showed splenomegaly, moderate ascites and cirrhosis. Getting bi weekly paracentesis. Other issues is meniere and h/o breast cancer s/p lumpectomy took tamoxifen for 5 years. Denies alcohol and illegal drugs Never vaccinated for hep A/B Plan: - Cont Paracentesis bi weekly - Hepatitis labs regarding immunization status - HCC screen with US Liver - Return to clinic in 6 months Wallace Mcdonnell MD Internal Medicine PGY-3 Pager [phone] December 09, 2017 2:07 PM [facility] hepatology staff physician note of personal involvement of care I have examined and reviewed the note as documented by the resident . I personally participated in the laughlin components. I have discussed the case and management of the patient's care and I agree with the plan of care. [place] cirrhosis confirmed by biopsy ascites on qow james wants to do it locally I agree continue screen for HCC immunization status unclear, will obtain labs today rtc in 6 months offered virtual visit discussed in length no need for liver transplant at this time discussed possibility for live donor and for HCV donor she will think about that During this visit, I Spent 40 min reviewing labs, prior notes, imaging studies, and discussing diagnosis and differential diagnosis and plan of care . Fely Apple MD Referring Provider: SELF [[id number]] Allergies As of Date: 12/09/2017 Noted Allergy Reaction CODEINE 04/28/2007 Comments: nausea Date Reviewed: 12/09/2017 Reviewed by: Mariano Fiore Ma - Fully Assessed Reason for Visit: Established Patient [175] Cmt: Liver disease Primary Visit Diagnosis:Nonalcoholic steatohepatitis ([place]) [K75.81] Other Visit Diagnosis:Other ascites [R18.8] Order(s):CONSULT TO NUTRITION THERAPY [7009] Order #: [id number]: 1 US ABD RT UPPER QUADRANT [[id number]] Order #: [id number] FUTURE HEP A AB TOTAL [SQAHAVT] Order #: [id number] FUTURE HCV QUANT RNA BY PCR [SQHCQPCR] Order #: [id number] FUTURE HEP B SURF AG SCRN [SQHBSAG] Order #: [id number] FUTURE HEP B SURF AB QUAL [SQAHBSAG] Order #: [id number] FUTURE HEP B CORE AB TOTAL [SQAHBCOT] Order #: [id number] FUTURE Prescriptions as of 12/09/2017 Sig: ADDERALL XR 30 MG CAPSULE,EXT* TAMOXIFEN 20 MG TABLET Take 20 mg by mouth once alka* DEXTRAN 70-HYPROMELLOSE EYE D* 1 Drop as needed. TRIAMTERENE 37.5 MG-HYDROCHLO* Take 2 capsules by mouth once* PAROXETINE 10 MG TABLET LEVOTHYROXINE 137 MCG TABLET Take 137 mcg by mouth once da* DEXTROAMPHETAMINE-AMPHETAMINE* Take 30 mg by mouth once alka* MECLIZINE 25 MG TABLET Take 25 mg by mouth every 6 h* DULOXETINE 60 MG CAPSULE,AGGIE* Take 60 mg by mouth once alka* * GLUCOPHAGE 500 MG TABLET one tablet two times a day METFORMIN ER 500 MG TABLET,EX* * TRIAMTERENE 37.5 MG-HYDROCHLO* Take one(1) tablet daily. Problem List As Of Date 12/09/2017 Noted Resolved SKIN SENSATION DISTURB [R20.9] INVALID FOR* MENIERE'S DISEASE NOS [H81.09] DIABETES MELLITUS TYPE II-UNCOMPL [E11.9] DEPRESSIVE DISORDER NEC [F32.9] Abnormal mammogram, unspecified [R92.8] INVALID FOR* Breast cancer [C50.919] INVALID FOR* History of breast cancer [Z85.3] INVALID FOR* History of colonic polyps [Z86.010] INVALID FOR*04/29/2015 RUQ pain [R10.11] INVALID FOR* Nonalcoholic steatohepatitis ([place]) [K75.81] INVALID FOR* Biliary cirrhosis (HCC) [K74.5] INVALID FOR* Obesity, Class II, BMI 35-39.9 [E66.9] INVALID FOR* Encounter Status:Closed by FELY APPLE MD on 12/09/17 CELL COUNT/DIFF BF Collected: 12/09/2017 Status: F Source: [place] [facility] 11[facility]57 AM [facility] REPOS[facility] TYPE CODE TESTS RESULT OUT OF RANGE REFERENCE UNITS LAB BFSITE Site Ascites Fluid LAB BFCOL Color Yellow LAB BFCLR Clear Abnormal Clarity Slightly Alert turbid LAB BFSCOL Suprntnt Color Yellow LAB BFSCLR Clear Suprntnt Clear Clarity LAB BFRBC /uL RBC 2000 LAB BFWBC /uL Nucleated 871 Cells, BF LAB BFCOM BF Comment SEE COMMENT Result Comment: Test Not Indicated LAB BFREV BF SEE Review COMMENT Result Comment: Test Not Indicated LAB BFSLNM Slide Number BF [id number] LAB BFNEUT % Neut% 6 LAB BFLYMP % 40 Lymph% LAB BFMONO % [place]% 29 LAB BFMACR % 14 Macro% LAB BFMESO % Meso% 8 LAB BFEOSN % 3 Eosin% Performed By: #### CCBF #### [facility] [address] [place], [place] [address] PROGRESS Observed: 12/09/2017 Status: COMPLETED Source: [place] 10:15 AM [facility] [address] [facility] REPOSITORY HNO ID: [id number] Author: Vanessa (Rn) WILIAM Cotter Service: (none) Author Type: Registered Nurse Type: Progress Notes Filed: 12/09/2017 11:57 AM Note Text: Name:Priti Mcdonald Patient presents for a Paracentesis. The procedure including risks, benefits, options and personnel performing the procedure was discussed with the patient. There are no contraindications to the procedure. Priti Mcdonald expressed understanding and agreed to proceed. Procedure performed by Mahnaz Bajwa CNP Medication: 2% Lidocaine 10cc The patient was placed in the supine position. A pocket of fluid suitable for paracentesis was marked in the left abdomen under ultrasound guidance. The skin and subcutaneous tissue was anesthetized with local anesthetic. A 15 guage Barillas Needle was inserted into the abdomen and 5.3 liters were removed. The fluid was sent to the Lab for analysis. There were no immediate complications associated with the procedure. Mahnaz Bajwa CNP 5.3 liters of ascites fluid was removed via paracentesis. Orders received from Arnol Bajwa CNP for IV placement and albumin infusion. A #24 Gauge angio cath was placed in the Left hand. 37.5 grams of albumin was infused per protocol and the IV was discontinued post infusion. Vanessa Cotter RN THE FOLLOWING WAS EVALUATED Motivation To Learn: Eager Interested Family/Significant Other Support: High - Very involved in pt care Cognitive Ability: Alert and oriented Patient Learns Best By: Verbal Instruction The Following Influencing Factors Were Barriers To This Education Session: None The Following Physical Limitations Were Barriers To This Education Session: None Instruction Provided To: Patient and family member Learning Topic: Procedure/Surgery: PARACENTESIS Patient Evaluation: Verbalizes understanding Follow Up Plan: Follow up as needed CNOV Observed: 12/09/2017 Status: COMPLETED Source: [place] 8:15 AM [facility] REPOSITORY Office Visit (GAPRA3) PRITI MCDONALD ([id number]) 1960 F Date Time Provider Department 12/09/17 8:15 AM MAHNAZ BAJWA (JACK) GAPRA3 During your visit today, we recorded the following information about you: Temperature Pulse Respiration Blood pressure 97.3 degrees 76/minute 16/minute 114/69 Weight 104.4 kg Vanessa Cotter RN, RN 12/09/2017 11:57 AM Signed Name:Priti Mcdonald Patient presents for a Paracentesis. The procedure including risks, benefits, options and personnel performing the procedure was discussed with the patient. There are no contraindications to the procedure. Priti Mcdonald expressed understanding and agreed to proceed. Procedure performed by Mahnaz Bajwa CNP Medication: 2% Lidocaine 10cc The patient was placed in the supine position. A pocket of fluid suitable for paracentesis was marked in the left abdomen under ultrasound guidance. The skin and subcutaneous tissue was anesthetized with local anesthetic. A 15 guage Barillas Needle was inserted into the abdomen and 5.3 liters were removed. The fluid was sent to the Lab for analysis. There were no immediate complications associated with the procedure. Mahnaz Bajwa CNP 5.3 liters of ascites fluid was removed via paracentesis. Orders received from Arnol Bajwa CNP for IV placement and albumin infusion. A #24 Gauge angio cath was placed in the Left hand. 37.5 grams of albumin was infused per protocol and the IV was discontinued post infusion. Vanessa Cotter RN THE FOLLOWING WAS EVALUATED Motivation To Learn: Eager Interested Family/Significant Other Support: High - Very involved in pt care Cognitive Ability: Alert and oriented Patient Learns Best By: Verbal Instruction The Following Influencing Factors Were Barriers To This Education Session: None The Following Physical Limitations Were Barriers To This Education Session: None Instruction Provided To: Patient and family member Learning Topic: Procedure/Surgery: PARACENTESIS Patient Evaluation: Verbalizes understanding Follow Up Plan: Follow up as needed Referring Provider: FELY HARRIS [[id number]] Allergies As of Date: 12/09/2017 Noted Allergy Reaction CODEINE 04/28/2007 Comments: nausea Date Reviewed: 12/09/2017 Reviewed by: Vanessa PickardRn) WILIAM Cotter - Fully Assessed Visit Diagnosis:Other ascites [R18.8] Order(s):ABDOM PARACENTESIS DX/THER W IMAGING GUIDANCE [[id number]] Order #: [id number] CELL COUNT + DIFF BFL [SQCCBF] Order #: [id number] Prescriptions as of 12/09/2017 Sig: TRIAMTERENE 37.5 MG-HYDROCHLO* Take 2 capsules by mouth once* PAROXETINE 10 MG TABLET LEVOTHYROXINE 137 MCG TABLET Take 137 mcg by mouth once da* DEXTROAMPHETAMINE-AMPHETAMINE* Take 30 mg by mouth once alka* MECLIZINE 25 MG TABLET Take 25 mg by mouth every 6 h* DULOXETINE 60 MG CAPSULE,AGGIE* Take 60 mg by mouth once alka* * GLUCOPHAGE 500 MG TABLET one tablet two times a day * TRIAMTERENE 37.5 MG-HYDROCHLO* Take one(1) tablet daily. Problem List As Of Date 12/09/2017 Noted Resolved SKIN SENSATION DISTURB [R20.9] INVALID FOR* MENIERE'S DISEASE NOS [H81.09] DIABETES MELLITUS TYPE II-UNCOMPL [E11.9] DEPRESSIVE DISORDER NEC [F32.9] Abnormal mammogram, unspecified [R92.8] INVALID FOR* Breast cancer [C50.919] INVALID FOR* History of breast cancer [Z85.3] INVALID FOR* History of colonic polyps [Z86.010] INVALID FOR*04/29/2015 RUQ pain [R10.11] INVALID FOR* Nonalcoholic steatohepatitis ([place]) [K75.81] INVALID FOR* Biliary cirrhosis (HCC) [K74.5] INVALID FOR* Obesity, Class II, BMI 35-39.9 [E66.9] INVALID FOR* Encounter Status:Closed by MAHNAZ BAJWA CNP on 12/09/17 CELL COUNT/DIFF BF Collected: 11/29/2017 Status: F Source: [place] 4:00 PM [facility] REPOSITORY TYPE CODE TESTS RESULT OUT OF RANGE REFERENCE UNITS LAB BFSITE Site Ascites Fluid LAB BFCOL Color Yellow LAB BFCLR Clear Abnormal Clarity Slightly Alert turbid LAB BFSCOL Suprntnt Color Yellow LAB BFSCLR Clear Suprntnt Clear Clarity LAB BFRBC /uL RBC 2000 LAB BFWBC /uL Nucleated 864 Cells, BF LAB BFCOM BF Comment SEE COMMENT Result Comment: Test Not Indicated LAB BFREV BF SEE Review COMMENT Result Comment: Test Not Indicated LAB BFSLNM Slide Number BF [id number] LAB BFNEUT % Neut% 4 LAB BFLYMP % 80 Lymph% LAB BFMONO % [place]% 7 LAB BFMACR % 7 Macro% LAB BFREAL % Reac 2 Lymph %, BF Performed By: #### CCBF #### [facility] [address], [place] [address] PROGRESS Observed: 11/29/2017 Status: COMPLETED Source: [place] 11:38 AM [facility] REPOSITORY HNO ID: [id number] Author: Lila Pate (Rn) Po, RN Service: (none) Author Type: Registered Nurse Type: Progress Notes Filed: 12/02/2017 11:56 AM Note Text: 8.5 liters of ascites fluid was removed via paracentesis. Orders received from Dr. Meeks for IV placement and albumin infusion. A #22 Gauge angio cath was placed in the Right Wrist. 37.5 grams of albumin was infused per protocol and the IV was discontinued post infusion. Vika Kasper RN PROGRESS Observed: 11/29/2017 Status: COMPLETED Source: [place] 10:12 AM [facility] REPOSITORY HNO ID: [id number] Author: Lila PickardRn) Po, RN Service: (none) Author Type: Registered Nurse Type: Progress Notes Filed: 12/02/2017 11:56 AM Note Text: Name: Priti Mcdonald Patient presents for a Paracentesis. The procedure including risks, benefits, options and personnel performing the procedure was discussed with the patient. There are no contraindications to the procedure. Priti Mcdonald expressed understanding and agreed to proceed. Procedure performed by Slime Garber APRN,DOLPHIN RESEARCHER in the presence of Dr. Meeks Medication: 2% Lidocaine 10cc The patient was placed in the supine position. A pocket of fluid suitable for paracentesis was marked in the right abdomen under ultrasound guidance. The skin and subcutaneous tissue was anesthetized with local anesthetic. A 15 guage Barillas Needle was inserted into the abdomen and 8.5 liters were removed. The fluid was sent to the Lab for analysis. There were no immediate complications associated with the procedure. Slime Garber APRN, CNP CNOV Observed: 11/29/2017 Status: COMPLETED Source: [place] 8:15 AM [facility] REPOSITORY Office Visit (GAPRA3) PRITI MCDONALD ([id number]) 1960 F Date Time Provider Department 11/29/17 8:15 AM DIANNE MEEKS During your visit today, we recorded the following information about you: Temperature Pulse Respiration Blood pressure 98.2 degrees 71/minute 18/minute 119/75 Weight 106.2 kg Lila Fontenot, RN, RN 12/02/2017 11:56 AM Signed Name: Priti Mcdonald Patient presents for a Paracentesis. The procedure including risks, benefits, options and personnel performing the procedure was discussed with the patient. There are no contraindications to the procedure. Priti Mcdonald expressed understanding and agreed to proceed. Procedure performed by Slime Garber APRN, CNP in the presence of Dr. Meeks Medication: 2% Lidocaine 10cc The patient was placed in the supine position. A pocket of fluid suitable for paracentesis was marked in the right abdomen under ultrasound guidance. The skin and subcutaneous tissue was anesthetized with local anesthetic. A 15 guage Barillas Needle was inserted into the abdomen and 8.5 liters were removed. The fluid was sent to the Lab for analysis. There were no immediate complications associated with the procedure. Slime Garber APRN,JACK Fontenot, RN, RN 12/02/2017 11:56 AM Signed 8.5 liters of ascites fluid was removed via paracentesis. Orders received from Dr. Meeks for IV placement and albumin infusion. A #22 Gauge angio cath was placed in the Right Wrist. 37.5 grams of albumin was infused per protocol and the IV was discontinued post infusion. Vika Kasper RN Referring Provider: FELY HARRIS [[id number]] Allergies As of Date: 11/29/2017 Noted Allergy Reaction CODEINE 04/28/2007 Comments: nausea Date Reviewed: 11/29/2017 Reviewed by: Vika (Wiliam) WILIAM Kasper - Fully Assessed Visit Diagnosis:Other ascites [R18.8] Order(s):ABDOM PARACENTESIS DX/THER W IMAGING GUIDANCE [[id number]] Order #: [id number] CELL COUNT + DIFF BFL [SQCCBF] Order #: [id number]. #:[id number] Prescriptions as of 11/29/2017 Sig: TRIAMTERENE 37.5 MG-HYDROCHLO* Take 2 capsules by mouth once* PAROXETINE 10 MG TABLET LEVOTHYROXINE 137 MCG TABLET Take 137 mcg by mouth once da* DEXTROAMPHETAMINE-AMPHETAMINE* Take 30 mg by mouth once alka* MECLIZINE 25 MG TABLET Take 25 mg by mouth every 6 h* DULOXETINE 60 MG CAPSULE,AGGIE* Take 60 mg by mouth once alka* * GLUCOPHAGE 500 MG TABLET one tablet two times a day * TRIAMTERENE 37.5 MG-HYDROCHLO* Take one(1) tablet daily. Problem List As Of Date 11/29/2017 Noted Resolved SKIN SENSATION DISTURB [R20.9] INVALID FOR* MENIERE'S DISEASE NOS [H81.09] DIABETES MELLITUS TYPE II-UNCOMPL [E11.9] DEPRESSIVE DISORDER NEC [F32.9] Abnormal mammogram, unspecified [R92.8] INVALID FOR* Breast cancer [C50.919] INVALID FOR* History of breast cancer [Z85.3] INVALID FOR* History of colonic polyps [Z86.010] INVALID FOR*04/29/2015 RUQ pain [R10.11] INVALID FOR* Nonalcoholic steatohepatitis ([place]) [K75.81] INVALID FOR* Biliary cirrhosis (HCC) [K74.5] INVALID FOR* Obesity, Class II, BMI 35-39.9 [E66.9] INVALID FOR* Encounter Status:Closed by SLIME GARBER CNP on 12/02/17 CBC AND DIFFERENTIAL Collected: 11/27/2017 Status: F Source: [place] 10:55 AM [facility] REPOSITORY TYPE CODE TESTS RESULT OUT OF REFERENCE UNITS RANGE LAB WBC 3.70-11.00 k/uL WBC 7.57 LAB RBC 3.90-5.20 m/uL RBC 4.91 LAB HGB 11.5-15.5 g/dL Hemoglobin 14.3 LAB HCT 36.0-46.0 % Hematocrit 42.2 LAB MCV 80.0-100.0 fL MCV 85.9 LAB MCH 26.0-34.0 pG MCH 29.1 LAB MCHC 30.5-36.0 g/dL MCHC 33.9 LAB RDWCV 11.5-15.0 % RDW-CV 13.3 LAB PLTCT 150-400 k/uL Platelet Count 277 LAB MPV 9.0-12.7 fL MPV 9.8 LAB ANEUT % Neut% 68.3 LAB AANEUT 1.45-7.50 k/uL Abs Neut 5.16 LAB ALYMP % Lymph% 19.6 LAB AALYMP 1.00-4.00 k/uL Abs Lymph 1.48 LAB AMONO % [place]atham% 8.5 LAB AAMONO <0.87 k/uL Abs [place]atham 0.64 LAB AEOS % Eosin% 2.9 LAB AAEOS <0.46 k/uL Abs Eosin 0.22 LAB ABASO % Baso% 0.7 LAB AABASO <0.11 k/uL Abs Baso 0.05 LAB AUNRBC 0 /100 WBC NRBCs 0.0 LAB ABNRBC <0.01 k/uL Absolute nRBC <0.01 LAB DTYP DTYPE Auto Diff Performed By: #### CBCDIF, PT, PTT, CMP #### [facility] [address] [place] [address] PROTIME Collected: 11/27/2017 Status: F Source: [place] 10:55 AM [facility] REPOSITORY TYPE CODE TESTS RESULT OUT OF RANGE REFERENCE UNITS LAB PSEC 9.7-13.0 sec PT Sec 11.2 LAB INR 0.9-1.3 PT INR 1.1 Result Comment: Vitamin K Antagonist (VKA) Therapeutic Range: INR 2 to 3 (Target INR of 2.5) Note: For patients treated with VKA drugs, such as warfarin, the [place] [employer] 2012 Guideline recommends a therapeutic INR range of 2 to 3 (target INR of 2.5). This recommendation includes high-risk patients with antiphospholipid syndrome with previous arterial or venous thromboembolism, current-generation mechanical or bioprosthetic aortic heart valve replacement. Note: Patients with mechanical aortic valve replacement and additional risk factors for thromboembolic events (atrial fibrillation, previous thromboembolism, LV dysfunction, hypercoagulable conditions) or an older generation mechanical AVR (i.e., ball in-Cage) or any mechanical MVR should have a INR therapeutic range of 2.5 to 3.5 (target INR of 3). Pearl GH, et al. Chest 2012, 141:7S-47S Rita RA, et al. [facility] 2017, 70: 252-289 Performed By: #### CBCDIF, PT, PTT, CMP #### [facility] [address] [place], [place] [address] APTT Collected: 11/27/2017 Status: F Source: [place] 10:55 [facility] REPOSITORY TYPE CODE TESTS RESULT OUT OF RANGE REFERENCE UNITS LAB APTT 23.0-32.4 sec APTT 26.0 Result Comment: Unfractionated Heparin Therapeutic Ranges: Standard Heparin Nomogram: 53 to 78 seconds (anti-Xa level of 0.3 to 0.7 U/ml) Low Dose/ACS Nomogram: 49 to 67 seconds (anti-Xa level of 0.2 to 0.5 U/ml) Stroke Treatment Nomogram: 49 to 67 seconds (anti-Xa level of 0.2 to 0.5 U/ml) Note: The APTT therapeutic range has been determined for the current lot of laboratory APTT reagent in use throughout the [facility]. Performed By: #### CBCDIF, PT, PTT, CMP #### [facility] [address] [place], [place] [address] COMP METABOLIC PANEL Collected: 11/27/2017 Status: F Source: [place] 10:55 [facility] REPOSITORY TYPE CODE TESTS RESULT OUT OF REFERENCE UNITS RANGE LAB TP 6.3-8.0 g/dL Protein, Total 6.4 LAB ALB 3.9-4.9 g/dL Low Albumin 3.3 LAB CA 8.5-10.2 mg/dL Calcium, Total 10.0 LAB TBIL 0.2-1.3 mg/dL Bilirubin, Total 0.4 LAB ALKP 32-117 U/L Alkaline High Phosphatase 125 LAB AST 13-35 U/L AST 33 LAB GLU 74-99 mg/dL Glucose High 115 Result Comment: The [place] [employer] (ADA) provides guidance for cutoff values for fasting glucose and random glucose. The ADA defines fasting as no caloric intake for at least 8 hours. Fas ting plasma glucose results between 100 to 125 mg/dL indicate increased risk for diabetes (prediabetes). Fasting plasma glucose results greater than or equal to 126 mg/dL meet the criteria for diagnosis of diabetes. In the absence of unequivocal hyperglycemia, results should be confirmed by repeat testing. In a patient with classic symptoms of hyperglycemia or hyperglycemic crisis, random plasma glucose results greater than or equal to 200 mg/dL meet the criteria for diagnosis of diabetes. Reference: Standards of Medical Care in Diabetes 2016, [place] [employer]. Diabetes Care. 2016.39(Suppl 1). LAB BUN 7-21 mg/dL BUN 14 LAB CRET 0.58-0.96 mg/dL Creatinine High 1.16 LAB NA 136-144 mmol/L Sodium 142 LAB K 3.7-5.1 mmol/L Potassium 4.4 LAB CL 97-105 mmol/L Chloride 105 LAB CO2 22-30 mmol/L CO2 29 LAB AGAP 9-18 mmol/L Low Anion Gap 8 LAB ALT 7-38 U/L ALT 25 LAB GFRAA eGFR- Amer. 58 LAB GFRNAA . eGFR-All Other Races 48 Result Comment: eGFR (Estimated GFR) Units of measure: mL/min/1.73 meters squared eGFR is derived from the reexpressed MDRD Study equation using the following parameters: serum creatinine, age, gender and race. The creatinine assay has been calibrated to be traceable to IDMS. An eGFR <60 mL/min/1.73m2 for >3 months is consistent with chronic kidney disease. Refer to KDOQI guidelines for clinical interpretation. In patients with unstable renal function, e.g. those with acute kidney injury, the eGFR may not accurately reflect actual GFR. Performed By: #### CBCDIF, PT, PTT, CMP #### [facility] [address] [place], [place] [address] TYPE AND SCREEN Collected: 11/27/2017 Status: F Source: [place] 10:55 AM [facility] REPOSITORY TYPE CODE TESTS RESULT OUT OF REFERENCE UNITS RANGE LAB %ABR O ABO/RH(D) POSITIVE LAB % Antibody NEG Screen Performed By: #### TSCR #### [facility] [address] [place], [place] [address] ED PROV NOTE Observed: 11/27/2017 Status: COMPLETED Source: [place] 10:42 AM [facility] REPOSITORY HNO ID: [id number] Author: Lidia Hurley MD Service: Emergency Medicine Author Type: Physician Type: ED Provider Notes Filed: 11/27/2017 3:03 PM Note Text: ED Provider Note Patient Name: Priti Mcdonald SERVICE DATE: 11/27/17 History Patient presents with: Sent By Md: Pt sent by MD after attempted paracentisis this morning. Per pt, the procedure was stopped because the fluid stopped draining and just blood was coming out 57 year old female with PMH [place], cirrhosis with ascites, breast CA in remission s/p lumpectomy 2011 presents to the ED sent to the ED sent by gastroenterology today. Patient states she is having a paracentesis today as she does approximately every 2 weeks. Patient states upon insertion of the needle she had a sharp pain in her right lower quadrant at the insertion site which radiated to her right hip, this is new. Initially there was drainage of ascites fluid, however afterwards was blood and clots. Procedure was aborted and patient was sent to the emergency department for evaluation/observation. She denies any pain at this time, resolved. She does express some associated nausea, without vomiting. She denies fever, chills, abdominal pain, chest pain or shortness of breath. PAST MEDICAL HISTORY Diagnosis Date - Depressive disorder, not elsewhere classified - Hypothyroidism - Mammographic microcalcification 08/24/08 RIGHT BREAST - Meniere's disease, unspecified - Snoring - Type II or unspecified type diabetes mellitus without mention of complication, not stated as uncontrolled PAST SURGICAL HISTORY Procedure Laterality Date - COLONOSCOP W/ OR W/O BRSH SPEC 04/29/15 Colonoscopy - COLONOSCOPY 04/04/10 VJ -hyperplastic polyp - LIGATE FALLOPIAN TUBE 1989 Tubal ligation - PAST SURGICAL HISTORY OF 2003 Bunionectomy - PAST SURGICAL HISTORY OF Clean out endometriosis - PAST SURGICAL HISTORY OF 12/2010. Total Hysterectomy - PAST SURGICAL HISTORY OF 10/18/11 Lt breast lumpectomy with SLN biopsy - PAST SURGICAL HISTORY OF 2009 Vaginal sling FAMILY HISTORY Problem Relation Age of Onset - Heart Mother - Heart Father - Heart Maternal Grandfather - Heart Paternal Grandfather - Cancer Maternal Grandmother brain Social History Social History Main Topics - Smoking status: Former Smoker Types: Cigarettes - Smokeless tobacco: Never Used Comment: Social smoker while in college. - Alcohol use Yes Comment: occasional - Drug use: No - Sexual activity: Yes Partners: Male ALLERGIES Allergen Reactions - Codeine nausea Review of Systems Constitutional: Negative for chills and fever. HENT: Negative for congestion, ear pain, rhinorrhea and sore throat. Eyes: Negative for pain. Respiratory: Negative for shortness of breath. Cardiovascular: Negative for chest pain. Gastrointestinal: Positive for abdominal pain (RLQ, resolved) and nausea. Negative for constipation, diarrhea and vomiting. Genitourinary: Negative for decreased urine volume, dysuria, flank pain and hematuria. Musculoskeletal: Negative for back pain. Skin: Negative for wound. Neurological: Negative for dizziness, syncope, weakness, light-headedness, numbness and headaches. Physical Exam BP 123/82 Pulse 75 Temp (Src) 97.9 (Oral) Resp 16 Ht 5' 7 (1.70m) Wt 235 lb (106.6kg) SpO2 98% LMP 08/09/2008 BMI 36.80 kg/(m2). Physical Exam Constitutional: She is oriented to person, place, and time. She appears well-developed and well-nourished. No distress. HENT: Head: Normocephalic and atraumatic. Mouth/Throat: Oropharynx is clear and moist. Eyes: Conjunctivae and EOM are normal. Pupils are equal, round, and reactive to light. Neck: Normal range of motion. Neck supple. Cardiovascular: Normal rate, regular rhythm, normal heart sounds and intact distal pulses. Pulses: Radial pulses are 2+ on the right side, and 2+ on the left side. Dorsalis pedis pulses are 2+ on the right side, and 2+ on the left side. Pulmonary/Chest: Effort normal and breath sounds normal. No respiratory distress. Abdominal: Soft. Bowel sounds are normal. She exhibits distension. There is no tenderness (non tender. no rigidigy, guarding, or rebound. bandage covering needle insertion site, no active bleeding, nontender). Musculoskeletal: Normal range of motion. Lymphadenopathy: She has no cervical adenopathy. Neurological: She is alert and oriented to person, place, and time. Skin: Skin is warm and dry. She is not diaphoretic. Psychiatric: She has a normal mood and affect. Nursing note and vitals reviewed. Diagnostic Testing ED Labs Ordered and Reviewed - No data to display Procedures ED Course / Clinical Impression Clinical Impressions as of Nov 27 114 History of abdominal paracentesis BARRAGAN (nonalcoholic steatohepatitis) Cirrhosis of liver with ascites, unspecified hepatic cirrhosis type (HCC) MDM / Disposition / Plan Nursing notes have been reviewed. Medical record has been reviewed. 57 year old female with PMH BARRAGAN, cirrhosis with ascites, breast CA in remission s/p lumpectomy 2011 presents to the ED sent to the ED sent by gastroenterology today. Patient is afebrile, normotensive, and nontoxic paracentesis was performed at 0830, approximately 4 hours ago. Abdominal exam is benign, not peritoneal, no abdominal tenderness. She is well appearing and in no acute distress. Patient was observed in the ED x 2 hours. Given the HANDP, labs and imaging performed today, patient discharged with instructions to follow up with Miya Salinas, gastroenterology in 1-2 days and to return to ED immediately if symptoms worsen or new symptoms develop. Patient understood suspected diagnosis and instructions, amenable to plan with no questions/concerns at this time. Bowel perforation, hematoma, procedural pain considered as differential diagnoses. Differential diagnoses were considered less likely because of the following reasons patient has no abdominal tenderness at this time, not peritoneal and symptoms have resolved. Management decisions include likely post procedural pain of paracentesis. . Disposition The patient was discharged. Counseled patient and family regarding suspected diagnosis. As well as the need for follow-up. Discharged home with verbal and written instructions. They were instructed to return as needed for persistent or worsening symptoms or any new concerns. Condition at disposition is stable. SIGNATURE: DEVENDRA Gallo) ESTHER Morrell 11/27/17 2681 ESTHER Gallo (Pa) 11/27/17 1154 Attending Note I have personally performed a face to face assessment of the patient and have reviewed the PA/EMPLOYEE SERVICES MANAGER note. My laughlin findings include: History is patient had a procedure approximately 8:30 this morning stating that during her paracentesis there was blood was drawn with subsequent minimal paracentesis fluid drawn. Exam is abdomen soft nontender nondistended. No continued fluid or blood drainage. Assessment/Plan are no signs of peritonitis or discomfort on examination. Patient is well-appearing and is at least 4 hours after the procedure. Patient is stable for discharge. Other additions or changes: None Signature: Lidia Hurley MD Date: 11/27/2017 Time: 2:58 PM Lidia Hurley MD 11/27/17 1503 ED NOTE Observed: 11/27/2017 Status: COMPLETED Source: [place] 10:40 AM [facility]POS[facility] HNO ID: [id number] Author: Raul PickardRn) WILIAM Dorman Service: Emergency Medicine Author Type: Registered Nurse Type: ED Notes Filed: 11/27/2017 11:06 AM Note Text: Assumed care of pt. TCI note reviewed. Pt is AANDOX3, ABCs intact. Pt sent to ED from outpatient paracentesis appt, with concern for bleeding. Pt states small amount of blood noted in tubing with initiation of paracentesis. Pt states felt sharp pain radiating down RLE when needle inserted. Pt arrives with dry intact dressing to RLQ/right femoral area. No drainage noted. Abdomen soft non tender. POC reviewed, pt verbalizes understanding. PA at bedside to evaluate. ED NOTE Observed: 11/27/2017 Status: COMPLETED Source: [place] 10:33 AM [facility] HNO ID: [id number] Author: Monica PickardRn) WILIAM Archuleta Service: (none) Author Type: Registered Nurse Type: ED Notes Filed: 11/27/2017 10:33 AM Note Text: Bed: I-03 Expected date: Expected time: Means of arrival: Comments: Priti Mcdonald Coming from [place] with complication during paracentesis. During paracentesis, initially had yellow fluid but then after adjusting needle, had fresh red blood and blood clots. Procedure aborted and pt to be sent to ED for eval PROGRESS Observed: 11/27/2017 Status: COMPLETED Source: [place] 9:38 AM [facility] HNO ID: [id number] Author: Miya Salinas Service: (none) Author Type: Nurse Practitioner Type: Progress Notes Filed: 11/27/2017 1:05 PM Note Text: Name: Priti Mcdonald Patient presents for a Paracentesis. The procedure including risks, benefits, options and personnel performing the procedure was discussed with the patient. There are no contraindications to the procedure. Priti Mcdonald expressed understanding and agreed to proceed. Procedure performed by Miya Salinas APRN.CNP Medication: 2% Lidocaine 10cc The patient was placed in the supine position. A pocket of fluid suitable for paracentesis was marked in the right abdomen under ultrasound guidance. The skin and subcutaneous tissue was anesthetized with local anesthetic. A 15 guage Barillas Needle was inserted into the abdomen with initial return of yellow ascites. Catheter connected to drainage bottle but ascitic fluid did not drain, bottle changed still with no drainage of ascites. Catheter pulled back with return of red blood and blood clots, barillas needle removed and procedure was aborted. VSS. Pt to be transferred to the ED for monitoring. Report called to Kaylan. The fluid was not sent to the Lab for analysis. There were no immediate complications associated with the procedure. Miya Salinas APRN.CNP CNOV Observed: 11/27/2017 Status: COMPLETED Source: [place] 8:30 AM [facility] Office Visit (GAPRA3) PRITI MCDONALD ([id number]) 1960 F Date Time Provider Department 11/27/17 8:30 AM HEPATOLOGY PROCEDURES GAP[facility]3 During your visit today, we recorded the following information about you: Miya Salinas APRN.CNP 11/27/2017 1:05 PM Signed Name: Priti Mcdonald Patient presents for a Paracentesis. The procedure including risks, benefits, options and personnel performing the procedure was discussed with the patient. There are no contraindications to the procedure. Priti Mcdonald expressed understanding and agreed to proceed. Procedure performed by Miya Salinas APRN.DOLPHIN RESEARCHER Medication: 2% Lidocaine 10cc The patient was placed in the supine position. A pocket of fluid suitable for paracentesis was marked in the right abdomen under ultrasound guidance. The skin and subcutaneous tissue was anesthetized with local anesthetic. A 15 guage Barillas Needle was inserted into the abdomen with initial return of yellow ascites. Catheter connected to drainage bottle but ascitic fluid did not drain, bottle changed still with no drainage of ascites. Catheter pulled back with return of red blood and blood clots, barillas needle removed and procedure was aborted. VSS. Pt to be transferred to the ED for monitoring. Report called to Kaylan. The fluid was not sent to the Lab for analysis. There were no immediate complications associated with the procedure. Miya Salinas APRN.DOLPHIN RESEARCHER Referring Provider: FELY HARRIS [[id number]] Allergies As of Date: 11/27/2017 Noted Allergy Reaction CODEINE 04/28/2007 Comments: nausea Date Reviewed: 11/27/2017 Reviewed by: Giuliana (Rn) WILIAM Ivey - Fully Assessed Visit Diagnosis:Other ascites [R18.8] Order(s):ABDOM PARACENTESIS DX/THER W IMAGING GUIDANCE [[id number]] Order #: [id number] Prescriptions as of 11/27/2017 Sig: TRIAMTERENE 37.5 MG-HYDROCHLO* Take 2 capsules by mouth once* PAROXETINE 10 MG TABLET LEVOTHYROXINE 137 MCG TABLET Take 137 mcg by mouth once da* DEXTROAMPHETAMINE-AMPHETAMINE* Take 30 mg by mouth once alka* MECLIZINE 25 MG TABLET Take 25 mg by mouth every 6 h* DULOXETINE 60 MG CAPSULE,AGGIE* Take 60 mg by mouth once alka* * GLUCOPHAGE 500 MG TABLET one tablet two times a day * TRIAMTERENE 37.5 MG-HYDROCHLO* Take one(1) tablet daily. Problem List As Of Date 11/27/2017 Noted Resolved SKIN SENSATION DISTURB [R20.9] INVALID FOR* MENIERE'S DISEASE NOS [H81.09] DIABETES MELLITUS TYPE II-UNCOMPL [E11.9] DEPRESSIVE DISORDER NEC [F32.9] Abnormal mammogram, unspecified [R92.8] INVALID FOR* Breast cancer [C50.919] INVALID FOR* History of breast cancer [Z85.3] INVALID FOR* History of colonic polyps [Z86.010] INVALID FOR*04/29/2015 RUQ pain [R10.11] INVALID FOR* Nonalcoholic steatohepatitis (BARRAGAN) [K75.81] INVALID FOR* Biliary cirrhosis (HCC) [K74.5] INVALID FOR* Obesity, Class II, BMI 35-39.9 [E66.9] INVALID FOR* Encounter Status:Closed by MIYA SALINAS on 11/27/17 CELL COUNT/DIFF BF Collected: 11/12/2017 Status: F Source: [place] 10:41 AM [facility] TYPE CODE TESTS RESULT OUT OF RANGE REFERENCE UNITS LAB BFSITE Site Ascites Fluid LAB BFCOL Color Yellow LAB BFCLR Clear Abnormal Clarity Slightly Alert turbid LAB BFSCOL Suprntnt Color Yellow LAB BFSCLR Clear Suprntnt Clear Clarity LAB BFRBC /uL RBC 2000 LAB BFWBC /uL Nucleated 777 Cells, BF LAB BFCOM BF Comment SEE COMMENT Result Comment: Test Not Indicated LAB BFREV BF SEE Review COMMENT Result Comment: Test Not Indicated LAB BFSLNM Slide Number BF [id number] LAB BFNEUT % Neut% 5 LAB BFLYMP % 49 Lymph% LAB BFMONO % [place]% 28 LAB BFMACR % 15 Macro% LAB BFMESO % [place]% 3 Performed By: #### CCBF #### [facility] [address], [place] [address] PROGRESS Observed: 11/12/2017 Status: COMPLETED Source: [place] 9:55 AM [facility] HNO ID: [id number] Author: Cristela (Rn) WILIAM Zhong Service: (none) Author Type: Registered Nurse Type: Progress Notes Filed: 11/12/2017 12:42 PM Note Text: THE FOLLOWING WAS EVALUATED Motivation To Learn: Eager Family/Significant Other Support: Moderate - Family present but overwhelmed Cognitive Ability: Alert and oriented Patient Learns Best By: Verbal Instruction The Following Influencing Factors Were Barriers To This Education Session: None The Following Physical Limitations Were Barriers To This Education Session: None Instruction Provided To: Patient and family member Learning Topic: Procedure/Surgery: PARACENTESIS Patient Evaluation: Verbalizes understanding Follow Up Plan: Follow up as needed 6 liters of ascites fluid was removed via paracentesis. Orders received from Miya Salinas for IV placement and albumin infusion. A #24 Gauge angio cath was placed in the Right hand. 37.5 grams of albumin was infused per protocol and the IV was discontinued post infusion. Cristela Zhong RN THE FOLLOWING WAS EVALUATED Motivation To Learn: Eager Family/Significant Other Support: Moderate - Family present but overwhelmed Cognitive Ability: Alert and oriented Patient Learns Best By: Verbal Instruction The Following Influencing Factors Were Barriers To This Education Session: None The Following Physical Limitations Were Barriers To This Education Session: None Instruction Provided To: Patient and family member Learning Topic: Procedure/Surgery: PARACENTESIS Patient Evaluation: Verbalizes understanding Follow Up Plan: Follow up as needed PROGRESS Observed: 11/12/2017 Status: COMPLETED Source: [place] 8:57 AM [facility] HNO ID: [id number] Author: Cristela (Rn) WILIAM Zhong Service: (none) Author Type: Registered Nurse Type: Progress Notes Filed: 11/12/2017 12:42 PM Note Text: Name: Priti Mcdonald Patient presents for a Paracentesis. The procedure including risks, benefits, options and personnel performing the procedure was discussed with the patient. There are no contraindications to the procedure. Priti Mcdonald expressed understanding and agreed to proceed. Procedure performed by Miya Salinas APRN.DOLPHIN RESEARCHER Medication: 2% Lidocaine 10cc The patient was placed in the supine position. A pocket of fluid suitable for paracentesis was marked in the right abdomen under ultrasound guidance. The skin and subcutaneous tissue was anesthetized with local anesthetic. A 15 guage Barillas Needle was inserted into the abdomen and 6 liters were removed. The fluid was sent to the Lab for analysis. There were no immediate complications associated with the procedure. Miya Salinas APRN.DOLPHIN RESEARCHER CNOV Observed: 11/12/2017 Status: COMPLETED Source: [place] 8:15 AM [facility] Office Visit (GAPRA3) PRITI MCDONALD ([id number]) 1960 F Date Time Provider Department 11/12/17 8:15 AM HEPATOLOGY PROCEDURES GAP[facility]3 During your visit today, we recorded the following information about you: Temperature Pulse Respiration Blood pressure 98.1 degrees 76/minute 18/minute 112/60 Weight 112.2 kg Cristela Zhong, WILIAM, RN 11/12/2017 12:42 PM Signed Name: Priti Mcdonald Patient presents for a Paracentesis. The procedure including risks, benefits, options and personnel performing the procedure was discussed with the patient. There are no contraindications to the procedure. Priti Mcdonald expressed understanding and agreed to proceed. Procedure performed by Miya Salinas APRN.DOLPHIN RESEARCHER Medication: 2% Lidocaine 10cc The patient was placed in the supine position. A pocket of fluid suitable for paracentesis was marked in the right abdomen under ultrasound guidance. The skin and subcutaneous tissue was anesthetized with local anesthetic. A 15 guage Barillas Needle was inserted into the abdomen and 6 liters were removed. The fluid was sent to the Lab for analysis. There were no immediate complications associated with the procedure. Miya Salinas APRN.DOLPHIN RESEARCHER Cristela Zhong, RN, RN 11/12/2017 12:42 PM Signed THE FOLLOWING WAS EVALUATED Motivation To Learn: Eager Family/Significant Other Support: Moderate - Family present but overwhelmed Cognitive Ability: Alert and oriented Patient Learns Best By: Verbal Instruction The Following Influencing Factors Were Barriers To This Education Session: None The Following Physical Limitations Were Barriers To This Education Session: None Instruction Provided To: Patient and family member Learning Topic: Procedure/Surgery: PARACENTESIS Patient Evaluation: Verbalizes understanding Follow Up Plan: Follow up as needed 6 liters of ascites fluid was removed via paracentesis. Orders received from Miya Salinas for IV placement and albumin infusion. A #24 Gauge angio cath was placed in the Right hand. 37.5 grams of albumin was infused per protocol and the IV was discontinued post infusion. Cristela Zhong RN THE FOLLOWING WAS EVALUATED Motivation To Learn: Eager Family/Significant Other Support: Moderate - Family present but overwhelmed Cognitive Ability: Alert and oriented Patient Learns Best By: Verbal Instruction The Following Influencing Factors Were Barriers To This Education Session: None The Following Physical Limitations Were Barriers To This Education Session: None Instruction Provided To: Patient and family member Learning Topic: Procedure/Surgery: PARACENTESIS Patient Evaluation: Verbalizes understanding Follow Up Plan: Follow up as needed Referring Provider: FELY HARRIS [[id number]] Allergies As of Date: 11/12/2017 Noted Allergy Reaction CODEINE 04/28/2007 Comments: nausea Date Reviewed: 11/12/2017 Reviewed by: Cristela (Rn) WILIAM Zhong - Fully Assessed Visit Diagnoses:Other ascites [R18.8] Obesity, Class II, BMI 35-39.9 [E66.9] Order(s):ABDOM PARACENTESIS DX/THER W IMAGING GUIDANCE [[id number]] Order #: [id number] CELL COUNT + DIFF BFL [SQCCBF] Order #: [id number] albumin, 25%, 25 % bottleInject 150 mL intravenously one time only for 1 dose.Disp: 150 mLRfl: 0 Prescriptions as of 11/12/2017 Sig: ALBUMIN, HUMAN 25 % INTRAVENO* Inject 150 mL intravenously o* TRIAMTERENE 37.5 MG-HYDROCHLO* Take 2 capsules by mouth once* PAROXETINE 10 MG TABLET LEVOTHYROXINE 137 MCG TABLET Take 137 mcg by mouth once da* DEXTROAMPHETAMINE-AMPHETAMINE* Take 30 mg by mouth once alka* MECLIZINE 25 MG TABLET Take 25 mg by mouth every 6 h* DULOXETINE 60 MG CAPSULE,AGGIE* Take 60 mg by mouth once alka* * GLUCOPHAGE 500 MG TABLET one tablet two times a day * TRIAMTERENE 37.5 MG-HYDROCHLO* Take one(1) tablet daily. 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] DIABETES MELLITUS TYPE II-UNCOMPL [E11.9] DEPRESSIVE DISORDER NEC [F32.9] Abnormal mammogram, unspecified [R92.8] INVALID FOR* Breast cancer [C50.919] INVALID FOR* History of breast cancer [Z85.3] INVALID FOR* History of colonic polyps [Z86.010] INVALID FOR*04/29/2015 RUQ pain [R10.11] INVALID FOR* Nonalcoholic steatohepatitis (BARRAGAN) [K75.81] INVALID FOR* Biliary cirrhosis (HCC) [K74.5] INVALID FOR* Obesity, Class II, BMI 35-39.9 [E66.9] INVALID FOR* Prescriptions ordered this encounter Disp Refills Start End ALBUMIN, HUMAN 25 % INTRAVENOUS SOLU* 150 * 0 11/12/2017 11/12/2017 Class: In Office Route: INTRAVENOUS Sig: Inject 150 mL intravenously one time only for 1 dose. Encounter Status:Closed by MIYA SALINAS on 11/12/17 PROGRESS Observed: 11/06/2017 Status: COMPLETED Source: [place] 11:59 AM [facility] O ID: [id number] Author: Jessica Maurice (Sw) Service: (none) Author Type: Steam Power Plant Operator Type: Progress Notes Filed: 11/06/2017 12:00 PM Note Text: SOCIAL WORK Date of Service: 11/05/17 Priti Mcdonald is a 57 year old female being seen for initial social work assessment. At this time, social work service is declined/deferred based on: she is not interested. PLAN: Follow up on an as needed basis CHRISTEN Watson CNSW Observed: 11/06/2017 Status: COMPLETED Source: [place] 12:00 AM [facility] Social Work ([facility]) PRITI MCDONALD ([id number]) 1960 F Date Time Provider Department 11/06/17 JESSICA MAURICE (SW) During your visit today, we recorded the following information about you: CHRISTEN Watson 11/06/2017 12:00 PM Signed SOCIAL WORK Date of Service: 11/05/17 Priti Mcdonald is a 57 year old female being seen for initial social work assessment. At this time, social work service is declined/deferred based on: she is not interested. PLAN: Follow up on an as needed basis CHRISTEN Watson Allergies As of Date: 11/06/2017 Noted Allergy Reaction CODEINE 04/28/2007 Comments: nausea Date Reviewed: 11/05/2017 Reviewed by: Sabrina Ma - Fully Assessed Reason for Visit: Social Work Services [[id number]] Cmt: distress assessment decline Prescriptions as of 11/06/2017 Sig: TRIAMTERENE 37.5 MG-HYDROCHLO* Take 2 capsules by mouth once* PAROXETINE 10 MG TABLET LEVOTHYROXINE 137 MCG TABLET Take 137 mcg by mouth once da* DEXTROAMPHETAMINE-AMPHETAMINE* Take 30 mg by mouth once alka* MECLIZINE 25 MG TABLET Take 25 mg by mouth every 6 h* DULOXETINE 60 MG CAPSULE,AGGIE* Take 60 mg by mouth once alka* * GLUCOPHAGE 500 MG TABLET one tablet two times a day * TRIAMTERENE 37.5 MG-HYDROCHLO* Take one(1) tablet daily. 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] DIABETES MELLITUS TYPE II-UNCOMPL [E11.9] DEPRESSIVE DISORDER NEC [F32.9] Abnormal mammogram, unspecified [R92.8] INVALID FOR* Breast cancer [C50.919] INVALID FOR* History of breast cancer [Z85.3] INVALID FOR* History of colonic polyps [Z86.010] INVALID FOR*04/29/2015 RUQ pain [R10.11] INVALID FOR* Nonalcoholic steatohepatitis (BARRAGAN) [K75.81] INVALID FOR* Biliary cirrhosis (HCC) [K74.5] INVALID FOR* Encounter Status:Closed by JESSICA MAURICE on 11/06/17 PROGRESS Observed: 11/05/2017 Status: COMPLETED Source: [place] 9:13 AM [facility] HNO ID: [id number] Author: Sabrina Ma Service: (none) Author Type: Nurse Practitioner Type: Progress Notes Filed: 11/05/2017 9:48 AM Note Text: Chief Complaint Patient presents with: Establish Care HPI: Priti Mcdonald is a 57 year old female who presents here today for follow up breast cancer. 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 ? H/o abnormal screening mammogram at [facility] 09/06/11. An 8.4 mm nodular density was seen in the left mid breast. This was confirmed with magnification views and an US 09/12/11 showed an 8 x8 x5 mm hypoechoic irregular solid nodule at the 1 o'clock position. ?? 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 ER/OH were 100% each and HER2 was 2+, but FISH nonamplified. ?? Then underwent partial mastectomy with SLN biopsy 10/18/11. Had 1 cm single focus mucinous (colloid) carcinoma. Grade 1. Closest margin was 7 mm from inferior margin. None of 1 SLN involved. ?? Had hysterectomy with b/l oophorectomy for endometrial dysplasia 12/2010. ?? Completed radiation 01/29/2012. ?? Started Tamoxifen 01/2012. ? I've been sick since May. I need a liver transplant. I took an early custodial when I was feeling sick. Following at [facility] with Dr. Miranda. August 2017 peritoneal fluid-Neg. for malignant cells. Appetite:not much now-once I'm drained it's ok for about a week or so. Energy level:most of the time I have no energy. Denies fever, chills or nights. Denies recent illness. Resp:denies cough or sob, when I get full it gets hard to breath. Cardiac:denies chest pain/palpitations GI:denies abd pain, n/v, I get pain and n/v when I get davis., moving bowels regularly :denies dysuria/hematuria Extrem:denies pain to back/bones/joints Endo:hot flashes maybe every once in awhile but not bad. Neuro:denies symptoms of neuropathy Skin:denies rashes/lesions Heme:denies bleeding The ROS is otherwise negative. Past medical history, appointments, medications, allergies reviewed. No changes. EXAM: BP 137/87 Pulse 90 Temp 36.7 ?C (98 ?F) Wt 111.8 kg (246 lb 8 oz) LMP 08/09/2008 BMI 38.61 kg/m? APPEARANCE Well appearing, alert, in no acute distress, well-hydrated, well nourished. HEART RRR with normal S1 and S2, no murmurs LUNG clear to auscultation, diminished bases b/l LYMPH NODES No cervical lymphadenopathy, No supraclavicular lymphadenopathy and No axillary lymphadenopathy. ABDOMEN bowel sounds normoactive, no bruits, soft, non-tender, distended, without organomegaly or palpable masses EXTREMITIES No edema NEURO Awake, alert and oriented x 3, Normal gait and No involuntary motions. SKIN Skin color, texture, turgor normal, no suspicious rashes or lesions ASSESSMENT/PLAN: 1. 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 2. Encounter for screening mammogram for high-risk patient - ICD9: V76.11, ICD10: Z12.31 - ?No concerning findings on exam. - ?Completed 5 years of tamoxifen. - Follow up at [facility] as scheduled. - ?Mammogram due October 2018. Pt. has this done at [facility]. - ?Follow up in one year after mammogram. - ?Pt. aware to call office with any questions/concerns. The patient indicates understanding of these issues and agrees with the plan. Sabrina Ma APRN.CNP CNOVSP Observed: 11/05/2017 Status: COMPLETED Source: [place] 9:00 AM [facility] Visit (SP) Office ([facility]) HARRYPRITI ([id number]) 1960 F Date Time Provider Department 11/05/17 9:00 AM SABRINA MA (JACK) [facility] During your visit today, we recorded the following information about you: Temperature Pulse Blood pressure Weight 98 degrees 90/minute 137/87 111.8 kg Sabrina Ma APRN.CNP 11/05/2017 9:48 AM Signed Chief Complaint Patient presents with: Establish Care HPI: Priti Mcdonald is a 57 year old female who presents here today for follow up breast cancer. 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 ? H/o abnormal screening mammogram at [facility] 09/06/11. An 8.4 mm nodular density was seen in the left mid breast. This was confirmed with magnification views and an US 09/12/11 showed an 8 x8 x5 mm hypoechoic irregular solid nodule at the 1 o'clock position. ?? 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 ER/OH were 100% each and HER2 was 2+, but FISH nonamplified. ?? Then underwent partial mastectomy with SLN biopsy 10/18/11. Had 1 cm single focus mucinous (colloid) carcinoma. Grade 1. Closest margin was 7 mm from inferior margin. None of 1 SLN involved. ?? Had hysterectomy with b/l oophorectomy for endometrial dysplasia 12/2010. ?? Completed radiation 01/29/2012. ?? Started Tamoxifen 01/2012. ? I've been sick since May. I need a liver transplant. I took an early custodial when I was feeling sick. Following at [facility] with Dr. Miranda. August 2017 peritoneal fluid-Neg. for malignant cells. Appetite:not much now-once I'm drained it's ok for about a week or so. Energy level:most of the time I have no energy. Denies fever, chills or nights. Denies recent illness. Resp:denies cough or sob, when I get full it gets hard to breath. Cardiac:denies chest pain/palpitations GI:denies abd pain, n/v, I get pain and n/v when I get davis., moving bowels regularly :denies dysuria/hematuria Extrem:denies pain to back/bones/joints Endo:hot flashes maybe every once in awhile but not bad. Neuro:denies symptoms of neuropathy Skin:denies rashes/lesions Heme:denies bleeding The ROS is otherwise negative. Past medical history, appointments, medications, allergies reviewed. No changes. EXAM: BP 137/87 Pulse 90 Temp 36.7 ?C (98 ?F) Wt 111.8 kg (246 lb 8 oz) LMP 08/09/2008 BMI 38.61 kg/m? APPEARANCE Well appearing, alert, in no acute distress, well- hydrated, well nourished. HEART RRR with normal S1 and S2, no murmurs LUNG clear to auscultation, diminished bases b/l LYMPH NODES No cervical lymphadenopathy, No supraclavicular lymphadenopathy and No axillary lymphadenopathy. ABDOMEN bowel sounds normoactive, no bruits, soft, non-tender, distended, without organomegaly or palpable masses EXTREMITIES No edema NEURO Awake, alert and oriented x 3, Normal gait and No involuntary motions. SKIN Skin color, texture, turgor normal, no suspicious rashes or lesions ASSESSMENT/PLAN: 1. 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 2. Encounter for screening mammogram for high-risk patient - ICD9: V76.11, ICD10: Z12.31 - ?No concerning findings on exam. - ?Completed 5 years of tamoxifen. - Follow up at [facility] as scheduled. - ?Mammogram due October 2018. Pt. has this done at [facility]. - ?Follow up in one year after mammogram. - ?Pt. aware to call office with any questions/concerns. The patient indicates understanding of these issues and agrees with the plan. Sabrina Ma APRN.JACK Referring Provider: SABRINA MA ([facility]) [[id number]] Allergies As of Date: 11/05/2017 Noted Allergy Reaction CODEINE 04/28/2007 Comments: nausea Date Reviewed: 11/05/2017 Reviewed by: Sabrina ([facility]) Anil - Fully Assessed Reason for Visit: Establish Care [42] Primary Visit Diagnosis:History of breast cancer [Z85.3] Other Visit Diagnosis:Encounter for screening mammogram for high-risk patient [Z12.31] Order(s):[facility] SCREENING W BELINDA [9350002] Order #: [id number] FUTURE Follow-up and Disposition History Recorded Prescriptions as of 11/05/2017 Sig: TRIAMTERENE 37.5 MG-HYDROCHLO* Take 2 capsules by mouth once* PAROXETINE 10 MG TABLET LEVOTHYROXINE 137 MCG TABLET Take 137 mcg by mouth once da* DEXTROAMPHETAMINE-AMPHETAMINE* Take 30 mg by mouth once alka* MECLIZINE 25 MG TABLET Take 25 mg by mouth every 6 h* DULOXETINE 60 MG CAPSULE,AGGIE* Take 60 mg by mouth once alka* * GLUCOPHAGE 500 MG TABLET one tablet two times a day * TRIAMTERENE 37.5 MG-HYDROCHLO* Take one(1) tablet daily. Problem List As Of Date 11/05/2017 Noted Resolved SKIN SENSATION DISTURB [R20.9] INVALID FOR* MENIERE'S DISEASE NOS [H81.09] DIABETES MELLITUS TYPE II-UNCOMPL [E11.9] DEPRESSIVE DISORDER NEC [F32.9] Abnormal mammogram, unspecified [R92.8] INVALID FOR* Breast cancer [C50.919] INVALID FOR* History of breast cancer [Z85.3] INVALID FOR* History of colonic polyps [Z86.010] INVALID FOR*04/29/2015 RUQ pain [R10.11] INVALID FOR* Nonalcoholic steatohepatitis ([place]ARRAGAN) [K75.81] INVALID FOR* Biliary cirrhosis (HCC) [K74.5] INVALID FOR* Encounter Status:Closed by SABRINA MA CNP on 11/05/17 DOWNTIME REPORT Observed: 10/31/2017 Status: F Source: [place]I 1:20 PM [facility] REPOSITORY [facility] Medical Records Department [address] [place] [address] Downtime Report MR#: [id number] Acct: [id number] Name: PRITI MCDONALD Rep #: [id number] : 1960 57 From: Hector Major PCP: Elias Rodriguez MD Status: REG CLI This patient was seen during an EMR downtime October 14, 2017 - October 21, 2017. This patient may have a combination of paper and electronic documentation or all paper documentation. All documentation is viewable within the e-chart portion of [facility] for each patient visit. DOWNTIME REPORT Observed: 10/31/2017 Status: F Source: [place]I 12:29 PM [facility] REPOSITORY [facility] Medical Records Department [address] [place] [address] Downtime Report MR#: [id number] Acct: [id number] Name: HARRYPRITI Josh Rep #: [id number] : 1960 57 From: Hector Major PCP: Elias Rodriguez MD Status: REG CLI This patient was seen during an EMR downtime October 14, 2017 - October 21, 2017. This patient may have a combination of paper and electronic documentation or all paper documentation. All documentation is viewable within the e-chart portion of [email or web address] for each patient visit. CELL COUNT/DIFF BF Collected: 10/24/2017 Status: F Source: [place] 11:52 AM [facility] REPOSITORY TYPE CODE TESTS RESULT OUT OF RANGE REFERENCE UNITS LAB BFSITE Site Ascites Fluid LAB BFCOL Color Yellow LAB BFCLR Clear Abnormal Clarity Slightly Alert turbid LAB BFSCOL Suprntnt Color Yellow LAB BFSCLR Clear Suprntnt Clear Clarity LAB BFRBC /uL RBC <2000 LAB BFWBC /uL Nucleated 776 Cells, BF LAB BFCOM BF Comment SEE COMMENT Result Comment: Test Not Indicated LAB BFREV BF SEE Review COMMENT Result Comment: Test Not Indicated LAB BFSLNM Slide Number BF [id number] LAB BFNEUT % Neut% 8 LAB BFLYMP % 62 Lymph% LAB BFMONO % [place]% 20 LAB BFMACR % 8 Macro% LAB BFMESO % Meso% 2 Performed By: #### CCBF #### [facility] [address] [address] PROGRESS Observed: 10/24/2017 Status: COMPLETED Source: [place] 9:01 AM [facility] REPOSITORY HNO ID: [id number] Author: Vanessa (Rn) WILIAM Cotter Service: (none) Author Type: Registered Nurse Type: Progress Notes Filed: 10/25/2017 9:11 AM Note Text: NAME: Priti Mcdonald Patient presents for a Paracentesis. Procedure performed by Staff Love - Dr. Cha Torres MD Medications: None given Procedure: The patient was placed in the supine position. Under ultrasound, There was free fluid noted by ultrasound and a pocket suitable for Paracentesis was found. . The patient tolerated the procedure well. Cha Torres MD Name: Priti Mcdonald Patient presents for a Paracentesis. The procedure including risks, benefits, options and personnel performing the procedure was discussed with the patient. There are no contraindications to the procedure. Priti Mdconald expressed understanding and agreed to proceed. Procedure performed by Staff Kate Torres MD Medication: 2% Lidocaine 8cc The patient was placed in the supine position. A pocket of fluid suitable for paracentesis was marked in the right abdomen under ultrasound guidance. The skin and subcutaneous tissue was anesthetized with local anesthetic. A 15 guage Barillas Needle was inserted into the abdomen and 7 liters were removed. The fluid was sent to the Lab for analysis. There were no immediate complications associated with the procedure. Cha Torres MD 7 liters of ascites fluid was removed via paracentesis. Orders received from Dr. Torres for IV placement and albumin infusion. A #24 Gauge angio cath was placed in the Left hand. 50 grams of albumin was infused per protocol and the IV was discontinued post infusion. Vanessa Cotter RN THE FOLLOWING WAS EVALUATED Motivation To Learn: Eager Interested Family/Significant Other Support: High - Very involved in pt care Cognitive Ability: Alert and oriented Patient Learns Best By: Verbal Instruction The Following Influencing Factors Were Barriers To This Education Session: None The Following Physical Limitations Were Barriers To This Education Session: None Instruction Provided To: Patient and family member Learning Topic: Procedure/Surgery: PARACENTESIS Patient Evaluation: Verbalizes understanding Follow Up Plan: Follow up as needed CNOV Observed: 10/24/2017 Status: COMPLETED Source: [place] 8:15 AM [facility] REPOSITORY Office Visit (GAPRA3) PRITI MCDONALD Josh ([id number]) 1960 F Date Time Provider Department 10/24/17 8:15 AM HEPATOLOGY PROCEDURES GAPRA3 During your visit today, we recorded the following information about you: Temperature Pulse Respiration Blood pressure 98.2 degrees 81/minute 18/minute 118/71 Weight 106.4 kg Vanessa Cotter RN, RN 10/25/2017 9:11 AM Signed NAME: Priti Mcdonald Patient presents for a Paracentesis. Procedure performed by Staff Kate Torres MD Medications: None given Procedure: The patient was placed in the supine position. Under ultrasound, There was free fluid noted by ultrasound and a pocket suitable for Paracentesis was found. . The patient tolerated the procedure well. Cha Torres MD Name: Priti Mcdonald Patient presents for a Paracentesis. The procedure including risks, benefits, options and personnel performing the procedure was discussed with the patient. There are no contraindications to the procedure. Priti Mcdonald expressed understanding and agreed to proceed. Procedure performed by Staff M.DApolonia - Dr. Cha Torres MD Medication: 2% Lidocaine 8cc The patient was placed in the supine position. A pocket of fluid suitable for paracentesis was marked in the right abdomen under ultrasound guidance. The skin and subcutaneous tissue was anesthetized with local anesthetic. A 15 guage Barillas Needle was inserted into the abdomen and 7 liters were removed. The fluid was sent to the Lab for analysis. There were no immediate complications associated with the procedure. Cha Torres MD 7 liters of ascites fluid was removed via paracentesis. Orders received from Dr. Torres for IV placement and albumin infusion. A #24 Gauge angio cath was placed in the Left hand. 50 grams of albumin was infused per protocol and the IV was discontinued post infusion. Vanessa Cotter RN THE FOLLOWING WAS EVALUATED Motivation To Learn: Eager Interested Family/Significant Other Support: High - Very involved in pt care Cognitive Ability: Alert and oriented Patient Learns Best By: Verbal Instruction The Following Influencing Factors Were Barriers To This Education Session: None The Following Physical Limitations Were Barriers To This Education Session: None Instruction Provided To: Patient and family member Learning Topic: Procedure/Surgery: PARACENTESIS Patient Evaluation: Verbalizes understanding Follow Up Plan: Follow up as needed Referring Provider: FELY HARRIS [[id number]] Allergies As of Date: 10/24/2017 Noted Allergy Reaction CODEINE 04/28/2007 Comments: nausea Date Reviewed: 10/24/2017 Reviewed by: Vanessa (Rn) WILIAM Cotter - Fully Assessed Visit Diagnosis:Other ascites [R18.8] Order(s):ABDOM PARACENTESIS DX/THER W IMAGING GUIDANCE [[id number]] Order #: [id number] CELL COUNT + DIFF BFL [SQCCBF] Order #: [id number]. #:[id number] Prescriptions as of 10/24/2017 Sig: PAROXETINE 10 MG TABLET LEVOTHYROXINE 137 MCG TABLET Take 137 mcg by mouth once da* GABAPENTIN 300 MG CAPSULE TAKE ONE CAPSULE BY MOUTH JACK* DEXTROAMPHETAMINE-AMPHETAMINE* Take 30 mg by mouth once alka* MECLIZINE 25 MG TABLET Take 25 mg by mouth every 6 h* DULOXETINE 60 MG CAPSULE,AGGIE* Take 60 mg by mouth once alka* * SIMVASTATIN 40 MG TABLET Take 40 mg by mouth daily at * * GLUCOPHAGE 500 MG TABLET Take two tablets by mouth twi* * TRIAMTERENE 37.5 MG-HYDROCHLO* Take one(1) tablet daily. Problem List As Of Date 10/24/2017 Noted Resolved SKIN SENSATION DISTURB [R20.9] INVALID FOR* MENIERE'S DISEASE NOS [H81.09] DIABETES MELLITUS TYPE II-UNCOMPL [E11.9] DEPRESSIVE DISORDER NEC [F32.9] Abnormal mammogram, unspecified [R92.8] INVALID FOR* Breast cancer [C50.919] INVALID FOR* History of breast cancer [Z85.3] INVALID FOR* History of colonic polyps [Z86.010] INVALID FOR*04/29/2015 RUQ pain [R10.11] INVALID FOR* Nonalcoholic steatohepatitis ([place]ARRAGAN) [K75.81] INVALID FOR* Biliary cirrhosis (HCC) [K74.5] INVALID FOR* Encounter Status:Closed by CHA TORRES MD on 10/25/17 SCREENING MAMM (CAD), Observed: 10/21/2017 Status: F Source: [facility] 8:22 AM [facility] REPOSITORY [facility] Imaging Services [address] [place] [id number] SCREENING MAMM (CAD), BILAT MR#: [id number] Acct: [id number] Name: PRITI MCDONALD Josh Rep #: [id number] : 1960 F 57 From: Kannan Pennington MD PCP: Elias Rodriguez MD Status: REG CLI Study: SCREENING MAMM (CAD), BILAT Date of Exam: 10/21/17 Exam# [id number] Ordering Dr: Sabrina Ma TRAIN OPERATIONS MANAGER-C MAMMOGRAPHY - BILATERAL SCREENING REASON FOR EXAM: Female, 57 years old. Routine annual screening examination. PERTINENT HISTORY: Personal history of breast cancer. Prior left lumpectomy with radiation treatment. TECHNIQUE: Digital bilateral breast belinda (3D mammographic acquisition) in the CC and MLO projections. 2-D mediolateral oblique (MLO) and craniocaudad (CC) views of both breasts were obtained. CAD: Full Field Digital Mammography with Computer Added Detection was performed. COMPARISON: Comparison is made with prior study dated October 18, 2016 and October 18, 2015. FINDINGS: Breast Composition: There are scattered areas of fibroglandular density. There are no dominant masses or suspicious calcifications. The patient is status post left lumpectomy with resultant architectural distortion and the upper outer quadrant left breast. Stable calcified nodule in the superior retroareolar region of the left breast. A tissue clip marker is once again seen in the upper outer quadrant of the right breast. No other significant abnormalities are identified. There has been no significant change since the prior study. BI/SCREENING MAMM (CAD), BILAT IMPRESSION: Stable bilateral screening mammogram. Yearly follow-up mammogram recommended. (A) ASSESSMENT CATEGORY: BIRADS Category 2: Benign. A letter regarding these results will be sent to the patient by the facility within 30 days. Approximately 10% of breast cancers are not detected by mammography. A normal mammogram should not delay biopsy of a clinically suspicious abnormality. [id number] Electronically Signed: Kannan Pennington MD at 8:01 EDT Tel [phone], Service support , CC: JUNIOR Ma; Elias Rodriguez MD Lead Housekeeper: Signed BASIC METABOLIC Collected: 10/17/2017 Status: F Source: [place] PROFILE (BMP) 10:55 AM [facility] REPOSITORY TYPE CODE TESTS RESULT OUT OF RANGE REFERENCE UNITS LAB L501.0100 74-106 mg/dL High GLU 116 Result Comment: RESULT(S) PREVIOUSLY REPORTED ON MANUAL REQUISITION DURING DOWNTIME. Fasting Glucose result from 100 to 125 mg/dL suggests IMPAIRED HOMEOSTASIS per A.D.A. criteria. Please note revised GLUCOSE reference range effective 2017. LAB L501.1000 7-18 mg/dL Normal BUN 16 LAB L501.1100 0.55-1.02 mg/dL High CREAT,SERUM 1.11 Result Comment: The validity of the calculated GFR AND GFRAA in patients over 70 years has not been determined. Clinical correlation is essential. LAB L501.1110 >60 mL/min Low EST GFR 54 LAB L501.1115 >60 mL/min Normal EST GFR - AA 65 LAB L501.1300 10-20 RATIO Normal BUN/CRE 14.4 LAB L501.2200 8.5-10.1 mg/dL Normal CA 9.1 LAB L501.5300 136-145 mmol/L Normal NA 143 LAB L501.5600 3.5-5.1 mmol/L Normal K 4.1 LAB L501.5900 98-107 mmol/L Normal CL 105 LAB L501.6100 21.0-32.0 mmol/L Normal CO2 28.0 LAB L501.6200 5-15 Normal GAP 10 Performed By: #### L500.2500 #### [facility] [address] [place], [place], [address] CELL COUNT/DIFF BF Collected: 10/03/2017 Status: F Source: [place] 11:20 AM [facility] REPOSITORY TYPE CODE TESTS RESULT OUT OF RANGE REFERENCE UNITS LAB BFSITE Site Ascites Fluid LAB BFCOL Color Yellow LAB BFCLR Clear Abnormal Clarity Slightly Alert turbid LAB BFSCOL Suprntnt Color Yellow LAB BFSCLR Clear Suprntnt Clear Clarity LAB BFRBC /uL RBC <2000 LAB BFWBC /uL Nucleated 669 Cells, BF LAB BFCOM BF Comment SEE COMMENT Result Comment: Test Not Indicated LAB BFREV BF SEE Review COMMENT Result Comment: Test Not Indicated LAB BFSLNM Slide Number BF [id number] LAB BFNEUT % Neut% 15 LAB BFLYMP % 47 Lymph% LAB BFMONO % [place]% 13 LAB BFMACR % 22 Macro% LAB BFMESO % Meso% 3 Performed By: #### CCBF #### [facility] [address] [place], [place] [address] PROGRESS Observed: 10/03/2017 Status: COMPLETED Source: [place] 10:25 AM [facility] REPOSITORY HNO ID: [id number] Author: Bj Ya Service: (none) Author Type: Physician Type: Progress Notes Filed: 10/03/2017 7:05 PM Note Text: NAME: Priti Mcdonald Patient presents for a Paracentesis. Procedure performed by Belgica Claire APRN.CNP in the presence of Dr. Bosch Medications: None given Procedure: The patient was placed in the supine position. Under ultrasound, There was free fluid noted by ultrasound and a pocket suitable for Paracentesis was found. . The patient tolerated the procedure well. Belgica Claire APRN.CNPName: Priti Mcdonald Patient presents for a Paracentesis. The procedure including risks, benefits, options and personnel performing the procedure was discussed with the patient. There are no contraindications to the procedure. Priti Mcdonald expressed understanding and agreed to proceed. Procedure performed by Belgica Claire APRN.CNP in the presence of Dr. Bosch Medication: 2% Lidocaine 10cc The patient was placed in the supine position. A pocket of fluid suitable for paracentesis was marked in the right abdomen under ultrasound guidance. The skin and subcutaneous tissue was anesthetized with local anesthetic. A 15 guage Barillas Needle was inserted into the abdomen and 6.5 liters were removed. The fluid was sent to the Lab for analysis. There were no immediate complications associated with the procedure. Belgica Claire APRN.CNP See the above note for details. I was present throughout and supervised the paracentesis performed by JACK Claire. I agree with the findings and plan of care as documented in the note. Bj Bosch MD THE FOLLOWING WAS EVALUATED Motivation To Learn: Interested Family/Significant Other Support: High - Very involved in pt care Cognitive Ability: Alert and oriented Patient Learns Best By: Verbal Instruction The Following Influencing Factors Were Barriers To This Education Session: None The Following Physical Limitations Were Barriers To This Education Session: None Instruction Provided To: Patient and family member Learning Topic: Procedure/Surgery: PARACENTESIS Patient Evaluation: Verbalizes understanding Follow Up Plan: Follow up as needed. Lila Fontenot RN CNOV Observed: 10/03/2017 Status: COMPLETED Source: [place] 8:15 AM [facility] REPOSITORY Office Visit (GAPRA3) PRITI MCDONALD ([id number]) 1960 F Date Time Provider Department 10/03/17 8:15 AM HEPATOLOGY PROCEDURES GAPRA3 During your visit today, we recorded the following information about you: Temperature Pulse Respiration Blood pressure 96.4 degrees 72/minute 16/minute 137/74 Weight 110.8 kg Bj Bosch MD 10/03/2017 7:05 PM Signed NAME: Priti Mcdonald Patient presents for a Paracentesis. Procedure performed by Belgica Claire APRN.CNP in the presence of Dr. Bosch Medications: None given Procedure: The patient was placed in the supine position. Under ultrasound, There was free fluid noted by ultrasound and a pocket suitable for Paracentesis was found. . The patient tolerated the procedure well. Belgica Claire APRN.CNPName: Priti Mcdonald Patient presents for a Paracentesis. The procedure including risks, benefits, options and personnel performing the procedure was discussed with the patient. There are no contraindications to the procedure. Priti Mcdonald expressed understanding and agreed to proceed. Procedure performed by Belgica Claire APRN.CNP in the presence of Dr. Bocsh Medication: 2% Lidocaine 10cc The patient was placed in the supine position. A pocket of fluid suitable for paracentesis was marked in the right abdomen under ultrasound guidance. The skin and subcutaneous tissue was anesthetized with local anesthetic. A 15 guage Barillas Needle was inserted into the abdomen and 6.5 liters were removed. The fluid was sent to the Lab for analysis. There were no immediate complications associated with the procedure. Belgica Claire APRN.DOLPHIN RESEARCHER See the above note for details. I was present throughout and supervised the paracentesis performed by JACK Alethea. I agree with the findings and plan of care as documented in the note. Bj Bosch MD THE FOLLOWING WAS EVALUATED Motivation To Learn: Interested Family/Significant Other Support: High - Very involved in pt care Cognitive Ability: Alert and oriented Patient Learns Best By: Verbal Instruction The Following Influencing Factors Were Barriers To This Education Session: None The Following Physical Limitations Were Barriers To This Education Session: None Instruction Provided To: Patient and family member Learning Topic: Procedure/Surgery: PARACENTESIS Patient Evaluation: Verbalizes understanding Follow Up Plan: Follow up as needed. Lila Fontenot RN Referring Provider: FELY HARRIS [[id number]] Allergies As of Date: 10/03/2017 Noted Allergy Reaction CODEINE 04/28/2007 Comments: nausea Date Reviewed: 10/03/2017 Reviewed by: Lila Pate (Rn) WILIAM Fontenot - Fully Assessed Visit Diagnosis:Other ascites [R18.8] Order(s):ABDOM PARACENTESIS DX/THER W IMAGING GUIDANCE [[id number]] Order #: [id number] CELL COUNT + DIFF BFL [SQCCBF] Order #: [id number]. #:[id number] Prescriptions as of 10/03/2017 Sig: PAROXETINE 10 MG TABLET LEVOTHYROXINE 137 MCG TABLET Take 137 mcg by mouth once da* GABAPENTIN 300 MG CAPSULE TAKE ONE CAPSULE BY MOUTH JACK* DEXTROAMPHETAMINE-AMPHETAMINE* Take 30 mg by mouth once alka* MECLIZINE 25 MG TABLET Take 25 mg by mouth every 6 h* DULOXETINE 60 MG CAPSULE,AGGIE* Take 60 mg by mouth once alka* * SIMVASTATIN 40 MG TABLET Take 40 mg by mouth daily at * * GLUCOPHAGE 500 MG TABLET Take two tablets by mouth twi* * TRIAMTERENE 37.5 MG-HYDROCHLO* Take one(1) tablet daily. 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 REPOSITORY Telephone (GASTA5) PRITI MCDONALD ([id number]) 1960 F Date Time Provider Department 09/23/17 FELY HARRIS GASTA5 During your visit today, we recorded the following information about you: Josette Hunter Stitch Welder 09/23/2017 8:24 AM Signed Pt is requesting paracentesis order. Josette Hunter Stitch Welder 09/24/2017 1:16 PM Signed I cant do that. she is in loi, ED or her pcp will have to see if she has ascites first Thx (Routing comment) Pt called in, advised of message. Pt will be seeing her PCP next Saturday and will wait until then. Josette Hunter Stitch Welder 09/25/2017 11:50 AM Signed Pt saw her PCP today and he informed her that he cannot order paracentesis. Pt is asking for Dr. Apple to place another paracentesis order. Josette Hunter Stitch Welder 10/01/2017 12:50 PM Signed Pt states she has been told by 2 other physicians that they cannot order paracentesis. Pt is asking if Dr. Apple can order. Pt is very uncomfortable. Josette Hunter Stitch Welder 10/02/2017 8:41 AM Signed Spoke with pt, advised standing order has been placed. Transferred to scheduling. Allergies As of Date: 09/23/2017 Noted Allergy Reaction CODEINE 04/28/2007 Comments: nausea Date Reviewed: 09/11/2017 Reviewed by: Millicent Mayen (Denise) Anuradha Terrell LPN - Fully Assessed Reason for Visit: Paracentesis order request [Other] Prescriptions as of 09/23/2017 Sig: PAROXETINE 10 MG TABLET LEVOTHYROXINE 137 MCG TABLET Take 137 mcg by mouth once da* GABAPENTIN 300 MG CAPSULE TAKE ONE CAPSULE BY MOUTH JACK* DEXTROAMPHETAMINE-AMPHETAMINE* Take 30 mg by mouth once alka* MECLIZINE 25 MG TABLET Take 25 mg by mouth every 6 h* DULOXETINE 60 MG CAPSULE,AGGIE* Take 60 mg by mouth once alka* * SIMVASTATIN 40 MG TABLET Take 40 mg by mouth daily at * * GLUCOPHAGE 500 MG TABLET Take two tablets by mouth twi* * TRIAMTERENE 37.5 MG-HYDROCHLO* Take one(1) tablet daily. 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.09] DIABETES MELLITUS TYPE II-UNCOMPL [E11.9] DEPRESSIVE DISORDER NEC [F32.9] Abnormal mammogram, unspecified [R92.8] INVALID FOR* Breast cancer [C50.919] INVALID FOR* History of breast cancer [Z85.3] INVALID FOR* History of colonic polyps [Z86.010] INVALID FOR*04/29/2015 RUQ pain [R10.11] INVALID FOR* Nonalcoholic steatohepatitis (BARRAGAN) [K75.81] INVALID FOR* Biliary cirrhosis (HCC) [K74.5] INVALID FOR* Encounter Status:Closed by KENJI AIR QUALITY MANAGERJOSETTE on 09/24/17 PROTEIN, BODY FLUID Collected: 08/20/2017 Status: F Source: [place] 4:23 PM [facility] REPOSITORY TYPE CODE TESTS RESULT OUT OF RANGE REFERENCE UNITS LAB BFPROT See Comment g/dL Abnormal Alert 4.4 Protein, Body Fluid Result Comment: Serous fluids: Effusions are the accumulation of clinically detected fluid in any of the serous cavities. Effusions are further into transudates and exudates, which aid in dete rmining the etiology of the effusion. Transudate: Body fluid total protein measurement < 3.0 g/dL. A ratio of serous fluid total protein to a concurrent serum total protein < 0.5 indicates a transudate. Exudate: Body fluid total protein measurement >= 3.0 g/dL. A ratio of serous fluid total protein to a concurrent serum total protein >= 0.5 indicates an exudate. Reference: 1. CLSI. Analysis of Body Fluids in Clinical Chemistry Approved Guideline. CLSI document C49A. ESTHER Gillespie: Clinical Laboratory Standards [place]: 2007. This test was developed and its performance characteristics determined by [facility] [place] ([facility]). It has not been cleared or approved by the FDA. -[facility] is regulated under CLIA as qualified to perform high-complexity testing. This test is used for clinical purposes. It should not be regarded as investigational or for research. Performed By: #### BFPROT, FAMYL, FLALB, CCBF #### [facility] [address], [place] [address] AMYLASE,BODY FLUID Collected: 08/20/2017 Status: F Source: [place] 4:23 PM [facility] REPOSITORY TYPE CODE TESTS RESULT OUT OF RANGE REFERENCE UNITS LAB [facility] See Comment U/L Abnormal Alert 13 Amylase,Bod y Fluid Result Comment: (NOTE) PLEURAL FLUIDS: Amylase measurement in pleural fluid is considered a useful test for detecting amylase-rich pleural effusions, which may be caused by exudative conditions associated with pancreatitis, esophageal rupture, malignancy, pneumonia, and liver cirrhosis. A ratio of pleural fluid amylase to a concurrent serum amylase >1 is defined as an amylase-rich pleural effusion. PERITONEAL FLUIDS AND DRAINAGE FLUIDS: Pancreatic damage causes extravasation of amylase from the exocrine cells into the peritoneal space. In cases of pancreatitis, fluid amylase should be at least several-fold times higher in fluid of pancreatic origin compared to concurrent serum amylase values. PANCREATIC CYST FLUID: Pancreatic cyst fluid amylase may aid in characterizing tumors and should be interpreted along with other clinical and laboratory information. References: 1. Kirill TEMPLE, Domenico Pate. Body fluid analysis: clinical utility and applicability of published studies to guide interpretation of todays laboratory testing in serous fluids. Crit Rev Clin Lab Sci, 2013;50(4-5):107-124. 2. CLSI. Analysis of Body Fluids in Clinical Chemistry; Approved Guideline. CLSI document C49-A. ESTHER Gillespie: Clinical Laboratory Standards [place]; 2007. 3. Blossom [facility], Chris RC, Devin DJ. Use of cyst fluid CEA, CA19-9, and amylase for evaluation of pancreatic lesions. Clinical Biochemistry. 2009;42:1296-0106. This test was developed and its performance characteristics determined by [facility] [place] ([facility]). It has not been cleared or approved by the FDA. [facility] is regulated under CLIA as qualified to perform high-complexity testing. This test is used for clinical purposes. It should not be regarded as investigational or for research. LAB F Fluid ASCITES Type Performed By: #### BFPROT, FAMYL, FLALB, CCBF #### [facility] [address], [place] [address] ALBUMIN, FLUID Collected: 08/20/2017 Status: F Source: [place] 4:23 PM [facility] REPOSITORY TYPE CODE TESTS RESULT OUT OF RANGE REFERENCE UNITS LAB FALB See Comment g/dL Abnormal Alert 2.3 Albumin, Fluid Result Comment: Body Fluid Albumin may be used in classifying ascitic fluid into high-gradient or low-gradient fluids as determined by the serum-ascites albumin gradient, which is calculated as (serum a lbumin) - (ascites albumin). The serum and fluid specimens should be drawn with a minimal intervening time interval to appropriately analyze the gradient. Gradients greater than or equal to 1.1 g/dL are considered high, which reflects a high hydrostatic pressure, commonly caused by: cirrhosis or other processes generting portal hypertension. In samples where gradients are less than 1.1 g/dL, ascites generated from conditions without portal hypertension should be considered. Reference: 1. CLSI. Analysis of Body Fluids in Clinical Chemistry Approved Guideline. CLSI document C49A. ESTHER Gillespie: Clinical Laboratory Standards [place]: 2007. Reference: 2. Catia KELLEY. Serum to ascites albumin gradient. UpToDate. 2015. Accessed on August 24, 2015. This test was developed and its performance characteristics determined by [facility] [place] ([facility]). It has not been cleared or approved by the FDA. [facility] is regulated under CLIA as qualified to perform high-complexity testing. This test is used for clinical purposes. It should not be regarded as investigational or for research. LAB FTALB ASCITES Fluid Performed By: #### BFPROT, FAMYL, FLALB, CCBF #### [facility] [address], [place] [address] CELL COUNT/DIFF BF Collected: 08/20/2017 Status: F Source: [place] 4:23 PM [facility] REPOSITORY TYPE CODE TESTS RESULT OUT OF RANGE REFERENCE UNITS LAB BFSITE Site Ascites Fluid LAB BFCOL Color Yellow LAB BFCLR Clear Abnormal Clarity Slightly Alert turbid LAB BFSCOL Suprntnt Color Yellow LAB BFSCLR Clear Suprntnt Clear Clarity LAB BFRBC /uL RBC 2000 LAB BFWBC /uL Nucleated 932 Cells, BF Result Comment: Some reference ranges and other method performance specifications have not been established for this body fluid. This test was developed and its performance characteristics determined by [facility] [place] ([facility]). It has not been cleared or approved by the FDA. [facility] is regulated under CLIA as qualified to perform high-complexity testing. This test is used for clinical purposes. It should not be regarded as investigational or for research. LAB BFCOM BF SEE Comment COMMENT Result Comment: Test Not Indicated LAB BFREV BF SEE Review COMMENT Result Comment: Test Not Indicated LAB BFSLNM Slide Number BF [id number] LAB BFNEUT % Neut% 7 LAB BFLYMP % 41 Lymph% LAB BFMONO % [place]% 25 LAB BFMACR % 27 Macro% Performed By: #### BFPROT, FAMYL, FLALB, CCBF #### [facility] [address], [place] [address] PROGRESS Observed: 08/20/2017 Status: COMPLETED Source: [place] 12:48 PM [facility] REPOSITORY HNO ID: [id number] Author: Narcisa Pandya Service: (none) Author Type: Physician Type: Progress Notes Filed: 08/20/2017 1:08 PM Note Text: Name: Priti Mcdonald Patient presents for a Paracentesis. The procedure including risks, benefits, options and personnel performing the procedure was discussed with the patient. There are no contraindications to the procedure. Priti Mcdonald expressed understanding and agreed to proceed. Procedure performed by Fara Sotelo CNP in the presence of Dr. Isaac Pandya Medication: 2% Lidocaine 10cc The patient was placed in the supine position. A pocket of fluid suitable for paracentesis was marked in the right abdomen under ultrasound guidance. The skin and subcutaneous tissue was anesthetized with local anesthetic. A 15 guage Barillas Needle was inserted into the abdomen and 5.75 liters were removed. The fluid was sent to the Lab for analysis. There were no immediate complications associated with the procedure. Fara Sotelo APRN.DOLPHIN RESEARCHER Observed: 08/20/2017 Status: F Source: [place] ANAEROBE CULTURE 10:15 AM [facility] REPOSITORY Sp. Request/Comment: - Specimen received in sterile container. Specimen received already planted. Culture Result - Negative for anaerobes. Performed By: #### ANACUL #### [place] [address] Observed: 08/20/2017 Status: F Source: [place] BODY FLUID CULT/STN 10:15 AM [facility] REPOSITORY Sp. Request/Comment: - Specimen received in sterile container. Specimen received already planted. Smear Result - Gram stain performed on cytospun specimen. No organisms seen Many Polymorphonuclear leukocytes Many Mononuclear cells Culture Result - No growth 5 days Performed By: #### BFCUL #### [facility] [address] [place] [address] PROGRESS Observed: 08/20/2017 Status: COMPLETED Source: [place] 10:11 AM [facility] REPOSITORY HNO ID: [id number] Author: Lila Pate (Rn) Po RN Service: (none) Author Type: Registered Nurse Type: Progress Notes Filed: 08/20/2017 1:08 PM Note Text: 5.75 liters of ascites fluid was removed via paracentesis. Orders received from Dr. Narcisa Pandya for IV placement and albumin infusion. A #24 Gauge angio cath was placed in the Left hand. 37.5 grams of albumin was infused per protocol and the IV was discontinued post infusion. Lila Fontenot RN THE FOLLOWING WAS EVALUATED Motivation To Learn: Eager Family/Significant Other Support: High - Very involved in pt care Cognitive Ability: Alert and oriented Patient Learns Best By: Multiple Methods The Following Influencing Factors Were Barriers To This Education Session: None The Following Physical Limitations Were Barriers To This Education Session: None Instruction Provided To: Patient and family member Learning Topic: Procedure/Surgery: PARACENTESIS Patient Evaluation: Verbalizes understanding Follow Up Plan: Follow up as needed. Lila Fontenot RN CYTOLOGY Observed: 08/20/2017 Status: F Source: [place] 10:11 AM [facility] REPOSITORY Specimen originated from [facility] Specimen #: [id number] Submitting Physician: NARCISA PANDYA DO SPECIMEN SUBMITTED A: PERITONEAL FLUID (THINPREP AND CELL BLOCK) FINAL DIAGNOSIS A. PERITONEAL FLUID (THINPREP AND CELL BLOCK) Negative for malignant cells. Pili Hwang MD (Electronic Signature) CLINICAL DATA Ascites GROSS DESCRIPTION 1200cc cloudy dark yellow fluid STAINS A: PERITONEAL FLUID (THINPREP AND CELL BLOCK) THIN PREP Non-Field Service Representative, CELL BLOCK, H&E, Initial Date of Report: 08/22/2017 Date of Procedure: 08/20/2017 Date of Receipt: 08/20/2017 Submitted by: NARCISA PANDYA DO Location: [place] [address] Diagnostic interpretation performed at [facility], [address] [place] [id number]. CNOV Observed: 08/20/2017 Status: COMPLETED Source: [place] 8:15 AM [facility] REPOSITORY Office Visit (GAPRA3) PRITI MCDONALD ([id number]) 1960 F Date Time Provider Department 08/20/17 8:15 AM NARCISA PANDYA During your visit today, we recorded the following information about you: Temperature Pulse Respiration Blood pressure 99.3 degrees 89/minute 16/minute 154/85 Weight 117.9 kg Lila Fontenot RN, RN 08/20/2017 1:08 PM Signed 5.75 liters of ascites fluid was removed via paracentesis. Orders received from Dr. Narcisa Pandya for IV placement and albumin infusion. A #24 Gauge angio cath was placed in the Left hand. 37.5 grams of albumin was infused per protocol and the IV was discontinued post infusion. Lila Fontenot RN THE FOLLOWING WAS EVALUATED Motivation To Learn: Eager Family/Significant Other Support: High - Very involved in pt care Cognitive Ability: Alert and oriented Patient Learns Best By: Multiple Methods The Following Influencing Factors Were Barriers To This Education Session: None The Following Physical Limitations Were Barriers To This Education Session: None Instruction Provided To: Patient and family member Learning Topic: Procedure/Surgery: PARACENTESIS Patient Evaluation: Verbalizes understanding Follow Up Plan: Follow up as needed. WILIAM Desai DO 08/20/2017 1:08 PM Signed Name: Priti Mcdonald Patient presents for a Paracentesis. The procedure including risks, benefits, options and personnel performing the procedure was discussed with the patient. There are no contraindications to the procedure. Priti Mcdonald expressed understanding and agreed to proceed. Procedure performed by Fara Sotelo CNP in the presence of Dr. Isaac Pandya Medication: 2% Lidocaine 10cc The patient was placed in the supine position. A pocket of fluid suitable for paracentesis was marked in the right abdomen under ultrasound guidance. The skin and subcutaneous tissue was anesthetized with local anesthetic. A 15 guage Barillas Needle was inserted into the abdomen and 5.75 liters were removed. The fluid was sent to the Lab for analysis. There were no immediate complications associated with the procedure. Fara Sotelo APRN.JACK Referring Provider: SLIME GARBER (DOLPHIN RESEARCHER) [[id number]] Allergies As of Date: 08/20/2017 Noted Allergy Reaction CODEINE 04/28/2007 Comments: nausea Date Reviewed: 08/20/2017 Reviewed by: Lila Pate (Rn) WILIAM Fontenot - Fully Assessed Primary Visit Diagnosis:Other ascites [R18.8] Other Visit Diagnosis:Nonalcoholic steatohepatitis (BARRAGAN) [K75.81] Order(s):ABDOM PARACENTESIS DX/THER W IMAGING GUIDANCE [21954HNO] Order #: [id number] PERITONEAL FLUID, CYTOLOGY [[id number]] Order #: [id number] ANAEROBE CULTURE [SQANACUL] Order #: [id number] CELL COUNT + DIFF BFL [SQCCBF] Order #: [id number] ALBUMIN BFL [SQFLALB] Order #: [id number] AMYLASE BFL [SQFAMYL] Order #: [id number] PROTEIN BFL [SQBFPROT] Order #: [id number] BODY FLUID CULTURE AND GRAM STAIN [SQBFCUL] Order #: [id number] albumin, 25%, 25 % bottleInject 150 mL intravenously one time only for 1 dose.Disp: 200 mLRfl: 0 Prescriptions as of 08/20/2017 Sig: ALBUMIN, HUMAN 25 % INTRAVENO* Inject 150 mL intravenously o* PAROXETINE 10 MG TABLET LEVOTHYROXINE 137 MCG TABLET Take 137 mcg by mouth once da* GABAPENTIN 300 MG CAPSULE TAKE ONE CAPSULE BY MOUTH JACK* DEXTROAMPHETAMINE-AMPHETAMINE* Take 30 mg by mouth once alka* MECLIZINE 25 MG TABLET Take 25 mg by mouth every 6 h* DULOXETINE 60 MG CAPSULE,AGGIE* Take 60 mg by mouth once alka* * SIMVASTATIN 40 MG TABLET Take 40 mg by mouth daily at * * GLUCOPHAGE 500 MG TABLET Take two tablets by mouth twi* * TRIAMTERENE 37.5 MG-HYDROCHLO* Take one(1) tablet daily. Problem List As Of Date 08/20/2017 Noted Resolved SKIN SENSATION DISTURB [R20.9] INVALID FOR* MENIERE'S DISEASE NOS [H81.09] DIABETES MELLITUS TYPE II-UNCOMPL [E11.9] DEPRESSIVE DISORDER NEC [F32.9] Abnormal mammogram, unspecified [R92.8] INVALID FOR* Breast cancer [C50.919] INVALID FOR* History of breast cancer [Z85.3] INVALID FOR* History of colonic polyps [Z86.010] INVALID FOR*04/29/2015 RUQ pain [R10.11] INVALID FOR* Nonalcoholic steatohepatitis ([place]AGAN) [K75.81] INVALID FOR* Biliary cirrhosis (HCC) [K74.5] INVALID FOR* Prescriptions ordered this encounter Disp Refills Start End ALBUMIN, HUMAN 25 % INTRAVENOUS SOLU* 200 * 0 08/20/2017 08/20/2017 Class: In Office Route: INTRAVENOUS Sig: Inject 150 mL intravenously one time only for 1 dose. Classic SmartForms filed during this visit: Extended Vitals Encounter Status:Closed by NARCISA PANDYA DO on 08/20/17 PROTIME Collected: 08/20/2017 Status: F Source: [place] 8:14 AM [facility] REPOSITORY TYPE CODE TESTS RESULT OUT OF RANGE REFERENCE UNITS LAB PSEC 9.7-13.0 sec PT Sec 11.4 LAB INR 0.9-1.3 PT INR 1.1 Result Comment: Vitamin K Antagonist (VKA) Therapeutic Range: INR 2 to 3 (Target INR of 2.5) Note: For patients treated with VKA drugs, such as warfarin, the [place] [employer] 2012 Guideline recommends a therapeutic INR range of 2 to 3 (target INR of 2.5). This recommendation includes high-risk patients with antiphospholipid syndrome with previous arterial or venous thromboembolism, current-generation mechanical or bioprosthetic aortic heart valve replacement. Note: Patients with mechanical aortic valve replacement and additional risk factors for thromboembolic events (atrial fibrillation, previous thromboembolism, LV dysfunction, hypercoagulable conditions) or an older generation mechanical AVR (i.e., ball in-Cage) or any mechanical MVR should have a INR therapeutic range of 2.5 to 3.5 (target INR of 3). Pearl HALE, et al. Chest 2012, 141:7S-47S Rita RA, et al. [facility] 2017, 70: 252-289 Performed By: #### PT #### [facility] [address], [place] [address] CBC AND DIFFERENTIAL Collected: 08/20/2017 Status: F Source: [place] 8:13 AM [facility] REPOSITORY TYPE CODE TESTS RESULT OUT OF REFERENCE UNITS RANGE LAB WBC 3.70-11.00 k/uL WBC 6.11 LAB RBC 3.90-5.20 m/uL RBC 5.00 LAB HGB 11.5-15.5 g/dL Hemoglobin 14.1 LAB HCT 36.0-46.0 % Hematocrit 43.0 LAB MCV 80.0-100.0 fL MCV 86.0 LAB MCH 26.0-34.0 pG MCH 28.2 LAB MCHC 30.5-36.0 g/dL MCHC 32.8 LAB RDWCV 11.5-15.0 % RDW-CV 13.8 LAB PLTCT 150-400 k/uL Platelet Count 257 LAB MPV 9.0-12.7 fL MPV 10.5 LAB ANEUT % Neut% 63.7 LAB AANEUT 1.45-7.50 k/uL Abs Neut 3.87 LAB ALYMP % Lymph% 22.1 LAB AALYMP 1.00-4.00 k/uL Abs Lymph 1.35 LAB AMONO % [place]% 9.8 LAB AAMONO <0.87 k/uL Abs [place] 0.60 LAB AEOS % Eosin% 3.9 LAB AAEOS <0.46 k/uL Abs Eosin 0.24 LAB ABASO % Baso% 0.5 LAB AABASO <0.11 k/uL Abs Baso 0.03 LAB AUNRBC 0 /100 WBC NRBCs 0.0 LAB ABNRBC <0.01 k/uL Absolute nRBC <0.01 LAB DTYP DTYPE Auto Diff Performed By: #### CBCDIF, CMP #### [facility] [address] [place] [address] COMP METABOLIC PANEL Collected: 08/20/2017 Status: F Source: [place] 8:13 AM [facility] REPOSITORY TYPE CODE TESTS RESULT OUT OF REFERENCE UNITS RANGE LAB TP 6.3-8.0 g/dL Protein, Total 7.1 LAB ALB 3.9-4.9 g/dL Low Albumin 3.6 LAB CA 8.5-10.2 mg/dL Calcium, Total 9.5 LAB TBIL 0.2-1.3 mg/dL Bilirubin, Total 0.9 LAB ALKP 32-117 U/L Alkaline Phosphatase 88 LAB AST 13-35 U/L AST 24 LAB GLU 74-99 mg/dL Glucose High 117 Result Comment: The [place] [employer] (ADA) provides guidance for cutoff values for fasting glucose and random glucose. The ADA defines fasting as no caloric intake for at least 8 hours. Fas ting plasma glucose results between 100 to 125 mg/dL indicate increased risk for diabetes (prediabetes). Fasting plasma glucose results greater than or equal to 126 mg/dL meet the criteria for diagnosis of diabetes. In the absence of unequivocal hyperglycemia, results should be confirmed by repeat testing. In a patient with classic symptoms of hyperglycemia or hyperglycemic crisis, random plasma glucose results greater than or equal to 200 mg/dL meet the criteria for diagnosis of diabetes. Reference: Standards of Medical Care in Diabetes 2016, [place] [employer]. Diabetes Care. 2016.39(Suppl 1). LAB BUN 7-21 mg/dL BUN 15 LAB CRET 0.58-0.96 mg/dL Creatinine High 1.13 LAB NA 136-144 mmol/L Sodium 140 LAB K 3.7-5.1 mmol/L Potassium 3.9 LAB CL 97-105 mmol/L Chloride 101 LAB CO2 22-30 mmol/L CO2 26 LAB AGAP 9-18 mmol/L Anion Gap 13 LAB ALT 7-38 U/L ALT 13 LAB GFRAA eGFR- Amer. 60 LAB GFRNAA . eGFR-All Other Races 49 Result Comment: eGFR (Estimated GFR) Units of measure: mL/min/1.73 meters squared eGFR is derived from the reexpressed MDRD Study equation using the following parameters: serum creatinine, age, gender and race. The creatinine assay has been calibrated to be traceable to IDMS. An eGFR <60 mL/min/1.73m2 for >3 months is consistent with chronic kidney disease. Refer to KDOQI guidelines for clinical interpretation. In patients with unstable renal function, e.g. those with acute kidney injury, the eGFR may not accurately reflect actual GFR. Performed By: #### CBCDIF, CMP #### [facility] [address] [place], [place] [address] AFP Collected: 08/20/2017 Status: F Source: [place] 8:13 AM [facility] REPOSITORY TYPE CODE TESTS RESULT OUT OF RANGE REFERENCE UNITS LAB AFP <11 ng/mL AFP 6.1 Performed By: #### AFP #### [facility] [address] [place], [place] [address] CNPN Observed: 08/19/2017 Status: COMPLETED Source: [place] 12:00 AM [facility] REPOSITORY Telephone (GASTA5) HARRYPRITI Josh ([id number]) 1960 F Date Time Provider Department 08/19/17 FELY HARRIS GASTA5 During your visit today, we recorded the following information about you: Krishna Escobedo Sec 08/19/2017 9:[address] Apple put in an order for paracentesis, but the first appointment they had for the patient is October 02. It may be because they wanted to have the EGD and paracentesis on the same day to accommodate the patient. Patient states that she is very uncomfortable and cannot go to work as she is and would like the paracentesis as soon as possible. Patient was also asked by Dr. Apple at her appointment if she wanted to be put on the transplant list. Patient was somewhat overwhelmed and declined at the time, but would not like to accept and be added to the transplant list. Mahnaz Bajwa APRN.DOLPHIN RESEARCHER 08/19/2017 10:13 AM Signed Spoke to Krishna, I asked her to contact the para clinic [facility] if she can be scheduled for paracentesis as early for tomorrow AM. Krishna Escobedo Sec 08/19/2017 4:23 PM Signed Patient is scheduled for tomorrow at 8:15 a.m. Krishna Escobedo Med. Sec. Allergies As of Date: 08/19/2017 Noted Allergy Reaction CODEINE 04/28/2007 Comments: nausea Date Reviewed: 08/15/2017 Reviewed by: Mariano Fiore Ma - Fully Assessed Reason for Visit: Paracentesis appt. [Other] Prescriptions as of 08/19/2017 Sig: PAROXETINE 10 MG TABLET LEVOTHYROXINE 137 MCG TABLET Take 137 mcg by mouth once da* GABAPENTIN 300 MG CAPSULE TAKE ONE CAPSULE BY MOUTH JACK* DEXTROAMPHETAMINE-AMPHETAMINE* Take 30 mg by mouth once alka* MECLIZINE 25 MG TABLET Take 25 mg by mouth every 6 h* DULOXETINE 60 MG CAPSULE,AGGIE* Take 60 mg by mouth once alka* * SIMVASTATIN 40 MG TABLET Take 40 mg by mouth daily at * * GLUCOPHAGE 500 MG TABLET Take two tablets by mouth twi* * TRIAMTERENE 37.5 MG-HYDROCHLO* Take one(1) tablet daily. Problem List As Of Date 08/19/2017 Noted Resolved SKIN SENSATION DISTURB [R20.9] INVALID FOR* MENIERE'S DISEASE NOS [H81.09] DIABETES MELLITUS TYPE II-UNCOMPL [E11.9] DEPRESSIVE DISORDER NEC [F32.9] Abnormal mammogram, unspecified [R92.8] INVALID FOR* Breast cancer [C50.919] INVALID FOR* History of breast cancer [Z85.3] INVALID FOR* History of colonic polyps [Z86.010] INVALID FOR*04/29/2015 RUQ pain [R10.11] INVALID FOR* Nonalcoholic steatohepatitis ([place]) [K75.81] INVALID FOR* Biliary cirrhosis (HCC) [K74.5] INVALID FOR* Encounter Status:Closed by MAHNAZ BAJWA CNP on 08/19/17 PROGRESS Observed: 08/15/2017 Status: COMPLETED Source: [place] 1:22 PM [facility] REPOSIT[facility] O ID: [id number] Author: Fely Miranda Service: (none) Author Type: Physician Type: Progress Notes Filed: 08/15/2017 4:16 PM Note Text: Hepatology A51 Slime Garber APRN.JACK Apple MD Consultation requested by Dr. Rodriguez for follow up for cirrhosis. My final recommendations will be communicated back to the requesting physician by way letter. History of Present Illness: -Priti Mcdonald is pleasant 57 year old female that is here with her Matt. She is here to follow up for cirrhosis. Intraoperative liver biopsy 09/28/15 confirmed nodular cirrhosis likely from B[place]AGAN. weeks ago due to abdominal pain, and CT dated July 2017 showed splenomegaly, moderate ascites and cirrhosis. -She has a past medical history of Depressive disorder, not elsewhere classified; Hypothyroidism; Mammographic microcalcification (08/24/08); Meniere's disease, unspecified; Snoring; and Type II or unspecified type diabetes mellitus without mention of complication (metformin). -Today, c/o fluid in her abdomen Computed MELD-Na score unavailable. Necessary lab results were not found. Computed MELD score unavailable. Necessary lab results were not found. Past Medical History: PAST MEDICAL HISTORY Diagnosis Date - Depressive disorder, not elsewhere classified - Hypothyroidism - Mammographic microcalcification 08/24/08 RIGHT BREAST - Meniere's disease, unspecified - Snoring - Type II or unspecified type diabetes mellitus without mention of complication, not stated as uncontrolled Past Surgical History: PAST SURGICAL HISTORY Procedure Laterality Date - COLONOSCOP W/ OR W/O BRSH SPEC 04/29/15 Colonoscopy - COLONOSCOPY 04/04/10 VJ -hyperplastic polyp - LIGATE FALLOPIAN TUBE 1989 Tubal ligation - PAST SURGICAL HISTORY OF 2003 Bunionectomy - PAST SURGICAL HISTORY OF Clean out endometriosis - PAST SURGICAL HISTORY OF 12/2010. Total Hysterectomy - PAST SURGICAL HISTORY OF 10/18/11 Lt breast lumpectomy with SLN biopsy - PAST SURGICAL HISTORY OF 2009 Vaginal sling Cholecystectomy 2015 Family History: FAMILY HISTORY Problem Relation Age of Onset - Heart Mother - Heart Father - Heart Maternal Grandfather - Heart Paternal Grandfather - Cancer Maternal Grandmother brain Social History: Social History Marital status: Spouse name: Matt Years of education: Number of children: 1 son adopted Social History Main Topics Smoking status: Former Smoker Packs/day: 1 to 2 cigarettes a day Years: 3 Types: Cigarettes Smokeless status: Never Used Comment: Social smoker while in college. Alcohol use: Yes Comment: occasional Drug use: No Sexual activity: Yes Partners with: Male Allergies: ALLERGIES Allergen Reactions - Codeine nausea Medications: levothyroxine (SYNTHROID) 137 mcg tablet Take 137 mcg by mouth once daily. Amphetamine-Dextroamphetamine (ADDERALL) 30 mg tablet Take 30 mg by mouth once daily. MECLIZINE 25 mg tab Take 25 mg by mouth every 6 hours as needed. DULOXETINE 60 mg capsule Take 60 mg by mouth once daily. simvastatin (ZOCOR) 40 mg tablet Take 40 mg by mouth daily at bedtime. metformin hcl(GLUCOPHAGE 500 MG TAB) Take two tablets by mouth twice daily. TRIAMTERENE-HYDROCHLOROTHIAZIDE 37.5 MG-25 MG CAP Take one(1) tablet daily. Pertinent Review of Systems: REVIEW OF SYSTEMS GENERAL: No malaise, fevers. +25 lb. weight loss, unintended RESPIRATORY: Negative for cough, hemoptysis, wheezing, COPD, dyspnea or shortness of breath CARDIOVASCULAR: Negative for chest pain, leg swelling, hypertension, CHF or palpitations GI: No nausea, vomiting, or diarrhea : No history of dysuria, frequency or incontinence MUSCULOSKELETAL: Negative for joint pain or swelling, back pain or muscle pain NEURO: No history of headaches, syncope, paralysis, seizures or tremors GI ROS: Difficulty swallowing / foods sticking in throat: Occasionally Heartburn: No Hoarseness: No Chronic cough: No Regurgitation: No Chest pain: No Filling up quickly at meals: Yes Loss of appetite: Yes, does not feel like eating most of the time Nausea: No Vomiting: No Abdominal pain: Yes Recent change in bowel movements; Yes. More constipated, stool is sticky and owner operator in color Bloody or black, bowel movements: No Constipation: Yes Diarrhea: No Loss of control of bowel movements: No Night sweats, fever, chills: No Thought or memory problems: No Fluid in abdomen (ascites): Yes Prominent leg swelling: No Vomiting blood: No Recent change in weight: Yes, loss Risk Factors for Liver Disease: 1. Blood transfusions before 1991: No 2. IVDA: No 3. Intranasal coccaine use: No 4. Tattoos: Yes, done professionally 5. Service: No 6. High risk sexual behavior: No 7. Alcohol: Yes, One wine or wine coolers a day 8. Obesity: Yes 9. Hyperlipidemia: Yes 10. Prolonged exposure to hepatotoxic meds: No 11. Other autoimmune disorders No Metabolic Syndrome Risk factors:3/5 1) Diabetes/ Abnormal FBS >100mg/dL YES 2) Hypertension : NO 3)Triglycerides more then 150 : NO 4) HDL (<50 female and <40 male): YES 5) Central obesity ( Waist >102 men and >88 female) - Body mass index is 41.18 kg/(m2). Complications of Cirrhosis: 1. Ascites: Yes 2. SBP: No 3. Non-bleeding varices:No 4. Variceal hemorrage: No 5. Portosystemic encephalopathy: No 6. Hepatorenal Syndrome:No 7. Hepatopulmonary Syndrome:No 8. Hepatic hydrothorax: No 9. Recurrent Cholangitis (PSC): No Physical Exam: Vital Signs: 08/15/17 1318 BP: 144/89 BP Site: Right Arm BP Position: Sitting BP Cuff Size: Regular Adult Pulse: 87 Temp: 36.8 ?C (98.2 ?F) TempSrc: Oral SpO2: 99% Weight: 119.3 kg (263 lb) Height: 170.2 cm (5' 7) VITAL SIGNS: BP 144/89 Pulse 87 Temp (Src) 98.2 (Oral) Ht 5' 7 (1.70m) Wt 263 lb (119.3kg) SpO2 99% LMP 08/09/2008 BMI 41.18 kg/(m2). General appearance: well appearing, alert, in no acute distress, well-hydrated, well nourished Head: normal Eyes: Anicteric sclera. Lungs: lungs clear to auscultation, no wheezing or rhonchi Heart: RRR without murmur, gallop, or rubs. No ectopy Abdomen: Normal abdominal exam, Abdomen soft, non-tender. Bowel sounds normal. No masses, organomegaly Neuro: Intact, no asterixis Extremities: No edema to upper or lower extremities Diagnostic Testing: Liver biopsy 09/28/2015 Biliary dyskinesia, nodular cirrhosis likely from B[place], normal cholangiogram CT scan 07/2017 CT dated July 2017 showed splenomegaly, moderate ascites and cirrhosis. Labs: 10/2015 AST 46 ALT 49 Bili 170 Creat 1.22 Impression: Priti Mcdonald is a pleasant 57 year old female that is here with her Matt. She is here to follow up for cirrhosis. Intraoperative liver biopsy 09/28/15 confirmed nodular cirrhosis with extensive micro and macro steatosis, likely BARRAGAN. CT dated July 2017 showed splenomegaly, moderate ascites and cirrhosis. she has developed ascites never had paracentesis but is taking triamterene, and follows low salt diet as much as she can Other issues is meniere and ho breast cancer s/p lumpectomy took tamoxifen for 5 years. Denies alcohol and illegal drugs Never vaccinated for hep A/B Plan: EGD/banding Paracentesis INR, CMP, PT, AFP Return to clinic in 4 months Slime Garber APRN.DOLPHIN RESEARCH[facility] hepatology staff physician note of personal involvement of care I have examined and reviewed the note as documented by the resident . I personally participated in the laughlin components. I have discussed the case and management of the patient's care and I agree with the plan of care. patient would like to continue fup with us. A letter to referring MD today Fely Apple MD CNOV Observed: 08/15/2017 Status: COMPLETED Source: [place] 12:10 PM [facility] RE[facility]IT[facility] Office Visit ([id number]) PRITI MCDONALD ([id number]) 1960 F Date Time Provider Department 08/15/17 12:10 PM FELY HARRIS GASTA5 During your visit today, we recorded the following information about you: Temperature Pulse Blood pressure Weight 98.2 degrees 87/minute 144/89 119.3 kg Height 1.702 m Fely Apple MD 08/15/2017 4:16 PM Signed Hepatology A51 Slime Garber APRN.DOLPHIN RESEARCHER Fely Apple MD Consultation requested by Dr. Rodriguez for follow up for cirrhosis. My final recommendations will be communicated back to the requesting physician by way letter. History of Present Illness: -Priti Mcdonald is pleasant 57 year old female that is here with her Matt. She is here to follow up for cirrhosis. Intraoperative liver biopsy 09/28/15 confirmed nodular cirrhosis likely from [place]. weeks ago due to abdominal pain, and CT dated July 2017 showed splenomegaly, moderate ascites and cirrhosis. -She has a past medical history of Depressive disorder, not elsewhere classified; Hypothyroidism; Mammographic microcalcification (08/24/08); Meniere's disease, unspecified; Snoring; and Type II or unspecified type diabetes mellitus without mention of complication (metformin). -Today, c/o fluid in her abdomen Computed MELD-Na score unavailable. Necessary lab results were not found. Computed MELD score unavailable. Necessary lab results were not found. Past Medical History: PAST MEDICAL HISTORY Diagnosis Date - Depressive disorder, not elsewhere classified - Hypothyroidism - Mammographic microcalcification 08/24/08 RIGHT BREAST - Meniere's disease, unspecified - Snoring - Type II or unspecified type diabetes mellitus without mention of complication, not stated as uncontrolled Past Surgical History: PAST SURGICAL HISTORY Procedure Laterality Date - COLONOSCOP W/ OR W/O BRS SPEC 04/29/15 Colonoscopy - COLONOSCOPY 04/04/10 VJ -hyperplastic polyp - LIGATE FALLOPIAN TUBE 1989 Tubal ligation - PAST SURGICAL HISTORY OF 2003 Bunionectomy - PAST SURGICAL HISTORY OF Clean out endometriosis - PAST SURGICAL HISTORY OF 12/2010. Total Hysterectomy - PAST SURGICAL HISTORY OF 10/18/11 Lt breast lumpectomy with SLN biopsy - PAST SURGICAL HISTORY OF 2009 Vaginal sling Cholecystectomy 2016 Family History: FAMILY HISTORY Problem Relation Age of Onset - Heart Mother - Heart Father - Heart Maternal Grandfather - Heart Paternal Grandfather - Cancer Maternal Grandmother brain Social History: Social History Marital status: Spouse name: Matt Years of education: Number of children: 1 son adopted Social History Main Topics Smoking status: Former Smoker Packs/day: 1 to 2 cigarettes a day Years: 3 Types: Cigarettes Smokeless status: Never Used Comment: Social smoker while in college. Alcohol use: Yes Comment: occasional Drug use: No Sexual activity: Yes Partners with: Male Allergies: ALLERGIES Allergen Reactions - Codeine nausea Medications: levothyroxine (SYNTHROID) 137 mcg tablet Take 137 mcg by mouth once daily. Amphetamine-Dextroamphetamine (ADDERALL) 30 mg tablet Take 30 mg by mouth once daily. MECLIZINE 25 mg tab Take 25 mg by mouth every 6 hours as needed. DULOXETINE 60 mg capsule Take 60 mg by mouth once daily. simvastatin (ZOCOR) 40 mg tablet Take 40 mg by mouth daily at bedtime. metformin hcl(GLUCOPHAGE 500 MG TAB) Take two tablets by mouth twice daily. TRIAMTERENE-HYDROCHLOROTHIAZIDE 37.5 MG-25 MG CAP Take one(1) tablet daily. Pertinent Review of Systems: REVIEW OF SYSTEMS GENERAL: No malaise, fevers. +25 lb. weight loss, unintended RESPIRATORY: Negative for cough, hemoptysis, wheezing, COPD, dyspnea or shortness of breath CARDIOVASCULAR: Negative for chest pain, leg swelling, hypertension, CHF or palpitations GI: No nausea, vomiting, or diarrhea : No history of dysuria, frequency or incontinence MUSCULOSKELETAL: Negative for joint pain or swelling, back pain or muscle pain NEURO: No history of headaches, syncope, paralysis, seizures or tremors GI ROS: Difficulty swallowing / foods sticking in throat: Occasionally Heartburn: No Hoarseness: No Chronic cough: No Regurgitation: No Chest pain: No Filling up quickly at meals: Yes Loss of appetite: Yes, does not feel like eating most of the time Nausea: No Vomiting: No Abdominal pain: Yes Recent change in bowel movements; Yes. More constipated, stool is sticky and owner operator in color Bloody or black, bowel movements: No Constipation: Yes Diarrhea: No Loss of control of bowel movements: No Night sweats, fever, chills: No Thought or memory problems: No Fluid in abdomen (ascites): Yes Prominent leg swelling: No Vomiting blood: No Recent change in weight: Yes, loss Risk Factors for Liver Disease: 1. Blood transfusions before 1991: No 2. IVDA: No 3. Intranasal coccaine use: No 4. Tattoos: Yes, done professionally 5. Service: No 6. High risk sexual behavior: No 7. Alcohol: Yes, One wine or wine coolers a day 8. Obesity: Yes 9. Hyperlipidemia: Yes 10. Prolonged exposure to hepatotoxic meds: No 11. Other autoimmune disorders No Metabolic Syndrome Risk factors:3/5 1) Diabetes/ Abnormal FBS ANDgt;100mg/dL YES 2) Hypertension : NO 3)Triglycerides more then 150 : NO 4) HDL (ANDlt;50 female and ANDlt;40 male): YES 5) Central obesity ( Waist ANDgt;102 men and ANDgt;88 female) - Body mass index is 41.18 kg/(m2). Complications of Cirrhosis: 1. Ascites: Yes 2. SBP: No 3. Non-bleeding varices:No 4. Variceal hemorrage: No 5. Portosystemic encephalopathy: No 6. Hepatorenal Syndrome:No 7. Hepatopulmonary Syndrome:No 8. Hepatic hydrothorax: No 9. Recurrent Cholangitis (PSC): No Physical Exam: Vital Signs: 08/15/17 1318 BP: 144/89 BP Site: Right Arm BP Position: Sitting BP Cuff Size: Regular Adult Pulse: 87 Temp: 36.8 ?C (98.2 ?F) TempSrc: Oral SpO2: 99% Weight: 119.3 kg (263 lb) Height: 170.2 cm (5' 7ANDquot;) VITAL SIGNS: BP 144/89 Pulse 87 Temp (Src) 98.2 (Oral) Ht 5' 7ANDquot; (1.70m) Wt 263 lb (119.3kg) SpO2 99% LMP 08/09/2008 BMI 41.18 kg/(m2). General appearance: well appearing, alert, in no acute distress, well-hydrated, well nourished Head: normal Eyes: Anicteric sclera. Lungs: lungs clear to auscultation, no wheezing or rhonchi Heart: RRR without murmur, gallop, or rubs. No ectopy Abdomen: Normal abdominal exam, Abdomen soft, non-tender. Bowel sounds normal. No masses, organomegaly Neuro: Intact, no asterixis Extremities: No edema to upper or lower extremities Diagnostic Testing: Liver biopsy 09/28/2015 Biliary dyskinesia, nodular cirrhosis likely from B[place], normal cholangiogram CT scan 07/2017 CT dated July 2017 showed splenomegaly, moderate ascites and cirrhosis. Labs: 10/2015 AST 46 ALT 49 Bili 170 Creat 1.22 Impression: Prtii Mcdonald is a pleasant 57 year old female that is here with her Matt. She is here to follow up for cirrhosis. Intraoperative liver biopsy 09/28/15 confirmed nodular cirrhosis with extensive micro and macro steatosis, likely BARRAG[place]. CT dated July 2017 showed splenomegaly, moderate ascites and cirrhosis. she has developed ascites never had paracentesis but is taking triamterene, and follows low salt diet as much as she can Other issues is meniere and ho breast cancer s/p lumpectomy took tamoxifen for 5 years. Denies alcohol and illegal drugs Never vaccinated for hep A/B Plan: EGD/banding Paracentesis INR, CMP, PT, AFP Return to clinic in 4 months Slime Garber APRN.DOLPHIN RESEARCH[facility] hepatology staff physician note of personal involvement of care I have examined and reviewed the note as documented by the resident . I personally participated in the laughlin components. I have discussed the case and management of the patient's care and I agree with the plan of care. patient would like to continue fup with us. A letter to referring MD today Fely Apple MD Referring Provider: SELF [[id number]] Allergies As of Date: 08/15/2017 Noted Allergy Reaction CODEINE 04/28/2007 Comments: nausea Date Reviewed: 08/15/2017 Reviewed by: Mariano Fiore Ma - Fully Assessed Primary Visit Diagnosis:Nonalcoholic steatohepatitis (B[place]) [K75.81] Other Visit Diagnosis:Biliary cirrhosis (HCC) [K74.5] Order(s):ALPHA FETOPROTEIN BL [SQAFP] Order #: [id number] FUTURE CBC + DIFF [SQCBCDIF] Order #: [id number] FUTURE COMP METABOLIC PANEL [SQCMP] Order #: [id number] FUTURE PROTHROMBIN TIME/PT [SQPT] Order #: [id number] FUTURE ABDOM PARACENTESIS DX/THER W IMAGING GUIDANCE [58710RIV] Order #: [id number] FUTURE EGD BANDING [4663403] Order #: [id number] FUTURE Prescriptions as of 08/15/2017 Sig: GABAPENTIN 300 MG CAPSULE TAKE ONE CAPSULE BY MOUTH JACK* DEXTROAMPHETAMINE-AMPHETAMINE* Take 30 mg by mouth once alka* DULOXETINE 60 MG CAPSULE,AGGIE* Take 60 mg by mouth once alka* * SIMVASTATIN 40 MG TABLET Take 40 mg by mouth daily at * * GLUCOPHAGE 500 MG TABLET Take two tablets by mouth twi* * TRIAMTERENE 37.5 MG-HYDROCHLO* Take one(1) tablet daily. PAROXETINE 10 MG TABLET LEVOTHYROXINE 137 MCG TABLET Take 137 mcg by mouth once da* MECLIZINE 25 MG TABLET Take 25 mg by mouth every 6 h* Medication notes this encounter PAROXETINE 10 MG TABLET >> Mariano Fiore Ma 08/15/2017 1:29 PM >> MARIANO FIORE MA [facility] Aug 15, 2017 1:29 PM Received from: External Pharmacy Problem List As Of Date 08/15/2017 Noted Resolved SKIN SENSATION DISTURB [R20.9] INVALID FOR* MENIERE'S DISEASE NOS [H81.09] DIABETES MELLITUS TYPE II-UNCOMPL [E11.9] DEPRESSIVE DISORDER NEC [F32.9] Abnormal mammogram, unspecified [R92.8] INVALID FOR* Breast cancer [C50.919] INVALID FOR* History of breast cancer [Z85.3] INVALID FOR* History of colonic polyps [Z86.010] INVALID FOR*04/29/2015 RUQ pain [R10.11] INVALID FOR* Nonalcoholic steatohepatitis (B[place]) [K75.81] INVALID FOR* Biliary cirrhosis (HCC) [K74.5] INVALID FOR* Disposition: Return in about 4 months (around 12/15/2017). Follow-up and Disposition History Recorded Letter Text Fely Apple M.D. Department of Gastroenterology and Hepatology/ [place] [address] Office: [phone] Appts: [phone] August 15, 2017 Elias Rodriguez MD Re: Priti Mcdonald [address] [facility] [address] Pickard Thank you for referring Mrs Harry Mcdonald is a pleasant 57 year old female that is here with her Matt. She is here to follow up for cirrhosis. Intraoperative liver biopsy 09/28/15 confirmed nodular cirrhosis with extensive micro and macro steatosis, likely B[place]. Follow up CT scan completed recently confirmed diagnosis. She has developed ascites never had paracentesis but is taking triamterene, and follows low salt diet as much as she can. Other issues is meniere and h/o breast cancer s/p lumpectomy took tamoxifen for 5 years. Mrs. Mcdonald denies alcohol and illegal drug use. She has never been vaccinated for Hep A/B. We will obtain more labs today in addition to scheduling a paracentesis and EGD. I will plan to see her in a few months for follow up. Sincerely, Encounter Status:Closed by FELY APPLE MD on 08/15/17 ABDOMEN/PELVIS WITH Observed: 08/02/2017 Status: F Source: [place] CONTRAST 7:18 AM [facility] REPOSITORY [facility] Imaging Services [address] [place] [id number] Abdomen/Pelvis WITH Contrast MR#: [id number] Acct: [id number] Name: PRITI MCDONALD Rep #: [id number] : 1960 F 56 From: Abimael Perez DO PCP: Elias Rodriguez Status: REG CLI Study: Abdomen/Pelvis WITH Contrast Date of Exam: 08/02/17 Exam# [id number] Ordering Dr: Elias Rodriguez MD STUDY: CT ABDOMEN AND PELVIS WITH CONTRAST REASON FOR EXAM: Female, 56 years old. Nausea and vomiting. Prior cholecystectomy. RADIATION DOSAGE (If Supplied By Facility): CTDIvol = ( 18.74 ) mGy, DLP = ( 1399.08 ) mGycm TECHNIQUE: Transaxial images were obtained from the dome of the diaphragm to the symphysis pubis with oral contrast. 100 ml of Isovue 300 contrast was administered. Sagittal and coronal images were reconstructed. Individualized dose optimization techniques were used for this CT. COMPARISON: September 14, 2015 FINDINGS: The visualized lung bases are unremarkable. The visualized portions of the heart are within normal limits. Shrunken and nodular appearance of the liver suggests cirrhosis. Moderate ascites fluid noted throughout the abdomen and pelvis. There are surgical clips in the gallbladder fossa consistent with a prior cholecystectomy. There is mild splenomegaly. Normal pancreas. Normal bilateral adrenal glands. Normal right kidney. Normal left kidney. Normal visualized stomach. Normal small intestine. There are multiple colonic diverticula consistent with diverticulosis. There is non-visualization of the appendix. Normal abdominal aorta. Normal inferior vena cava. Normal retroperitoneum. Urinary bladder is not clearly seen. There is absence of the uterus consistent with a prior hysterectomy. Fluid containing umbilical hernia. There are diffuse degenerative changes of the visualized lumbar spine. CT/Abdomen/Pelvis WITH Contrast IMPRESSION: Somewhat nodular and shrunken appearance of the liver suggests liver cirrhosis. This is new since the prior exam as well as development of moderate ascites fluid throughout the abdomen and pelvis. No evidence of small or large bowel obstruction. Lung bases are clear. Electronically Signed: Abimael Perez DO at 8:23 EDT Tel , Service support , CC: Elias Rodriguez Lead Housekeeper: Signed CT OUTSIDE CD DICOM Observed: 08/02/2017 Status: F Source: [facility] 12:00 AM [facility] Images were obtained outside of [facility] [id number] CBC W/DIFF, AUTOMATED Collected: 07/23/2017 Status: F Source: [place] 2:48 PM [facility] REPOSITORY TYPE CODE TESTS RESULT OUT OF RANGE REFERENCE UNITS LAB L100.1000 4.4-11.0 K/mm3 Normal WBC 7.0 LAB L100.1200 4.2-5.4 M/mm3 Normal RBC 5.06 LAB L100.1300 12.0-15.0 g/dl Normal HGB 14.6 LAB L100.1400 37-47 % Normal HCT 43.5 LAB L100.1500 81-99 fL Normal MCV 86.0 LAB L100.1600 27.0-32.0 pg Normal MCH 28.9 LAB L100.1700 32-36 g/gl Normal MCHC 33.6 LAB L100.1810 11.6-14.6 % Normal RDW CV 13.9 LAB L100.1820 35.1-43.9 fl Normal RDW SD 43.7 LAB L100.1900 150-450 K/mm3 Normal PLT 281 LAB L100.2000 6.2-12.0 fl Normal MPV 11.5 LAB L100.2100 47-70 % Normal NEUT% 65.3 LAB L100.2200 19-41 % Normal LY% 21.2 LAB L100.2300 0-10 % Normal MONO% 9.3 LAB L100.2400 0-5 % Normal EO% 3.7 LAB L100.2500 0-1 % Normal BASO% 0.4 LAB L100.2550 0.0-0.9 % Normal IM GRAN % 0.100 Result Comment: IG% - Immature Granulocytes (promyelocytes, myelocytes and metamyelocytes) > 1% indicates that a LEFT SHIFT is Present. LAB L100.2620 2.0-7.7 X10 3/uL Normal Absolute Neut 4.6 LAB L100.2720 0.83-4.51 X10 3/ul Normal Absolute Lymph 1.48 Performed By: #### L100.0100 #### [facility] [address] [place], [place], [address] COMPREHENSIVE METABOLIC Collected: 07/23/2017 Status: F Source: [facility] 2:48 PM [facility] REPOSITORY TYPE CODE TESTS RESULT OUT OF RANGE REFERENCE UNITS LAB L501.0100 74-106 mg/dL High GLU 107 Result Comment: Fasting Glucose result from 100 to 125 mg/dL suggests IMPAIRED HOMEOSTASIS per A.D.A. criteria. Please note revised GLUCOSE reference range effective 2017. LAB L501.1000 7-18 mg/dL Normal BUN 17 LAB L501.1100 0.55-1.02 mg/dL High CREAT,SERUM 1.33 Result Comment: The validity of the calculated GFR AND GFRAA in patients over 70 years has not been determined. Clinical correlation is essential. LAB L501.1110 >60 mL/min Low EST GFR 44 Result Comment: Non- GFR Calc LAB L501.1115 >60 mL/min Low EST GFR - AA 53 Result Comment: GFR Calc LAB L501.1300 10-20 RATIO Normal BUN/CRE 12.8 LAB L501.1500 6.4-8.2 g/dL T Normal PROT 7.3 LAB L501.1800 3.2-5.0 g/dL Normal ALB 3.5 LAB L501.1950 2.2-4.2 g/dL Normal GLOB 3.8 LAB L501.2000 0.9-2.4 RATIO Normal A/G 0.9 LAB L501.2200 8.5-10.1 mg/dL CA Normal 9.3 LAB L501.4100 15-37 U/L High AST 39 LAB L501.4305 45-117 U/L Normal ALK P 87 LAB L501.4405 13-56 U/L Normal ALT 27 Result Comment: Please note revised ALT reference range effective 2017. LAB L501.4600 0.20-1.00 mg/dL High T BILI 1.10 LAB L501.5300 136-145 mmol/L Normal NA 138 LAB L501.5600 3.5-5.1 mmol/L Normal K 3.5 LAB L501.5900 98-107 mmol/L Normal CL 100 LAB L501.6100 21.0-32.0 mmol/L Normal CO2 30.0 LAB L501.6200 5-15 Normal GAP 8 Performed By: #### L500.4050, L501.2450 #### [facility] [address] [place], [address] LIPASE Collected: 07/23/2017 Status: F Source: LOI 2:48 PM [facility] REPOSITORY TYPE CODE TESTS RESULT OUT OF RANGE REFERENCE UNITS LAB L501.2450 73-393 U/L Normal LIPASE 135 Performed By: #### L500.4050, L501.2450 #### [facility] [address] [place], [address] ALLERGIES ALLERGIES DATE TYPE / CODE NAME / CODE REACTION SEVERITY SOURCE 05/30/2018 Drug codeine/O33871 Nausea/Vom/Diar Unknown [facility] Allergy/4160 1550(RXNORM) [facility] [address]166(SNOMED Repository CT) 04/28/2007 DRUG CODEINE GI UPSET [facility] [place]/[address] [place] [address](SNOMED Repository CT) 04/28/2007 DRUG CODEINE [place] 012305 [facility] [address]206(SNOMED Repository CT) ENCOUNTERS ENCOUNTERS ADMIT/DISCHARGE ACCOUNT ADMITTING ENCOUNTER LOCATION SOURCE NUMBER CLASS 05/30/2018 [id number] [facility] ing:MEDOUT Repository 05/21/2018/05/27/19 [id number] Ambulatory [address] Repository 05/16/2018 [id number] [facility] ing:[facility] Repository 05/09/2018/05/09/20 [id number] Ambulatory [address] Repository 05/02/2018/05/02/[id number] ing: Repository 05/02/2018/05/02/[id number] Repository 04/25/2018 [id number] [facility] ing:LAB.FUTUR Repository E 04/22/2018/04/22/20 [id number] Ambulatory [address] Repository 04/08/2018/04/09/20 [id number] Ambulatory [address] Repository 03/28/2018/03/28/20 [id number] Ambulatory [address] Repository 03/21/2018/04/16/20 [id number] Ambulatory [address] Repository 03/18/2018/03/19/20 [id number] Ambulatory [address] Repository 03/14/2018 [id number] Ambulatory [facility] ing:BFHLAB Repository 03/07/2018/03/07/20 [id number] Ambulatory [place] [facility] [address] [place] Repository 03/07/2018/03/10/20 [id number] Ambulatory [place] [facility] [address] [place] Repository 02/27/2018/02/28/20 [id number] Ambulatory [place] [facility] [address] [place] Repository 02/27/2018/02/28/20 [id number] Ambulatory [place] [facility] [address] [place] Repository 02/27/2018/02/28/20 [id number] Ambulatory [place] [facility] [address] [place] Repository 02/27/2018/02/28/20 [id number] Ambulatory [place] [facility] [address] [place] Repository 02/14/2018/02/18/20 [id number] Ambulatory [place] [facility] [address] [place] Repository 02/14/2018/02/15/20 [id number] Ambulatory [place] [facility] [address] [place] Repository 02/10/2018/02/11/20 [id number] Ambulatory [place] [facility] [address] [place] Repository 02/07/2018/02/08/20 [id number] Ambulatory [place] [facility] [address] [place] Repository 02/03/2018/02/04/20 [id number] Ambulatory [place] [facility] [address] [place] Repository 01/31/2018/02/01/20 [id number] Ambulatory [place] [facility] [address] [place] Repository 01/31/2018/02/04/20 [id number] Ambulatory [place] [facility] [address] [place] Repository 01/27/2018/01/28/20 [id number] Ambulatory [place] [facility] [address] [place] Repository 01/21/2018/01/26/20 [id number] SOURAV REYNOLDS, Inpatient [address] [place] Repository 01/21/2018/01/22/20 [id number] Emergency [address] ing:ED Repository 01/21/2018/01/22/20 [id number] Ambulatory [place] [facility] [address] [place] Repository 01/07/2018/01/08/20 [id number] Ambulatory [address] [place] Repository 12/31/2017/01/01/20 [id number] Ambulatory [address] [place] Repository 12/26/2017/12/27/19 [id number] Ambulatory [address] [place] Repository 12/24/2017/12/25/19 [id number] Ambulatory [address] [place] Repository 12/09/2017/12/11/19 [id number] Ambulatory [address] [place] Repository 12/09/2017/12/10/19 [id number] Ambulatory [address] [place] Repository 11/29/2017/11/30/19 [id number] Ambulatory [address] [place] Repository 11/27/2017/11/28/19 [id number] Emergency [address] [place] Repository 11/27/2017/11/28/19 [id number] Ambulatory [address] [place] Repository 11/12/2017/11/13/19 [id number] Ambulatory [address] [place] Repository 11/05/2017/11/07/19 [id number] Ambulatory [address] Repository 10/24/2017/10/25/19 [id number] Ambulatory [address] Repository 10/21/2017 [id number] Ambulatory [facility] ing:OPBI Repository 10/17/2017 [id number] Ambulatory [facility] ing:BFHLAB Repository 10/03/2017/10/04/19 [id number] Ambulatory [address] Repository 09/11/2017/09/12/19 [id number] Ambulatory [address] Repository 08/20/2017/08/21/19 [id number] Ambulatory [address] Repository 08/20/2017 [id number] Ambulatory [facility] Repository 08/15/2017/08/17/19 [id number] Ambulatory [address] Repository 08/02/2017 [id number] Ambulatory [facility] ing:CT Repository 07/23/2017 [id number] Ambulatory [facility] ing:BFHLAB Repository PAYERS PAYERS ENCOUNTER GUARANTOR PAYER SUBSCRIBER SOURCE 05/30/2018 PRITI Josh ARVIZU Loi [id number] Insurance:[facility] KENNEDYDOB: [facility] [id number] Number: Repository [address]Frd: [phone] [id number] [phone] (HP) Date:9517-58-47YA [facility] [id number], [place] [address]IM: 05/30/2018 Secondary NOT GIVENUNK X[place] Insurance:SELF PAY [facility]: Effective Repository Date:2018-05-14 05/16/2018 PRITI L Primary LUH Loi [id number] Insurance:[place] KENNEDYDOB[facility] [id number] [place] Number: Repository [address]Kgm: [phone] [id number] [phone] (HP) Date:9620-88-54CF [address] [address]RZ: 05/16/2018 Secondary NOT GIVENUNK Loi Insurance:SELF PAY [facility] Number: Effective Repository Date:2018-05-02 05/02/2018 PRITI L Primary LUH X[place] [id number] [facility] MCDONALDDOB[facility] [id number] [id number] Number: Repository [address]Eyo: [phone] [id number] [phone] Date:3019-69-01FZ [facility]174292[place]FD[place]V, [place] [address]RP: 05/02/2018 Secondary NOT GIVENUNK X[place] Insurance:SELF PAY [facility] Number: Effective Repository Date:2018-04-22 04/25/2018 PRITI L Primary LUH X[place] [id number] Insurance:[facility] HARRYDOB: [facility] [id number] [place] Number: Repository [address]Suq: [phone] [id number] [phone] (HP) Date:2943-79-33EE [facility] 1867[address]ISQNSFE, [place] [address]FZ: 04/25/2018 Secondary NOT GIVENUNK [place] Insurance:SELF PAY [facility] Number: Effective Repository Date:2018-04-25 03/14/2018 PRITI L Primary LUH [place] [id number] Insurance:[place] KENNEDYDOB: [facility] [id number] [id number], [place] Number: Repository [id number]: [phone] [id number] [phone] (HP) Date:9454-99-60ON [facility] [id number] [place] [address]EL: 03/14/2018 Secondary NOT GIVENUNK Loi Insurance:SELF PAY [facility] Number: Effective Repository Date:2018-03-14 01/21/2018 ARVIZU Primary ARVIZU Loi [id number] Insurance:[place] KENNEDYDOB: [facility] [id number], [place] Number: Repository [address]Gga: [phone] [id number] [phone] (HP) Date:4766-06-94DM [address] [address]SA: 01/21/2018 Secondary NOT GIVENUNK [place] Insurance:SELF PAY [facility] Number: Effective Repository Date:2018-01-21 10/21/2017 ARVIZU Primary ARVIZU Loi [id number] Insurance:[place] KENNEDYDOB: [facility] [id number] [id number], [place] Number: Repository [phone]: [phone] [id number] [phone] (HP) Date:4249-52-43AB [facility] [id number], [place] [address]KR: 10/21/2017 Secondary NOT GIVENUNK [place] Insurance:SELF PAY [facility] Number: Effective Repository Date:2017-07-25 10/17/2017 ARVIZU Primary ARVIZU Loi [id number] Insurance:[place] KENNEDYDOB: [facility] [id number], [place] Number: Repository [address]Lzx: [phone] [id number] [phone] (HP) Date:2083-60-16HE [address]DHEFSDP, [place] [address]VK: 10/17/2017 Secondary NOT GIVENUNK [place] Insurance:SELF PAY [facility] Number: Effective Repository Date:2017-10-17 08/02/2017 Arvizu Primary Luh Loi [id number] Insurance:[facility] KennedyDOB: [facility] [id number], [place] Number: Repository [id number]: [id number] [phone] Date:0522-14-41LS [address] () [place]JTMDFFN, [place] [address]VQ: 08/02/2017 Secondary PRITI L X[place] Insurance:[facility] KENNEDYDOB: [facility] Number: [id number] Hospital [id number] Repository Date:2017-07-25 08/02/2017 Tertiary NOT GIVENUNK [place] Insurance:SELF PAY [facility] Number: Effective Repository Date:2017-07-25 07/23/2017 Arvizu Primary Luh Loi [id number] Insurance:[facility] KennedyDOB[facility] [id number], [place] Number: Repository [address]Ody: [id number] [phone] Date:7745-59-55EJ [address] () [id number], [place] [address]HT: 07/23/2017 Secondary NOT GIVENUNK Loi Insurance:SELF PAY [facility] Number: Effective Repository Date:2017-07-23
== END ==
PROVIDERS: Family Provider Family Medicine; PCP Family Medicine
DX: K75.81 Nonalcoholic steatohepatitis (NASH) (principal)
CPT/HCPCS: 36415; 85610; 85730

== ENCOUNTER 2018-05-02 12:19 | Outpatient (CLI) | payer OTHER, SELFPAY ==
--- NOTE | 2018-05-02 12:22 | US_ITS ---
PROCEDURE: Ultrasound guided paracentesis. DATE OF EXAMINATION: May 02, 2018.. INDICATION: Female, 57 years old. Ascites. PHYSICIAN: Kannan Pennington M.D. TECHNIQUE: The risks, benefits, and alternatives to the procedure were explained to the patient. The specific risks of bleeding, infection, and damage to bowel were detailed and accepted. Witnessed informed consent was obtained. The abdomen was ultrasonographically surveyed. An appropriate pocket of fluid was identified at the right lower quadrant. The skin were cleaned and prepped in the usual sterile fashion. Using ultrasound guidance, the peritoneal cavity was accessed with a 5-Gambian paracentesis needle/catheter system. The trocar was removed. A total of 8970 ml of moses-colored fluid were removed from the peritoneal cavity. The catheter was removed and a sterile dressing was applied. The procedure was well tolerated. US/Paracentesis with US IMPRESSION: Ultrasound guided paracentesis. Electronically Signed: Kannan Pennington MD at 14:46 EST Tel [phone], Service support ,
[2018-05-02 13:50] VITALS: BP 111/75; BP 133/79; BP 151/75; PULSE 79; PULSE 80; PULSE 82; RESP 18; O2SAT 100; O2SAT 91; O2SAT 99
[2018-05-02 13:57] VITALS: BP 137/62; PULSE 74; RESP 18; TEMP 35.7; O2SAT 100; BMI 36.0
[2018-05-02] MEDS: Albumin Human 25% (100 mL) 25 GM/100 ML BAG IV ×2 (14:08→15:32)
[2018-05-02 14:30] LABS: Body Fluid Mononuclear WBC # 0.377 10^3/uL; Body Fluid Mononuclear WBC % 93.1 %; Body Fluid Polynuclear WBC # 0.028 10^3/uL; Body Fluid Polynuclear WBC % 6.9 %; White Blood Count/Body Fluid 0.405 10^3/uL
[2018-05-02 14:43] LABS: Appearance/Body Fluid SL CLDY; Auto B Fluid Analyzer BKGD Ct COUNTS W/IN LIMITS (W/IN LIMITS); Body Fluid QC Type(s) BF2Q; Color/Body Fluid YELLOW; Source- Body Fluid OTHER
[2018-05-02 15:04] LABS: Lymphocytes 35 %; Macrophages 20 %; Monocytes 36 %; Neutrophil (Segs) 9 %
--- NOTE | 2018-05-02 15:15 | NURSING ---
1220 transferred via wheelchair to infusion suite, with patient, report called to mel
--- NOTE | 2018-05-02 16:00 | NURSING ---
REPORT GIVEN TO Arnol MORRIS RN ON MS3, PT TRANSFERRED TO MS3 TO COMPLETE TREATMENT D/T THIS DEPARTMENT CLOSING. PT AWARE, STABLE, A&O X3. IN CHAIR [id number] WITH CALL LIGHT AT SIDE, RN AT BEDSIDE.
[2018-05-02] MEDS: Albumin Human 25% (50 mL) 12.5 GM/50 ML IV.SOLN IV (17:22)
[2018-05-02 18:15] VITALS: BP 123/74; PULSE 70; RESP 18; TEMP 36.6; O2SAT 100
[2018-05-05 09:59] LABS: Pathologist Comment/Body Fluid Reviewed
== END 2018-05-02 18:24 | disposition home or self-care (01) ==
LOC: US 13:46 → MEDOUTP 13:50 → MS3 15:56
PROVIDERS: Family Provider Family Medicine; PCP Family Medicine
DX: K75.81 Nonalcoholic steatohepatitis (NASH) (principal); R18.8 Other ascites
CPT/HCPCS: 96365; 49083; 88108; 88305; 88313; 89050; J7040; P9047

== ENCOUNTER → 2018-05-16 08:15 | Outpatient (CLI) | payer OTHER, SELFPAY ==
[2018-05-02 13:57] VITALS: BMI 36.0
--- NOTE | 2018-05-16 08:17 | US_ITS ---
PROCEDURE: Ultrasound guided paracentesis. DATE OF EXAMINATION: May 16, 2018.. INDICATION: Female, 57 years old. Ascites. PHYSICIAN: Kannan Pennington M.D. TECHNIQUE: The risks, benefits, and alternatives to the procedure were explained to the patient. The specific risks of bleeding, infection, and damage to bowel were detailed and accepted. Witnessed informed consent was obtained. The abdomen was ultrasonographically surveyed. An appropriate pocket of fluid was identified at the right lower quadrant. The skin were cleaned and prepped in the usual sterile fashion. Using ultrasound guidance, the peritoneal cavity was accessed with a 5-Syrian paracentesis needle/catheter system. The trocar was removed. A total of 9020 ml of moses-colored fluid were removed from the peritoneal cavity. A 120 mL sample was sent to the laboratory for analysis. The catheter was removed and a sterile dressing was applied. The procedure was well tolerated. US/Paracentesis with US IMPRESSION: Ultrasound guided paracentesis. Electronically Signed: Kannan Pennington MD at 10:39 EST Tel [phone], Service support ,
[2018-05-16 08:45] VITALS: BP 110/88; BP 122/78; BP 132/76; BP 143/78; PULSE 75; PULSE 84; PULSE 85; RESP 16; O2SAT 100; O2SAT 97; O2SAT 99
[2018-05-16 09:44] LABS: Body Fluid Mononuclear WBC # 0.407 10^3/uL; Body Fluid Mononuclear WBC % 85.5 %; Body Fluid Polynuclear WBC # 0.069 10^3/uL; Body Fluid Polynuclear WBC % 14.5 %; Body Fluid Total Cells Counted 0.521 10^3/ul (0.000-0.000); White Blood Count/Body Fluid 0.476 10^3/uL
[2018-05-16] MEDS: Albumin Human 25% (100 mL) 25 GM/100 ML BAG IV ×2 (09:53→10:03)
[2018-05-16 09:59] VITALS: BP 135/77; PULSE 79; RESP 16; TEMP 36.7; BMI 36.5
[2018-05-16] MEDS: Albumin Human 25% (50 mL) 12.5 GM/50 ML IV.SOLN IV (10:22)
[2018-05-16 10:30] LABS: Auto B Fluid Analyzer BKGD Ct COUNTS W/IN LIMITS (W/IN LIMITS)
[2018-05-16 10:31] LABS: Appearance/Body Fluid SL CLDY; Color/Body Fluid YELLOW; Source- Body Fluid OTHER
[2018-05-16 10:38] LABS: Red Cell Count/Body Fluid 57 /mm3
[2018-05-16 10:44] LABS: Lymphocytes 78 %; Monocytes 9 %; Neutrophil (Segs) 13 %
[2018-05-16 10:45] LABS: Body Fluid QC Type(s) BF1Q
[2018-05-19 11:34] LABS: Pathologist Comment/Body Fluid Reviewed
== END ==
LOC: US 09:35 → MEDOUTP 09:37
PROVIDERS: Family Provider Family Medicine; PCP Family Medicine
DX: K75.81 Nonalcoholic steatohepatitis (NASH) (principal); R18.8 Other ascites
CPT/HCPCS: 96365; 49083; 89050; P9047

== ENCOUNTER → 2018-05-30 08:11 | Outpatient (CLI) | payer OTHER, SELFPAY ==
[2018-05-02 13:57] VITALS: BMI 36.0
[2018-05-16 09:59] VITALS: BMI 36.5
--- NOTE | 2018-05-30 08:15 | US_ITS ---
PROCEDURE: Ultrasound guided paracentesis. DATE OF EXAMINATION: May 30, 2018.. INDICATION: Female, 57 years old. Ascites. PHYSICIAN: Kannan Pennington M.D. TECHNIQUE: The risks, benefits, and alternatives to the procedure were explained to the patient. The specific risks of bleeding, infection, and damage to bowel were detailed and accepted. Witnessed informed consent was obtained. The abdomen was ultrasonographically surveyed. An appropriate pocket of fluid was identified at the right lower quadrant. The skin were cleaned and prepped in the usual sterile fashion. Using ultrasound guidance, the peritoneal cavity was accessed with a 5-Cymro paracentesis needle/catheter system. The trocar was removed. A total of 8720 ml of moses-colored fluid were removed from the peritoneal cavity. A 120 mL sample was sent to the laboratory. The catheter was removed and a sterile dressing was applied. The procedure was well tolerated. US/Paracentesis with US IMPRESSION: Ultrasound guided paracentesis. Electronically Signed: Kannan Pennington MD at 10:34 EST Tel [phone], Service support ,
[2018-05-30 08:44] LABS: Hemoglobin 14.1 g/dl (12.0-15.0); Mean Corp Hgb Conc 32.8 g/gl (32-36); Mean Corpuscular Hgb 29.1 pg (27.0-32.0); Mean Corpuscular Volume 88.8 fL (81-99); Mean Platelet Vol. 9.9 fl (6.2-12.0); Platelet Count 244 K/mm3 (150-450); RBC Distribution Width CV 13.7 % (11.6-14.6); RBC Distribution Width SD 44.4 fl (35.1-43.9); Red Blood Count 4.84 M/mm3 (4.2-5.4); White Blood Count 5.9 K/mm3 (4.4-11.0)
[2018-05-30 08:45] LABS: Scan Indicated on CBC? Y/N NO
[2018-05-30 09:11] LABS: International Normalized Ratio 1.1; Prothrombin Time (Protime)PT. 14.3 SECONDS (11.7-14.9)
[2018-05-30 10:11] VITALS: BP 138/72; BP 142/75; BP 143/124; BP 143/81; PULSE 83; PULSE 84; PULSE 86; RESP 18; O2SAT 95; O2SAT 96; O2SAT 97
[2018-05-30 10:27] VITALS: BP 142/76; PULSE 88; RESP 16; TEMP 36.4; O2SAT 100; BMI 35.2
[2018-05-30] MEDS: Albumin Human 25% (100 mL) 25 GM/100 ML BAG IV ×2 (10:55→11:14)
[2018-05-30] MEDS: Albumin Human 25% (50 mL) 12.5 GM/50 ML IV.SOLN IV (11:34)
--- OUTSIDE RECORDS SUMMARY | 2018-08-03 15:14 | XMS RPT_ITS ---
:1960 Author Organization OHIP Support Name Relationship Address Phone [employer] Unavailable [address] + [place] [address] LUH MCDONALD Unavailable [address] + [address] [place] [address] HARJEET MCDONALD Unavailable [address] + [address] [place] [address] [employer]ENT [employer] Un[address] + [place] [address] LUH MCDONALD Unavailable [address] + [address] [place] [address] HARJEET MCDONALD Unavailable [address] + [address] [place] [address] [employer] Un[address] + [place] [address] LUH MCDONALD Unavailable [address] + [address] [place] [address] HARJEET MCDONALD Unavailable [address] + [address] [place] [address] [employer]ENT [employer] Unavailable . + [place] [address] LUH MCDONALD Unavailable [address] + [address] [place] [address] HARJEET MCDONALD Unavailable [address] + [address] [place] [address] [employer]ENT [employer] Unavailable . + [place] [address] LUH MCDONALD Unavailable [address] + [address] [place] [address] HARJEET MCDONALD Unavailable [address] + [address] [place] [address] [employer] Unavailable . + [place] [address] HARRY LUH Unavailable [address] + [address] [place] [address] HARRY HARJEET Unavailable [address] + [address] [place] [address] [employer] Unavailable . + [place] [address] LUH MCDONALD Unavailable [address] + [address] [place] [address] HARRY HARJEET Unavailable [address] + [address] [place] [address] [employer] Unavailable . + [place] [address] LUH MCDONALD Unavailable [address] + [address] [place] [address] HARRY HARJEET Unavailable [address] + [address] [place] [address] [employer] Unavailable . + [place] [address] LUH MCDONALD Unavailable [address] + [address] [place] [address] HARRY HARJEET Unavailable [address] + [address] [place] [address] LUH MCDONALD Unavailable [address] + [place] [address] HARRY HARJEET Unavailable [address] + [place] [address] [employer] Unavailable [address] + [place] [address] Care Team Providers Name Role Phone CHASIDY MIRANDA FELY Attending Unavailable SLIME GARBER (ELEVATOR CONSTRUCTOR HELPER) Referring Unavailable WAKIM MIRANDA, FELY Referring Unavailable MAGALIS KABA Attending Unavailable SLIME GARBER (ELEVATOR CONSTRUCTOR HELPER) Referring Unavailable WAKIM MIRANDA, FELY Referring Unavailable WAKIM MIRANDA, FELY Referring Unavailable SABRINA MA (ELEVATOR CONSTRUCTOR HELPER) Attending Unavailable SABRINA MA (ELEVATOR CONSTRUCTOR HELPER) Referring Unavailable WAKIM MIRANDA, FELY Referring Unavailable WAKIM MIRANDA, FELY Referring Unavailable LIDIA HURLEY Attending Unavailable DIANNE MEEKS Attending Unavailable WAKIM MIRANDA, FELY Referring Unavailable MAHNAZ BAJWA (ELEVATOR CONSTRUCTOR HELPER) Attending Unavailable WAKIM MIRANDA, FELY Referring Unavailable WAKIM MIRANDA, FELY Attending Unavailable WAKIM MIRANDA, FELY Referring Unavailable WAKIM MIRANDA, FELY Referring Unavailable WAKIM MIRANDA, FELY Referring Unavailable WAKIM MIRANDA, FELY Referring Unavailable WAKIM MIRANDA, FELY Referring Unavailable EL RODOLFO, JAVIER M Admitting Unavailable EL RODOLFO, JAVIER M Attending Unavailable EL RODOLFO, JAVIER M Referring Unavailable LINDENMEYER, JENNIE (FEL) Attending Unavailable EL RODOFLO, JAVIER M Referring Unavailable LINDENMEYER, JENNIE (FEL) [...] Michael, Elias Primary Care Unavailable Sabrina Ma BUNG SEWER-C Attending Unavailable Sabrina Ma BUNG SEWER-C Referring Unavailable Michael, Elias Primary Care Unavailable Elias Rodriguez Primary Care Unavailable Cortez Roman Attending Unavailable Elias Rodriguez Attending Unavailable Elias Rodriguez Primary Care Unavailable PROBLEMS PROBLEMS DATE TYPE CONDITION / CODE ATTENDING STATUS SOURCE 05/21/2018 Active Portal hypertension / NA Active [place] K76.6(ICD-10) Clinic Main [place] Repository 05/07/2018 Unknown K75.81 - Nonalcoholic CASSIE HATFIELD Active [place] steatohepatitis Community ([place]) / Hospital K75.81(ICD-10) Repository 05/07/2018 Unknown R18.8 - Other ascites CASSIE HATFIELD Active [place] / R18.8(ICD-10) [facility] Repository 03/14/2018 Unknown E03.9 - Elias Rodriguez Active [place] Hypothyroidism, Community unspecified / Hospital E03.9(ICD-10) Repository 01/31/2018 Active Type 2 diabetes NA Active [place] mellitus without Clinic Main complications / [place] E11.9(ICD-10) Repository 01/31/2018 Active Other specified NA Active [facility] postprocedural states Clinic Main / Z98.890(ICD-10) [place] Repository 01/31/2018 Active Personal history of NA Active [place] other diseases of the Clinic Main digestive system / [place] Z87.19(ICD-10) Repository 01/31/2018 Active Other ascites / NA Active [place] R18.8(ICD-10) Clinic Main [place] Repository 11/12/2017 Active Obesity, unspecified NA Active [place] / E66.9(ICD-10) Clinic Main [place] Repository 01/24/2018 Active Unspecified abdominal EL JAVIER REYNOLDS Active [place] hernia with M Clinic Main obstruction, without [place] gangrene / Repository K46.0(ICD-10) 11/27/2017 Active Unspecified cirrhosis LIDIA HURLEY P Active [place] of liver / Clinic Main K74.60(ICD-10) [place] Repository 11/14/2017 Unknown Z12.31 - Encounter Renu Ma for screening Sabrina BUNG SEWER-C [facility] mammogram for Hospital malignant neoplasm of Repository breast / Z12.31(ICD-10) 10/02/2015 Active Nonalcoholic NA Active [place] steatohepatitis Clinic Main ([place]) / [place] K75.81(ICD-10) Repository 10/02/2015 Active Biliary cirrhosis, NA Active [place] unspecified / Clinic Main K74.5(ICD-10) [place] Repository 08/15/2017 Active Unknown / CHASIDY MIRANDA, Active [place] UNK(Unknown) [facility] Main [place] Repository 08/07/2017 Unknown R10.9 - Unspecified Elias Rodriguez Active [place] abdominal pain / Community R10.9(ICD-10) Hospital Repository 07/23/2017 Unknown R11.2 - Nausea with Elias Rodriguez Active [place] vomiting, unspecified Community / R11.2(ICD-10) Hospital Repository PROCEDURES PROCEDURES No Procedure Records FoundRESULTS RESULTS CBC-COMPLETE BLOOD CNT Collected: 05/30/2018 Status: F Source: [place] NO DIFF 8:30 AM [facility] REPOSITORY TYPE CODE TESTS RESULT OUT [...] MPV 9.9 Performed By: #### L100.0500 #### [facility] [address] [place], [place], [address] PROTHROMBIN TIME W/INR Collected: 05/30/2018 Status: F Source: [place] 8:30 AM [facility] REPOSITORY TYPE CODE TESTS RESULT OUT OF RANGE REFERENCE UNITS LAB L300.4150 11.7-14.9 SECONDS Normal PROTIME 14.3 LAB L300.4200 Normal INR 1.1 Performed By: #### L300.3900 #### [facility] [address] [place], [address] PARACENTESIS WITH US Observed: 05/30/2018 Status: F Source: [place] 8:16 AM [facility] REPOSITORY [facility] [place] [address] Paracentesis with US MR#: [id number] Acct: [id number] Name: PRITI MCDONALD Rep #: [id number] : 1960 F 57 From: Kannan Pennington MD PCP: Elias Rodriguez MD Status: REG CLI Study: Paracentesis with US Date of Exam: 05/30/18 Exam# [id number] Ordering Dr: SLIME GARBER PROCEDURE: Ultrasound guided [...] the peritoneal cavity was accessed with a 5-Mosotho paracentesis needle/catheter system. The trocar was removed. A total of 8720 ml of moses-colored fluid were removed from the peritoneal cavity. A 120 mL sample was sent to the laboratory. The catheter was removed and a sterile dressing was applied. The procedure was well tolerated. US/Paracentesis with US IMPRESSION: Ultrasound guided paracentesis. Electronically Signed: Kannan Pennington MD at 10:34 EST Tel [phone], Service support , CC: SLIME GARBER; Elias Rodriguez MD Mail Clerk Bills: Signed FLUID/WASHING Observed: 05/30/2018 Status: F Source: [place] 12:00 AM [facility] REPOSITORY Patient: PRITI MCDONALD : 1960 (57/F) Acct Num: [id number] Phys: OUT OF TOWN DOCTOR Unit Num: [id number] [facility]: [facility] Specimen: [id number] Received: 05/30/18 - 1038 Spec Type: Fluid TISSUES 1 TISSUES: PARACENTESIS FLUID COMMENT Clinical correlation is suggested. CULTURE RESULTS No results available. CYTOLOGY GROSS Received is 118 ml of clear yellow fluid labeled with the patient's name and and designated per the requisition as paracentesis. Submitted for cytology preparation including cell block. / 05/30/18 TC: 5 CPT: 48384, 62071 CYTOLOGY STUDY Slides are reviewed. The specimen [...] on file> Performed By: #### PFLU #### [facility] [address] [place] [address]. [place], [address] HISTORY PHYSICAL Observed: 05/21/2018 Status: COMPLETED Source: [place] 10:00 AM [facility] REPOSITORY HNO ID: [id number] Author: Vibha Davis Service: (none) Author Type: [...] 1.0 02/27/2018 ECHO: Echocardiography Report: Transthoracic Echo [facility] J1-5 Date of service: 02/27/2018 3:35:51 PM [...] MORPHOLOGY. ?NO HEPATIC LESION. SMALL VOLUME ASCITES Mail Clerk Bills: PSCB ? Transcribe Date/Time: Feb 27 2018 [...] May 21, 2018 TIME: 10:00 AM PAGER: [phone] BODY FLUID CELL Collected: 05/16/2018 Status: C Source: [place] COUNT+DIFF 8:45 AM [facility] REPOSITORY Order Comment: Specimen Source: THERAPETEUTIC PARACENTESIS [...] SEE COMMENT Performed By: #### L200.0200 #### [facility] [address] [place], [address] PARACENTESIS WITH US Observed: 05/16/2018 Status: F Source: [place] 8:17 AM [facility] REPOSITORY [facility] Imaging Services [address] [place] [address] Paracentesis with US MR#: [id number] Acct: [id number] Name: PRITI MCDONALD Rep #: [id number] : 1960 F 57 From: Kannan Pennington MD PCP: Elias Rodriguez MD Status: REG CLI Study: Paracentesis with US Date of Exam: 05/16/18 Exam# [id number] Ordering Dr: SLIME GARBER PROCEDURE: Ultrasound guided [...] the peritoneal cavity was accessed with a 5-Mosotho paracentesis needle/catheter system. The trocar was removed. A total of 9020 ml of moses-colored fluid were removed from the peritoneal cavity. A 120 mL sample was sent to the laboratory for analysis. The catheter was removed and a sterile dressing was applied. The procedure was well tolerated. US/Paracentesis with US IMPRESSION: Ultrasound guided paracentesis. Electronically Signed: Kannan Pennington MD at 10:39 EST Tel [phone], Service support , CC: SLIME GARBER; Elias Rodriguez MD Mail Clerk Bills: Signed PROGRESS Observed: 05/09/2018 Status: COMPLETED Source: [place] 9:47 AM [facility] REPOSITORY O ID: [id number] Author: Jennie Becerra Service: (none) Author Type: Physician Type: Progress Notes Filed: 05/09/2018 6:36 PM Note Text: DDSI CLINIC FOLLOWUP NAME: Priti Mcdonald [facility] NO: [id number] REFERRING PHYSICIAN: Javier Reynolds PRESENTING COMPLAINT: [place] [...] for which she is following with an tracer bullet section supervisor who is uptitrating her synthroid. She was [...] Estrella MD, PGY-1 Internal Medicine Department Pager #[phone] THIS NOTE IS NOT FINAL UNTIL SIGNED BY DR. HERNAN VALIENTE. [facility] STAFF PHYSICIAN NOTE OF PERSONAL INVOLVEMENT IN [...] with more than 50% of the total tbbk-xb-xyxm time of the visit in counseling / coordination of care. Jennie Becerra MD May 09, 2018 6:27 PM PROGRESS Observed: 05/09/2018 Status: COMPLETED Source: [place] 9:47 AM [facility] REPOSITORY HNO ID: [id number] Author: Jennie Squires) Hernan Service: (none) Author Type: Physician Type: Progress Notes Filed: 05/09/2018 6:36 PM Note Text: NATE Observed: 05/09/2018 Status: COMPLETED Source: [place] 9:10 AM [facility] REPOSITORY Office Visit (GASTA5) PRITI MCDONALD ([id number]) 1960 F Date Time Provider Department 05/09/18 9:10 AM JENNIE BECERRA) GASTA5 During your visit today, we recorded the following information about you: Temperature Pulse Blood pressure Weight 98.3 degrees 90/minute 136/75 110.1 kg Height 1.702 m Jennie Becerra MD 05/09/2018 6:36 PM Signed Jennie Becerra MD 05/09/2018 6:36 PM Signed [facility] CLINIC FOLLOWUP NAME: Priti Mcdonald CLINIC NO: [id number] REFERRING PHYSICIAN: Javier Reynolds PRESENTING COMPLAINT: [place] [...] for which she is following with an tracer bullet section supervisor who is uptitrating her synthroid. She was [...] E03.9 - LEVOTHYROXINE 137 MCG TABLET Chris Estrelal MD, PGY-1 Internal Medicine Department Pager #[phone] THIS NOTE IS NOT FINAL UNTIL SIGNED BY DR. HERNAN VALIENTE. [facility] STAFF PHYSICIAN NOTE OF PERSONAL INVOLVEMENT IN [...] with more than 50% of the total iovt-ac-khxl time of the visit in counseling / coordination of care. Jennie Becerra MD May 09, 2018 6:27 PM Referring Provider: JAVIER HENLEY [[id number]] Allergies As of Date: 05/09/2018 Noted Allergy Reaction CODEINE 04/28/2007 8 - GI Upset Comments: nausea Date Reviewed: 05/09/2018 Reviewed by: Jennie Becerra - Fully Assessed Reason for Visit: Established Patient [175] Cmt: cirrhosis Primary Visit Diagnosis:Nonalcoholic steatohepatitis ([place]) [K75.81] Other Visit Diagnoses:Other ascites [R18.8] Vitamin D deficiency [E55.9] Hepatic encephalopathy (HCC) [K72.90] Hypothyroidism, unspecified type [E03.9] Order(s):IR INTERVENTIONAL CONSULT [7873780] Order #: [id number] [facility] [0746192] Order #: [id number]: 1 levothyroxine (SYNTHROID) 137 mcg tabletTake 1.5 [...] 05/09/18 CNCO Observed: 05/09/2018 Status: COMPLETED Source: [place] 12:00 AM [facility] REPOSITORY Letter Text [facility] Anna Jennie Becerra MD Department of Gastroenterology [address] [place] [address] Appointments: [phone] Office: [phone] May 09, 2018 Re: Priti Mcdonald [address] [facility] [address] To Whom it May Concern: Ms. Mcdonald requires regular paracentesis for therapy of abdominal ascites. Her post-paracentesis 25% albumin solution may be infused at a rate of 400 cc/hr. Please do not hesitate to contact me with questions or concerns. Sincerely, Jennie Becerra MD PARACENTESIS WITH US Observed: 05/02/2018 Status: F Source: [place] 12:23 PM [facility] REPOSITORY [facility] Imaging Services [address] [place] [address] Paracentesis with US MR#: [id number] Acct: [id number] Name: PRITI MCDONALD Rep #: [id number] : 1960 F 57 From: Kannan Pennington MD PCP: Elias Rodriguez MD Status: REG CLI Study: Paracentesis with US Date of Exam: 05/02/18 Exam# [id number] Ordering Dr: JENNIE BAUM PROCEDURE: Ultrasound guided [...] the peritoneal cavity was accessed with a 5-Mosotho paracentesis needle/catheter system. The trocar was removed. A total of 8970 ml of moses-colored fluid were removed from the peritoneal cavity. The catheter was removed and a sterile dressing was applied. The procedure was well tolerated. US/Paracentesis with US IMPRESSION: Ultrasound guided paracentesis. Electronically Signed: Kannan Pennington MD at 14:46 EST Tel [phone], Service support , CC: JENNIE BAUM; Elias Rodriguez MD Mail Clerk Bills: Signed COMP METABOLIC PANEL Collected: 05/02/2018 Status: F Source: [place] 9:51 AM [facility] REPOSITORY TYPE CODE TESTS RESULT [...] TIME W/INR Collected: 04/25/2018 Status: F Source: [place] 1:21 PM [facility] REPOSITORY TYPE CODE TESTS RESULT OUT OF RANGE REFERENCE UNITS LAB L300.4150 11.7-14.9 SECONDS Normal PROTIME 14.1 LAB L300.4200 Normal INR 1.1 Performed By: #### L300.3900, L300.4310 #### [facility] [address] [facility] [place], [place], [address] PARTIAL THROMBOPLAST Collected: 04/25/2018 Status: F Source: [place] TIME 1:21 PM [facility] REPOSITORY TYPE CODE TESTS RESULT OUT OF RANGE REFERENCE UNITS LAB L300.4310 24.1-36.2 Seconds Normal PTT 30.4 Performed By: #### L300.3900, L300.4310 #### [facility] [address] [place], [address] CNPN Observed: 04/23/2018 Status: COMPLETED Source: [place] 12:00 AM [facility] REPOSITORY Telephone (GASTA5) PRITI MCDONALD ([id number]) 1960 F Date Time Provider Department 04/23/18 JENNIE BECERRA) GASTA5 During your visit today, we recorded the following information about you: Daisy Lion RN, RN 04/23/2018 4:52 PM Signed Dear Edna Schneider has arranged for this patient to have paracentesis locally at [facility] ([phone]). First para scheduled 05/02/18. Rec'd a call [...] patient for need to have labs at [facility] prior to procedure (cannot be done day of). Thank you- Romana Lion RN April 23, 2018 4:51 PM Jennie Becerra MD 04/23/2018 5:54 PM Signed Signed! Thank you both very much. -Jennie Menjivar RN, RN 04/24/2018 11:36 AM Addendum APTT and INR orders faxed to [facility] [phone] (fax number confirmed) as requested below. Patient informed to please have her labs done at [facility] at her earliest convenience. States she will get them done tomorrow. Diane Menjivar RN Allergies As of Date: 04/23/2018 Noted Allergy Reaction CODEINE 04/28/2007 8 - GI Upset Comments: nausea Date Reviewed: 04/22/2018 Reviewed by: Lila Pate (Rn) WILIAM Fontenot - Fully Assessed Reason for Visit: Local paracentesis [Other] Primary Visit Diagnosis:Nonalcoholic steatohepatitis ([place]) [K75.81] Order(s):PROTHROMBIN TIME/PT [SQPT] Order #: [id number] FUTURE ACTIVATED PTT [SQPTT] Order #: [id number] FUTURE Prescriptions as of 04/23/2018 Sig: ADDERALL [...] COUNT/DIFF BF Collected: 04/22/2018 Status: F Source: [place] 9:45 AM [facility] REPOSITORY TYPE CODE TESTS RESULT OUT OF [...] Comment: Test Not Indicated LAB BFSLNM Slide [id number] Number BF LAB BFNEUT % Neut% 7 LAB BFLYMP % 60 Lymph% LAB BFMONO % Summers% 29 LAB BFMACR % 3 Macro% LAB BFMESO % Meso% 1 Performed By: #### CCBF #### [facility] [address] [place], [place] [address] PROGRESS Observed: 04/22/2018 Status: COMPLETED Source: [place] 9:34 AM [facility] REPOSITORY HNO ID: [id number] Author: Lila Pate (Rn) WILIAM Fontenot Service: [...] COUNT/DIFF BF Collected: 04/08/2018 Status: F Source: [place] 11:20 AM [facility] REPOSITORY TYPE CODE TESTS RESULT OUT OF [...] Comment: Test Not Indicated LAB BFSLNM Slide [id number] Number BF LAB BFNEUT % Neut% 5 LAB BFLYMP % 40 Lymph% LAB BFMONO % Summers% 12 LAB BFMACR % 38 Macro% LAB BFMESO % Meso% 5 Performed By: #### CCBF #### [facility] [address] [place], [place] [address] PROGRESS Observed: 04/08/2018 Status: COMPLETED Source: [place] 9:43 AM [facility] REPOSITORY HNO ID: [id number] Author: Lila Pate (Rn) WILIAM Fontenot Service: [...] to proceed. Procedure performed by Slime Garber APRN,ELEVATOR CONSTRUCTOR HELPER Medication: 2% Lidocaine 10cc The patient was [...] METABOLIC PANEL Collected: 03/28/2018 Status: F Source: [place] 11:06 AM [facility] [place] REPOSITORY TYPE CODE TESTS RESULT OUT OF [...] COUNT/DIFF BF Collected: 03/21/2018 Status: F Source: [place] 11:35 AM [facility] REPOSITORY TYPE CODE TESTS RESULT OUT OF [...] Comment: Test Not Indicated LAB BFSLNM Slide [id number] Number BF LAB BFNEUT % Neut% 6 LAB BFLYMP % 61 Lymph% LAB BFMONO % Summers% 29 LAB BFMACR % 4 Macro% Performed By: #### CCBF #### [facility] [address] [place], [place] [address] PROGRESS Observed: 03/21/2018 Status: COMPLETED Source: [place] 9:45 AM [facility] REPOSITORY HNO ID: [id number] Author: Lila Pate (Rn) WILIAM Fontenot Service: [...] RN CNOV Observed: 03/21/2018 Status: COMPLETED Source: [place] 8:15 AM [facility] REPOSITORY Office Visit (GAPRA3) PRITI MCDONALD ([id number]) 1960 F Date Time Provider Department 03/21/18 [...] Lila Fontenot RN Referring Provider: JENNIE BECERRA) [[id number]] Allergies As of Date: 03/21/2018 Noted Allergy Reaction CODEINE 04/28/2007 8 - GI Upset Comments: nausea Date Reviewed: 03/21/2018 Reviewed by: Lila Pate (Rn) WILIAM Fontenot - Fully Assessed Primary Visit Diagnosis:Other ascites [R18.8] Other Visit Diagnosis:Nonalcoholic steatohepatitis ([place]) [K75.81] Order(s):ABDOM PARACENTESIS DX/THER W IMAGING GUIDANCE [98171ZCI] Order #: [id number] CELL COUNT + DIFF BFL [SQCCBF] Order #: [id number] Prescriptions as of 03/21/2018 Sig: SPIRONOLACTONE 50 [...] METABOLIC PANEL Collected: 03/18/2018 Status: F Source: [place] 10:36 AM [facility] REPOSITORY TYPE [...] Status: F Source: [place] ([place]) 11:04 AM [facility] REPOSITORY TYPE CODE TESTS RESULT OUT OF RANGE REFERENCE UNITS LAB L501.9520 0.358-3.74 uIU/mL High TSH 7.17 Performed By: #### L501.9520, L506.0400 #### [facility] [address] [facility] [place], [place], [address] T4 FREE DIRECT Collected: 03/14/2018 Status: F Source: [place] 11:04 AM [facility] REPOSITORY TYPE CODE TESTS RESULT OUT OF RANGE REFERENCE UNITS LAB L506.0400 0.76-1.46 ng/dL Normal T4 FREE 1.22 DIRECT Performed By: #### L501.9520, L506.0400 #### [facility] [address] [place], [place], [address] COMP METABOLIC PANEL Collected: 03/07/2018 Status: F Source: [place] 10:30 AM [facility] REPOSITORY TYPE CODE TESTS RESULT OUT OF REFERENCE UNITS RANGE LAB TP 6.3-8.0 g/dL Protein, Total 6.5 LAB ALB 3.9-4.9 g/dL Albumin 4.1 LAB CA 8.5-10.2 mg/dL Calcium, Total 9.7 LAB TBIL 0.2-1.3 mg/dL Bilirubin, Total 0.4 LAB ALKP 34-123 U/L Alkaline High Phosphatase 142 LAB AST 13-35 U/L AST High 43 LAB GLU 74-99 mg/dL Glucose 80 Result Comment: The [place] Diabetes Association (ADA) provides guidance for cutoff [...] Standards of Medical Care in Diabetes 2016, [place] [employer]. Diabetes Care. 2016.39(Suppl 1). LAB [...] actual GFR. Performed By: #### CMP #### [facility] [employer] [address] [place], [place] [address] PROGRESS Observed: 03/07/2018 Status: COMPLETED Source: [place] 10:05 AM [facility] REPOSITORY HNO ID: [id number] Author: Cristela (Rn) WILIAM Zhong Service: (none) [...] COUNT/DIFF BF Collected: 03/07/2018 Status: F Source: [place] 8:53 AM [facility] REPOSITORY TYPE CODE TESTS RESULT OUT OF [...] Comment: Test Not Indicated LAB BFSLNM Slide [id number] Number BF LAB BFNEUT % Neut% 6 LAB BFLYMP % 61 Lymph% LAB BFMONO % Summers% 25 LAB BFMACR % 6 Macro% LAB BFMESO % Meso% 1 LAB BFEOSN % 1 Eosin% Performed By: #### CCBF #### [facility] [employer] [address] [place], [place] [address] CNOV Observed: 03/07/2018 Status: COMPLETED Source: [place] 8:15 AM [facility] REPOSITORY Office Visit (GAPRA3) PRITI MCDONALD ([id number]) 1960 F Date Time Provider Department 03/07/18 [...] Slime Garber APRN,JACK Referring Provider: JENNIE BECERRA) [[id number]] Allergies As of Date: 03/07/2018 Noted Allergy Reaction CODEINE 04/28/2007 8 - GI Upset Comments: nausea Date Reviewed: 03/07/2018 Reviewed by: Cristela (Wiliam) WILIAM Zhong - Fully Assessed Primary Visit Diagnosis:Other ascites [R18.8] Other Visit Diagnosis:Nonalcoholic steatohepatitis ([place]) [K75.81] Order(s):ABDOM PARACENTESIS DX/THER W IMAGING GUIDANCE [41682THM] Order #: [id number] CELL COUNT + DIFF BFL [SQCCBF] Order #: [id number]. #:[id number] Prescriptions as of 03/07/2018 Sig: RIFAXIMIN 550 [...] 03/07/18 JACKN Observed: 03/05/2018 Status: COMPLETED Source: [place] 12:00 AM [facility] REPOSITORY Telephone (GASTA5) HARRYPRITI ([id number]) 1960 F Date Time Provider Department 03/05/18 [...] 8:18 AM Signed Replied to patient via Aaron Andrews App[employer]. Jennie Becerra MD Allergies As of Date: [...] DOPPLER COMPLETE Observed: 02/27/2018 Status: F Source: [place] 2:29 PM [facility] [place] REPOSITORY * * *Final Report* * * [...] MORPHOLOGY. NO HEPATIC LESION. SMALL VOLUME ASCITES Mail Clerk Bills: VICENTE Transcribe Date/Time: Feb 27 2018 3:00P Dictated by : TIRSO GRAF MD This examination was interpreted and the report reviewed and electronically signed by: TIRSO GRAF MD on Feb 27 2018 3:03PM EST [id number] US ABD LIVER VASCULAR Observed: 02/27/2018 Status: F Source: [place] 2:20 PM [facility] REPOSITORY * * *Final Report* * * [...] MORPHOLOGY. NO HEPATIC LESION. SMALL VOLUME ASCITES Mail Clerk Bills: [facility] Transcribe Date/Time: Feb 27 2018 3:00P Dictated by : TIRSO GRAF MD This examination was interpreted and the report reviewed and electronically signed by: TIRSO GRAF MD on Feb 27 2018 3:03PM EST [id number] CBC AND DIFFERENTIAL Collected: 02/27/2018 Status: F Source: [place] 9:35 AM [facility] REPOSITORY TYPE CODE TESTS RESULT [...] Low Abs Lymph 0.75 LAB AMONO % Summers% 10.3 LAB AAMONO <0.87 k/uL Abs Summers 0.59 LAB AEOS % Eosin% 6.6 LAB AAEOS <0.46 k/uL Abs Eosin 0.38 LAB ABASO % Baso% 0.7 LAB AABASO <0.11 k/uL Abs Baso 0.04 LAB AUNRBC 0 /100 WBC NRBCs 0.0 LAB ABNRBC <0.01 k/uL Absolute nRBC <0.01 LAB DTYP DTYPE Auto Diff Performed By: #### CBCDIF, PT, CMP #### [facility] [address] [place] [id number] PROTIME Collected: 02/27/2018 Status: F Source: [place] 9:35 AM [facility] REPOSITORY TYPE CODE TESTS RESULT OUT OF RANGE REFERENCE UNITS LAB PSEC 9.7-13.0 sec PT Sec 10.6 LAB INR 0.9-1.3 PT INR 1.0 Result Comment: Vitamin K Antagonist (VKA) Therapeutic Range: INR 2 to 3 (Target INR of 2.5) Note: For patients treated with VKA drugs, such as warfarin, the [place] [employer]icians 2012 Guideline recommends [...] Chest 2012, 141:7S-47S Rita RA, et al. [facility] 2017, 70: 252-289 Performed By: #### CBCDIF, PT, CMP #### [facility] [address] [place], [place] [address] COMP METABOLIC PANEL Collected: 02/27/2018 Status: F Source: [place] 9:35 AM [facility] REPOSITORY TYPE CODE TESTS RESULT [...] mg/dL Glucose High 112 Result Comment: The [place] Diabetes Association (ADA) provides guidance for cutoff [...] Standards of Medical Care in Diabetes 2016, [place] Diabetes Association. Diabetes Care. 2016.39(Suppl 1). LAB [...] Performed By: #### CBCDIF, PT, CMP #### [facility] [address] [place] [address] PROGRESS Observed: 02/27/2018 Status: COMPLETED Source: [place] 9:19 AM [facility] REPOSITORY HNO ID: [id number] Author: Miya Salinas Service: (none) Author Type: [...] APRN.CNP CNOV Observed: 02/27/2018 Status: COMPLETED Source: [place] 8:15 AM [facility] REPOSITORY Office Visit (GAPRA3) PRITI MCDONALD ([id number]) 1960 F Date Time Provider Department 02/27/18 [...] Miya Salinas APRN.CNP Referring Provider: JENNIE BECERRA) [[id number]] Allergies As of Date: 02/27/2018 Noted Allergy [...] 02/27/18 CNPN Observed: 02/27/2018 Status: COMPLETED Source: [place] 12:00 AM [facility] REPOSITORY Telephone (GASTA5) HARRYPRITI ([id number]) 1960 F Date Time Provider Department 02/27/18 [...] Status:Closed by JENNIE BECERRA MD on 02/27/18 [facility]: 02/21/2018 Status: COMPLETED Source: [place] 12:00 AM [facility] REPOSITORY Letter Text Javier Carrera M.D. [facility] [address] [place] [address] office: [phone] fax: [phone] February 21, 2018 RE: Priti Mcdonald To Whom It May Concern: Priti Mcdonald underwent an operative procedure on January 22, 2018 at the [facility]. She will be able to return to work as of February 24, 2018 without any restrictions. If you should have any questions with regards to Priti Mcdonald, please do not hesitate to contact my office. Sincerely, Javier Carrera M.D. [facility] Observed: 02/19/2018 Status: COMPLETED Source: [place] 12:00 AM [facility] REPOSITORY Telephone (GASTMN) PRITI MCDONALD ([id number]) 1960 F Date Time Provider Department 02/19/18 JENNIE BECERRA () [facility] During your visit today, we recorded [...] 02/19/18 PROGRESS Observed: 02/14/2018 Status: COMPLETED Source: [place] 2:49 PM [facility] REPOSITORY HNO ID: [id number] Author: Javier Renyolds Service: (none) Author Type: Physician Type: Progress [...] PM PROGRESS Observed: 02/14/2018 Status: COMPLETED Source: [place] 10:58 AM [facility] REPOSITORY HNO ID: [id number] Author: Santo (Resident) Moises Service: (none) Author [...] AM CNOV Observed: 02/14/2018 Status: COMPLETED Source: [place] 10:45 AM [facility] REPOSITORY Office Visit (GENSCA) PRITI MCDONALD ([id number]) 1960 F Date Time Provider Department 02/14/18 [...] No Does patient want to see a Steam Fitter Supervisor Maintenance? No (yes to any of above refer [...] No Does patient want to see a Steam Fitter Supervisor Maintenance? No (yes to any of above refer [...] 02/14/18 PROGRESS Observed: 02/14/2018 Status: COMPLETED Source: [place] 9:48 AM [facility] REPOSITORY HNO ID: [id number] Author: Lilia (Rn) WILIAM Warren Service: (none) [...] AM CNNURSE Observed: 02/14/2018 Status: COMPLETED Source: [place] 9:00 AM [facility] REPOSITORY Nurse Visit (GAPRA3) PRITI MCDONALD ([id number]) 1960 F Date Time Provider Department 02/14/18 [...] 2018 9:48 AM Referring Provider: JENNIE BECERRA) [[id number]] Allergies As of Date: 02/14/2018 Noted Allergy [...] 02/11/2018 Status: COMPLETED Source: [place] 12:00 AM [facility] REPOSITORY Telephone (GAPRA3) PRITI MCDONALD ([id number]) 1960 F Date Time Provider Department 02/11/18 [...] far) Says she plans on going to [place] and wants to take lab orders with [...] METABOLIC PANEL Collected: 02/10/2018 Status: F Source: [place] 10:09 AM [facility] REPOSITORY TYPE CODE TESTS RESULT [...] mg/dL Glucose High 213 Result Comment: The [place] Diabetes Association (ADA) provides guidance for cutoff [...] Standards of Medical Care in Diabetes 2016, [place] Diabetes Association. Diabetes Care. 2016.39(Suppl 1). LAB [...] actual GFR. Performed By: #### CMP #### [facility] [address] [place], [place] [address] PROGRESS Observed: 02/07/2018 Status: COMPLETED Source: [place] 2:29 PM [facility] REPOSITORY HNO ID: [id number] Author: Sumi (Rn) WILIAM Major Service: (none) [...] PM CNNURSE Observed: 02/07/2018 Status: COMPLETED Source: [place] 11:00 AM [facility] REPOSITORY Nurse Visit (GAPRA3) PRITI MCDONALD ([id number]) 1960 F Date Time Provider Department 02/07/18 [...] 2018 2:29 PM Referring Provider: JENNIE BECERRA) [[id number]] Allergies As of Date: 02/07/2018 Noted Allergy [...] 02/07/18 MARIBELL Observed: 02/06/2018 Status: COMPLETED Source: [place] 12:00 AM [facility] REPOSITORY Telephone (GASTA5) PRITI MCDONALD ([id number]) 1960 F Date Time Provider Department 02/06/18 JENNIE BECERRA) GASTA5 During your visit today, we recorded the following information about you: Jennie Becerra MD 02/06/2018 9:13 AM Signed Hi Jada, I'd Ms. Mcdonald to come in today or tomorrow for an albumin infusion in A3. Order is in. Could you call her and help get this scheduled with her? I sent her a [employer] message but not sure she'll check it [...] AND DIFFERENTIAL Collected: 02/03/2018 Status: F Source: [place] 11:46 AM [facility] REPOSITORY TYPE CODE TESTS RESULT OUT OF [...] k/uL Abs Lymph 1.93 LAB AMONO % Summers% 5.9 LAB AAMONO <0.87 k/uL Abs Summers 0.83 LAB AEOS % Eosin% 9.3 LAB [...] ANA1, VITD, ZINC, SMOOTH, ARIANA, CELSCR #### [facility] [address] [place], [place] [address] #### A1APHE #### [facility] [address] [place] [address] [phone] PROTIME Collected: 02/03/2018 Status: F Source: [place] 11:46 AM [facility] REPOSITORY TYPE CODE TESTS RESULT OUT OF RANGE REFERENCE UNITS LAB PSEC 9.7-13.0 sec PT Sec 11.1 LAB INR 0.9-1.3 PT INR 1.1 Result Comment: Vitamin K Antagonist (VKA) Therapeutic Range: INR 2 to 3 (Target INR of 2.5) Note: For patients treated with VKA drugs, such as warfarin, the [place] [employer]icians 2012 Guideline recommends [...] Chest 2012, 141:7S-47S Rita RA, et al. [facility] 2017, 70: 252-289 Performed By: #### CBCDIF, PT, AFP, AHAVT, HREMOP, HBA1C, IRON, CERULO, TSH, CMP, LIPNF, FERR, ANA1, VITD, ZINC, SMOOTH, ARIANA, CELSCR #### [place] [address] #### A1APHE #### [address] [address] [phone] AFP Collected: 02/03/2018 Status: F Source: [place] 11:46 AM [facility] REPOSITORY TYPE CODE TESTS RESULT OUT OF RANGE REFERENCE UNITS LAB AFP <11 ng/mL AFP 7.6 Performed By: #### CBCDIF, PT, AFP, AHAVT, HREMOP, HBA1C, IRON, CERULO, TSH, CMP, LIPNF, FERR, ANA1, VITD, ZINC, SMOOTH, ARIANA, CELSCR #### [place] [address] #### A1APHE #### [facility] [address] [place] [address] [phone] HEPATITIS A AB TOTAL Collected: 02/03/2018 Status: F Source: [place] 11:46 AM [facility] REPOSITORY TYPE CODE TESTS RESULT OUT OF REFERENCE UNITS RANGE LAB AHAVT Negative Hepatitis A Ab Negative Total Performed By: #### CBCDIF, PT, AFP, AHAVT, HREMOP, HBA1C, IRON, CERULO, TSH, CMP, LIPNF, FERR, ANA1, VITD, ZINC, SMOOTH, ARIANA, CELSCR #### [place] [phone] #### A1APHE #### [place] [address] [phone] HEPATITIS REMOTE PANEL Collected: 02/03/2018 Status: F Source: [place] 11:46 [facility] REPOSITORY TYPE CODE TESTS RESULT OUT OF REFERENCE UNITS RANGE LAB AHBCOT Negative Hep B Core Ab,Total Negative LAB AHCV Negative Hepatitis C Ab Negative IA LAB HBSAGR Negative HBsAg Negative LAB AHBSAG Negative HepB Surface Ab,Qual Negative Result Comment: NEGATIVE Performed By: #### CBCDIF, PT, AFP, AHAVT, HREMOP, HBA1C, IRON, CERULO, TSH, CMP, LIPNF, FERR, ANA1, VITD, ZINC, SMOOTH, ARIANA, CELSCR #### [place] [address] [place] [phone] #### A1APHE #### [place] [address] [phone] HEMOGLOBIN A1C Collected: 02/03/2018 Status: F Source: [place] 11:46 [facility] REPOSITORY TYPE CODE TESTS RESULT OUT OF REFERENCE UNITS RANGE LAB HGBA1C 4.3-5.6 % High Hemoglobin A1c 5.9 LAB HBA0 mg/dL Est. Average Glucose 123 Result Comment: eAG: (Estimated average glucose) is a calculated value from HgbA1c and is inside outside sales representative of the average blood glucose level in the last 2-3 month period. Performed By: #### CBCDIF, PT, AFP, AHAVT, HREMOP, HBA1C, IRON, CERULO, TSH, CMP, LIPNF, FERR, ANA1, VITD, ZINC, SMOOTH, ARIANA, CELSCR #### [place] [address] [place] [phone] #### A1APHE #### [place] [address] [phone] IRON AND TIBC Collected: 02/03/2018 Status: F Source: [place] 11:46 AM [facility] REPOSITORY TYPE CODE TESTS RESULT OUT OF REFERENCE UNITS RANGE LAB IRN 41-186 ug/dL Iron 111 LAB TIBC 232-386 ug/dL TIBC 248 LAB SAT 15-57 % Transferrin Saturatn 45 Performed By: #### CBCDIF, PT, AFP, AHAVT, HREMOP, HBA1C, IRON, CERULO, TSH, CMP, LIPNF, FERR, ANA1, VITD, ZINC, SMOOTH, ARIANA, CELSCR #### [place] [phone] #### A1APHE #### [place] [address] [phone] CERULOPLASMIN Collected: 02/03/2018 Status: F Source: [place] 11:46 AM [facility] REPOSITORY TYPE CODE TESTS RESULT OUT OF REFERENCE UNITS RANGE LAB CERULO 16-45 mg/dL Ceruloplasmin 21 Performed By: #### CBCDIF, PT, AFP, AHAVT, HREMOP, HBA1C, IRON, CERULO, TSH, CMP, LIPNF, FERR, ANA1, VITD, ZINC, SMOOTH, ARIANA, CELSCR #### [place] [phone] #### A1APHE #### [place] [address] [phone] TSH Collected: 02/03/2018 Status: F Source: [place] 11:46 AM [facility] REPOSITORY TYPE CODE TESTS RESULT OUT OF RANGE REFERENCE UNITS LAB TSH 0.400-5.500 uU/mL High TSH 44.610 Performed By: #### CBCDIF, PT, AFP, AHAVT, HREMOP, HBA1C, IRON, CERULO, TSH, CMP, LIPNF, FERR, ANA1, VITD, ZINC, SMOOTH, ARIANA, CELSCR #### [place] [phone] #### A1APHE #### [place] [address] [phone] COMP METABOLIC PANEL Collected: 02/03/2018 Status: F Source: [place] 11:46 AM [facility] REPOSITORY TYPE CODE TESTS RESULT OUT OF [...] mg/dL Glucose High 232 Result Comment: The [place] Diabetes Association (ADA) provides guidance for cutoff [...] Standards of Medical Care in Diabetes 2016, [place] Diabetes Association. Diabetes Care. 2016.39(Suppl 1). LAB [...] ANA1, VITD, ZINC, SMOOTH, ARIANA, CELSCR #### [facility] [address] [place], [place] [address] #### A1APHE #### [facility] [address] [place] [address] [phone] LIPID PANEL, NONFAST Collected: 02/03/2018 Status: F Source: [place] 11:46 AM [facility] REPOSITORY TYPE CODE TESTS RESULT OUT OF [...] Desk Reference: National Heart, Lung, and Blood Anna. National Institutes of Health. 2001: NIH Publication No. 01-3305. 2. An International Atherosclerosis Society position paper: global recommendations for the management of dyslipidemia: executive summary, Atherosclerosis. 2014: 232(2):410-413. Performed By: #### CBCDIF, PT, AFP, AHAVT, HREMOP, HBA1C, IRON, CERULO, TSH, CMP, LIPNF, FERR, ANA1, VITD, ZINC, SMOOTH, ARIANA, CELSCR #### [place] [address] #### A1APHE #### [address] [address] [phone] FERRITIN Collected: 02/03/2018 Status: F Source: [place] 11:46 AM [facility] REPOSITORY TYPE CODE TESTS RESULT OUT OF REFERENCE UNITS RANGE LAB FERR 14.7-205.1 ng/mL Ferritin 174.2 Performed By: #### CBCDIF, PT, AFP, AHAVT, HREMOP, HBA1C, IRON, CERULO, TSH, CMP, LIPNF, FERR, ANA1, VITD, ZINC, SMOOTH, ARIANA, CELSCR #### [place] [address] #### A1APHE #### [address] [id number] [phone] KATHY PANEL 1 Collected: 02/03/2018 Status: F Source: [place] 11:46 AM [facility] REPOSITORY TYPE CODE TESTS RESULT OUT OF REFERENCE UNITS RANGE LAB ANAQL Negative KATHY Negative by EIA, Qual LAB ANAEIA OD Ratio KATHY 0.5 by EIA Result Comment: OD Ratio is interpreted as follows: Negative <1.0 Positive >=1.0 Performed By: #### CBCDIF, PT, AFP, AHAVT, HREMOP, HBA1C, IRON, CERULO, TSH, CMP, LIPNF, FERR, ANA1, VITD, ZINC, SMOOTH, ARIANA, CELSCR #### [place] [address] #### A1APHE #### [address] [address] [phone] VITAMIN D 25 HYDROXY Collected: 02/03/2018 Status: F Source: [place] 11:46 [facility] REPOSITORY TYPE CODE TESTS RESULT OUT OF [...] ANA1, VITD, ZINC, SMOOTH, ARIANA, CELSCR #### [place] [phone] #### A1APHE #### [address] [address] [phone] ZINC Collected: 02/03/2018 Status: F Source: [place] 11:46 [facility] REPOSITORY TYPE CODE TESTS RESULT OUT OF RANGE REFERENCE UNITS LAB ZINC 55-150 ug/dL Low Zinc 46 Result Comment: This test was developed and its performance characteristics determined by [facility]'s [facility] ([facility]). It has not been cleared or approved by the FDA. [facility] is regulated under CLIA as qualified to perform high-complexity testing. This test is used for clinical purposes. It should not be regarded as investigational or for research. Performed By: #### CBCDIF, PT, AFP, AHAVT, HREMOP, HBA1C, IRON, CERULO, TSH, CMP, LIPNF, FERR, ANA1, VITD, ZINC, SMOOTH, ARIANA, CELSCR #### [place] [address] [place] [address] #### A1APHE #### [address] [address] [phone] SMOOTH MUSCLE AB Collected: 02/03/2018 Status: F Source: [place] PNL 11:46 AM [facility] REPOSITORY TYPE CODE TESTS RESULT OUT OF REFERENCE UNITS RANGE LAB SMOOTH Negative Smooth Negative Muscle Ab Pnl Result Comment: Normal range : negative at a 1:20 serum dilution. Performed By: #### CBCDIF, PT, AFP, AHAVT, HREMOP, HBA1C, IRON, CERULO, TSH, CMP, LIPNF, FERR, ANA1, VITD, ZINC, SMOOTH, ARIANA, CELSCR #### [facility] [address] [place] [phone] #### A1APHE #### [facility] [address] [place] [address] [phone] MITOCHONDRIAL AB PNL Collected: 02/03/2018 Status: F Source: [place] 11:46 AM [facility] REPOSITORY TYPE CODE TESTS RESULT OUT OF REFERENCE UNITS RANGE LAB ARIANA Negative Mitochondrial Ab Pnl Negative Result Comment: Normal range : negative at a 1:20 serum dilution. Performed By: #### CBCDIF, PT, AFP, AHAVT, HREMOP, HBA1C, IRON, CERULO, TSH, CMP, LIPNF, FERR, ANA1, VITD, ZINC, SMOOTH, ARIANA, CELSCR #### [place] [address] [place] [address] #### A1APHE #### [facility] [address] [place] [address] [phone] CELIAC SCR W REFLEX Collected: 02/03/2018 Status: F Source: [place] 11:46 AM [facility] REPOSITORY TYPE CODE TESTS RESULT OUT OF REFERENCE UNITS RANGE LAB IGA 78-391 mg/dL IgA 215 LAB TGLUTA <20 Units Transglutaminase IgA 3 Result Comment: Negative : < 20 Units Weak Positive : 20 - 30 Units Moderate Pos to Strong Pos: >30 Units The following results were obtained with the [employer] QUANTA Lite h-tTG IgA MERCY. h-tTG IgA [...] ANA1, VITD, ZINC, SMOOTH, ARIANA, CELSCR #### [facility] [address] [place] [id number] #### A1APHE #### [employer] [address] [address] [phone] ALPHA1 ANTITRY PHENO Collected: 02/03/2018 Status: F Source: [place] 11:46 AM [facility] REPOSITORY TYPE CODE TESTS RESULT OUT OF REFERENCE UNITS RANGE LAB A1ANTP Alpha1 Antitry MM Phen Result Comment: (NOTE) The patient appears to have a normal phenotype. All M alleles (including subtypes M1, M2, and M3) produce normal serum concentrations of kixum-5-vbslmgej inhibitor and are not associated with clinical disease. Caution in interpretation is advised if the patient has been transfused within the previous 21 days. Performed by [facility], [address] [place] [address] [id number] [email or web address], Patrick Schneider MD, Lab. Director LAB A1ANTS 90-200 mg/dL High Alpha1 Antitry Serum 202 Result Comment: (NOTE) To convert to umol/L, multiply mg/dL by 0.185 Performed By: #### CBCDIF, PT, AFP, AHAVT, HREMOP, HBA1C, IRON, CERULO, TSH, CMP, LIPNF, FERR, ANA1, VITD, ZINC, SMOOTH, ARIANA, CELSCR #### [facility] [address] [place], [place] [address] #### A1APHE #### [facility] [address] [place] [address] [phone] COMP METABOLIC PANEL Collected: 01/31/2018 Status: F Source: [place] 12:51 PM [facility] REPOSITORY TYPE CODE TESTS RESULT OUT OF REFERENCE UNITS RANGE LAB TP 6.3-8.0 g/dL Low Protein, Total 6.2 LAB ALB 3.9-4.9 g/dL Albumin 4.4 LAB CA 8.5-10.2 mg/dL Calcium, Total 9.8 LAB TBIL 0.2-1.3 mg/dL Bilirubin, Total 0.6 LAB ALKP 32-117 U/L Alkaline Phosphatase 80 LAB AST 13-35 U/L AST 24 LAB GLU 74-99 mg/dL Glucose High 135 Result Comment: The [place] Diabetes Association (ADA) provides guidance for cutoff [...] Standards of Medical Care in Diabetes 2016, [place] Diabetes Association. Diabetes Care. 2016.39(Suppl 1). LAB [...] actual GFR. Performed By: #### CMP #### [facility] [employer] [address] [place], [place] [address] PROGRESS Observed: 01/31/2018 Status: COMPLETED Source: [place] 12:43 PM [facility] REPOSITORY HNO ID: [id number] Author: Sumi (Rn) George RN Service: (none) [...] PM CNNURSE Observed: 01/31/2018 Status: COMPLETED Source: [place] 10:30 AM [facility] REPOSITORY Nurse Visit (GAPRA3) PRITI MCDONALD ([id number]) 1960 F Date Time Provider Department 01/31/18 [...] 2018 12:44 PM Referring Provider: JENNIE BECERRA) [[id number]] Allergies As of Date: 01/31/2018 Noted Allergy [...] 01/31/18 PROGRESS Observed: 01/31/2018 Status: COMPLETED Source: [place] 9:30 AM [facility] REPOSITORY O ID: [id number] Author: Jennie Squires) Hernan Service: (none) Author [...] hospital discharge follow up. - Admitted to [facility] form 01/21 - 01/25 for incarcerated umbilical [...] for hospital discharge follow up. Admitted to [facility] form 01/21 - 01/25 for incarcerated umbilical [...] months. Chavez Milligan MD PGY 3 IM [id number] [facility] STAFF PHYSICIAN NOTE OF PERSONAL INVOLVEMENT IN [...] AM CNOV Observed: 01/31/2018 Status: COMPLETED Source: [place] 9:10 AM [facility] REPOSITORY Office Visit (GASTA5) PRITI MCDONALD ([id number]) 1960 F Date Time Provider Department 01/31/18 [...] hospital discharge follow up. - Admitted to [facility] form 01/21 - 01/25 for incarcerated umbilical hernia. Underwent Exploratory laparotomy, reduction of incarcerated umbilical hernia, primary umbilical hernia repair. Tolerated procedure well. Had VMIAL drain placed for ascites management to expedite [...] for hospital discharge follow up. Admitted to [facility] form 01/21 - 01/25 for incarcerated umbilical [...] months. Chavez Milligan MD PGY 3 IM [phone] [facility] STAFF PHYSICIAN NOTE OF PERSONAL INVOLVEMENT IN [...] 2018 11:37 AM Referring Provider: JAVIER HENLEY [[id number]] Allergies As of Date: 01/31/2018 Noted Allergy [...] [N17.9] Order(s):ALPHA FETOPROTEIN BL [SQAFP] Order #: [id number] FUTURE KATHY PANEL BLOOD SCRN [SQANA1] Order #: [id number] FUTURE CELIAC SCREEN WITH REFLEX [SQCELSCR] Order #: [id number] FUTURE ALPHA 1 ANTITRYPSIN PHENOTYPE [ZRH0WGEH] Order #: [id number] FUTURE CERULOPLASMIN BLD [SQCERULO] Order #: [id number] FUTURE FERRITIN BLD [SQFERR] Order #: [id number] FUTURE HEP A AB TOTAL [SQAHAVT] Order #: [id number] FUTURE HEP REMOTE PANEL BL [SQHREMOP] Order #: [id number] FUTURE IMMUNOGLOBULINS JORDAN [SQSERIMM] Order #: [id number] FUTURE IRON + TIBC [SQIRON] Order #: [id number] FUTURE LIPID PANEL, NONFASTING [SQLIPNF] Order #: [id number] FUTURE MITOCHONDRIAL AB PNL SCRN [SQMITO] Order #: [id number] FUTURE SMOOTH MUSCLE AB PNL SCRN [SQSMOOTH] Order #: [id number] FUTURE TSH BLD [SQTSH] Order #: [id number] FUTURE VITAMIN D 25 HYDROXY [SQVITD] Order #: [id number] FUTURE HGB A1C [GJHAZ4T] Order #: [id number] FUTURE ZINC BLD [SQZINC] Order #: [id number] FUTURE US ABD LIVER VASCULAR [3310065] Order #: [id number] FUTURE US DOPPLER COMPLETE [3354581] Order #: [id number] FUTURE ECHO [537316] Order #: [id number]: 1 FUTURE albumin, 25%, (PLASBUMIN 25 %) 25 % bottleInject 300 mL intravenously one time only for 1 dose.Disp: 300 mLRfl: 0 lactulose (DUPHALAC, CONSTULOSE) 20 gram/30 mL solutionTake 30 mL by mouth twice daily.Disp: 6 BottleRfl: 5 CBC + DIFF [SQCBCDIF] Order #: [id number] STANDING COMP METABOLIC PANEL [SQCMP] Order #: [id number] STANDING PROTHROMBIN TIME/PT [SQPT] Order #: [id number] STANDING BASIC METABOLIC PNL [SQBMP] Order #: [id number] FUTURE Prescriptions as of 01/31/2018 Sig: FUROSEMIDE [...] GLUCOPHAGE 500 MG TABLET >> Teepree Amin JIRA DEVELOPER 01/31/2018 9:00 AM >> AMIN JIRA DEVELOPER, TEEPREE Fri Jan 31, 2018 9:00 AM [...] 01/31/18 PROGRESS Observed: 01/31/2018 Status: COMPLETED Source: [place] 9:06 AM [facility] REPOSITORY HNO ID: [id number] Author: Chavez (Xochitl) Srini Service: (none) Author Type: Resident Type: [...] smoker CNCO Observed: 01/30/2018 Status: COMPLETED Source: [place] 12:00 AM [facility] REPOSITORY Letter Text January 30, 2018 Priti Mcdonald [address] [facility] [address] Dear Ms. Mcdonald, The nurses and staff of [address] [facility] hope this letter finds you feeling [...] free to contact me, Gina Curiel at [phone] or e-mail [email or web address]. Additionally, you may receive a survey in [...] participation and thank you for choosing the [facility] for your healthcare needs. Sincerely, Gina Curiel Nurse Manager Operations And [employer]ment [address] [place] Collected: 01/27/2018 Status: F Source: [place] 1:15 PM [facility] REPOSITORY TYPE CODE TESTS RESULT [...] <0.01 Performed By: #### CBC, BMP #### [facility] [address] [place], [place] [address] BASIC METABOLIC PANL Collected: 01/27/2018 Status: F Source: [place] 1:15 PM [facility] REPOSITORY TYPE CODE TESTS RESULT OUT OF REFERENCE UNITS RANGE LAB GLU 74-99 mg/dL High Glucose 118 Result Comment: The [place] Diabetes Association (ADA) provides guidance for cutoff [...] Standards of Medical Care in Diabetes 2016, [place] Diabetes Association. Diabetes Care. 2016.39(Suppl 1). LAB [...] GFR. Performed By: #### CBC, BMP #### [facility] [address] [id number] CNDS Observed: 01/25/2018 Status: COMPLETED Source: [place] 5:24 PM [facility] REPOSITORY HNO ID: [id number] Author: Javier Reynolds Service: General Surgery Author [...] 9:10 AM Jennie Squires) [facility]04[facility]2018 8:15 AM Hepatology Procedures GAPRA3 NILSA AANDM Bl 02/18/2018 8:15 AM Hepatology Procedures GAPRA3 NILSA AANDM 03/04/2018 8:15 AM Hepatology Procedures GAPRA3 NILSA A[address]M [address] Dr. Carrera in 2 weeks Signed by Physician: Santo De Leon MD NURSING PROG Observed: 01/25/2018 Status: COMPLETED Source: [place] 3:00 PM [facility] REPOSITORY HNO ID: [id number] Author: Renate Souza) WILIAM Mercado Service: Nursing Author Type: Registered Nurse Type: Nursing Progress Note Filed: 01/25/2018 5:30 PM Note Text: Nursing Progress Note Patient Name: Priti Mcdonald Patient Location: [place] [address] Event(s) / Intervention Note: The patient was [...] RN PROGRESS Observed: 01/25/2018 Status: COMPLETED Source: [place] 7:31 AM [facility] REPOSITORY HNO ID: [id number] Author: Leslie Pro Service: General Surgery Author Type: Resident Type: Progress Notes Filed: 01/25/2018 9:56 AM Note Text: HPB Surgery PROGRESS NOTE Priti Mcdonald [id number] ASSESSMENT/PLAN: Priti Mcdonald is a 57 year [...] imaging Leslie Pro MD General Surgery, PGY-1 ([id number]) CBC Collected: 01/25/2018 Status: F Source: [place] 3:56 AM [facility] REPOSITORY TYPE CODE TESTS RESULT OUT OF [...] By: #### CBC, CMP, MG1, PHOS #### [facility] [address] [address] COMP METABOLIC PANEL Collected: 01/25/2018 Status: F Source: [place] 3:56 AM [facility] REPOSITORY TYPE CODE TESTS RESULT OUT OF REFERENCE UNITS RANGE LAB TP 6.3-8.0 g/dL Low Protein, Total 4.7 LAB ALB 3.9-4.9 g/dL Low Albumin 2.1 LAB CA 8.5-10.2 mg/dL Low Calcium, Total 8.4 LAB TBIL 0.2-1.3 mg/dL Bilirubin, Total 0.8 LAB ALKP 32-117 U/L Alkaline Phosphatase 88 LAB AST 13-35 U/L AST 23 LAB GLU 74-99 mg/dL Glucose High 123 Result Comment: The [place] Diabetes Association (ADA) provides guidance for cutoff [...] Standards of Medical Care in Diabetes 2016, [place] Diabetes Association. Diabetes Care. 2016.39(Suppl 1). LAB [...] By: #### CBC, CMP, MG1, PHOS #### [facility] [address] [place] [address] MAGNESIUM Collected: 01/25/2018 Status: F Source: [place] 3:56 AM [facility] REPOSITORY TYPE CODE TESTS RESULT OUT OF REFERENCE UNITS RANGE LAB MG 1.7-2.3 mg/dL Low Magnesium 1.6 Performed By: #### CBC, CMP, MG1, PHOS #### [facility] [address] [place] [id number] PHOSPHORUS Collected: 01/25/2018 Status: F Source: [place] 3:56 AM [facility] REPOSITORY TYPE CODE TESTS RESULT OUT OF REFERENCE UNITS RANGE LAB PHOS 2.7-4.8 mg/dL Phosphorus 3.3 Performed By: #### CBC, CMP, MG1, PHOS #### [facility] [address] [place] [address] NURSING PROG Observed: 01/25/2018 Status: COMPLETED Source: [place] 1:35 AM [facility] REPOSITORY HNO ID: [id number] Author: Deidre Tam RN Service: Nursing Author Type: Registered Nurse Type: Nursing Progress Note Filed: 01/25/2018 1:36 AM Note Text: Nursing Progress Note Patient Name: Priti Mcdonald Patient Location: [facility] 008/G071-08 Daily Note: Pt doing well overnight, [...] CASE MANAGEM Observed: 01/24/2018 Status: COMPLETED Source: [place] 2:54 PM [facility] REPOSITORY HNO ID: [id number] Author: Valentina Crain RN Service: Care Management [...] 24, 2018 TIME: 2:54 PM PAGER/CONTACT #: [phone] CONSULT PROG Observed: 01/24/2018 Status: COMPLETED Source: [place] 12:05 PM [facility] REPOSITORY HNO ID: [id number] Author: Jennie Becerra Service: Hepatology Author Type: Physician Type: Consult Progress Note Filed: 01/24/2018 10:20 PM Note Text: Hepatology Consult Service Progress Note Department of Gastroenterology AND Hepatology Digestive Disease [facility] Date of Service January 24, 2018 Patient: Priti Mcdonald Medical Record: [id number] Reason for Consult: Cirrhosis Requesting Service: General [...] monitor renal function. Lab is ordered in [facility]. - She has outpatient follow up with Dr Becerra on 01/31/18. See Appt Tab. After 5 pm and on weekends after 12 noon please page Hepatology Consults Fellow field consultant which can be found in the On-Call Directory. SIGNATURE: Ryan Otoole MSN, BUNG SEWER-C PATIENT NAME: Priti Mcdonald DATE: January 24, 2018 TIME: 12:05 PM PAGER/CONTACT #: [phone] [facility] STAFF PHYSICIAN NOTE OF PERSONAL INVOLVEMENT IN [...] PM PROGRESS Observed: 01/24/2018 Status: COMPLETED Source: [place] 8:00 AM [facility] REPOSITORY O ID: [id number] Author: Azar Harkins MD Service: General Surgery Author Type: Resident Type: Progress Notes Filed: 01/24/2018 6:26 PM Note Text: Acute Care Surgery PROGRESS NOTE Priti Mcdonald [id number] 01/24/2018 ASSESSMENT/PLAN: Priti Mcdonald is a 57 [...] Date 01/22/18 07 - 01/23/18 0659 Shift 4909-7834 4969-7140 6236-7870 24 Hour Total I N T A K E PO 209 111 0049 PO 800 979 0589 IV 1170 050 726 1482 LR 70 829 407 2823 OR Crystalloid intake (mL) 1100 1100 Shift Total 1170 1589 1022 3781 O U T P U T Urine 0 179 913 6565 Void (ml) 635 832 0388 OR Urine Output 0 0 Tubes 710 971 713 8541 Drain/Tube Output (Drain/Tube 01/22/18 0945 Kole Mireles Right Medial Abdomen Drain #1) 710 113 777 6056 # of BMs Number of BMs 0 x 0 x Blood 15 15 Estimated Blood loss 15 15 Shift Total 725 7510 250 2760 Weight (kg) PHYSICAL EXAM: BP 157/89 Pulse [...] recent imaging Acute Care Surgery Team Pager [phone] SIGNATURE: Chrisleanne Steveeih PATIENT NAME: Priti Mcdonald DATE: January 23, 2018 TIME: 8:00 am PAGER/CONTACT #: [phone] Weekends, holidays and between 6p and 6a please page General Surgery Dennis Pager [phone] COMP METABOLIC PANEL Collected: 01/24/2018 Status: F Source: [place] 6:53 AM [facility] [place] REPOSITORY TYPE CODE TESTS RESULT OUT OF REFERENCE UNITS RANGE LAB TP 6.3-8.0 g/dL Low Protein, Total 4.7 LAB ALB 3.9-4.9 g/dL Low Albumin 2.5 LAB CA 8.5-10.2 mg/dL Calcium, Total 8.6 LAB TBIL 0.2-1.3 mg/dL Bilirubin, Total 0.8 LAB ALKP 32-117 U/L Alkaline Phosphatase 74 LAB AST 13-35 U/L AST 16 LAB GLU 74-99 mg/dL Glucose High 143 Result Comment: The [place] Diabetes Association (ADA) provides guidance for cutoff [...] Standards of Medical Care in Diabetes 2016, [place] Diabetes Association. Diabetes Care. 2016.39(Suppl 1). LAB [...] By: #### CMP, MG1, PHOS, CBC #### [facility] [address] [address] MAGNESIUM Collected: 01/24/2018 Status: F Source: [place] 6:53 AM [facility] REPOSITORY TYPE CODE TESTS RESULT OUT OF REFERENCE UNITS RANGE LAB MG 1.7-2.3 mg/dL Low Magnesium 1.5 Performed By: #### CMP, MG1, PHOS, CBC #### [facility] [address], [place] [address] PHOSPHORUS Collected: 01/24/2018 Status: F Source: [place] 6:53 AM [facility] REPOSITORY TYPE CODE TESTS RESULT OUT OF REFERENCE UNITS RANGE LAB PHOS 2.7-4.8 mg/dL Phosphorus 3.3 Performed By: #### CMP, MG1, PHOS, CBC #### [facility] [address] [place], [place] [address] CBC Collected: 01/24/2018 Status: F Source: [place] 6:53 AM [facility] REPOSITORY TYPE CODE TESTS RESULT OUT OF [...] By: #### CMP, MG1, PHOS, CBC #### [facility] [address], [place] [address] CONSULT Observed: 01/23/2018 Status: COMPLETED Source: [place] 11:22 AM [facility] REPOSITORY HNO ID: [id number] Author: Jennie Becerra Service: Hepatology Author Type: Physician Type: Consults Filed: 01/23/2018 10:27 PM Note Text: Hepatology Consult Service Department of Gastroenterology AND Hepatology Digestive Disease [facility] Date of Service January 23, 2018 Patient: Priti Mcdonald Medical Record: [id number] Reason for Consult: Cirrhosis Requesting Service: General [...] worsening of abdominal pain, subsequently presented to [place] ED and transferred to [facility]. She was found to have incarcerated umbilical [...] Dr. Jennie Becerra SIGNATURE: Ryan Otoole, MSN, BUNG SEWER-C PATIENT NAME: Priti Mcdonald DATE: January 23, 2018 TIME: 11:23 AM PAGER/CONTACT #: [phone] [facility] STAFF PHYSICIAN NOTE OF PERSONAL INVOLVEMENT IN [...] PM PROGRESS Observed: 01/23/2018 Status: COMPLETED Source: [place] 9:59 AM [facility] REPOSITORY HNO ID: [id number] Author: Mu Livingston Service: General Surgery Author Type: Resident Type: Progress Notes Filed: 01/23/2018 11:32 AM Note Text: Acute Care Surgery PROGRESS NOTE Priti Mcdonald [id number] 01/23/2018 ASSESSMENT/PLAN: Priti Mcdonald is a 57 [...] Date 01/22/18 0700 - 01/23/18 0659 Shift 0585-1809 9292-3901 6072-6075 24 Hour Total I N T A K E PO 632 210 9496 PO 224 245 7096 IV 1170 154 977 6703 LR 70 118 841 6496 OR Crystalloid intake (mL) 1100 1100 Shift Total 1170 1589 1022 3781 O U T P U T Urine 0 244 893 3588 Void (ml) 551 889 8499 OR Urine Output 0 0 Tubes 710 679 021 2229 Drain/Tube Output (Drain/Tube 01/22/18 0945 Kole Mireles Right Medial Abdomen Drain #1) 710 477 879 2550 # of BMs Number of BMs 0 x 0 x Blood 15 15 Estimated Blood loss 15 15 Shift Total 725 4480 481 1241 Weight (kg) PHYSICAL EXAM: BP 133/61 Pulse [...] recent imaging Acute Care Surgery Team Pager [phone] SIGNATURE: Carmelina Power MS4 PATIENT NAME: Priti Mcdonald DATE: January 23, 2018 TIME: 9:59 AM PAGER/CONTACT #: [phone] Weekends, holidays and between 6p and 6a please page General Surgery Dennis Pager [phone] Senior Addendum: Agree with above documentation. Denies bowel function. No nausea or emesis with liquid. Abdomen soft with per-incisional tenderness. Incision intact. Restart home meds and consult hepatology for management with ascitic fluid/possible TIPS. Continue IVF given inadequate PO intake. Mu Livingston MD Vascular Surgery PGY-3 Pager: [phone] CBC Collected: 01/23/2018 Status: F Source: [place] 4:01 [facility] REPOSITORY TYPE CODE TESTS RESULT OUT OF [...] By: #### CBC, CMP, MG1, PHOS #### [facility] [address] [place], [place] [address] COMP METABOLIC PANEL Collected: 01/23/2018 Status: F Source: [place] 4:01 [facility] REPOSITORY TYPE CODE TESTS RESULT OUT OF REFERENCE UNITS RANGE LAB TP 6.3-8.0 g/dL Low Protein, Total 5.3 LAB ALB 3.9-4.9 g/dL Low Albumin 2.7 LAB CA 8.5-10.2 mg/dL Calcium, Total 8.7 LAB TBIL 0.2-1.3 mg/dL Bilirubin, Total 0.8 LAB ALKP 32-117 U/L Alkaline Phosphatase 85 LAB AST 13-35 U/L AST 25 LAB GLU 74-99 mg/dL Glucose High 123 Result Comment: The [place] Diabetes Association (ADA) provides guidance for cutoff [...] Standards of Medical Care in Diabetes 2016, [place] Diabetes Association. Diabetes Care. 2016.39(Suppl 1). LAB [...] By: #### CBC, CMP, MG1, PHOS #### [facility] [address] [place] [address] MAGNESIUM Collected: 01/23/2018 Status: F Source: [place] 4:[facility] REPOSITORY TYPE CODE TESTS RESULT OUT OF REFERENCE UNITS RANGE LAB MG 1.7-2.3 mg/dL Magnesium 1.9 Performed By: #### CBC, CMP, MG1, PHOS #### [facility] [address] [place] [address] PHOSPHORUS Collected: 01/23/2018 Status: F Source: [place] 4:01 [facility] REPOSITORY TYPE CODE TESTS RESULT OUT OF REFERENCE UNITS RANGE LAB PHOS 2.7-4.8 mg/dL Phosphorus 3.1 Performed By: #### CBC, CMP, MG1, PHOS #### [facility] [address] [place], [place] [address] PROGRESS Observed: 01/22/2018 Status: COMPLETED Source: [place] 5:45 PM [facility] [place] REPOSITORY HNO ID: [id number] Author: Azar (Mehreen Harkins MD Service: General Surgery Author Type: Resident Type: Progress Notes Filed: 01/22/2018 5:48 PM Note Text: Acute Care Surgery PROGRESS NOTE Priti Mcdonald [id number] 01/22/2018 ASSESSMENT/PLAN: Ms. Mcdonald is a 57 [...] TBILI 0.7 Acute Care Surgery Team Pager [phone] SIGNATURE: Azar Harkins MD PATIENT NAME: Priti Mcdonald DATE: January 22, 2018 TIME: 3:21 PM PAGER/CONTACT #: [phone] Weekends, holidays and between 6p and 6a please page General Surgery Dennis Pager [phone] NUTRITION Observed: 01/22/2018 Status: COMPLETED Source: [place] 3:46 PM [facility] [place] REPOSITORY [facility] ID: [id number] Author: Hannah (Ashlee Liu) ALEXEY Pinedo Service: [...] bowel regimen; pt reports issues with constipation DRYING ROOM ATTENDANT. Monitor and Evaluation: Goal: Meet >75% of [...] kg 12/24/2017 103.511 kg 01/21/2018 104.872 kg [place] Body Weight: 61 kg Dosing Weight: 103 kg (lowest known dry wt on 12/31)/ BMI: 35.5 Resting Metabolic Rate: 1665 Estimated kilocalorie needs: 4885-0444 kilocalories determined by 12-18 kcal/kg Estimated protein needs: 73-92 grams determined by 1.2-1.5 g/kg [place] weight Estimated fluid needs: 1 ml/kcal or [...] January 22, 2018 TIME: 3:47 PM PAGER: [phone] CASE MGT INIT Observed: 01/22/2018 Status: COMPLETED Source: [facility] 3:27 PM [facility] REPOSITORY O ID: [id number] Author: Valentina PickardRn) WILIAM Crain Service: Care Management Author Type: Registered Nurse Type: Care Mgt Initial Assessment Filed: 01/22/2018 3:35 PM Note Text: CARE MANAGEMENT: ASSESSMENT AND DISCHARGE PLAN SERVICE DATE: 01/22/2018 SERVICE TIME: 3:27 PM PRIMARY CARE PHYSICIAN: Elias Rodriguez MD ADMISSION STATUS: Inpatient Needs Prior to Discharge: To Be Determined MEDICAL: Patient/Beauty Culturist Apprentice Stated Goals: To have reduction in pain To return home to life as it was Health Insurance: [facility] CHOICE PLUS [facility] Issues Impacting Discharge Plan: None Last Admission Date: none Is this Within the Past 30 days? No Advance Directive: Current Advance Directive: None Learning Support Aide Attempted to Assist with AD Completion: Yes [...] None Has the Patient Been in a Usp Facility in the Past 30 days? No SOCIAL: Living Arrangement: Home Lives With: Spouse Financial Resources: Employed: [employer] Primary Contact: Extended Emergency Contact Information Primary Emergency Contact: Luh Mcdonald Address: [address] [place] [address] [place], [place] [address] [place] [address] Mobile Relation: Spouse Supportive: Yes Other Important [...] 0 I feel financially burdened by my ssi-je-[id number] expenses for my prescription medication: Disagree completely [...] admission for management of incarcerated umbilical hernia team coordinator met pt and pt spouse introduced self and pharmacist critical care role Pt has transportation with her spouse Needs TBD SIGNATURE: Valentina Crain RN PATIENT NAME: Priti Mcdonald DATE: January 22, 2018 TIME: 3:27 PM PAGER/CONTACT #: [phone] ANES POST Observed: 01/22/2018 Status: COMPLETED Source: [place] 3:11 PM [facility] REPOSITORY HNO ID: [id number] Author: Varinder Squires) Brian Swain Service: Anesthesiology [...] 22, 2018 TIME: 3:11 PM PAGER/CONTACT #: [phone] BRIEF OP NOT Observed: 01/22/2018 Status: COMPLETED Source: [place] 10:20 AM [facility] REPOSITORY HNO ID: [id number] Author: Maxi Camarena Service: General Surgery Author Type: Resident Type: Brief Op Note Filed: 01/22/2018 10:25 AM Note Text: BRIEF OP NOTE LOG ID: [id number] Surgery/Procedure Date: 01/22/2018 Incision/Procedure Start Time: 9:04 [...] OPERATIVE NO Observed: 01/22/2018 Status: COMPLETED Source: [place] 8:29 AM [facility] REPOSITORY HNO ID: [id number] Author: Javier Reynolds Service: General Surgery Author Type: Physician Type: Operative Report Filed: 01/22/2018 11:20 AM Note Text: [place] [address] [place] OPERATIVE REPORT NAME: Priti Mcdonald [facility]# [id number] DATE: January 22, 2018 AGE: [age] year old SURGEON 1: Javier Carrera MD MINE SAFETY ENGINEER 1: Maxi Camarena MD MINE SAFETY ENGINEER 2: Santo De Leon MD MINE SAFETY ENGINEER 3: Carmelina Power MD (medical student) [...] closed with interrupted 0-Prolene suture in a [id number] fashion. The umbilicus was tacked to the [...] QUAL, URINE Collected: 01/22/2018 Status: F Source: [place] 7:55 AM [facility] REPOSITORY TYPE CODE TESTS RESULT OUT OF REFERENCE UNITS RANGE LAB [facility] Negative HCG Qual, Negative Urine Result Comment: This test is intended to aid in the early detection of . Very dilute urine samples, as indicated by a low specific gravity, may not contain inside outside sales representative levels of hCG. This te st [...] presumptive diagnosis for . Performed By: #### [facility] #### [facility] [address] [place] [id number] URINALYSIS WITH Collected: 01/22/2018 Status: F Source: [facility] 12:50 AM [facility] REPOSITORY TYPE CODE TESTS RESULT OUT OF RANGE REFERENCE UNITS LAB UCOL Yellow Color Yellow LAB [facility] Clear Clarity Abnormal Cloudy Alert LAB UGLUC Negative mg/dL Glucose, Urine Negative LAB UBIL Negative Bilirubin, Urine Negative LAB UKET Negative Ketones, Urine Negative LAB [facility] 1.005-1.030 High Specific [place], Ur 1.032 LAB UHGB Negative Hemoglobin/Blood, Negative [...] Epithelial Cells Performed By: #### UAWMIC #### [facility] [address] [place], [place] [address] CBC AND DIFFERENTIAL Collected: 01/22/2018 Status: F Source: [place] 12:45 AM [facility] REPOSITORY TYPE CODE TESTS RESULT [...] k/uL Abs Lymph 1.62 LAB AMONO % Summers% 7.6 LAB AAMONO <0.87 k/uL Abs Summers 0.63 LAB AEOS % Eosin% 4.4 LAB AAEOS <0.46 k/uL Abs Eosin 0.36 LAB ABASO % Baso% 0.6 LAB AABASO <0.11 k/uL Abs Baso 0.05 LAB AUNRBC 0 /100 WBC NRBCs 0.0 LAB ABNRBC <0.01 k/uL Absolute nRBC <0.01 LAB DTYP DTYPE Auto Diff Performed By: #### CBCDIF, PT, PTT, CMP #### [facility] [address], [place] [address] PROTIME Collected: 01/22/2018 Status: F Source: [place] 12:45 AM [facility] REPOSITORY TYPE CODE TESTS RESULT OUT OF RANGE REFERENCE UNITS LAB PSEC 9.7-13.0 sec PT Sec 10.8 LAB INR 0.9-1.3 PT INR 1.0 Result Comment: Vitamin K Antagonist (VKA) Therapeutic Range: INR 2 to 3 (Target INR of 2.5) Note: For patients treated with VKA drugs, such as warfarin, the [place] [employer]icians 2012 Guideline recommends [...] Chest 2012, 141:7S-47S Rita RA et al. [facility] 2017, 70: 252-289 Performed By: #### CBCDIF, PT, PTT, CMP #### [facility] [address], [place] [address] APTT Collected: 01/22/2018 Status: F Source: [place] 12:45 AM [facility] REPOSITORY TYPE CODE TESTS RESULT OUT OF [...] laboratory APTT reagent in use throughout the [facility]. Performed By: #### CBCDIF, PT, PTT, CMP #### [facility] [address] [place], [place] [address] COMP METABOLIC PANEL Collected: 01/22/2018 Status: F Source: [place] 12:45 AM [facility] REPOSITORY TYPE CODE TESTS RESULT [...] mg/dL Glucose High 120 Result Comment: The [place] Diabetes Association (ADA) provides guidance for cutoff [...] Standards of Medical Care in Diabetes 2016, [place] Diabetes Association. Diabetes Care. 2016.39(Suppl 1). LAB [...] By: #### CBCDIF, PT, PTT, CMP #### [facility] [address], [place] [address] TYPE AND SCREEN Collected: 01/22/2018 Status: F Source: [place] 12:45 AM [facility] REPOSITORY TYPE CODE TESTS RESULT OUT OF REFERENCE UNITS RANGE LAB %ABR O ABO/RH(D) POSITIVE LAB % Antibody NEG Screen Performed By: #### TSCR #### [facility] [address], [place] [address] ECG COMPLETE W Observed: 01/22/2018 Status: F Source: [place] INTERPRETATION 12:24 AM [facility] REPOSITORY NAME : PRITI MCDONALD PID : [id number] : 1960 Gender : Female Race : ORD : [id number] Procedure Date : Jan 22 2018 00:24:35 Edit Date : Jan 27 2018 15:41:58 Diagnosis:NORMAL SINUS RHYTHM NONSPECIFIC ST ABNORMALITY ABNORMAL ECG Confirmed by DONY ESCALANTE M.D. ([id number]) on 01/27/2018 3:36:55 PM Ventricular Rate : 72 BPM Atrial Rate : 72 BPM P-R Interval : 140 ms QRS Duration : 94 ms Q-T Interval : 426 ms QTC Calculation(Bezet) : 466 ms P [place] : 20 degrees R [place] : -12 degrees T [place] : 12 degrees Test Reason : incarcerated umbilical hernia Location : 171 : [id number] Overread By : DONY ESCALANTE M.D. Edited By : DONY ESCALANTE M.D. Referred By : , Acquired by : BONNY MCKAY SURGICAL PATHOLOGY Observed: 01/22/2018 Status: F Source: [place] 12:00 AM [facility] REPOSITORY Specimen originated from [facility] Specimen #: [id number] Submitting Physician: JAVIER CARRERA MD FINAL DIAGNOSIS [...] sectioned to reveal no nodularity or induration. Beauty Culturist Apprentice sections are submitted in cassettes A1. TN/wlz 01/22/2018 Gross examination performed at [facility], [address] [place] [address] Date of Report: 01/24/2018 Date of Procedure: 01/22/2018 Date of Receipt: 01/22/2018 Submitted by: JAVIER CARRERA MD Location: [facility] Diagnostic interpretation performed at [facility], [address] [place] [address]. HISTORY PHYSICAL Observed: 01/21/2018 Status: COMPLETED Source: [place] 11:33 PM [facility] [place] REPOSITORY HNO ID: [id number] Author: Flavio (Xochitl) Daniel Service: General Surgery [...] No history of dysuria, frequency or incontinence TRANSPORTATION ENGINEER: SEE HPI MUSCULOSKELETAL: Negative for joint pain [...] Sanchez MD, PhD General Surgery PGY-1 Pager: [phone] VTE Prophylaxis: VTE prophylaxis appropriate SIGNATURE: Flavio Sanchez MD PATIENT NAME: Priti Mcdonald DATE: January 21, 2018 TIME: 11:33 PM PAGER/CONTACT #: [phone] VITAL Observed: 01/21/2018 Status: COMPLETED Source: [place] 11:26 PM [facility] REPOSITORY [facility] ID: [id number] Author: Winston Pang (Rn) WILIAM Johnson Service: Nursing Author Type: Registered Nurse Type: Nursing Progress Note Filed: 01/21/2018 11:27 PM Note Text: Nursing Progress Note Patient Name: Priti Mcdonald Patient Location: [facility] 008/G071-08 Transfer Note: Patient transferred into room/unit 71-08 in stable condition. Actions taken: No futher actions taken at this time. Will continue to monitor and check with patient. Skin check performed with Echo Davis RN. This note was completed by: Winston Johnson RN EMERGENCY DEPARTMENT Observed: 01/21/2018 Status: F Source: [place] SUMMARY 5:00 PM [facility] REPOSITORY [facility] Medical Records Department [address] [place] [address] Emergency Department Summary 01/21/18 1410 MR#: [id number] Acct: [id number] Name: PRITI MCDONALD Rep #: [id number] : 1960 57 From: Cortez Roman MD PCP: Elias Rodriguez MD Status: REG ER - ER Visit Summary Date of Service: 01/21/18 Chief Complaint: Abdominal pain History of Present Illness: The patient is a 57 F past medical history of diet-controlled diabetes, nonalcoholic liver cirrhosis and paracentesis. States that she had an abdominal paracentesis done today at the [facility] this was around 9 AM. Around 11 [...] am going to speak to the surgeon telecommunications cable jointer who is Dr. Garibay the patient is seen her partner in the past Dr. Santiago. She will needed to determine if the patient needs to go directly to surgery for umbilical hernia repair. Disposition: Per general surgery Impression: Acute abdominal pain secondary to incarcerated abdominal hernia Status post abdominal paracentesis for known nonalcoholic liver cirrhosis This note was generated with Bread dictation software. It may contain incorrect words, [...] problems, contact your Primary Care Provider. Call [facility] [facility] ([phone]) or report to the closest Emergency Room. Call 911 if necessary. 01/21/18 1700 <Electronically signed by Cortez Roman MD> Date Cortez Roman MD Cosigner Signature (If Indicated): Date CC: Elias Rodriguez MD URINALYSIS, COMPLETE Collected: 01/21/2018 Status: F Source: [place] 2:38 PM [facility] REPOSITORY Order Comment: Order Date: 01/21/18 How [...] URINE SEEN Performed By: #### L400.0001 #### [facility] [address] [place], [address] CBC W/DIFF, AUTOMATED Collected: 01/21/2018 Status: F Source: [place] 2:25 PM [facility] REPOSITORY TYPE CODE TESTS RESULT OUT [...] Lymph 0.88 Performed By: #### L100.0100 #### [facility] [address] [place], [address] BASIC METABOLIC Collected: 01/21/2018 Status: F Source: [place] PROFILE ([facility]) 2:25 PM [facility] REPOSITORY TYPE CODE TESTS RESULT OUT [...] Performed By: #### L500.2500, L500.3400, L501.2450 #### [facility] [address] [place], [place], [address] LIVER PROFILE Collected: 01/21/2018 Status: F Source: [place] 2:25 PM [facility] REPOSITORY TYPE CODE TESTS RESULT OUT [...] Performed By: #### L500.2500, L500.3400, L501.2450 #### [facility] [address] [place], [address] LIPASE Collected: 01/21/2018 Status: F Source: [place] 2:25 PM [facility] REPOSITORY TYPE CODE TESTS RESULT OUT OF RANGE REFERENCE UNITS LAB L501.2450 73-393 U/L Normal LIPASE 168 Performed By: #### L500.2500, L500.3400, L501.2450 #### [facility] [address] [place], [address] ABDOMEN/PELVIS W IV CONT Observed: 01/21/2018 Status: F Source: [place] 2:11 PM [facility] REPOSITORY [facility] Imaging Services [address] [place] [address] Abdomen/Pelvis W IV Cont ONLY MR#: [id number] Acct: [id number] Name: PRITI MCDONALD Rep #: [id number] : 1960 F 57 From: Kannan Pennington MD PCP: Elias Rodriguez MD Status: REG ER Study: Abdomen/Pelvis W IV Cont ONLY Date of Exam: 01/21/18 Exam# [id number] Ordering Dr: Cortez Roman MD STUDY: CT [...] Kannan Pennington MD at 15:19 EDT Tel [phone], Service support , CC: Cortez Roman MD; Elias Rodriguez MD Mail Clerk Bills: Signed CELL COUNT/DIFF BF Collected: 01/21/2018 Status: F Source: [place] 10:40 AM [facility] REPOSITORY TYPE CODE TESTS RESULT OUT OF [...] Not Indicated Reviewed by Devendra Quintanilla MD ([id number]) LAB BFSLNM Slide Number BF [id number] LAB BFNEUT % Neut% 8 LAB BFLYMP % 45 Lymph% LAB BFMONO % Summers% 31 LAB BFMACR % 13 Macro% LAB BFMESO % Meso% 2 LAB BFEOSN % 1 Eosin% Performed By: #### CCBF #### [facility] [address] [place], [place] [address] PROGRESS Observed: 01/21/2018 Status: COMPLETED Source: [place] 8:45 AM [facility] REPOSITORY HNO ID: [id number] Author: Lila Pate (Rn) WILIAM Fontenot Service: [...] to proceed. Procedure performed by Miya Salinas APRN.ELEVATOR CONSTRUCTOR HELPER Medication: 2% Lidocaine 10cc The patient was [...] complications associated with the procedure. Miya Salinas APRN.ELEVATOR CONSTRUCTOR HELPER THE FOLLOWING WAS EVALUATED Motivation To Learn: [...] RN CNOV Observed: 01/21/2018 Status: COMPLETED Source: [place] 8:15 AM [facility] REPOSITORY Office Visit (GAPRA3) PRITI MCDONALD ([id number]) 1960 F Date Time Provider Department 01/21/18 [...] to proceed. Procedure performed by Miya Salinas APRN.ELEVATOR CONSTRUCTOR HELPER Medication: 2% Lidocaine 10cc The patient was [...] complications associated with the procedure. Miya Salinas APRN.ELEVATOR CONSTRUCTOR HELPER THE FOLLOWING WAS EVALUATED Motivation To Learn: [...] Lila Fontenot RN Referring Provider: FELY HARRIS [[id number]] Allergies As of Date: 01/21/2018 Noted Allergy Reaction CODEINE 04/28/2007 Comments: nausea Date Reviewed: 01/21/2018 Reviewed by: Lila Pate (Rn) WILIAM Fontenot - Fully Assessed Visit Diagnosis:Other ascites [R18.8] Order(s):ABDOM PARACENTESIS DX/THER W IMAGING GUIDANCE [[id number]] Order #: [id number] CELL COUNT + DIFF BFL [SQCCBF] Order #: [id number] Prescriptions as of 01/21/2018 Sig: ADDERALL XR [...] 01/21/18 HOSP Observed: 01/21/2018 Status: COMPLETED Source: [place] 12:00 AM [facility] REPOSITORY Patient:Priti Mcdonald MRN: <[id number]> Height:5' 7(1.702 m) Weight:231 lb 3.2 oz [...] Notes ([place] MAIN PROC Q3): Miya Salinas APRN.ELEVATOR CONSTRUCTOR HELPER 01/21/2018 3:02 PM Signed Notified by WILIAM Fontenot that pt's called the Paracentesis clinic reporting his was having severe pain. Per pt's after they left they had lunch and shortly after pt developed severe abd pain. Tg directed pt's to take her to the nearest ER, he reported he would take pt to [facility]. I called both the pt and the 's listed numbers to follow up, no answer at either number. Message left on both lines. Pt's Matt returned call at 15:00, reported that they are in [facility] ER currently. Matt reports pain is now under control and reported her labs all looked OK. Pt is currently in CT Scan. Advised pt's to keep us posted on her status and he verbalized understanding. Miya Salinas APRN.ELEVATOR CONSTRUCTOR HELPER Progress Notes (NILSA MAIN PROC A3): Lila Fontenot RN, RN 01/21/2018 10:28 AM Signed Name: Priti Mcdonald Patient presents for a Paracentesis. The procedure including risks, benefits, options and personnel performing the procedure was discussed with the patient. There are no contraindications to the procedure. Priti Mcdonald expressed understanding and agreed to proceed. Procedure performed by Miya Salinas APRN.ELEVATOR CONSTRUCTOR HELPER Medication: 2% Lidocaine 10cc The patient was [...] complications associated with the procedure. Miya Salinas APRN.ELEVATOR CONSTRUCTOR HELPER THE FOLLOWING WAS EVALUATED Motivation To Learn: [...] CD DICOM Observed: 01/21/2018 Status: F Source: [facility] 12:00 AM [facility] REPOSITORY Images were obtained outside of [facility] [id number] CELL COUNT/DIFF BF Collected: 01/07/2018 Status: F Source: [place] 11:58 AM [facility] REPOSITORY TYPE CODE TESTS RESULT OUT OF [...] Not Indicated LAB BFSLNM Slide Number BF [id number] LAB BFNEUT % Neut% 13 LAB BFLYMP % 51 Lymph% LAB BFMONO % Summers% 22 LAB BFMACR % 14 Macro% Performed By: #### CCBF #### [facility] [address] [place], [place] [address] PROGRESS Observed: 01/07/2018 Status: COMPLETED Source: [place] 10:57 AM [facility] REPOSITORY HNO ID: [id number] Author: Vanessa (Rn) WILIAM Cotter Service: (none) [...] needed CNOV Observed: 01/07/2018 Status: COMPLETED Source: [place] 8:15 AM [facility] REPOSITORY Office Visit (GAPRA3) PRITI MCDONALD ([id number]) 1960 F Date Time Provider Department 01/07/18 [...] up as needed Referring Provider: FELY HARRIS [[id number]] Allergies As of Date: 01/07/2018 Noted Allergy Reaction CODEINE 04/28/2007 Comments: nausea Date Reviewed: 01/07/2018 Reviewed by: Vanessa (Rn) WILIAM Cotter - Fully Assessed Visit Diagnosis:Other ascites [R18.8] Order(s):ABDOM PARACENTESIS DX/THER W IMAGING GUIDANCE [[id number]] Order #: [id number] CELL COUNT + DIFF BFL [SQCCBF] Order #: [id number] Prescriptions as of 01/07/2018 Sig: ADDERALL XR [...] COUNT/DIFF BF Collected: 12/31/2017 Status: F Source: [place] 11:35 AM [facility] REPOSITORY TYPE CODE TESTS RESULT OUT OF [...] Not Indicated LAB BFSLNM Slide Number BF [id number] LAB BFNEUT % Neut% 11 LAB BFLYMP % 45 Lymph% LAB BFMONO % Summers% 37 LAB BFMACR % 4 Macro% LAB BFMESO % Meso% 3 Performed By: #### CCBF #### [facility] [address] [place], [place] [address] PROGRESS Observed: 12/31/2017 Status: COMPLETED Source: [place] 10:38 AM [facility] REPOSITORY HNO ID: [id number] Author: Lila Pate (Rn) WILIAM Fontenot Service: [...] RN CNOV Observed: 12/31/2017 Status: COMPLETED Source: [place] 8:15 AM [facility] REPOSITORY Office Visit (GAPRA3) PRITI MCDONALD ([id number]) 1960 F Date Time Provider Department 12/31/17 [...] Lila Fontenot RN Referring Provider: FELY HARRIS [[id number]] Allergies As of Date: 12/31/2017 Noted Allergy Reaction CODEINE 04/28/2007 Comments: nausea Date Reviewed: 12/31/2017 Reviewed by: Lila Pate (Rn) WILIAM Fontenot - Fully Assessed Visit Diagnosis:Other ascites [R18.8] Order(s):ABDOM PARACENTESIS DX/THER W IMAGING GUIDANCE [[id number]] Order #: [id number] CELL COUNT + DIFF BFL [SQCCBF] Order #: [id number] Prescriptions as of 12/31/2017 Sig: ADDERALL XR [...] 35-39.9 [E66.9] INVALID FOR* Encounter Status:Closed by SLMIE GARBER CNP on 12/31/17 PROGRESS Observed: 12/26/2017 Status: COMPLETED Source: [place] 9:08 AM [facility] REPOSITORY HNO ID: [id number] Author: Miya Grimes Service: (none) Author Type: Street Engineer Type: Progress Notes Filed: 12/26/2017 9:08 AM [...] SPLEEN -NB Observed: 12/26/2017 Status: F Source: [place] 9:07 AM [facility] REPOSITORY * * *Final Report* * * [...] computed tomography may be helpful. Splenic enlargement. Mail Clerk Bills: VICENTE Transcribe Date/Time: Dec 26 2017 10:59A Dictated by : BIANKA FUENTES MD This examination was interpreted and the report reviewed and electronically signed by: BIANKA FUENTES MD on Dec 26 2017 11:02AM EST [id number] US ABD RIGHT UPPER Observed: 12/26/2017 Status: F Source: [facility] 9:07 AM [facility] REPOSITORY * * *Final Report* * * [...] computed tomography may be helpful. Splenic enlargement. Mail Clerk Bills: PSCB Transcribe Date/Time: Dec 26 2017 10:59A Dictated by : BIANKA FUENTES MD This examination was interpreted and the report reviewed and electronically signed by: BIANKA FUENTES MD on Dec 26 2017 11:02AM EST [id number] CELL COUNT/DIFF BF Collected: 12/24/2017 Status: F Source: [place] 10:50 AM [facility] REPOSITORY TYPE CODE TESTS RESULT OUT OF [...] Not Indicated LAB BFSLNM Slide Number BF [id number] LAB BFNEUT % Neut% 17 LAB BFLYMP % 43 Lymph% LAB BFMONO % Summers% 16 LAB BFMACR % 19 Macro% LAB BFMESO % Meso% 4 LAB BFEOSN % 1 Eosin% Performed By: #### CCBF #### [facility] [address] [place], [place] [address] PROGRESS Observed: 12/24/2017 Status: COMPLETED Source: [place] 10:13 AM [facility] REPOSITORY HNO ID: [id number] Author: Lila Pate (Rn) WILIAM Fontenot Service: [...] to proceed. Procedure performed by Slime Garber APRN,ELEVATOR CONSTRUCTOR HELPER Medication: 2% Lidocaine 10cc The patient was [...] RN CNOV Observed: 12/24/2017 Status: COMPLETED Source: [place] 8:15 AM [facility] REPOSITORY Office Visit (GAPRA3) PRITI MCDONALD ([id number]) 1960 F Date Time Provider Department 12/24/17 [...] Lila Fontenot RN Referring Provider: FELY HARRIS [[id number]] Allergies As of Date: 12/24/2017 Noted Allergy Reaction CODEINE 04/28/2007 Comments: nausea Date Reviewed: 12/24/2017 Reviewed by: Lila Pate (Rn) WILIAM Fontenot - Fully Assessed Visit Diagnosis:Other ascites [R18.8] Order(s):ABDOM PARACENTESIS DX/THER W IMAGING GUIDANCE [[id number]] Order #: [id number] CELL COUNT + DIFF BFL [SQCCBF] Order #: [id number] Prescriptions as of 12/24/2017 Sig: ADDERALL XR [...] 12/24/17 PROGRESS Observed: 12/09/2017 Status: COMPLETED Source: [place] 1:57 PM [facility] [place] REPOSITORY HNO ID: [id number] Author: Fely Miranda Service: (none) Author Type: [...] Yes. More constipated, stool is sticky and electrical research engineer in color Bloody or black, bowel movements: [...] Abs Lymph 1.00 - 4.00 k/uL 1.48 Summers% % 8.5 Abs Summers <0.87 k/uL 0.64 Eosin% % 2.9 Abs [...] 4 Lymph%, BF % 62 49 80 Summers%, BF % 20 28 7 Macro%, BF [...] Wallace Mcdonnell MD Internal Medicine PGY-3 Pager [phone] December 09, 2017 2:07 PM [facility] hepatology staff physician note of personal involvement [...] MD CNOV Observed: 12/09/2017 Status: COMPLETED Source: [place] 1:40 PM [facility] REPOSITORY Office Visit (GASTA5) PRITI MCDONALD ([id number]) 1960 F Date Time Provider Department 12/09/17 [...] Yes. 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, normal cholangiogram CT scan 07/2017 CT dated [...] Abs Lymph 1.00 - 4.00 k/uL 1.48 Summers% % 8.5 Abs Summers <0.87 k/uL 0.64 Eosin% % 2.9 Abs [...] 4 Lymph%, BF % 62 49 80 Summers%, BF % 20 28 7 Macro%, BF [...] Wallace Mcdonnell MD Internal Medicine PGY-3 Pager [phone] December 09, 2017 2:07 PM [facility] hepatology staff physician note of personal involvement [...] Diagnosis:Other ascites [R18.8] Order(s):CONSULT TO NUTRITION THERAPY [3803] Order #: [id number]: 1 US ABD RT UPPER QUADRANT [[id number]] Order #: [id number] FUTURE HEP A AB TOTAL [SQAHAVT] Order #: [id number] FUTURE HCV QUANT RNA BY PCR [SQHCQPCR] Order #: [id number] FUTURE HEP B SURF AG SCRN [SQHBSAG] Order #: [id number] FUTURE HEP B SURF AB QUAL [SQAHBSAG] Order #: [id number] FUTURE HEP B CORE AB TOTAL [SQAHBCOT] Order #: [id number] FUTURE Prescriptions as of 12/09/2017 Sig: ADDERALL [...] COUNT/DIFF BF Collected: 12/09/2017 Status: F Source: [place] 11:57 AM [facility] REPOS[facility]ORY TYPE [...] Not Indicated LAB BFSLNM Slide Number BF [id number] LAB BFNEUT % Neut% 6 LAB BFLYMP % 40 Lymph% LAB BFMONO % Summers% 29 LAB BFMACR % 14 Macro% LAB BFMESO % Meso% 8 LAB BFEOSN % 3 Eosin% Performed By: #### CCBF #### [facility] [address] [place], [place] [address] PROGRESS Observed: 12/09/2017 Status: COMPLETED Source: [place] 10:15 AM [facility] [place] REPOSITORY HNO ID: [id number] Author: Vanessa (Rn) WILIAM Cotter Service: (none) [...] needed CNOV Observed: 12/09/2017 Status: COMPLETED Source: [place] 8:15 AM [facility] REPOSITORY Office Visit (GAPRA3) PRITI MCDONALD ([id number]) 1960 F Date Time Provider Department 12/09/17 [...] up as needed Referring Provider: FELY HARRIS [[id number]] Allergies As of Date: 12/09/2017 Noted Allergy Reaction CODEINE 04/28/2007 Comments: nausea Date Reviewed: 12/09/2017 Reviewed by: Vanessa PickardRn) WILIAM Cotter - Fully Assessed Visit Diagnosis:Other ascites [R18.8] Order(s):ABDOM PARACENTESIS DX/THER W IMAGING GUIDANCE [[id number]] Order #: [id number] CELL COUNT + DIFF BFL [SQCCBF] Order #: [id number] Prescriptions as of 12/09/2017 Sig: TRIAMTERENE 37.5 [...] COUNT/DIFF BF Collected: 11/29/2017 Status: F Source: [place] 4:00 PM [facility] REPOSITORY TYPE CODE TESTS RESULT OUT OF [...] Not Indicated LAB BFSLNM Slide Number BF [id number] LAB BFNEUT % Neut% 4 LAB BFLYMP % 80 Lymph% LAB BFMONO % Summers% 7 LAB BFMACR % 7 Macro% LAB BFREAL % Reac 2 Lymph %, BF Performed By: #### CCBF #### [facility] [address], [place] [address] PROGRESS Observed: 11/29/2017 Status: COMPLETED Source: [place] 11:38 AM [facility] REPOSITORY HNO ID: [id number] Author: Lila Pate (Rn) Po, RN Service: [...] RN PROGRESS Observed: 11/29/2017 Status: COMPLETED Source: [place] 10:12 AM [facility] REPOSITORY HNO ID: [id number] Author: Lila PickardRn) Po, RN Service: (none) [...] to proceed. Procedure performed by Slime Garber APRN,ELEVATOR CONSTRUCTOR HELPER in the presence of Dr. Meeks Medication: [...] CNP CNOV Observed: 11/29/2017 Status: COMPLETED Source: [place] 8:15 AM [facility] REPOSITORY Office Visit (GAPRA3) PRITI MCDONALD ([id number]) 1960 F Date Time Provider Department 11/29/17 [...] Vika Kasper RN Referring Provider: FELY HARRIS [[id number]] Allergies As of Date: 11/29/2017 Noted Allergy Reaction CODEINE 04/28/2007 Comments: nausea Date Reviewed: 11/29/2017 Reviewed by: Vika (Wiliam) WILIAM Kasper - Fully Assessed Visit Diagnosis:Other ascites [R18.8] Order(s):ABDOM PARACENTESIS DX/THER W IMAGING GUIDANCE [[id number]] Order #: [id number] CELL COUNT + DIFF BFL [SQCCBF] Order #: [id number]. #:[id number] Prescriptions as of 11/29/2017 Sig: TRIAMTERENE 37.5 [...] AND DIFFERENTIAL Collected: 11/27/2017 Status: F Source: [place] 10:55 AM [facility] REPOSITORY TYPE CODE TESTS RESULT OUT OF [...] k/uL Abs Lymph 1.48 LAB AMONO % Summers% 8.5 LAB AAMONO <0.87 k/uL Abs Summers 0.64 LAB AEOS % Eosin% 2.9 LAB AAEOS <0.46 k/uL Abs Eosin 0.22 LAB ABASO % Baso% 0.7 LAB AABASO <0.11 k/uL Abs Baso 0.05 LAB AUNRBC 0 /100 WBC NRBCs 0.0 LAB ABNRBC <0.01 k/uL Absolute nRBC <0.01 LAB DTYP DTYPE Auto Diff Performed By: #### CBCDIF, PT, PTT, CMP #### [facility] [address] [place] [address] PROTIME Collected: 11/27/2017 Status: F Source: [place] 10:55 AM [facility] REPOSITORY TYPE CODE TESTS RESULT OUT OF RANGE REFERENCE UNITS LAB PSEC 9.7-13.0 sec PT Sec 11.2 LAB INR 0.9-1.3 PT INR 1.1 Result Comment: Vitamin K Antagonist (VKA) Therapeutic Range: INR 2 to 3 (Target INR of 2.5) Note: For patients treated with VKA drugs, such as warfarin, the [place] [employer] 2012 Guideline recommends [...] Chest 2012, 141:7S-47S Rita RA, et al. [facility] 2017, 70: 252-289 Performed By: #### CBCDIF, PT, PTT, CMP #### [facility] [employer] [address], [place] [address] APTT Collected: 11/27/2017 Status: F Source: [place] 10:55 [facility] REPOSITORY TYPE CODE TESTS RESULT OUT OF [...] laboratory APTT reagent in use throughout the [facility]. Performed By: #### CBCDIF, PT, PTT, CMP #### [facility] [employer] [address] [place], [place] [address] COMP METABOLIC PANEL Collected: 11/27/2017 Status: F Source: [place] 10:55 [facility] REPOS[facility]ORY TYPE CODE TESTS RESULT OUT OF REFERENCE UNITS RANGE LAB TP 6.3-8.0 g/dL Protein, Total 6.4 LAB ALB 3.9-4.9 g/dL Low Albumin 3.3 LAB CA 8.5-10.2 mg/dL Calcium, Total 10.0 LAB TBIL 0.2-1.3 mg/dL Bilirubin, Total 0.4 LAB ALKP 32-117 U/L Alkaline High Phosphatase 125 LAB AST 13-35 U/L AST 33 LAB GLU 74-99 mg/dL Glucose High 115 Result Comment: The [place] [employer] (ADA) provides guidance for cutoff [...] Standards of Medical Care in Diabetes 2016, [place] [employer] Association. Diabetes Care. 2016.39(Suppl 1). LAB [...] By: #### CBCDIF, PT, PTT, CMP #### [facility] [employer] [address] [place], [place] [address] TYPE AND SCREEN Collected: 11/27/2017 Status: F Source: [place] 10:55 AM [facility] REPOSITORY TYPE CODE TESTS RESULT OUT OF REFERENCE UNITS RANGE LAB %ABR O ABO/RH(D) POSITIVE LAB % Antibody NEG Screen Performed By: #### TSCR #### [facility] [employer] [address] [place], [place] [address] ED PROV NOTE Observed: 11/27/2017 Status: COMPLETED Source: [place] 10:42 AM [facility] REPOSITORY HNO ID: [id number] Author: Lidia Hurley MD Service: Emergency Medicine [...] stable. SIGNATURE: DEVENDRA Gallo) ESTHER Morrell 11/27/17 4052 ESTHER Gallo (Pa) 11/27/17 1154 Attending Note I have personally performed a face to face assessment of the patient and have reviewed the PA/SAW REPAIRER note. My laughlin findings include: History is [...] ED NOTE Observed: 11/27/2017 Status: COMPLETED Source: [place] 10:40 AM [facility] REPOSITORY HNO ID: [id number] Author: Raul PickardRn) WILIAM Dorman Service: Emergency [...] ED NOTE Observed: 11/27/2017 Status: COMPLETED Source: [place] 10:33 AM [facility] REPOSITORY HNO ID: [id number] Author: Monica PickardRn) WILIAM Archuleta Service: (none) [...] eval PROGRESS Observed: 11/27/2017 Status: COMPLETED Source: [place] 9:38 AM [facility] REPOSITORY HNO ID: [id number] Author: Miya Salinas Service: (none) Author Type: [...] APRN.CNP CNOV Observed: 11/27/2017 Status: COMPLETED Source: [place] 8:30 AM [facility] REPOSITORY Office Visit (GAPRA3) PRITI MCDONALD ([id number]) 1960 F Date Time Provider Department 11/27/17 [...] to proceed. Procedure performed by Miya Salinas APRN.ELEVATOR CONSTRUCTOR HELPER Medication: 2% Lidocaine 10cc The patient was [...] complications associated with the procedure. Miya Salinas APRN.ELEVATOR CONSTRUCTOR HELPER Referring Provider: FELY HARRIS [[id number]] Allergies As of Date: 11/27/2017 Noted Allergy Reaction CODEINE 04/28/2007 Comments: nausea Date Reviewed: 11/27/2017 Reviewed by: Giuliana (Rn) WILIAM Ivey - Fully Assessed Visit Diagnosis:Other ascites [R18.8] Order(s):ABDOM PARACENTESIS DX/THER W IMAGING GUIDANCE [[id number]] Order #: [id number] Prescriptions as of 11/27/2017 Sig: TRIAMTERENE 37.5 [...] COUNT/DIFF BF Collected: 11/12/2017 Status: F Source: [place] 10:41 AM [facility] REPOSITORY TYPE CODE TESTS RESULT OUT OF [...] Not Indicated LAB BFSLNM Slide Number BF [id number] LAB BFNEUT % Neut% 5 LAB BFLYMP % 49 Lymph% LAB BFMONO % Summers% 28 LAB BFMACR % 15 Macro% LAB BFMESO % Meso% 3 Performed By: #### CCBF #### [facility] [address], [place] [address] PROGRESS Observed: 11/12/2017 Status: COMPLETED Source: [place] 9:55 AM [facility] REPOSITORY HNO ID: [id number] Author: Cristela (Rn) WILIAM Zhong Service: (none) [...] needed PROGRESS Observed: 11/12/2017 Status: COMPLETED Source: [place] 8:57 AM [facility] REPOSITORY HNO ID: [id number] Author: Cristela (Rn) WILIAM Zhong Service: (none) [...] to proceed. Procedure performed by Miya Salinas APRN.ELEVATOR CONSTRUCTOR HELPER Medication: 2% Lidocaine 10cc The patient was [...] complications associated with the procedure. Miya Salinas APRN.ELEVATOR CONSTRUCTOR HELPER CNOV Observed: 11/12/2017 Status: COMPLETED Source: [place] 8:15 AM [facility] REPOSITORY Office Visit (GAPRA3) PRITI MCDONALD ([id number]) 1960 F Date Time Provider Department 11/12/17 [...] to proceed. Procedure performed by Miya Salinas APRN.ELEVATOR CONSTRUCTOR HELPER Medication: 2% Lidocaine 10cc The patient was [...] complications associated with the procedure. Miya Salinas APRN.ELEVATOR CONSTRUCTOR HELPER Cristela Zhong, RN, RN 11/12/2017 12:42 PM [...] up as needed Referring Provider: FELY HARRIS [[id number]] Allergies As of Date: 11/12/2017 Noted Allergy Reaction CODEINE 04/28/2007 Comments: nausea Date Reviewed: 11/12/2017 Reviewed by: Cristela (Rn) WILIAM Zhong - Fully Assessed Visit Diagnoses:Other ascites [R18.8] Obesity, Class II, BMI 35-39.9 [E66.9] Order(s):ABDOM PARACENTESIS DX/THER W IMAGING GUIDANCE [[id number]] Order #: [id number] CELL COUNT + DIFF BFL [SQCCBF] Order #: [id number] albumin, 25%, 25 % bottleInject 150 mL [...] 11/12/17 PROGRESS Observed: 11/06/2017 Status: COMPLETED Source: [place] 11:59 AM [facility] REPOSITORY O ID: [id number] Author: Jessica Maurice (Sw) Service: (none) Author Type: Flying Shear Operator Type: Progress Notes Filed: 11/06/2017 12:00 PM Note Text: SOCIAL WORK Date of Service: 11/05/17 Priti Mcdonald is a 57 year old female being seen for initial social work assessment. At this time, social work service is declined/deferred based on: she is not interested. PLAN: Follow up on an as needed basis CHRISTEN Watson CNSW Observed: 11/06/2017 Status: COMPLETED Source: [place] 12:00 AM [facility] REPOSITORY Social Work (CIARRA) PRITI MCDONALD ([id number]) 1960 F Date Time Provider Department 11/06/17 [...] 11/06/17 PROGRESS Observed: 11/05/2017 Status: COMPLETED Source: [place] 9:13 AM [facility] REPOSITORY HNO ID: [id number] Author: Sabrina Ma Service: (none) Author Type: [...] biopsy. ? H/o abnormal screening mammogram at [facility] 09/06/11. An 8.4 mm nodular density was seen in the left mid breast. This was confirmed with magnification views and an US 09/12/11 showed an 8 x8 x5 mm hypoechoic irregular solid nodule at the 1 o'clock position. ?? 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 ER/ND were 100% each and HER2 was 2+, [...] a liver transplant. I took an early group home when I was feeling sick. Following at [facility] with Dr. Miranda. August 2017 peritoneal fluid-Neg. [...] years of tamoxifen. - Follow up at [facility] as scheduled. - ?Mammogram due October 2018. Pt. has this done at [facility]. - ?Follow up in one year after mammogram. - ?Pt. aware to call office with any questions/concerns. The patient indicates understanding of these issues and agrees with the plan. Sabrina Ma APRN.CNP CNOVSP Observed: 11/05/2017 Status: COMPLETED Source: [place] 9:00 AM [facility] REPOSITORY Visit (SP) Office (CIARRA) HARRYPRITI ([id number]) 1960 F Date Time Provider Department 11/05/17 [...] biopsy. ? H/o abnormal screening mammogram at [facility] 09/06/11. An 8.4 mm nodular density was seen in the left mid breast. This was confirmed with magnification views and an US 09/12/11 showed an 8 x8 x5 mm hypoechoic irregular solid nodule at the 1 o'clock position. ?? 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 ER/ND were 100% each and HER2 was 2+, [...] a liver transplant. I took an early group home when I was feeling sick. Following at [facility] with Dr. Miranda. August 2017 peritoneal fluid-Neg. [...] years of tamoxifen. - Follow up at [facility] as scheduled. - ?Mammogram due October 2018. Pt. has this done at [facility]. - ?Follow up in one year after mammogram. - ?Pt. aware to call office with any questions/concerns. The patient indicates understanding of these issues and agrees with the plan. Sabrina Ma APRN.JACK Referring Provider: SABRINA MA ([facility]) [[id number]] Allergies As of Date: 11/05/2017 Noted Allergy Reaction CODEINE 04/28/2007 Comments: nausea Date Reviewed: 11/05/2017 Reviewed by: Sabrina ([facility]) Anil - Fully Assessed Reason for Visit: Establish Care [42] Primary Visit Diagnosis:History of breast cancer [Z85.3] Other Visit Diagnosis:Encounter for screening mammogram for high-risk patient [Z12.31] Order(s):[facility] SCREENING W BELINDA [1006926] Order #: [id number] FUTURE Follow-up and Disposition History Recorded Prescriptions [...] 10/31/2017 Status: F Source: [place] 1:20 PM [facility] REPOSITORY [facility] Medical Records Department [address] [place] [address] Downtime Report MR#: [id number] Acct: [id number] Name: PRITI MCDONALD Rep #: [id number] : 1960 57 From: Hector Major PCP: Elias Rodriguez MD Status: REG CLI This patient was seen during an EMR downtime October 14, 2017 - October 21, 2017. This patient may have a combination of paper and electronic documentation or all paper documentation. All documentation is viewable within the e-chart portion of [employer] for each patient visit. DOWNTIME REPORT Observed: 10/31/2017 Status: F Source: [place] 12:29 PM [facility] REPOSITORY [facility] Medical Records Department [address] [place] [address] Downtime Report MR#: [id number] Acct: [id number] Name: HARRYPRITI Josh Rep #: [id number] : 1960 57 From: Hector Major PCP: Elias Rodriguez MD Status: REG CLI This patient was seen during an EMR downtime October 14, 2017 - October 21, 2017. This patient may have a combination of paper and electronic documentation or all paper documentation. All documentation is viewable within the e-chart portion of [facility] for each patient visit. CELL COUNT/DIFF BF Collected: 10/24/2017 Status: F Source: [place] 11:52 AM [facility] REPOSITORY TYPE CODE TESTS RESULT OUT OF [...] Not Indicated LAB BFSLNM Slide Number BF [id number] LAB BFNEUT % Neut% 8 LAB BFLYMP % 62 Lymph% LAB BFMONO % Summers% 20 LAB BFMACR % 8 Macro% LAB BFMESO % Meso% 2 Performed By: #### CCBF #### [facility] [address] [address] PROGRESS Observed: 10/24/2017 Status: COMPLETED Source: [place] 9:01 AM [facility] REPOSITORY HNO ID: [id number] Author: Vanessa (Rn) WILIAM Cotter Service: (none) [...] needed CNOV Observed: 10/24/2017 Status: COMPLETED Source: [place] 8:15 AM [facility] REPOSITORY Office Visit (GAPRA3) PRITI MCDONALD Josh ([id number]) 1960 F Date Time Provider Department 10/24/17 [...] up as needed Referring Provider: FELY HARRIS [[id number]] Allergies As of Date: 10/24/2017 Noted Allergy Reaction CODEINE 04/28/2007 Comments: nausea Date Reviewed: 10/24/2017 Reviewed by: Vanessa (Rn) WILIAM Cotter - Fully Assessed Visit Diagnosis:Other ascites [R18.8] Order(s):ABDOM PARACENTESIS DX/THER W IMAGING GUIDANCE [50510TGR] Order #: [id number] CELL COUNT + DIFF BFL [SQCCBF] Order #: [id number]. #:[id number] Prescriptions as of 10/24/2017 Sig: PAROXETINE 10 [...] MAMM (CAD), Observed: 10/21/2017 Status: F Source: [facility] 8:22 AM [facility] REPOSITORY [facility] Imaging Services [address] [place] [address] SCREENING MAMM (CAD), BILAT MR#: [id number] Acct: [id number] Name: PRITI MCDONALD Josh Rep #: [id number] : 1960 F 57 From: Kannan Pennington MD PCP: Elias Rodriguez MD Status: REG CLI Study: SCREENING MAMM (CAD), BILAT Date of Exam: 10/21/17 Exam# [id number] Ordering Dr: Sabrina Ma BUNG SEWER-C MAMMOGRAPHY - BILATERAL SCREENING REASON FOR EXAM: [...] delay biopsy of a clinically suspicious abnormality. [id number] Electronically Signed: Kannan Pennington MD at 8:01 EDT Tel [phone], Service support , CC: JUNIOR Ma; Elias Rodriguez MD Mail Clerk Bills: Signed BASIC METABOLIC Collected: 10/17/2017 Status: F Source: [place] PROFILE (BMP) 10:55 AM [facility] REPOSITORY TYPE CODE TESTS RESULT OUT [...] GAP 10 Performed By: #### L500.2500 #### [facility] [address] [place], [place], [address] CELL COUNT/DIFF BF Collected: 10/03/2017 Status: F Source: [place] 11:20 AM [facility] [place] REPOSITORY TYPE CODE TESTS RESULT OUT OF [...] Not Indicated LAB BFSLNM Slide Number BF [id number] LAB BFNEUT % Neut% 15 LAB BFLYMP % 47 Lymph% LAB BFMONO % Summers% 13 LAB BFMACR % 22 Macro% LAB BFMESO % Meso% 3 Performed By: #### CCBF #### [facility] [address] [place], [place] [address] PROGRESS Observed: 10/03/2017 Status: COMPLETED Source: [place] 10:25 AM [facility] REPOSITORY HNO ID: [id number] Author: Bj Ya Service: (none) Author Type: [...] RN CNOV Observed: 10/03/2017 Status: COMPLETED Source: [place] 8:15 AM [facility] REPOSITORY Office Visit (GAPRA3) PRITI MCDONALD ([id number]) 1960 F Date Time Provider Department 10/03/17 [...] complications associated with the procedure. Belgica Claire APRN.ELEVATOR CONSTRUCTOR HELPER See the above note for details. I [...] Lila Fontenot RN Referring Provider: FELY HARRIS [[id number]] Allergies As of Date: 10/03/2017 Noted Allergy Reaction CODEINE 04/28/2007 Comments: nausea Date Reviewed: 10/03/2017 Reviewed by: Lila Pate (Rn) WILIAM Fontenot - Fully Assessed Visit Diagnosis:Other ascites [R18.8] Order(s):ABDOM PARACENTESIS DX/THER W IMAGING GUIDANCE [43362PHG] Order #: [id number] CELL COUNT + DIFF BFL [SQCCBF] Order #: [id number]. #:[id number] Prescriptions as of 10/03/2017 Sig: PAROXETINE 10 [...] 10/03/17 CNPN Observed: 09/23/2017 Status: COMPLETED Source: [place] 12:00 AM [facility] REPOSITORY Telephone (GASTA5) PRITI MCDONALD ([id number]) 1960 F Date Time Provider Department 09/23/17 FELY HARRIS GASTA5 During your visit today, we recorded the following information about you: Josette Hunter Coat Finisher 09/23/2017 8:24 AM Signed Pt is requesting paracentesis order. Josette Hunter Coat Finisher 09/24/2017 1:16 PM Signed I cant do that. she is in loi, ED or her pcp will have to see if she has ascites first Thx (Routing comment) Pt called in, advised of message. Pt will be seeing her PCP next Saturday and will wait until then. Josette Hunter Coat Finisher 09/25/2017 11:50 AM Signed Pt saw her PCP today and he informed her that he cannot order paracentesis. Pt is asking for Dr. Apple to place another paracentesis order. Josette Hunter Coat Finisher 10/01/2017 12:50 PM Signed Pt states she has been told by 2 other physicians that they cannot order paracentesis. Pt is asking if Dr. Apple can order. Pt is very uncomfortable. Josette Hunter Coat Finisher 10/02/2017 8:41 AM Signed Spoke with pt, [...] [K74.5] INVALID FOR* Encounter Status:Closed by KENJI LATHE SET UP OPERATORJOSETTE on 09/24/17 PROTEIN, BODY FLUID Collected: 08/20/2017 Status: F Source: [place] 4:23 PM [facility] REPOSITORY TYPE CODE TESTS RESULT [...] document C49A. ESTHER Gillespie: Clinical Laboratory Standards [place]: 2007. This test was developed and its performance characteristics determined by [facility]'s [facility] Pathology and Laboratory Medicine [place] ([facility]). It has not been cleared or approved by the FDA. -[facility] is regulated under CLIA as qualified to perform high-complexity testing. This test is used for clinical purposes. It should not be regarded as investigational or for research. Performed By: #### BFPROT, FAMYL, FLALB, CCBF #### [facility] [address], [place] [address] AMYLASE,BODY FLUID Collected: 08/20/2017 Status: F Source: [place] 4:23 PM [facility] REPOSITORY TYPE CODE TESTS RESULT OUT OF RANGE REFERENCE UNITS LAB [facility] See Comment U/L Abnormal Alert 13 Amylase,Bod [...] document C49-A. ESTHER Gillespie: Clinical Laboratory Standards [place]; 2007. 3. [facility], Chris RC, Devin DJ. Use of cyst fluid CEA, CA19-9, and amylase for evaluation of pancreatic lesions. Clinical Biochemistry. 2009;42:5176-9909. This test was developed and its performance characteristics determined by [facility] Pathology and Laboratory Medicine [place] ([facility]). It has not been cleared or approved by the FDA. [facility] is regulated under CLIA as qualified to perform high-complexity testing. This test is used for clinical purposes. It should not be regarded as investigational or for research. LAB F Fluid ASCITES Type Performed By: #### BFPROT, FAMYL, FLALB, CCBF #### [facility] [address], [place] [address] ALBUMIN, FLUID Collected: 08/20/2017 Status: F Source: [place] 4:23 PM [facility] REPOSITORY TYPE CODE TESTS RESULT OUT OF [...] document C49A. ESTHER Gillespie: Clinical Laboratory Standards [place]: 2007. Reference: 2. Catia KELLEY. Serum to ascites albumin gradient. UpToDate. 2015. Accessed on August 24, 2015. This test was developed and its performance characteristics determined by [facility] Pathology and Laboratory Medicine [place] ([facility]). It has not been cleared or approved by the FDA. [facility] is regulated under CLIA as qualified to perform high-complexity testing. This test is used for clinical purposes. It should not be regarded as investigational or for research. LAB FTALB ASCITES Fluid Performed By: #### BFPROT, FAMYL, FLALB, CCBF #### [facility] [employer] [address], [place] [address] CELL COUNT/DIFF BF Collected: 08/20/2017 Status: F Source: [place] 4:23 PM [facility] REPOSITORY TYPE CODE TESTS RESULT OUT OF [...] developed and its performance characteristics determined by [facility] [place] ([facility]). It has not been cleared or approved [...] Not Indicated LAB BFSLNM Slide Number BF [id number] LAB BFNEUT % Neut% 7 LAB BFLYMP % 41 Lymph% LAB BFMONO % Summers% 25 LAB BFMACR % 27 Macro% Performed By: #### BFPROT, FAMYL, FLALB, CCBF #### [facility] [address], [place] [address] PROGRESS Observed: 08/20/2017 Status: COMPLETED Source: [place] 12:48 PM [facility] REPOSITORY HNO ID: [id number] Author: Narcisa Pandya Service: (none) Author Type: [...] complications associated with the procedure. Fara Sotelo APRN.ELEVATOR CONSTRUCTOR HELPER Observed: 08/20/2017 Status: F Source: [place] ANAEROBE CULTURE 10:15 AM [facility] REPOSITORY Sp. Request/Comment: - Specimen received in sterile container. Specimen received already planted. Culture Result - Negative for anaerobes. Performed By: #### ANACUL #### [place] [address] Observed: 08/20/2017 Status: F Source: [place] BODY FLUID CULT/STN 10:15 AM [facility] REPOSITORY Sp. Request/Comment: - Specimen received in sterile container. Specimen received already planted. Smear Result - Gram stain performed on cytospun specimen. No organisms seen Many Polymorphonuclear leukocytes Many Mononuclear cells Culture Result - No growth 5 days Performed By: #### BFCUL #### [facility] [address] [address] PROGRESS Observed: 08/20/2017 Status: COMPLETED Source: [place] 10:11 AM [facility] REPOSITORY HNO ID: [id number] Author: Lila Pate (Rn) Po RN Service: [...] RN CYTOLOGY Observed: 08/20/2017 Status: F Source: [place] 10:11 AM [facility] REPOSITORY Specimen originated from [facility] Specimen #: [id number] Submitting Physician: NARCISA PANDYA DO SPECIMEN SUBMITTED A: PERITONEAL FLUID (THINPREP AND CELL BLOCK) FINAL DIAGNOSIS A. PERITONEAL FLUID (THINPREP AND CELL BLOCK) Negative for malignant cells. Pili Hwang MD (Electronic Signature) CLINICAL DATA Ascites GROSS DESCRIPTION 1200cc cloudy dark yellow fluid STAINS A: PERITONEAL FLUID (THINPREP AND CELL BLOCK) THIN PREP Non-Pharmacist Critical Care, CELL BLOCK, H&E, Initial Date of Report: 08/22/2017 Date of Procedure: 08/20/2017 Date of Receipt: 08/20/2017 Submitted by: NARCISA PANDYA DO Location: [place] [address] Diagnostic interpretation performed at [facility], [address] [place] [address]. CNOV Observed: 08/20/2017 Status: COMPLETED Source: [place] 8:15 AM [facility] REPOSITORY Office Visit (GAPRA3) PRITI MCDONALD ([id number]) 1960 F Date Time Provider Department 08/20/17 [...] Fara Sotelo APRN.JACK Referring Provider: SLIME GARBER (ELEVATOR CONSTRUCTOR HELPER) [[id number]] Allergies As of Date: 08/20/2017 Noted Allergy Reaction CODEINE 04/28/2007 Comments: nausea Date Reviewed: 08/20/2017 Reviewed by: Lila Pate (Rn) WILIAM Fontenot - Fully Assessed Primary Visit Diagnosis:Other ascites [R18.8] Other Visit Diagnosis:Nonalcoholic steatohepatitis ([place]) [K75.81] Order(s):ABDOM PARACENTESIS DX/THER W IMAGING GUIDANCE [43937QUI] Order #: [id number] PERITONEAL FLUID, CYTOLOGY [6137588] Order #: [id number] ANAEROBE CULTURE [SQANACUL] Order #: [id number] CELL COUNT + DIFF BFL [SQCCBF] Order #: [id number] ALBUMIN BFL [SQFLALB] Order #: [id number] AMYLASE BFL [SQFAMYL] Order #: [id number] PROTEIN BFL [SQBFPROT] Order #: [id number] BODY FLUID CULTURE AND GRAM STAIN [SQBFCUL] Order #: [id number] albumin, 25%, 25 % bottleInject 150 mL [...] 08/20/17 PROTIME Collected: 08/20/2017 Status: F Source: [place] 8:14 AM [facility] REPOSITORY TYPE CODE TESTS RESULT OUT OF RANGE REFERENCE UNITS LAB PSEC 9.7-13.0 sec PT Sec 11.4 LAB INR 0.9-1.3 PT INR 1.1 Result Comment: Vitamin K Antagonist (VKA) Therapeutic Range: INR 2 to 3 (Target INR of 2.5) Note: For patients treated with VKA drugs, such as warfarin, the [place] [employer]icians 2012 Guideline recommends [...] Chest 2012, 141:7S-47S Rita RA, et al. [facility] 2017, 70: 252-289 Performed By: #### PT #### [facility] [employer] [address], [place] [address] CBC AND DIFFERENTIAL Collected: 08/20/2017 Status: F Source: [place] 8:13 AM [facility] REPOSITORY TYPE CODE TESTS RESULT OUT OF [...] k/uL Abs Lymph 1.35 LAB AMONO % Summers% 9.8 LAB AAMONO <0.87 k/uL Abs Summers 0.60 LAB AEOS % Eosin% 3.9 LAB AAEOS <0.46 k/uL Abs Eosin 0.24 LAB ABASO % Baso% 0.5 LAB AABASO <0.11 k/uL Abs Baso 0.03 LAB AUNRBC 0 /100 WBC NRBCs 0.0 LAB ABNRBC <0.01 k/uL Absolute nRBC <0.01 LAB DTYP DTYPE Auto Diff Performed By: #### CBCDIF, CMP #### [facility] [address] [place] [address] COMP METABOLIC PANEL Collected: 08/20/2017 Status: F Source: [place] 8:13 AM [facility] REPOSITORY TYPE CODE TESTS RESULT OUT OF REFERENCE UNITS RANGE LAB TP 6.3-8.0 g/dL Protein, Total 7.1 LAB ALB 3.9-4.9 g/dL Low Albumin 3.6 LAB CA 8.5-10.2 mg/dL Calcium, Total 9.5 LAB TBIL 0.2-1.3 mg/dL Bilirubin, Total 0.9 LAB ALKP 32-117 U/L Alkaline Phosphatase 88 LAB AST 13-35 U/L AST 24 LAB GLU 74-99 mg/dL Glucose High 117 Result Comment: The [place] Diabetes Association (ADA) provides guidance for cutoff [...] Standards of Medical Care in Diabetes 2016, [place] Diabetes Association. Diabetes Care. 2016.39(Suppl 1). LAB [...] GFR. Performed By: #### CBCDIF, CMP #### [facility] [employer] [address] [place], [place] [address] AFP Collected: 08/20/2017 Status: F Source: [place] 8:13 AM [facility] REPOSITORY TYPE CODE TESTS RESULT OUT OF RANGE REFERENCE UNITS LAB AFP <11 ng/mL AFP 6.1 Performed By: #### AFP #### [facility] [employer] [address] [place], [place] [address] CNPN Observed: 08/19/2017 Status: COMPLETED Source: [place] 12:00 AM [facility] REPOSITORY Telephone (GASTA5) HARRYPRITI Josh ([id number]) 1960 F Date Time Provider Department 08/19/17 [...] added to the transplant list. Mahnaz Bajwa APRN.ELEVATOR CONSTRUCTOR HELPER 08/19/2017 10:13 AM Signed Spoke to Krishna, [...] 08/19/17 PROGRESS Observed: 08/15/2017 Status: COMPLETED Source: [place] 1:22 PM [facility] REPOSITORY O ID: [id number] Author: Fely Miranda Service: (none) Author Type: [...] Yes. More constipated, stool is sticky and electrical research engineer in color Bloody or black, bowel movements: [...] to clinic in 4 months Slime Garber APRN.ELEVATOR CONSTRUCTOR HELPER [facility] hepatology staff physician note of personal involvement [...] MD CNOV Observed: 08/15/2017 Status: COMPLETED Source: [place] 12:10 PM [facility] REPOSITORY Office Visit (GASTA5) PRITI MCDONALD ([id number]) 1960 F Date Time Provider Department 08/15/17 12:10 PM FELY HARRIS GASTA5 During your visit today, we recorded the following information about you: Temperature Pulse Blood pressure Weight 98.2 degrees 87/minute 144/89 119.3 kg Height 1.702 m Fely Apple MD 08/15/2017 4:16 PM Signed Hepatology A51 Slime Garber APRN.ELEVATOR CONSTRUCTOR HELPER Fely Apple MD Consultation requested by Dr. [...] Yes. More constipated, stool is sticky and electrical research engineer in color Bloody or black, bowel movements: [...] to clinic in 4 months Slime Garber APRN.ELEVATOR CONSTRUCTOR HELPER [facility] hepatology staff physician note of personal involvement [...] [K74.5] Order(s):ALPHA FETOPROTEIN BL [SQAFP] Order #: [id number] FUTURE CBC + DIFF [SQCBCDIF] Order #: [id number] FUTURE COMP METABOLIC PANEL [SQCMP] Order #: [id number] FUTURE PROTHROMBIN TIME/PT [SQPT] Order #: [id number] FUTURE ABDOM PARACENTESIS DX/THER W IMAGING GUIDANCE [73790SMD] Order #: [id number] FUTURE EGD BANDING [9806253] Order #: [id number] FUTURE Prescriptions as of 08/15/2017 Sig: GABAPENTIN [...] 08/15/2017 1:29 PM >> MARIANO FIORE MA [facility] Aug 15, 2017 1:29 PM Received [...] Apple M.D. Department of Gastroenterology and Hepatology/ [place] [address] Office: [phone] Appts: [phone] August 15, 2017 Elias Rodriguez MD Re: Priti Mcdonald [address] [facility] [address] Pickard Thank you for referring [...] ABDOMEN/PELVIS WITH Observed: 08/02/2017 Status: F Source: [place] CONTRAST 7:18 AM [facility] REPOSITORY [facility] Imaging Services [address] [place] [address] Abdomen/Pelvis WITH Contrast MR#: [id number] Acct: [id number] Name: PRITI MCDONALD Rep #: [id number] : 1960 F 56 From: Abimael Perez DO PCP: Elias Rodriguez Status: REG CLI Study: Abdomen/Pelvis WITH Contrast Date of Exam: 08/02/17 Exam# [id number] Ordering Dr: Elias Rodriguez MD STUDY: CT [...] , Service support , CC: Elias Rodriguez Mail Clerk Bills: Signed CT OUTSIDE CD DICOM Observed: 08/02/2017 Status: F Source: [facility] -NBNR 12:00 AM [facility] REPOSITORY Images were obtained outside of [facility] [id number] CBC W/DIFF, AUTOMATED Collected: 07/23/2017 Status: F Source: [place] 2:48 PM [facility] REPOSITORY TYPE CODE TESTS RESULT OUT [...] Lymph 1.48 Performed By: #### L100.0100 #### [facility] [address] [place], [place], [address] COMPREHENSIVE METABOLIC Collected: 07/23/2017 Status: F Source: [facility] 2:48 PM [facility] REPOSITORY TYPE CODE TESTS RESULT OUT [...] 8 Performed By: #### L500.4050, L501.2450 #### [facility] [address] [place], [address] LIPASE Collected: 07/23/2017 Status: F Source: [place] 2:48 PM [facility] REPOSITORY TYPE CODE TESTS RESULT OUT OF RANGE REFERENCE UNITS LAB L501.2450 73-393 U/L Normal LIPASE 135 Performed By: #### L500.4050, L501.2450 #### [facility] [address] [place], [address] ALLERGIES ALLERGIES DATE TYPE / CODE NAME / CODE REACTION SEVERITY SOURCE 05/30/2018 Drug codeine/Q47338 Nausea/Vom/Diar Unknown [facility] Allergy/4160 1550(RXNORM) [facility] [address]049(SNOMED Repository CT) 04/28/2007 DRUG CODEINE GI UPSET [facility]/[address] [place] [address](SNOMED Repository CT) 04/28/2007 DRUG CODEINE [place] [id number] [facility] [address](SNOMED Repository CT) ENCOUNTERS ENCOUNTERS ADMIT/DISCHARGE ACCOUNT ADMITTING ENCOUNTER LOCATION SOURCE NUMBER CLASS 05/30/2018 [id number] [facility] ing:MEDOUT Repository 05/21/2018/05/27/19 [id number] Ambulatory [address] Repository 05/16/2018 [id number] [facility] ing:[facility] Repository 05/09/2018/05/09/20 [id number] Ambulatory [address] Repository 05/02/2018/05/02/[id number] ing: Repository 05/02/2018/05/02/[id number] Repository 04/25/2018 [id number] [facility] ing:LAB.FUTUR Repository E 04/22/2018/04/22/20 [id number] Ambulatory [address] Repository 04/08/2018/04/09/20 [id number] Ambulatory [address] Repository 03/28/2018/03/28/20 [id number] Ambulatory [address] Repository 03/21/2018/04/16/20 [id number] Ambulatory [address] Repository 03/18/2018/03/19/20 [id number] Ambulatory [address] Repository 03/14/2018 [id number] Ambulatory [facility] ing:BFHLAB Repository 03/07/2018/03/07/20 [id number] Ambulatory [place] [facility] [place] Repository 03/07/2018/03/10/20 [id number] Ambulatory [place] [facility] [place] Repository 02/27/2018/02/28/20 [id number] Ambulatory [place] [facility] [place] Repository 02/27/2018/02/28/20 [id number] Ambulatory [place] [facility] [place] Repository 02/27/2018/02/28/20 [id number] Ambulatory [place] [facility] [place] Repository 02/27/2018/02/28/20 [id number] Ambulatory [place] [facility] [place] Repository 02/14/2018/02/18/20 [id number] Ambulatory [place] [facility] [place] Repository 02/14/2018/02/15/20 [id number] Ambulatory [place] [facility] [place] Repository 02/10/2018/02/11/20 [id number] Ambulatory [place] [facility] [place] Repository 02/07/2018/02/08/20 [id number] Ambulatory [place] [facility] [place] Repository 02/03/2018/02/04/20 [id number] Ambulatory [place] [facility] [place] Repository 01/31/2018/02/01/20 [id number] Ambulatory [place] [facility] [place] Repository 01/31/2018/02/04/20 [id number] Ambulatory [place] [facility] [place] Repository 01/27/2018/01/28/20 [id number] Ambulatory [place] [facility] [place] Repository 01/21/2018/01/26/20 [id number] SOURAV REYNOLDS, Inpatient [address] Main [place] Repository 01/21/2018/01/22/20 [id number] Emergency [address] ing:ED Repository 01/21/2018/01/22/20 [id number] Ambulatory [place] [facility] [place] Repository 01/07/2018/01/08/20 [id number] Ambulatory [address] Main [place] Repository 12/31/2017/01/01/20 [id number] Ambulatory [address] Main [place] Repository 12/26/2017/12/27/19 [id number] Ambulatory [address] Main [place] Repository 12/24/2017/12/25/19 [id number] Ambulatory [address] Main [place] Repository 12/09/2017/12/11/19 [id number] Ambulatory [address] Main [place] Repository 12/09/2017/12/10/19 [id number] Ambulatory [address] Main [place] Repository 11/29/2017/11/30/19 [id number] Ambulatory [address] Main [place] Repository 11/27/2017/11/28/19 [id number] Emergency [address] Main [place] Repository 11/27/2017/11/28/19 [id number] Ambulatory [address] Main [place] Repository 11/12/2017/11/13/19 [id number] Ambulatory [address] [place] Repository 11/05/2017/11/07/19 [id number] Ambulatory [address] Repository 10/24/2017/10/25/19 [id number] Ambulatory [address] Repository 10/21/2017 [id number] Ambulatory [facility] ing:OPBI Repository 10/17/2017 [id number] Ambulatory [facility] ing:BFHLAB Repository 10/03/2017/10/04/19 [id number] Ambulatory [address] Repository 09/11/2017/09/12/19 [id number] Ambulatory [address] Repository 08/20/2017/08/21/19 [id number] Ambulatory [address] Repository 08/20/2017 [id number] Ambulatory [facility] Repository 08/15/2017/08/17/19 [id number] Ambulatory [address] Repository 08/02/[id number] [facility] ing:CT Repository 07/23/2017 [id number] Ambulatory [facility] ing:BFHLAB Repository PAYERS PAYERS ENCOUNTER GUARANTOR PAYER SUBSCRIBER SOURCE 05/30/2018 PRITI Josh ARVIZU Loi [id number] Insurance:[facility] KENNEDYDOB: [facility] [id number] Number: Repository [address]Vhj: ([phone]) [id number] [phone] (HP) Date:3785-48-33XB [facility] [place], [place] [address]VC: 05/30/2018 Secondary NOT GIVENUNK [place] Insurance:SELF PAY [facility] Effective Repository Date:2018-05-14 05/16/2018 PRITI L Primary [facility] Loi [id number] Insurance:[place] KENNEDYDOB: [facility] RDAPT CARE [id number] [place] Number: Repository [address]Exv: [phone] [id number] [phone] (HP) Date:9452-81-71UP [address] [address]DP: 05/16/2018 Secondary NOT GIVENUNK Loi Insurance:SELF PAY [facility] Number: Effective Repository Date:2018-05-02 05/02/2018 PRITI L Primary [facility] [place] [id number] [facility] MCDONALDDOB: [facility] RDAPT CARE [id number] Number: Repository [address]Spf: [phone] [id number] [phone] Date:5174-58-29AJ [facility], [place] [address]YG: 05/02/2018 Secondary NOT GIVENUNK [place] Insurance:SELF PAY [facility] Number: Effective Repository Date:2018-04-22 04/25/2018 PRITI L Primary [facility] [place] [id number] Insurance:[facility] HARRYDOB: [facility] RDAPT CARE [id number] [id number] [place] Number: Repository [address]Lmp: [phone] [id number] [phone] (HP) Date:3374-07-41TT [facility] [id number], [place] [address]YI: 04/25/2018 Secondary NOT GIVENUNK [place] Insurance:SELF PAY [facility] Hospital Number: Effective Repository Date:2018-04-25 03/14/2018 PRITI L Primary [facility] [place] [id number] Insurance:[employer] [place] KENNEDYDOB: [facility] RDAPT CARE [id number], [place] Number: Repository [address]Rht: [phone]) [id number] [phone] (HP) Date:0248-42-17DN [facility] [id number] [place] [address]UB: 03/14/2018 Secondary NOT GIVENUNK Loi Insurance:SELF PAY [facility] Number: Effective Repository Date:2018-03-14 01/21/2018 ARVIZU Primary ARVIZU Loi [id number] Insurance:[employer] KENNEDYDOB: [facility] RDAPT CARE [id number], [place] Number: Repository [address]Jer: [phone] [id number] [phone] (HP) Date:0216-54-81FO [address] [address]: 01/21/2018 Secondary NOT GIVENUNK [place] Insurance:SELF PAY [facility] Number: Effective Repository Date:2018-01-21 10/21/2017 ARVIZU Primary ARVIZU Loi [id number] Insurance:[employer] KENNEDYDOB: [facility] RDAPT CARE [id number], [place] Number: Repository [id number]: [phone] [id number] [phone] (HP) Date:9289-10-74GZ [facility] [place]7[address], [place] [address]CP: 10/21/2017 Secondary NOT GIVENUNK [place] Insurance:SELF PAY [facility] Number: Effective Repository Date:2017-07-25 10/17/2017 ARVIZU Primary ARVIZU Loi [id number] Insurance:[employer] [place] KENNEDYDOB: [facility] RDAPT CARE [id number] [id number], [place] Number: Repository [address]Vnl: [phone] [id number] [phone] (HP) Date:5063-85-38YM [address], [place] [address]FB: 10/17/2017 Secondary NOT GIVENUNK [place] Insurance:SELF PAY [facility] Number: Effective Repository Date:2017-10-17 08/02/2017 Arvizu Primary L[place] Loi [id number] Insurance:[facility] KennedyDOB: [facility] RDAPT CARE [id number], [place] Number: Repository [address]Wtv: [id number] [phone] Date:6979-45-37PU [address] () [id number], [place] [address]HA: 08/02/2017 Secondary PRITI L [place] Insurance:[facility] P[facility] KENNEDYDOB: [facility] Number: [id number] Hospital [id number] Repository Date:2017-07-25 08/02/2017 Tertiary NOT GIVENUNK [place] Insurance:SELF PAY [facility] Number: Effective Repository Date:2017-07-25 07/23/2017 Arvizu Primary [address] [id number] Insurance:[facility] KennedyD[facility] [id number] [id number], [place] Number: Repository [address]Mgk: [id number] [phone] Date:5079-82-22NU [address] [id number], [place] [address]YX: 07/23/2017 Secondary NOT GIVENUNK Loi Insurance:SELF PAY [facility] Number: Effective Repository Date:2017-07-23
== END ==
PROVIDERS: Radiology Diagnostic Radiology; Family Provider Family Medicine; PCP Family Medicine
DX: K75.81 Nonalcoholic steatohepatitis (NASH) (principal); R18.8 Other ascites
CPT/HCPCS: 96365; 49083; 85027; 85610; 88108; 88305; 88313; P9047; A4216

== ENCOUNTER → 2018-06-13 08:24 | Outpatient (CLI) | payer OTHER, SELFPAY ==
[2018-05-30 10:27] VITALS: BMI 35.2
--- NOTE | 2018-06-13 08:27 | US_ITS ---
PROCEDURE: Ultrasound guided paracentesis. DATE OF EXAMINATION: June 13, 2018. INDICATION: Female, 57 years old. Ascites. PHYSICIAN: Kannan Pennington M.D. TECHNIQUE: The risks, benefits, and alternatives to the procedure were explained to the patient. The specific risks of bleeding, infection, and damage to bowel were detailed and accepted. Witnessed informed consent was obtained. The abdomen was ultrasonographically surveyed. An appropriate pocket of fluid was identified at the right lower quadrant. The skin were cleaned and prepped in the usual sterile fashion. Using ultrasound guidance, the peritoneal cavity was accessed with a 5-Beninese paracentesis needle/catheter system. The trocar was removed. A total of 8870 ml of moses-colored fluid were removed from the peritoneal cavity. A 120 mL sample was sent to the laboratory. The catheter was removed and a sterile dressing was applied. The procedure was well tolerated. US/Paracentesis with US IMPRESSION: Ultrasound guided paracentesis. Electronically Signed: Kannan Pennington MD at 10:48 EST , Service support ,
[2018-06-13 09:41] LABS: Body Fluid Mononuclear WBC # 0.342 10^3/uL; Body Fluid Mononuclear WBC % 91.7 %; Body Fluid Polynuclear WBC # 0.031 10^3/uL; Body Fluid Polynuclear WBC % 8.3 %; Body Fluid Total Cells Counted 0.434 10^3/ul (0.000-0.000); White Blood Count/Body Fluid 0.373 10^3/uL
[2018-06-13 09:43] VITALS: BP 135/80; PULSE 85; RESP 16; TEMP 36.3; O2SAT 98; BMI 35.2
[2018-06-13 09:45] VITALS: BP 116/83; BP 146/83; BP 150/84; PULSE 74; PULSE 75; PULSE 84; RESP 16; O2SAT 95; O2SAT 97; O2SAT 987
[2018-06-13] MEDS: Albumin Human 25% (100 mL) 25 GM/100 ML BAG IV ×2 (09:55→10:22)
[2018-06-13 10:00] LABS: Auto B Fluid Analyzer BKGD Ct COUNTS W/IN LIMITS (W/IN LIMITS)
[2018-06-13 10:03] LABS: Appearance/Body Fluid CLEAR; Color/Body Fluid YELLOW
[2018-06-13 10:24] LABS: Body Fluid QC Type(s) BF1Q
[2018-06-13 10:37] LABS: Red Cell Count/Body Fluid 590 /mm3
[2018-06-13] MEDS: Albumin Human 25% (50 mL) 12.5 GM/50 ML IV.SOLN IV (10:40)
[2018-06-13 10:49] LABS: Source- Body Fluid PERITONEAL FLUID
[2018-06-13 10:57] LABS: Monocytes 17 %; Neutrophil (Segs) 15 %
[2018-06-13 10:59] LABS: Lymphocytes 55 %
[2018-06-13 11:00] LABS: Other Cell Type/BF 13 %
[2018-06-13 15:56] LABS: Pathologist Comment/Body Fluid Reviewed
== END ==
PROVIDERS: Family Provider Family Medicine; PCP Family Medicine
DX: K75.81 Nonalcoholic steatohepatitis (NASH) (principal); R18.8 Other ascites
CPT/HCPCS: 96365; 49083; 88108; 88305; 88313; 89050; P9047; A4216

== ENCOUNTER → 2018-07-25 11:14 | Outpatient (CLI) | payer OTHER, SELFPAY ==
[2018-06-13 09:43] VITALS: BMI 35.2
[2018-07-25 11:45] LABS: International Normalized Ratio 1.1; Partial Thromboplast Time 32.3 Seconds (24.1-36.2); Prothrombin Time (Protime)PT. 14.4 SECONDS (11.7-14.9)
--- NOTE | 2018-07-25 12:07 | US_ITS ---
PROCEDURE: Ultrasound guided paracentesis. DATE OF EXAMINATION: July 25, 2018.. INDICATION: Female, 57 years old. Ascites. PHYSICIAN: Kannan Pennington M.D. TECHNIQUE: The risks, benefits, and alternatives to the procedure were explained to the patient. The specific risks of bleeding, infection, and damage to bowel were detailed and accepted. Witnessed informed consent was obtained. The abdomen was ultrasonographically surveyed. An appropriate pocket of fluid was identified at the right lower quadrant. The skin were cleaned and prepped in the usual sterile fashion. Using ultrasound guidance, the peritoneal cavity was accessed with a 5-Ukrainian paracentesis needle/catheter system. The trocar was removed. A total of 6700 ml of moses-colored fluid were removed from the peritoneal cavity. A 120 mL sample was sent to the laboratory. The catheter was removed and a sterile dressing was applied. The procedure was well tolerated. US/Paracentesis with US IMPRESSION: Ultrasound guided paracentesis. Electronically Signed: Kannan Pennington, at 14:22 EDT , Service support ,
[2018-07-25 13:21] LABS: Body Fluid Mononuclear WBC # 0.262 10^3/uL; Body Fluid Mononuclear WBC % 92.3 %; Body Fluid Polynuclear WBC # 0.022 10^3/uL; Body Fluid Polynuclear WBC % 7.7 %; Body Fluid Total Cells Counted 0.365 10^3/ul (0.000-0.000); White Blood Count/Body Fluid 0.284 10^3/uL
[2018-07-25 13:26] LABS: Appearance/Body Fluid CLEAR; Auto B Fluid Analyzer BKGD Ct COUNTS W/IN LIMITS (W/IN LIMITS); Color/Body Fluid YELLOW; Source- Body Fluid OTHER
[2018-07-25 13:27] LABS: Body Fluid QC Type(s) BF1Q
[2018-07-25 13:41] LABS: Red Cell Count/Body Fluid 963 /mm3
[2018-07-25 13:54] VITALS: BP 120/65; PULSE 82; RESP 18; TEMP 35.9; O2SAT 100; BMI 36.6
[2018-07-25 14:08] LABS: Lymphocytes 39 %; Macrophages 32 %; Monocytes 15 %; Neutrophil (Segs) 14 %
[2018-07-25] MEDS: Albumin Human 25% (100 mL) 25 GM/100 ML BAG IV ×2 (14:18→14:35)
[2018-07-25 14:33] VITALS: BP 119/64; BP 124/56; BP 140/78; BP 148/74; PULSE 82; PULSE 83; PULSE 89; RESP 18; O2SAT 94; O2SAT 95; O2SAT 96
[2018-07-25 14:55] VITALS: BP 116/47
[2018-07-29 14:08] LABS: Pathologist Comment/Body Fluid Reviewed
== END ==
LOC: US 13:46 → MEDOUTP 13:53
PROVIDERS: Family Provider Family Medicine; PCP Family Medicine
DX: K75.81 Nonalcoholic steatohepatitis (NASH) (principal); R18.8 Other ascites
CPT/HCPCS: 96365; 36415; 49083; 85610; 85730; 88108; 88305; 88313; 89050; P9047

== ENCOUNTER → 2018-09-09 11:04 | Outpatient (CLI) | payer OTHER, SELFPAY ==
[2018-07-25 13:54] VITALS: BMI 36.6
--- NOTE | 2018-09-09 | FLU_PTH ---
PATIENT: CELINA HIDALGO LOC: [facility] [place]#:[id number] AGE/SX: 64/F ROOM: RE09/09/[address]: : 1960 BED: DIS: SPEC #: [id number] RECD: 09/09/18 15:00 STATUS: YANNICK MILNER #: [id number] WATSON: 09/09/18 00:[address]: Kannan Pennington DEPT: CYTOLOGY RECD BY: Iram Roberts ENTERED: 09/10/18 09:08 SP TYPE: Fluid OTHR DR: Dr. Elias Rodriguez MD Tissues: PARACENTESIS FLUID Procedures: Special Stain Group II Surgery Specimen Level IV Cytospin Fluid HEADER OPERATION: Ultrasound guided paracentesis, right PRE-OP DIAGNOSIS: NINA K75.81, ascites R18.8 TISSUE SUBMITTED: Paracentesis fluid for cytology DIAGNOSIS CYTOLOGY Paracentesis fluid for cytology (cytospin and cell block): Negative for malignant cells. SJ:niki 09/11/18 COMMENT Please make reference to previous specimens ([id number], C19-29, C19-48 and [id number]) paracentesis fluid for cytology with diagnosis of negative for malignant cells. CYTOLOGY STUDY Slides are reviewed. CYTOLOGY GROSS Received is 115 ml of moses hazy fluid labeled with the patient's name and and designated per the requisition as paracentesis fluid. Submitted for cytology preparation including cell block. /CC:cc 09/10/18 TC:5 CPT: 22151, 20350
[2018-09-09 11:38] LABS: International Normalized Ratio 1.3; Prothrombin Time (Protime)PT. 16.2 SECONDS (11.7-14.9)
[2018-09-09 11:39] LABS: Partial Thromboplast Time 34.3 Seconds (24.1-36.2)
--- NOTE | 2018-09-09 12:10 | US_ITS ---
PROCEDURE: Ultrasound guided paracentesis. DATE OF EXAMINATION: September 09, 2018.. INDICATION: Female, 58 years old. Ascites. PHYSICIAN: Kannan Pennington M.D. TECHNIQUE: The risks, benefits, and alternatives to the procedure were explained to the patient. The specific risks of bleeding, infection, and damage to bowel were detailed and accepted. Witnessed informed consent was obtained. The abdomen was ultrasonographically surveyed. An appropriate pocket of fluid was identified at the right lower quadrant. The skin were cleaned and prepped in the usual sterile fashion. Using ultrasound guidance, the peritoneal cavity was accessed with a 5-Bengali paracentesis needle/catheter system. The trocar was removed. A total of 770 ml of moses-colored fluid were removed from the peritoneal cavity. A 120 mL sample of fluid was sent to the laboratory. The catheter was removed and a sterile dressing was applied. The procedure was well tolerated. US/Paracentesis with US IMPRESSION: Ultrasound guided paracentesis. Electronically Signed: Kannan Pennington, at 13:54 EDT , Service support ,
[2018-09-09 13:46] LABS: Body Fluid Mononuclear WBC # 0.399 10^3/uL; Body Fluid Mononuclear WBC % 89.5 %; Body Fluid Polynuclear WBC # 0.047 10^3/uL; Body Fluid Polynuclear WBC % 10.5 %; Body Fluid Total Cells Counted 0.579 10^3/ul (0.000-0.000); White Blood Count/Body Fluid 0.446 10^3/uL
[2018-09-09 14:22] LABS: Lymphocytes 42 %; Macrophages 30 %; Mesothelial Cells 3 %; Monocytes 13 %; Neutrophil (Segs) 12 %
[2018-09-09 14:23] LABS: Appearance/Body Fluid SL CLDY; Auto B Fluid Analyzer BKGD Ct COUNTS W/IN LIMITS (W/IN LIMITS); Color/Body Fluid YELLOW; Source- Body Fluid OTHER
[2018-09-09 14:24] LABS: Body Fluid QC Type(s) BF1Q
[2018-09-09 14:48] VITALS: BP 121/62; BP 124/74; BP 127/71; BP 129/70; BP 131/73; BP 150/69; BP 150/75; PULSE 70; PULSE 74; PULSE 77; PULSE 80; PULSE 82; PULSE 89; RESP 18; RESP 20; O2SAT 95; O2SAT 96; O2SAT 97
[2018-09-11 09:22] LABS: Pathologist Comment/Body Fluid Reviewed
== END ==
PROVIDERS: Family Provider Family Medicine; PCP Family Medicine
DX: K75.81 Nonalcoholic steatohepatitis (NASH) (principal); R18.8 Other ascites
CPT/HCPCS: 36415; 49083; 85610; 85730; 88108; 88305; 88313; 89050; A4216

== ENCOUNTER → 2018-10-07 | Outpatient (CLI) | payer OTHER, SELFPAY ==
[2018-07-25 13:54] VITALS: BMI 36.6
[2018-10-07 12:39] LABS: Absolute Lymphocyte Count 0.77 X10^3/ul (0.83-4.51); Absolute Neutrophil Count 3.1 X10^3/uL (2.0-7.7); Basophil# 0.03 X10^3/uL; Basophil% 0.6 % (0-1); Eosinophil# 0.27 X10^3/uL; Eosinophils% 5.7 % (0-5); Hematocrit 38.2 % (37-47); Hemoglobin 12.8 g/dl (12.0-15.0); Lymphocyte # 0.77 X10^3/ul (4.0); Lymphocyte % 16.2 % (19-41); Mean Corp Hgb Conc 33.5 g/gl (32-36); Mean Corpuscular Hgb 29.2 pg (27.0-32.0); Mean Platelet Vol. 10.7 fl (6.2-12.0); Monocyte# 0.56 X10^3/uL; Monocyte% 11.8 % (0-10); Neutrophil # 3.11 X10^3/uL (2.7-7.7); Neutrophil % 65.5 % (47-70); Platelet Count 206 K/mm3 (150-450); RBC Distribution Width CV 14.6 % (11.6-14.6); RBC Distribution Width SD 45.2 fl (35.1-43.9); Red Blood Count 4.39 M/mm3 (4.2-5.4); White Blood Count 4.8 K/mm3 (4.4-11.0)
[2018-10-07 12:45] LABS: POSITIVE COUNT NO; POSITIVE DIFFERENTIAL NO; POSITIVE MORPHOLOGY NO
[2018-10-07 13:05] LABS: ALB/GLOB Ratio 0.9 RATIO (0.9-2.4); AST(SGOT) 30 U/L (15-37); Alanine Aminotransfer ALT/SGPT 28 U/L (13-56); Albumin, Serum 3.1 g/dL (3.2-5.0); Alkaline Phosphatase 158 U/L (45-117); Anion Gap 7 (5-15); BUN 17 mg/dL (7-18); BUN/Creat Ratio 13.6 RATIO (10-20); Calcium,Total 9.3 mg/dL (8.5-10.1); Chloride 110 mmol/L (98-107); Creatinine, Serum 1.25 mg/dL (0.55-1.02); EST Glomerular Filtration Rate 47 mL/min (>60); Est Glom Filt Rate - Afr Amer 56 mL/min (>60); Globulin 3.5 g/dL (2.2-4.2); Glucose 98 mg/dL (74-106); Potassium 4.2 mmol/L (3.5-5.1); Protein, Total 6.6 g/dL (6.4-8.2); Sodium Level 144 mmol/L (136-145); T4 Free Direct 1.54 ng/dL (0.76-1.46); Thyroid Stim Hormone (TSH) 0.08 uIU/mL (0.358-3.74)
== END | disposition home or self-care (01) ==
LOC: LAB.FUTURE 09:39
PROVIDERS: Family Provider Family Medicine; PCP Family Medicine; Visit Provider Family Medicine
DX: E78.5 Hyperlipidemia, unspecified (principal); E03.9 Hypothyroidism, unspecified; K75.81 Nonalcoholic steatohepatitis (NASH)
CPT/HCPCS: 36415; 80053; 84439; 84443; 85025

== ENCOUNTER → 2020-03-04 11:02 | Outpatient (CLI) | payer OTHER, SELFPAY ==
[2018-07-25 13:54] VITALS: BMI 36.6
[2020-03-04 13:07] LABS: ALB/GLOB Ratio 0.8 RATIO (0.9-2.4); AST(SGOT) 36 U/L (15-37); Alanine Aminotransfer ALT/SGPT 41 U/L (13-56); Alkaline Phosphatase 188 U/L (45-117); Anion Gap 5 (5-15); BUN 16 mg/dL (7-18); BUN/Creat Ratio 14.2 RATIO (10-20); Calcium,Total 9.1 mg/dL (8.5-10.1); Chloride 109 mmol/L (98-107); Creatinine, Serum 1.13 mg/dL (0.55-1.02); EST Glomerular Filtration Rate 52 mL/min (>60); Est Glom Filt Rate - Afr Amer 63 mL/min (>60); Globulin 3.7 g/dL (2.2-4.2); Glucose 176 mg/dL (74-106); Potassium 3.6 mmol/L (3.5-5.1); Protein, Total 6.7 g/dL (6.4-8.2); Sodium Level 142 mmol/L (136-145); Thyroid Stim Hormone (TSH) 0.04 uIU/mL (0.358-3.74)
== END ==
PROVIDERS: PCP Family Medicine; Visit Provider Family Medicine
DX: E03.9 Hypothyroidism, unspecified (principal); K75.81 Nonalcoholic steatohepatitis (NASH)
CPT/HCPCS: 36415; 80053; 84439; 84443

== ENCOUNTER → 2021-04-03 10:46 | Outpatient (CLI) | payer MEDICARE, SELFPAY ==
--- NOTE | 2021-04-03 10:51 | RAD_ITS ---
STUDY: X-RAY - RIGHT KNEE REASON FOR EXAM: Female, 60 years old. Knee pain. TECHNIQUE: 4 view(s) of the knee. COMPARISON: None. FINDINGS: Osteopenia. Normal visualized distal femur. Normal visualized proximal tibia and fibula. Normal proximal tibiofibular articulation. Mild medial compartmental arthrosis with small osteophytes. Normal lateral compartment. Lateral tilt and subluxation of the patella with mild thinning of the articular cartilage of the patellofemoral compartment. Small joint effusion. RAD/Knee 4 or More Views IMPRESSION: Osteopenia with medial and patellofemoral compartmental arthrosis with small effusion. Electronically Signed: Flavio Rowland MD at 9:30 EST , Service support ,
== END ==
LOC: MTRAD 10:49
PROVIDERS: PCP Family Medicine; Referring Provider Family Medicine; Visit Provider Family Medicine
DX: M25.561 Pain in right knee (principal)
CPT/HCPCS: 73564

== ENCOUNTER → 2024-09-15 | Outpatient (CLI) | payer MEDICARE, SELFPAY ==
--- NOTE | 2024-09-15 11:26 | RAD_ITS ---
PROCEDURE: L/S SPINE MIN 4 VIEWS 09/15/2024 REASON FOR EXAM: LOW BACK PAIN TECHNIQUE: Four views; AP, lateral and bilateral obliques COMPARISON: None available FINDINGS: 5 ifb-loj-[id number] lumbar vertebral body types identified. No fracture. No evidence of spondylolysis identified. L2-3 mild disc space narrowing L3-4 moderate disc space narrowing L4-5 Mild anterolisthesis L4 on L5. Mild disc space narrowing Lower lumbar facet degenerative changes suggested. Aortoiliac atherosclerotic calcification. Surgical clips right upper quadrant. RAD/L/S Spine Min 4 Views IMPRESSION: Multilevel spondylosis/discogenic change and spondylolisthesis L4-5 as above. Reading Location: [id number]
== END | disposition home or self-care (01) ==
LOC: MTRAD 11:25
PROVIDERS: PCP Nurse Practitioner Family; Referring Provider Nurse Practitioner Family; Visit Provider Nurse Practitioner Family
DX: M54.50 Low back pain, unspecified (principal)
CPT/HCPCS: 72110